=== PATIENT | female | born 1975 | race Caucasian/White ===

== ENCOUNTER → 2018-01-06 14:43 | Outpatient (CLI) | payer MEDICAID, SELFPAY ==
[2018-01-06 14:51] LABS: Mucous, Urine 0 SEEN /hpf (<or=2+); Red Blood Cells-Urine 0 SEEN /hpf (0-5); White Blood Cells 0 SEEN /hpf (0-5)
[2018-01-06 17:51] LABS: Color, Urine Yellow (Yellow); Glucose, Dipstick Normal (Normal); Ketone-Dipstick 5 mg/dl (Negative); Leukocyte Esterase-Dipstick Negative /ul (Negative); Nitrite-Dipstick Negative (Negative); Occult Blood-Urine 10 /ul (Negative); Protein-Dipstick 15 mg/dl (Negative); Urine Bilirubin Dipstick Negative (Negative); Urine Urobilinogen Normal (Normal)
[2018-01-06 17:52] LABS: Urine Clarity Cloudy (Clear)
[2018-01-06 18:11] LABS: Bacteria 1+ /hpf (None Seen); Calcium Oxalate Crystals Ur 2+ /hpf (<or=2+); Squamous Epithelial Cells - UA 5-10 SEEN /hpf (5-10)
[2018-01-06 18:49] LABS: Chlamydia Trachomatis by PCR Negative (Negative); Neisserai gonorrhoeae by PCR Negative (Negative); Probe Check PASS; Sample Adequacy Control PASS; Specimen Processing Control PASS
--- OUTSIDE RECORDS SUMMARY | 2018-03-03 14:12 | XMS RPT_ITS ---
:1975 Author Organization OHIP Care Team Providers Name Role Phone Joselin Treviño Attending Unavailable VAZQUEZ, REJI Yadira Attending Unavailable VAZQUEZ, REJI L Referring Unavailable ARMOGIDA, FLACO A Attending Unavailable VAZQUEZ, REJI L Attending Unavailable VAZQUEZ, REJI L Referring Unavailable CORNIELLO, CYNTHIA Yadira ([facility]) Attending Unavailable VAZQUEZ, REJI L Referring Unavailable ISABEL YOUNG Referring Unavailable ARMOGIDA, FLACO A Attending Unavailable VAZQUEZ, REJI L Referring Unavailable CORNIELLO, CYNTHIA L ([facility] CONTACT PERSON) Attending Unavailable CORNIELLO, CYNTHIA L (FIELD CONTACT PERSON) Referring Unavailable CORNIELLO, CYNTHIA L (FIELD CONTACT PERSON) Referring Unavailable VAZQUEZ, REJI L Attending Unavailable VAZQUEZ, REJI L Referring Unavailable DORIE ESPINOZA) Attending Unavailable VAZQUEZ, REJI L Referring Unavailable KASIA WALDEN ([facility]) Attending Unavailable VAZQUEZ, REJI L Attending Unavailable VAZQUEZ, REJI L Referring Unavailable PODLOGWILFRID RENDON (JULIOCESAR) Referring Unavailable ARMOGIDA, FLACO A Referring Unavailable ARMOGIDA, FLACO A Referring Unavailable ARMOGIDA, FLACO A Attending Unavailable ARMOGIDA, FLACO A Referring Unavailable VAZQUEZ, REJI L Referring Unavailable VAZQUEZ, REJI L Referring Unavailable NATHAN, WILFREDO Attending Unavailable WILFREDO EVANS Referring Unavailable ARMOGIDA, FLACO A Attending Unavailable VAZQUEZ, REJI L Referring Unavailable VAZQUEZ, REJI L Attending Unavailable VAZQUEZ, REJI L Referring Unavailable PROBLEMS PROBLEMS DATE TYPE CONDITION / CODE ATTENDING STATUS SOURCE 01/06/2018 Unknown Z11.3 - Encounter [place], Active [place] for screening for [facility] infections with a Hospital predominantly Repository sexual mode of transmission / Z11.3(ICD-10) 01/06/2018 Unknown N39.0 - Urinary [place], Active [place] tract infection, [facility] site not specified Hospital / N39.0(ICD-10) Repository 01/06/2018 Unknown Z34.81 - Encounter [place], Active [place] for supervision of [facility] other normal Hospital , first Repository trimester / Z34.81(ICD-10) 12/27/2017 Active Other abnormal NA Active [facility] glucose / [facility] [place] R73.09(ICD-10) Repository 12/27/2017 Active Other obesity / NA Active [facility] E66.8(ICD-10) [facility] [place] Repository 12/27/2017 Active Vitamin D NA Active [facility] deficiency, [facility] [place] unspecified / Repository E55.9(ICD-10) 11/21/2017 Active Generalized NA Active [facility] abdominal pain / [facility] [place] R10.84(ICD-10) Repository 11/08/2017 Active Mild persistent NA Active [facility] asthma with (acute) [facility] [place] exacerbation / Repository J45.31(ICD-10) 10/18/2017 Active Generalized anxiety NA Active [facility] disorder / [facility] [place] F41.1(ICD-10) Repository 10/18/2017 Active Other fatigue / NA Active [facility] R53.83(ICD-10) [facility] [place] Repository 10/18/2017 Active Nausea / NA Active [facility] R11.0(ICD-10) [facility] [place] Repository 10/18/2017 Active Paresthesia of skin NA Active [facility] / R20.2(ICD-10) [facility] [place] Repository 09/22/2017 Active Secondary NA Active [facility] amenorrhea / [facility] [place] N91.1(ICD-10) Repository 07/05/2017 Active Frequency of NA Active [facility] micturition / [facility] [place] R35.0(ICD-10) Repository 05/01/2014 Active Iron deficiency / NA Active [facility] E61.1(ICD-10) [facility] [place] Repository 02/08/2014 Active Nontoxic NA Active [facility] multinodular goiter [facility] [place] / E04.2(ICD-10) Repository 07/05/2017 Active Dizziness and NA Active [facility] giddiness / [facility] [place] R42(ICD-10) Repository 05/31/2017 Active Cough / R05(ICD-10) NA Active [facility] Repository 03/08/2017 Active Unknown / ARMOGIDA, Active [facility] UNK(Unknown) FLACO A [facility] [place] Repository PROCEDURES PROCEDURES No Procedure Records FoundRESULTS RESULTS PROGRESS Observed: 01/24/2018 Status: COMPLETED Source: [place] 1:14 PM [facility] REPOSITORY HNO ID: [id number] Author: Reji Vazquez Service: (none) Author Type: Physician Type: Progress Notes Filed: 01/24/2018 1:22 PM Note Text: CC: Mony Zhang is a 42 year old female who presents to the office for 3 months follow up HPI: Overall doing well Irritability, anxiety and depression, she is on increased dose of Effexor per TELEVISION JOURNALIST due to increased emotional changes with recent change of now being 12 weeks . Her and her boyfriend are very much looking forward to this baby being born/due in August Sinus pressure and congestion x 2-3 weeks, no fevers or chills. Taking tylenol without improvement, + sick contacts with dtr ill with Croup PAST MEDICAL HISTORY Diagnosis Date - Allergic rhinitis, cause unspecified - Anemia - Depression - Extrinsic asthma, unspecified - Fibromyalgia - Gestational diabetes 2016 - Hypoglycemia - IBS (irritable bowel syndrome) - Migraine headache Dr. Varghese Neurologist - Multiple thyroid nodules Dr. Evans Junior Account Manager - Obstructive sleep apnea on CPAP, Dr. Núñez - [facility] - PAST MEDICAL HISTORY OF Tarsal tunnel - Psoriatic arthritis (HCC) PAST SURGICAL HISTORY Procedure Laterality Date - COLONOSCOP W/ OR W/O [facility] Colonoscopy - COLONOSCOP W/ OR W/O [facility] 03/15/13 Colonoscopy [facility] Dr. Borden - EGD W/O OR W/BRUSH/WASH EGD - PAST SURGICAL HISTORY OF 2004 sinus surgery - REMOVAL GALLBLADDER 2007 Cholecystectomy Current Outpatient Prescriptions: albuterol (PROVENTIL) 2.5 mg /3 mL (0.083 %) nebulizer solution One ampule nebulized every 4 hours as needed for cough, wheezing, chest tightness or shortness of breath. albuterol HFA (VENTOLIN HFA) 90 mcg/actuation inhaler Inhale 2 Puffs as instructed every 4 hours as needed (May also use 15 minutes pre-exercise). ammonium lactate (LAC-HYDRIN) 12 % cream Apply 1 application to affected area as needed (for bumps on the arms). budesonide (RHINOCORT AQUA) 32 mcg/actuation nasal spray Use 2 Sprays in each nostril once daily. budesonide-formoterol (SYMBICORT) 80-4.5 mcg/actuation inhaler Inhale 2 Puffs as instructed twice daily. Use with spacer. Rinse mouth out after use. calcium carbonate (CALTRATE) 600 mg (1,500 mg) tab TAKE ONE TABLET TWICE DAILY Cetirizine (ZYRTEC) 10 mg cap Take 1 capsule by mouth once daily as needed. cetirizine-pseudoephedrine (ZYRTEC-D) 5-120 mg per tablet Take 1 tablet by mouth twice daily as needed. Cholecalciferol, Vitamin D3, (VITAMIN D) 1,000 unit cap Take 1 capsule by mouth once daily. Clobetasol Propionate (TEMOVATE) 0.05 % external solution Apply 1 application to affected area once daily as needed (for scaling on the scalp). fluticasone (FLONASE) 50 mcg/actuation nasal spray Use 2 Sprays in each nostril once daily. Rinse mouth after use. ketoconazole (NIZORAL) 2 % shampoo Wash scalp daily as needed. Leave on 5-10 minutes before rinsing off lansoprazole (PREVACID) 30 mg capsule TAKE 1 CAPSULE BY MOUTH ONCE DAILY. lansoprazole (PREVACID) 30 mg capsule Take 1 capsule by mouth once daily. meclizine (ANTIVERT) 25 mg tab Take 1 tablet by mouth twice daily. metFORMIN ER (GLUCOPHAGE XR) 500 mg 24 hr tablet Take 1 tablet by mouth once daily. Nebulizer Accessories kit Please dispense nebulizer accessories kit (tubing, mouthpiece, mask etc.) Dx. Mild persistent asthma with acute exacerbation J45.31 prochlorperazine (COMPAZINE) 10 mg tablet Take 1 tablet at the onset of headache and 30 mins after to a maximum of 3 tablets/day Sulfacetamide Sodium 10 % sham Apply 1 application to affected area once daily. SUMAtriptan (IMITREX) 50 mg tablet Take 1 tablet by mouth as needed for Migraine Headache (see administration instructions). at onset of headache. May repeat after 2 hours. venlafaxine ER (EFFEXOR XR) 37.5 mg 24 hr capsule Take 1 capsule by mouth once daily. azithromycin (ZITHROMAX Z-QIAN) 250 mg tablet Take 2 tablets day one, then, 1 tablet daily until gone. No current facility-administered medications for this visit. ALLERGIES Allergen Reactions - Environmental Aller* Dogs, cats, and dust mites. Social History Marital status: Single Spouse name: Years of education: Number of children: Social History Main Topics Smoking status: Never Smoker Smokeless tobacco: Never Used Alcohol use: Yes Comment: occasionally Drug use: No ROS: See HPI. PE: BP 120/60 Pulse 80 Temp (Src) 98.7 (Right Tympanic) Resp 20 Wt 233 lb (105.7kg) LMP 10/08/2017 Gen: AANDOX3, NAD, non-toxic appearing HEENT: PERRLA, EOMs intact b/l, nares with congestion and anterior drainage, pharynx without erythema, exudate, lesions, + yellow post nasal drainage. Uvula midline. EAC and TM normal b/l Neck: No LAD, no thyromegaly, no meningismus. CV: RRR, no murmur Lungs: CTA b/l, no wheezing Skin: No rashes, lesions, or wounds on exposed skin. No edema, normal pulses ASSESSMENT/PLAN: 1. Current moderate episode of major depressive disorder without prior episode (HCC) - ICD9: 296.22, ICD10: F32.1 (primary diagnosis) - continue same medication, recently adjusted per TELEVISION JOURNALIST, no mood concerns 2. 12 weeks gestation of - ICD9: V22.2, ICD10: Z3A.12 - f/u with OBGYN Dr. Ashly Padilla 3. Anxiety disorder, unspecified type - ICD9: 300.00, ICD10: F41.9 - see above Reji Vazquez DO Return if no improvement. Follow up with Reji Vazquez DO. Discussed risks, benefits, alternatives, and potential side effects of medications. Patient/Guardian expressed understanding and agreed with the plan. See patient instructions. Reji Vazquez DO [address] [place] [address] CNOV Observed: 01/24/2018 Status: COMPLETED Source: [place] 12:40 PM [facility] Office Visit (FAMPWS) MONY ZHANG ([id number]) 1975 F Date Time Provider Department 01/24/18 12:40 PM REJI VAZQUEZ During your visit today, we recorded the following information about you: Temperature Pulse Respiration Blood pressure 98.7 degrees 80/minute 20/minute 120/60 Weight 105.7 kg Reji Vazquez DO 01/24/2018 1:22 PM Signed CC: Mony Zhang is a 42 year old female who presents to the office for 3 months follow up HPI: Overall doing well Irritability, anxiety and depression, she is on increased dose of Effexor per TELEVISION JOURNALIST due to increased emotional changes with recent change of now being 12 weeks . Her and her boyfriend are very much looking forward to this baby being born/due in August Sinus pressure and congestion x 2-3 weeks, no fevers or chills. Taking tylenol without improvement, + sick contacts with dtr ill with Croup PAST MEDICAL HISTORY Diagnosis Date - Allergic rhinitis, cause unspecified - Anemia - Depression - Extrinsic asthma, unspecified - Fibromyalgia - Gestational diabetes 2015 - Hypoglycemia - IBS (irritable bowel syndrome) - Migraine headache Dr. Varghese Neurologist - Multiple thyroid nodules Dr. Evans Junior Account Manager - Obstructive sleep apnea on CPAP, Dr. Núñez - [facility] - PAST MEDICAL HISTORY OF Tarsal tunnel - Psoriatic arthritis (HCC) PAST SURGICAL HISTORY Procedure Laterality Date - COLONOSCOP W/ OR W/O [facility] Colonoscopy - COLONOSCOP W/ OR W/O [facility] 03/15/13 Colonoscopy [facility] Dr. Borden - EGD W/O OR W/BRUSH/WASH EGD - PAST SURGICAL HISTORY OF 2004 sinus surgery - REMOVAL GALLBLADDER 2007 Cholecystectomy Current Outpatient Prescriptions: albuterol (PROVENTIL) 2.5 mg /3 mL (0.083 %) nebulizer solution One ampule nebulized every 4 hours as needed for cough, wheezing, chest tightness or shortness of breath. albuterol HFA (VENTOLIN HFA) 90 mcg/actuation inhaler Inhale 2 Puffs as instructed every 4 hours as needed (May also use 15 minutes pre-exercise). ammonium lactate (LAC-HYDRIN) 12 % cream Apply 1 application to affected area as needed (for bumps on the arms). budesonide (RHINOCORT AQUA) 32 mcg/actuation nasal spray Use 2 Sprays in each nostril once daily. budesonide-formoterol (SYMBICORT) 80-4.5 mcg/actuation inhaler Inhale 2 Puffs as instructed twice daily. Use with spacer. Rinse mouth out after use. calcium carbonate (CALTRATE) 600 mg (1,500 mg) tab TAKE ONE TABLET TWICE DAILY Cetirizine (ZYRTEC) 10 mg cap Take 1 capsule by mouth once daily as needed. cetirizine-pseudoephedrine (ZYRTEC-D) 5-120 mg per tablet Take 1 tablet by mouth twice daily as needed. Cholecalciferol, Vitamin D3, (VITAMIN D) 1,000 unit cap Take 1 capsule by mouth once daily. Clobetasol Propionate (TEMOVATE) 0.05 % external solution Apply 1 application to affected area once daily as needed (for scaling on the scalp). fluticasone (FLONASE) 50 mcg/actuation nasal spray Use 2 Sprays in each nostril once daily. Rinse mouth after use. ketoconazole (NIZORAL) 2 % shampoo Wash scalp daily as needed. Leave on 5-10 minutes before rinsing off lansoprazole (PREVACID) 30 mg capsule TAKE 1 CAPSULE BY MOUTH ONCE DAILY. lansoprazole (PREVACID) 30 mg capsule Take 1 capsule by mouth once daily. meclizine (ANTIVERT) 25 mg tab Take 1 tablet by mouth twice daily. metFORMIN ER (GLUCOPHAGE XR) 500 mg 24 hr tablet Take 1 tablet by mouth once daily. Nebulizer Accessories kit Please dispense nebulizer accessories kit (tubing, mouthpiece, mask etc.) Dx. Mild persistent asthma with acute exacerbation J45.31 prochlorperazine (COMPAZINE) 10 mg tablet Take 1 tablet at the onset of headache and 30 mins after to a maximum of 3 tablets/day Sulfacetamide Sodium 10 % sham Apply 1 application to affected area once daily. SUMAtriptan (IMITREX) 50 mg tablet Take 1 tablet by mouth as needed for Migraine Headache (see administration instructions). at onset of headache. May repeat after 2 hours. venlafaxine ER (EFFEXOR XR) 37.5 mg 24 hr capsule Take 1 capsule by mouth once daily. azithromycin (ZITHROMAX Z-QIAN) 250 mg tablet Take 2 tablets day one, then, 1 tablet daily until gone. No current facility-administered medications for this visit. ALLERGIES Allergen Reactions - Environmental Aller* Dogs, cats, and dust mites. Social History Marital status: Single Spouse name: Years of education: Number of children: Social History Main Topics Smoking status: Never Smoker Smokeless tobacco: Never Used Alcohol use: Yes Comment: occasionally Drug use: No ROS: See HPI. PE: BP 120/60 Pulse 80 Temp (Src) 98.7 (Right Tympanic) Resp 20 Wt 233 lb (105.7kg) LMP 10/08/2017 Gen: AANDOX3, NAD, non-toxic appearing HEENT: PERRLA, EOMs intact b/l, nares with congestion and anterior drainage, pharynx without erythema, exudate, lesions, + yellow post nasal drainage. Uvula midline. EAC and TM normal b/l Neck: No LAD, no thyromegaly, no meningismus. CV: RRR, no murmur Lungs: CTA b/l, no wheezing Skin: No rashes, lesions, or wounds on exposed skin. No edema, normal pulses ASSESSMENT/PLAN: 1. Current moderate episode of major depressive disorder without prior episode (HCC) - ICD9: 296.22, ICD10: F32.1 (primary diagnosis) - continue same medication, recently adjusted per TELEVISION JOURNALIST, no mood concerns 2. 12 weeks gestation of - ICD9: V22.2, ICD10: Z3A.12 - f/u with OBGYN Dr. Ashly Padilla 3. Anxiety disorder, unspecified type - ICD9: 300.00, ICD10: F41.9 - see above Reji Vazquez DO Return if no improvement. Follow up with Reji Vazquez DO. Discussed risks, benefits, alternatives, and potential side effects of medications. Patient/Guardian expressed understanding and agreed with the plan. See patient instructions. Reji Vazquez DO [address] [place] [address] Referring Provider: REJI VAZQUEZ [[id number]] Allergies As of Date: 01/24/2018 Noted Allergy Reaction Environmental allergies [Other] 10/13/2006 Comments: Dogs, cats, and dust mites. Date Reviewed: 01/24/2018 Reviewed by: Ariana Nassar LPN - Fully Assessed Reason for Visit: Follow Up [171] Cmt: 3 months Primary Visit Diagnosis:Current moderate episode of major depressive disorder without prior episode (HCC) [F32.1] Other Visit Diagnoses:12 weeks gestation of [Z3A.12] Anxiety disorder, unspecified type [F41.9] Order(s):azithromycin (ZITHROMAX Z-QIAN) 250 mg tabletTake 2 tablets day one, then, 1 tablet daily until gone.Disp: 1 PackageRfl: 0 Prescriptions as of 01/24/2018 Sig: ALBUTEROL SULFATE 2.5 MG/3 ML* One ampule nebulized every 4 * ALBUTEROL SULFATE HFA 90 MCG/* Inhale 2 Puffs as instructed * AMMONIUM LACTATE 12 % TOPICAL* Apply 1 application to affect* BUDESONIDE 32 MCG/ACTUATION N* Use 2 Sprays in each nostril * BUDESONIDE-FORMOTEROL HFA 80 * Inhale 2 Puffs as instructed * CALCIUM CARBONATE 600 MG CALC* TAKE ONE TABLET TWICE DAILY CETIRIZINE 10 MG CAPSULE Take 1 capsule by mouth once * CETIRIZINE 5 MG-PSEUDOEPHEDRI* Take 1 tablet by mouth twice * CHOLECALCIFEROL (VITAMIN D3) * Take 1 capsule by mouth once * CLOBETASOL 0.05 % SCALP SOLUT* Apply 1 application to affect* FLUTICASONE 50 MCG/ACTUATION * Use 2 Sprays in each nostril * KETOCONAZOLE 2 % SHAMPOO Wash scalp daily as needed. L* LANSOPRAZOLE 30 MG CAPSULE,DE* TAKE 1 CAPSULE BY MOUTH ONCE * LANSOPRAZOLE 30 MG CAPSULE,DE* Take 1 capsule by mouth once * MECLIZINE 25 MG TABLET Take 1 tablet by mouth twice * METFORMIN ER 500 MG TABLET,EX* Take 1 tablet by mouth once d* NEBULIZER ACCESSORIES KIT Please dispense nebulizer acc* PROCHLORPERAZINE MALEATE 10 M* Take 1 tablet at the onset of* SULFACETAMIDE SODIUM 10 % SHA* Apply 1 application to affect* SUMATRIPTAN 50 MG TABLET Take 1 tablet by mouth as nee* VENLAFAXINE ER 37.5 MG CAPSUL* Take 1 capsule by mouth once * AZITHROMYCIN 250 MG TABLET Take 2 tablets day one, then,* Problem List As Of Date 01/24/2018 Noted Resolved Allergic rhinitis [J30.9] Extrinsic asthma [J45.909] Fibromyalgia [M79.7] INVALID FOR* Psoriasis arthropathica (HCC) [L40.50] INVALID FOR*09/25/2015 RLS (restless legs syndrome) [G25.81] INVALID FOR* MK AHI 12.7 46R [G47.33] INVALID FOR* More... Multiple thyroid nodules [E04.2] INVALID FOR* Chronic pain [G89.29] INVALID FOR* Multiple falls [R29.6] INVALID FOR* Iron deficiency [E61.1] INVALID FOR* Other pain disorders related to psychological f*INVALID FOR* Depression [F32.9] INVALID FOR* [F41.0] INVALID FOR* Anxiety disorder [F41.9] INVALID FOR* Lumbago [M54.5] INVALID FOR* Pain in joint, pelvic region and thigh [M25.559]INVALID FOR* Pain in limb [M79.609] INVALID FOR* [Z34.90] INVALID FOR*04/12/2016 Psoriatic arthritis (HCC) [L40.50] INVALID FOR* Sciatica, right side [M54.31] INVALID FOR* Moderate single current episode of major depres*INVALID FOR* Allergic rhinitis due to animal hair and dander*INVALID FOR* Allergic rhinitis due to dust mite [J30.89] INVALID FOR* Prescriptions ordered this encounter Disp Refills Start End AZITHROMYCIN 250 MG TABLET 1 Pa* 0 01/24/2018 01/29/2018 Sig: Take 2 tablets day one, then, 1 tablet daily until gone. Encounter Status:Closed by REJI VAZQUEZ DO on 01/24/18 PROGRESS Observed: 01/10/2018 Status: COMPLETED Source: [place] 5:26 PM [facility] HNO ID: [id number] Author: Flaco Jacob Service: (none) Author Type: Physician Type: Progress Notes Filed: 01/13/2018 8:47 PM Note Text: This is a 42 year-old white female with a history of allergic rhinitis (cats, dogs, and dust mites), mild persistent asthma, and GERD who presents for a follow-up visit. Her last visit was November 08, 2017. Currently 9 weeks . She complains of increased nasal congestion. Rhinocort AQ was prescribed but requires preapproval through her insurance. She notes increased shortness of breath with activity. She had similar symptoms during her last . Denies wheezing, chest tightness and shortness of breath. Denies nocturnal awakenings due to respiratory symptoms. Infrequent albuterol use. Denies treatment with additional courses of corticosteroids since her last visit. Denies emergency room visits or hospitalizations since her last visit. She continues Prevacid 30 mg daily with good control of her GERD symptoms. Established with GI. Dust mite precautions are instituted in the home. There are 2 cats and one dog in the home. The dog is restricted from the bedroom. Daughter, Linda, is 2 yr old. Son, Edie, graduate of [employer]. Daughter Karthik currently lives in a detention. (She had a follow-up appointment with sleep medicine on 04/15/15.. Recommended that she continue to sleep on her side during . Will try to resume CPAP .) (S/p balloon procedure to open her sinuses by [facility] in 2012. No subsequent sinus infections. She previously received immunotherapy for several years through [facility].) REVIEW OF SYSTEMS:Negative for night sweats and unintentional weight loss. Negative for skin rash and skin lesions Review of systems otherwise negative. PAST MEDICAL HISTORY: Asthma, allergic rhinitis, GERD, migraine headaches, anemia, depression, carpal tunnel syndrome. ACTIVE PROBLEM LIST Allergic Rhinitis Extrinsic Asthma Fibromyalgia Rls (Restless Legs Syndrome) MK AHI 12.7 46R Multiple Thyroid Nodules Chronic Pain Multiple Falls Iron Deficiency Other Pain Disorders Related to Psychological Factors Depression Anxiety Disorder Lumbago Pain in Joint, Pelvic Region and Thigh Pain in Limb Psoriatic Arthritis (Hcc) Sciatica, Right Side Moderate Single Current Episode of Major Depressive Disorder (Hcc) Allergic Rhinitis Due to Animal Hair and Dander Allergic Rhinitis Due to Dust Mite PHYSICAL EXAM: General appearance: Alert, pleasant female in no acute distress. HEENT: NC/AT. Right TM erythematous. Left TM clear. . Conjunctivae clear each eye. Mild edema of the nasal mucosa with scant yellow secretions visible bilaterally. Oropharyngeal exam within normal limits. . No exudate. Neck: Supple. No lymphadenopathy. Lungs: Clear to auscultation bilaterally. No wheezes, rales, or rhonchi. CV: Regular rate and rhythm. No murmurs, gallops, or rubs. Abdomen: Soft, nontender/nondistended, no masses or hepatosplenomegaly. Extremities: No clubbing, cyanosis, or edema. Skin: No lesions. Spirometry on November 08, 2017: FVC is mildly impaired. Otherwise normal. Spirometry on October 23, 2015: 33% improvement in FEF 25-75% postbronchodilator. Otherwise normal. [place] on 03/26/2014: FVC is mildly impaired. Otherwise normal. Exhaled nitric oxide on November 08, 2017: 19 PPB Exhaled nitric oxide on October 23, 2015: 22 PPB (intermediate) Dulce Maria on 03/26/2014: 13 ppb (low/normal) ASSESSMENT AND PLAN: It is my impression that Mony has allergic rhinitis (cats, dogs, and dust mites) and mild persistent asthma, well-controlled. Currently . Will try to preauthorize Rhinocort AQ 2 sprays each nostril once daily with her insurance. If this is denied, will recommend that she resume use of fluticasone nasal spray. Continue Symbicort 80?4.5 2 puffs twice daily on a regular basis. Use with spacer and rinse mouth out after use. Continue Zyrtec 10 mg once daily as needed. Continue albuterol hfa inhaler (Proventil, Ventolin, Proair) with spacer 2 puffs or albuterol one ampule (2.5 mg) every four hours as needed for cough, wheezing, chest tightness or shortness of breath. May also use 2 puffs 15-20 minutes pre-exercise. Pneumovax and annual influenza vaccine were administered on November 08, 2017 Potential side effects of medications and use of these medications during were discussed with patient. Follow-up in 3 months and as needed. Flaco Jacob MD CNOV Observed: 01/10/2018 Status: COMPLETED Source: [place] 1:[address] [facility] [place] REPOSITORY Office Visit (ALLMED) MONY ZHANG ([id number]) 1975 F Date Time Provider Department 01/10/18 1:30 PM FLACO JACOB During your visit today, we recorded the following information about you: Pulse Blood pressure Weight 94/minute 113/68 106.6 kg Sandy Sims RN 01/10/2018 1:35 PM Signed Patient here for med check with new . Complaining of constant sinus pressure. Flaco Jacob MD 01/10/2018 1:59 PM Signed My nurses will try to get rhinocort aq preapproved for you- use 2 sprays to each nostril once daily. If this is not approved, continue fluticasone nasal spray Flaco Jacob MD 01/13/2018 8:47 PM Signed This is a 42 year-old white female with a history of allergic rhinitis (cats, dogs, and dust mites), mild persistent asthma, and GERD who presents for a follow-up visit. Her last visit was November 08, 2017. Currently 9 weeks . She complains of increased nasal congestion. Rhinocort AQ was prescribed but requires preapproval through her insurance. She notes increased shortness of breath with activity. She had similar symptoms during her last . Denies wheezing, chest tightness and shortness of breath. Denies nocturnal awakenings due to respiratory symptoms. Infrequent albuterol use. Denies treatment with additional courses of corticosteroids since her last visit. Denies emergency room visits or hospitalizations since her last visit. She continues Prevacid 30 mg daily with good control of her GERD symptoms. Established with GI. Dust mite precautions are instituted in the home. There are 2 cats and one dog in the home. The dog is restricted from the bedroom. Daughter, Lidna, is 2 yr old. Son, Edie, graduate of [employer]. Daughter Karthik currently lives in a detention. (She had a follow-up appointment with sleep medicine on 04/15/15.. Recommended that she continue to sleep on her side during . Will try to resume CPAP .) (S/p balloon procedure to open her sinuses by [facility] in 2012. No subsequent sinus infections. She previously received immunotherapy for several years through [facility].) REVIEW OF SYSTEMS:Negative for night sweats and unintentional weight loss. Negative for skin rash and skin lesions Review of systems otherwise negative. PAST MEDICAL HISTORY: Asthma, allergic rhinitis, GERD, migraine headaches, anemia, depression, carpal tunnel syndrome. ACTIVE PROBLEM LIST Allergic Rhinitis Extrinsic Asthma Fibromyalgia Rls (Restless Legs Syndrome) MK AHI 12.7 46R Multiple Thyroid Nodules Chronic Pain Multiple Falls Iron Deficiency Other Pain Disorders Related to Psychological Factors Depression Anxiety Disorder Lumbago Pain in Joint, Pelvic Region and Thigh Pain in Limb Psoriatic Arthritis (Hcc) Sciatica, Right Side Moderate Single Current Episode of Major Depressive Disorder (Hcc) Allergic Rhinitis Due to Animal Hair and Dander Allergic Rhinitis Due to Dust Mite PHYSICAL EXAM: General appearance: Alert, pleasant female in no acute distress. HEENT: NC/AT. Right TM erythematous. Left TM clear. . Conjunctivae clear each eye. Mild edema of the nasal mucosa with scant yellow secretions visible bilaterally. Oropharyngeal exam within normal limits. . No exudate. Neck: Supple. No lymphadenopathy. Lungs: Clear to auscultation bilaterally. No wheezes, rales, or rhonchi. CV: Regular rate and rhythm. No murmurs, gallops, or rubs. Abdomen: Soft, nontender/nondistended, no masses or hepatosplenomegaly. Extremities: No clubbing, cyanosis, or edema. Skin: No lesions. Spirometry on November 08, 2017: FVC is mildly impaired. Otherwise normal. Spirometry on October 23, 2015: 33% improvement in FEF 25-75% postbronchodilator. Otherwise normal. Mino on 03/26/2014: FVC is mildly impaired. Otherwise normal. Exhaled nitric oxide on November 08, 2017: 19 PPB Exhaled nitric oxide on October 23, 2015: 22 PPB (intermediate) Dulce Maria on 03/26/2014: 13 ppb (low/normal) ASSESSMENT AND PLAN: It is my impression that Mony has allergic rhinitis (cats, dogs, and dust mites) and mild persistent asthma, well-controlled. Currently . Will try to preauthorize Rhinocort AQ 2 sprays each nostril once daily with her insurance. If this is denied, will recommend that she resume use of fluticasone nasal spray. Continue Symbicort 80?4.5 2 puffs twice daily on a regular basis. Use with spacer and rinse mouth out after use. Continue Zyrtec 10 mg once daily as needed. Continue albuterol hfa inhaler (Proventil, Ventolin, Proair) with spacer 2 puffs or albuterol one ampule (2.5 mg) every four hours as needed for cough, wheezing, chest tightness or shortness of breath. May also use 2 puffs 15-20 minutes pre-exercise. Pneumovax and annual influenza vaccine were administered on November 08, 2017 Potential side effects of medications and use of these medications during were discussed with patient. Follow-up in 3 months and as needed. Flaco Jacob MD Referring Provider: REJI VAZQUEZ [[id number]] Allergies As of Date: 01/10/2018 Noted Allergy Reaction Environmental allergies [Other] 10/13/2006 Comments: Dogs, cats, and dust mites. Date Reviewed: 01/10/2018 Reviewed by: Flaco Jacob - Fully Assessed Reason for Visit: Establish Care [42] Cmt: med check with Primary Visit Diagnosis:Mild persistent asthma without complication [J45.30] Other Visit Diagnoses:Allergic rhinitis due to animal hair and dander [J30.81] Allergic rhinitis due to dust mite [J30.89] Prescriptions as of 01/10/2018 Sig: BUDESONIDE 32 MCG/ACTUATION N* Use 2 Sprays in each nostril * CETIRIZINE 10 MG CAPSULE Take 10 mg by mouth once mia* BUDESONIDE-FORMOTEROL HFA 80 * Inhale 2 Puffs as instructed * SULFACETAMIDE SODIUM 10 % SHA* Apply 1 application to affect* KETOCONAZOLE 2 % SHAMPOO Wash scalp daily as needed. L* CLOBETASOL 0.05 % SCALP SOLUT* Apply 1 application to affect* AMMONIUM LACTATE 12 % TOPICAL* Apply 1 application to affect* LANSOPRAZOLE 30 MG CAPSULE,DE* TAKE 1 CAPSULE BY MOUTH ONCE * MECLIZINE 25 MG TABLET Take 1 tablet by mouth twice * NEBULIZER ACCESSORIES KIT Please dispense nebulizer acc* ALBUTEROL SULFATE HFA 90 MCG/* Inhale 2 Puffs as instructed * PROCHLORPERAZINE MALEATE 10 M* Take 1 tablet at the onset of* FLUTICASONE 50 MCG/ACTUATION * Use 2 Sprays in each nostril * ALBUTEROL SULFATE 2.5 MG/3 ML* One ampule nebulized every 4 * CHOLECALCIFEROL (VITAMIN D3) * Take 1 capsule by mouth once * CALCIUM CARBONATE 600 MG CALC* TAKE ONE TABLET TWICE DAILY SUMATRIPTAN 50 MG TABLET Take 1 tablet by mouth as nee* VENLAFAXINE ER 37.5 MG CAPSUL* Take 1 capsule by mouth once * CETIRIZINE 5 MG-PSEUDOEPHEDRI* Take 1 tablet by mouth twice * METFORMIN ER 500 MG TABLET,EX* Take 1 tablet by mouth once d* LANSOPRAZOLE 30 MG CAPSULE,DE* Take 1 capsule by mouth once * Problem List As Of Date 01/10/2018 Noted Resolved Allergic rhinitis [J30.9] Extrinsic asthma [J45.909] Fibromyalgia [M79.7] INVALID FOR* Psoriasis arthropathica (HCC) [L40.50] INVALID FOR*09/25/2015 RLS (restless legs syndrome) [G25.81] INVALID FOR* MK AHI 12.7 46R [G47.33] INVALID FOR* More... Multiple thyroid nodules [E04.2] INVALID FOR* Chronic pain [G89.29] INVALID FOR* Multiple falls [R29.6] INVALID FOR* Iron deficiency [E61.1] INVALID FOR* Other pain disorders related to psychological f*INVALID FOR* Depression [F32.9] INVALID FOR* [F41.0] INVALID FOR* Anxiety disorder [F41.9] INVALID FOR* Lumbago [M54.5] INVALID FOR* Pain in joint, pelvic region and thigh [M25.559]INVALID FOR* Pain in limb [M79.609] INVALID FOR* [Z34.90] INVALID FOR*04/12/2016 Psoriatic arthritis (HCC) [L40.50] INVALID FOR* Sciatica, right side [M54.31] INVALID FOR* Moderate single current episode of major depres*INVALID FOR* Allergic rhinitis due to animal hair and dander*INVALID FOR* Allergic rhinitis due to dust mite [J30.89] INVALID FOR* Other instructions from your clinician: My nurses will try to get rhinocort aq preapproved for you- use 2 sprays to each nostril once daily. If this is not approved, continue fluticasone nasal spray Visit Notes: >> Sandy Medina Jan 10, 2018 1:33 PM Status: Signed Patient here for med check with new . Complaining of constant sinus pressure. Medications Discontinued During This Encounter loratadine (CLARITIN) 10 mg tablet 30 t* 11 11/09/2017 01/10/2018 Sig: TAKE 1 TABLET BY MOUTH ONCE DAILY NEEDED (FOR ITCHING, SNEEZING OR RUNNY NOSE). Disc: Cost of medication ALLERGY RELIEF-D, CETIRIZINE, 5-120 * 48 t* 0 08/31/2017 01/10/2018 Route: ORAL Sig: TAKE 1 TABLET BY MOUTH TWICE DAILY NEEDED. Disc: Reason for discontinue is not on file. Disposition: Return in about 3 months (around 04/10/2018). Follow-up and Disposition History Recorded Questionnaire: ASTHMA CONTROL TEST Last 4 weeks, your asthma limited your activity at work or home: -> 2 MOST OF THE TIME Past 4 weeks, how often have you had shortness of breath? -> 1 MORE THAN ONCE A DAY Past 4 weeks: Asthma symptoms woke you at night or earlier than usual? -> 5 NOT AT ALL Past 4 weeks: How often did you use rescue inhaler or nebulizer med? -> 5 NOT AT ALL Rate your Asthma Control during the past 4 weeks: -> 4 WELL CONTROLLED ACT TOTAL SCORE: -> 17 Encounter Status:Closed by FLACO JACOB MD on 01/13/18 URINALYSIS, COMPLETE Collected: 01/06/2018 Status: F Source: [place] 1:30 PM [facility] REPOSITORY Order Comment: How was Urine Obtained? CLEAN CATCH TYPE CODE TESTS RESULT OUT OF RANGE REFERENCE UNITS LAB L400.3000 Yellow COLOR Normal Yellow LAB L400.3050 Clear Normal CLARITY Cloudy LAB L400.3200 Normal mg/dl Normal GLUCOSE, UR Normal LAB L400.3300 Negative mg/dL Normal BILIRUBIN URINE Negative LAB L400.3400 Negative mg/dl High 5 KETONE UR LAB L400.3465 1.002-1.030 Normal SP.GR. DIPSTX 1.030 LAB L400.3550 5.0 - 8.0 pH UR Normal 5.0 LAB L400.3600 Negative mg/dl High PROT 15 DIPSTX LAB L400.3700 Normal mg/dl Normal UROBILI Normal LAB L400.3750 Negative Normal NITRITE UR Negative LAB L400.3780 Negative /ul High 10 OCCULT BLOOD-UR LAB L400.3800 Negative /ul LEUK Normal ESTERASE Negative LAB L400.4050 0-5 /hpf WBC 0 Normal SEEN LAB L400.4100 0-5 /hpf 0 Normal RBC-UA SEEN LAB L400.4150 5-10 /hpf SQUAM Normal EPI 5-10 SEEN LAB L400.4300 None Seen /hpf 1+ Normal BACTERIA LAB L400.4350 <or=2+ /hpf 0 Normal MUCUS, URINE SEEN LAB L400.4700 <or=2+ /hpf CA OX 2+ Normal CRYSTAL Performed By: #### L400.0001 #### [facility] [address] [place], [address] CT/NG WCH BY PCR Collected: 01/06/2018 Status: F Source: [place] 1:30 PM [facility] REPOSITORY TYPE CODE TESTS RESULT OUT OF RANGE REFERENCE UNITS LAB L8200.2100 Negative Normal Chlam Negative Trac PCR LAB L8200.2200 Negative Normal NG by Negative PCR Performed By: #### L8200.2000 #### [facility] [address] [place], [address] Observed: 01/06/2018 Status: F Source: [place] CULTURE, URINE 1:30 PM [facility] REPOSITORY Urine Culture ORGANISM 1: Mixed Gram Positive Organisms Dazey Count 1000-10,000 MIX CULTURE Mixed contaminants. Submit a new specimen if indicated. Performed By: #### M100.0650 #### [facility] [address] [place], [place], [address] CBC Collected: 12/27/2017 Status: F Source: [place] 2:[address] [facility] REPOSITORY TYPE CODE TESTS RESULT OUT OF REFERENCE UNITS RANGE LAB WBC 3.70-11.00 k/uL WBC High 12.85 LAB RBC 3.90-5.20 m/uL RBC 4.45 LAB HGB 11.5-15.5 g/dL Hemoglobin 12.9 LAB HCT 36.0-46.0 % Hematocrit 38.4 LAB MCV 80.0-100.0 fL MCV 86.3 LAB MCH 26.0-34.0 pG MCH 29.0 LAB MCHC 30.5-36.0 g/dL MCHC 33.6 LAB RDWCV 11.5-15.0 % RDW-CV 13.4 LAB PLTCT 150-400 k/uL Platelet Count 310 LAB MPV 9.0-12.7 fL MPV 11.0 Performed By: #### CBC #### [facility] [address] [facility] [phone] #### TSH, FT4, HBA1C #### [facility] [address] [place], [place] [address] TSH Collected: 12/27/2017 Status: F Source: [place] 2:24 PM [facility] REPOSITORY TYPE CODE TESTS RESULT OUT OF RANGE REFERENCE UNITS LAB TSH 0.400-5.500 uU/mL TSH 0.718 Result Comment: If the patient is , TSH reference range varies by gestational period: First Trimester 0.100-2.500 uU/mL Second Trimester 0.200-3.000 uU/mL Third Trimester 0.300-3.000 uU/mL References: 1. Emerson L, Shelton M, Jeff EK, et al. Management of Thyroid Dysfunction during and : An Endocrine Society Clinical Practice Guideline. J Clin Endocrinol Metab, 2012:97:2570-9707. 2. Kenny SANON. Overview of thyroid disease in . UpToDate. 2016. Accessed on July 25, 2015. Performed By: #### CBC #### [facility] [address] [place] [address] #### TSH, FT4, HBA1C #### [facility] [address] [place], [place] [address] FREE T4 Collected: 12/27/2017 Status: F Source: [place] 2:24 PM [facility] REPOSITORY TYPE CODE TESTS RESULT OUT OF RANGE REFERENCE UNITS LAB FT4 0.9-1.7 ng/dL Free T4 1.0 Performed By: #### CBC #### [facility] [address] [place] [phone] #### TSH, FT4, HBA1C #### [facility] [address] [place] [address] HEMOGLOBIN A1C Collected: 12/27/2017 Status: F Source: [place] 2:24 PM [facility] REPOSITORY TYPE CODE TESTS RESULT OUT OF REFERENCE UNITS RANGE LAB HGBA1C 4.3-5.6 % Hemoglobin A1c 5.4 Result Comment: [place] [employer] guidelines indicate that patients with HgbA1c in the range 5.7-6.4% are at increased risk for development of diabetes, and intervention by lifestyle modification may be beneficial. HgbA1c greater or equal to 6.5% is considered diagnostic of diabetes. LAB HBA0 mg/dL Est. Average Glucose 108 Result Comment: eAG: (Estimated average glucose) is a calculated value from HgbA1c and is sales representative advertising of the average blood glucose level in the last 2-3 month period. Performed By: #### CBC #### [facility] [address] [place] [phone] #### TSH, FT4, HBA1C #### [place] [id number] [place] [address] PROGRESS Observed: 12/27/2017 Status: COMPLETED Source: [place] 1:45 PM [facility] REPOSITORY HNO ID: [id number] Author: Wilfredo Evans Service: (none) Author Type: Physician Type: Progress Notes Filed: 12/27/2017 3:31 PM Note Text: Last Visit: December 20, 2016 Reason for Follow up: thyroid Nodules/mass HISTORY OF PRESENT ILLNESS; Ms. Zhang is a 42 year old woman came for follow up visit regarding Goiter and Nodules/mass . She was initially diagnosed with a thyroid disorder at age 28yrs ago. She is followed by US thyroid every year. Last US thyroid was last year. At age 36 she had one cysts grown in size so she underwent US guided FNA which was benign as per pt. She wants to establish a new care with us. She was suspected to have hypothyroid in the past but follow up with lab showed normal TFTs and never needed any meds. In 2012 se was diagnosed to have chronic fatigue syndrome and psoriatic arthritis and always on pain. December 22, 2015: now she has 5 months old child, last time when we had seen her she was in her first trimester, had h/o gestation DM was controlled with glyburide, now borderline DM-2, left ankle sprain, tired due to lack of sleep, taking Vit D, calcium and iron. December 20, 2016: was taking Effexor and was not working, so recently chenged to Wellbutrin and felling lot better, not on any meds for blood sugar, dong well, doing exercise 30 mins per day 5 days per week, not following specific diet but watching her portion size. Still taking Vits, still breat feeding. Also taking extra iron to help with restless leg syndrome. December 27, 2017: just found out that she is probably about 7 weeks, feeling nausea and fatigue, could be from , had lot of stomach cramps, and diarrhea so she stopped taking metformin in Oct 2017. Severity, modifying factors, context and associated signs and symptoms are as follows: December 27, 2017 ? Thyroid pain: no ? Mass effect: better still occasional local discomfort and sometimes chock on nothing ? Energy: low ? Sleep: restless now using C-PAP ? Temperature Intolerance: still mild heat ? TELEVISION JOURNALIST: now 7 weeks ? GI: lately more diarrhea, but as she is she feels more towards constipation. ? Weight: stable since ? Eyes: normal ? Memory: good ? Diaphoresis: none ? Skin: still some dry, but no more rash and itching ? Neuro: better than before no more migraine headaches, but occasional dizziness and numbness or tingling of hands, ? History of thyroid disorder: yes, paternal grand mother - goiter, but no cancer PAST MEDICAL HISTORY Diagnosis Date - Allergic rhinitis, cause unspecified - Anemia - Depression - Extrinsic asthma, unspecified - Fibromyalgia - Gestational diabetes 2016 - Hypoglycemia - IBS (irritable bowel syndrome) - Migraine headache Dr. Varghese Neurologist - Multiple thyroid nodules Dr. Evans Junior Account Manager - Obstructive sleep apnea on CPAP, Dr. Núñez - [facility] - PAST MEDICAL HISTORY OF Tarsal tunnel - Psoriatic arthritis (HCC) PAST SURGICAL HISTORY Procedure Laterality Date - COLONOSCOP W/ OR W/O BRS SPEC Colonoscopy - COLONOSCOP W/ OR W/O BRSH SPEC 03/15/13 Colonoscopy [facility] Dr. Borden - EGD W/O OR W/BRUSH/WASH EGD - PAST SURGICAL HISTORY OF 2004 sinus surgery - REMOVAL GALLBLADDER 2008 Cholecystectomy FAMILY HISTORY Problem Relation Age of Onset - Cancer Maternal Grandfather melanoma - Heart Maternal Grandfather - Cancer Maternal Grandmother PANCREAS/BCC or SCC - Cancer Paternal Grandfather melanoma Family and social history reviewed and updated in the system. SOCIAL HISTORY Social History Substance Use Topics - Smoking status: Never Smoker - Smokeless tobacco: Never Used - Alcohol use Yes Comment: occasionally Current Outpatient Prescriptions: loratadine (CLARITIN) 10 mg tablet TAKE 1 TABLET BY MOUTH ONCE DAILY NEEDED (FOR ITCHING, SNEEZING OR RUNNY NOSE). Disp: 30 tablet Rfl: 11 Cetirizine (ZYRTEC) 10 mg cap Take 10 mg by mouth once daily. Disp: Rfl: budesonide-formoterol (SYMBICORT) 80-4.5 mcg/actuation inhaler Inhale 2 Puffs as instructed twice daily. Use with spacer. Rinse mouth out after use. Disp: 1 Inhaler Rfl: 11 venlafaxine ER (EFFEXOR XR) 37.5 mg 24 hr capsule Take 1 capsule by mouth once daily. Disp: 30 capsule Rfl: 5 Sulfacetamide Sodium 10 % sham Apply 1 application to affected area once daily. Disp: 237 mL Rfl: 5 ketoconazole (NIZORAL) 2 % shampoo Wash scalp daily as needed. Leave on 5-10 minutes before rinsing off Disp: 120 mL Rfl: 5 ALLERGY RELIEF-D, CETIRIZINE, 5-120 mg per tablet TAKE 1 TABLET BY MOUTH TWICE DAILY NEEDED. Disp: 48 tablet Rfl: 0 Clobetasol Propionate (TEMOVATE) 0.05 % external solution Apply 1 application to affected area once daily as needed (for scaling on the scalp). Disp: 60 mL Rfl: 6 ammonium lactate (LAC-HYDRIN) 12 % cream Apply 1 application to affected area as needed (for bumps on the arms). Disp: 385 g Rfl: 5 lansoprazole (PREVACID) 30 mg capsule Take 1 capsule by mouth once daily. Disp: 30 capsule Rfl: 4 Nebulizer Accessories kit Please dispense nebulizer accessories kit (tubing, mouthpiece, mask etc.) Dx. Mild persistent asthma with acute exacerbation J45.31 Disp: 1 Kit Rfl: 2 albuterol HFA (VENTOLIN HFA) 90 mcg/actuation inhaler Inhale 2 Puffs as instructed every 4 hours as needed (May also use 15 minutes pre-exercise). Disp: 1 Inhaler Rfl: 1 prochlorperazine (COMPAZINE) 10 mg tablet Take 1 tablet at the onset of headache and 30 mins after to a maximum of 3 tablets/day Disp: 30 tablet Rfl: 4 fluticasone (FLONASE) 50 mcg/actuation nasal spray Use 2 Sprays in each nostril once daily. Rinse mouth after use. Disp: 1 Bottle Rfl: 11 albuterol (PROVENTIL) 2.5 mg /3 mL (0.083 %) nebulizer solution One ampule nebulized every 4 hours as needed for cough, wheezing, chest tightness or shortness of breath. Disp: 75 Vial Rfl: 3 Cholecalciferol, Vitamin D3, (VITAMIN D) 1,000 unit cap Take 1 capsule by mouth once daily. Disp: Rfl: 0 calcium carbonate (CALTRATE) 600 mg (1,500 mg) tab TAKE ONE TABLET TWICE DAILY Disp: 60 tablet Rfl: 5 SUMAtriptan (IMITREX) 50 mg tablet Take 1 tablet by mouth as needed for Migraine Headache (see administration instructions). at onset of headache. May repeat after 2 hours. Disp: 9 tablet Rfl: 2 cetirizine-pseudoephedrine (ZYRTEC-D) 5-120 mg per tablet Take 1 tablet by mouth twice daily as needed. Disp: 60 tablet Rfl: 9 metFORMIN ER (GLUCOPHAGE XR) 500 mg 24 hr tablet Take 1 tablet by mouth once daily. Disp: 90 tablet Rfl: 1 lansoprazole (PREVACID) 30 mg capsule TAKE 1 CAPSULE BY MOUTH ONCE DAILY. Disp: 30 capsule Rfl: 4 meclizine (ANTIVERT) 25 mg tab Take 1 tablet by mouth twice daily. Disp: 28 tablet Rfl: 0 No current facility-administered medications for this visit. ALLERGIES ALLERGIES Allergen Reactions - Environmental Aller* Dogs, cats, and dust mites. REVIEW OF SYSTEMS: December 27, 2017 SYSTEMIC: low energy, stable weight, mild heat intolerance EYES: normal NECK: still some discomfort RESPIRATORY: normal CARDIOVASCULAR: normal GASTRO-INTESTINAL: occasional nausea NEUROLOGICAL: less dizziness and numbness b/l hand and feet MUSCULOSKELETAL: still Joint pain both shoulder(s), elbow(s), wrist(s), hip(s), knee(s) and ankle(s) and Back pain -lower SKIN: some dryness but no rash, or itching PSYCHIATRIC: much better with effexor didn't respond well on wellbutrin LIBIDO: not asked SEXUAL-REPRODUCTIVE: not asked All other systems: non-contributory PHYSICAL EXAM: BP 142/80 (BP Site: Left Arm, BP Position: Sitting, BP Cuff Size: Regular Adult) Pulse 94 Ht 170.5 cm (5' 7.13) Wt 105.1 kg (231 lb 12.8 oz) LMP 10/08/2017 (Exact Date) SpO2 98% BMI 36.17 kg/m2 December 27, 2017 General: alert, in no acute distress, well-hydrated, well nourished., obese Eyes: OLIMPIA, extra occular movements normal Oropharynx: Lips, mucosa, and tongue normal, teeth and gums normal, oropharynx normal Thyroid: granular Thyroid size: RIGHT SIDE ENLARGEMENT Heart: RRR without murmur, gallop, or rubs. No ectopy Lungs: Lungs clear to auscultation. No wheezing, rhonchi, rales Abdomen: soft, non-tender, positive bowel sounds Extremities: normal exam of the extremities, no edema present, no deformities Neuro: Awake, alert and oriented x 3, No involuntary motions. and Reflexes symmetrical Skin: color, texture, turgor normal, no rashes or lesions DATA: Component Latest Ref Rng AND Units 10/18/2017 Hemoglobin A1C 4.3 - 5.6 % 5.4 Estimated Average Glucose mg/dL 108 TSH 0.400 - 5.500 uU/mL 1.040 Component Latest Ref Rng AND Units 03/05/2016 04/06/2016 04/23/2016 07/09/2016 10/28/2016 WBC 3.70 - 11.00 k/uL 7.21 RBC 3.90 - 5.20 m/uL 4.52 Hemoglobin 11.5 - 15.5 g/dL 12.7 Hematocrit 36.0 - 46.0 % 39.0 MCV 80.0 - 100.0 fL 86.3 MCH 26.0 - 34.0 pG 28.1 MCHC 30.5 - 36.0 g/dL 32.6 RDW-CV 11.5 - 15.0 % 13.1 Platelet Count 150 - 400 k/uL 292 MPV 9.0 - 12.7 fL 11.0 Neut% % 37.3 Abs Neut (ANC) 1.45 - 7.50 k/uL 2.69 Lymph% % 49.9 Abs Lymph 1.00 - 4.00 k/uL 3.60 Wise% % 7.1 Abs Wise 0.00 - 0.86 k/uL 0.51 Eosin% % 5.3 Abs Eosin 0.00 - 0.45 k/uL 0.38 Baso% % 0.4 Abs Baso 0.00 - 0.10 k/uL 0.03 Diff Type Auto Diff Protein, Total 6.3 - 8.0 g/dL 7.0 7.7 7.9 Albumin 3.9 - 4.9 g/dL 4.0 4.2 4.3 Calcium 8.5 - 10.2 mg/dL 8.3 (L) 9.5 Bilirubin, Total 0.2 - 1.3 mg/dL 0.2 0.2 0.2 Alkaline Phosphatase 32 - 117 U/L 92 113 102 AST 13 - 35 U/L 26 21 23 Glucose 74 - 99 mg/dL 72 (L) 76 BUN 7 - 21 mg/dL 9 9 Creatinine 0.58 - 0.96 mg/dL 0.71 0.70 Sodium 136 - 144 mmol/L 145 (H) 141 Potassium 3.7 - 5.1 mmol/L 3.9 4.0 Chloride 97 - 105 mmol/L 106 (H) 101 CO2 22 - 30 mmol/L 26 25 Anion Gap 9 - 18 mmol/L 13 15 ALT 7 - 38 U/L 110 (H) 48 (H) 25 eGFR >60 eGFR-All Other Races . >60 >60 eGFR- >60 Bilirubin, Conjug <0.2 mg/dL <0.2 Hemoglobin A1C 4.3 - 5.6 % 5.7 (H) Estimated Average Glucose mg/dL 117 , Urine neg - pos neg Quality Check yes/no Yes WSR 0 - 20 mm/hr 12 CRP <0.9 mg/dL 0.4 Component Latest Ref Rng 08/18/2015 WBC 3.70 - 11.00 k/uL 10.86 RBC 3.90 - 5.20 m/uL 4.59 Hemoglobin 11.5 - 15.5 g/dL 12.3 Hematocrit 36.0 - 46.0 % 39.3 MCV 80.0 - 100.0 fL 85.6 MCH 26.0 - 34.0 pG 26.8 MCHC 30.5 - 36.0 g/dL 31.3 RDW-CV 11.5 - 15.0 % 14.1 Platelet Count 150 - 400 k/uL 356 MPV 9.0 - 12.7 fL 11.1 Hemoglobin A1C 4.3 - 5.6 % 5.2 Estimated Average Glucose 103 RADIOLOGY: US Thyroid was done, 12/21/2016 ?3:29 PM - Interface, Results In Impression IMPRESSION: Enlarged heterogeneous thyroid gland with multiple subcentimeter nodules is suggestive of multinodular goiter. ?The etiology of each individual nodule is nonspecific. Wire Fence Erector: BILLY ? Transcribe Date/Time: Dec 21 2016 11:42A Dictated by : LASHAE MCCALL MD ASSESSMENT: Ms. Zhang is a 42 year old woman came for follow up visit regarding thyroid Nodules/mass and few other medical concerns as below. RECOMMENDATIONS: (E04.2) Multiple thyroid nodules (primary encounter diagnosis) Comment: pathophysiology AND treatment options discussed. Clinically and by exam stable. Obtain US thyroid to establish sonograhic stability. Obtain thyroid labs to exclude thyroid dysfunction. Plan: TSH BLD, T4 FREE/FREE THYROX, CBC, US THYROID/PARATHYROID (R73.09) Impaired glucose metabolism Comment: pathophysiology AND treatment options discussed. Was on metformin in the past, that time her hemoglobin A1c came down from 5.7- 5.4. Since then she stopped taking metformin. However, now she is following diet and doing exercise. We'll recheck her hemoglobin A1c. Plan: HGB A1C, CBC (E61.1) Iron deficiency Comment: check level AND Rx as needed. Plan: CBC (E66.8) Constitutional obesity Comment: pathophysiology AND treatment options discussed. Diet, exercise and food supplement discussed. Plan: CBC (E55.9) Vitamin D deficiency Comment: on vit D. clinically stable on current Rx. continue current Rx. Plan: LAUREEN Evans MD December 27, 2017 CNOV Observed: 12/27/2017 Status: COMPLETED Source: [place] 1:25 PM [facility] REPOSITORY Office Visit (ENDMED) MONY ZHANG ([id number]) 1975 F Date Time Provider Department 12/27/17 1:25 PM WILFREDO EVANS During your visit today, we recorded the following information about you: Pulse Blood pressure Weight Height 94/minute 142/80 105.1 kg 1.705 m Wilfredo Evans MD 12/27/2017 3:31 PM Signed Last Visit: December 20, 2016 Reason for Follow up: thyroid Nodules/mass HISTORY OF PRESENT ILLNESS; Ms. Zhang is a 42 year old woman came for follow up visit regarding Goiter and Nodules/mass . She was initially diagnosed with a thyroid disorder at age 28yrs ago. She is followed by US thyroid every year. Last US thyroid was last year. At age 36 she had one cysts grown in size so she underwent US guided FNA which was benign as per pt. She wants to establish a new care with us. She was suspected to have hypothyroid in the past but follow up with lab showed normal TFTs and never needed any meds. In 2012 se was diagnosed to have chronic fatigue syndrome and psoriatic arthritis and always on pain. December 22, 2015: now she has 5 months old child, last time when we had seen her she was in her first trimester, had h/o gestation DM was controlled with glyburide, now borderline DM-2, left ankle sprain, tired due to lack of sleep, taking Vit D, calcium and iron. December 20, 2016: was taking Effexor and was not working, so recently chenged to Wellbutrin and felling lot better, not on any meds for blood sugar, dong well, doing exercise 30 mins per day 5 days per week, not following specific diet but watching her portion size. Still taking Vits, still breat feeding. Also taking extra iron to help with restless leg syndrome. December 27, 2017: just found out that she is probably about 7 weeks, feeling nausea and fatigue, could be from , had lot of stomach cramps, and diarrhea so she stopped taking metformin in Oct 2017. Severity, modifying factors, context and associated signs and symptoms are as follows: December 27, 2017 ? Thyroid pain: no ? Mass effect: better still occasional local discomfort and sometimes chock on nothing ? Energy: low ? Sleep: restless now using C-PAP ? Temperature Intolerance: still mild heat ? TELEVISION JOURNALIST: now 7 weeks ? GI: lately more diarrhea, but as she is she feels more towards constipation. ? Weight: stable since ? Eyes: normal ? Memory: good ? Diaphoresis: none ? Skin: still some dry, but no more rash and itching ? Neuro: better than before no more migraine headaches, but occasional dizziness and numbness or tingling of hands, ? History of thyroid disorder: yes, paternal grand mother - goiter, but no cancer PAST MEDICAL HISTORY Diagnosis Date - Allergic rhinitis, cause unspecified - Anemia - Depression - Extrinsic asthma, unspecified - Fibromyalgia - Gestational diabetes 2016 - Hypoglycemia - IBS (irritable bowel syndrome) - Migraine headache Dr. Varghese Neurologist - Multiple thyroid nodules Dr. Evans Junior Account Manager - Obstructive sleep apnea on CPAP, Dr. Núñez - [facility] - PAST MEDICAL HISTORY OF Tarsal tunnel - Psoriatic arthritis (HCC) PAST SURGICAL HISTORY Procedure Laterality Date - COLONOSCOP W/ OR W/O [facility] SPEC Colonoscopy - COLONOSCOP W/ OR W/O [facility] SPEC 03/15/13 Colonoscopy [facility] Dr. Borden - EGD W/O OR W/BRUSH/WASH EGD - PAST SURGICAL HISTORY OF 2004 sinus surgery - REMOVAL GALLBLADDER 2007 Cholecystectomy FAMILY HISTORY Problem Relation Age of Onset - Cancer Maternal Grandfather melanoma - Heart Maternal Grandfather - Cancer Maternal Grandmother PANCREAS/BCC or SCC - Cancer Paternal Grandfather melanoma Family and social history reviewed and updated in the system. SOCIAL HISTORY Social History Substance Use Topics - Smoking status: Never Smoker - Smokeless tobacco: Never Used - Alcohol use Yes Comment: occasionally Current Outpatient Prescriptions: loratadine (CLARITIN) 10 mg tablet TAKE 1 TABLET BY MOUTH ONCE DAILY NEEDED (FOR ITCHING, SNEEZING OR RUNNY NOSE). Disp: 30 tablet Rfl: 11 Cetirizine (ZYRTEC) 10 mg cap Take 10 mg by mouth once daily. Disp: Rfl: budesonide-formoterol (SYMBICORT) 80-4.5 mcg/actuation inhaler Inhale 2 Puffs as instructed twice daily. Use with spacer. Rinse mouth out after use. Disp: 1 Inhaler Rfl: 11 venlafaxine ER (EFFEXOR XR) 37.5 mg 24 hr capsule Take 1 capsule by mouth once daily. Disp: 30 capsule Rfl: 5 Sulfacetamide Sodium 10 % sham Apply 1 application to affected area once daily. Disp: 237 mL Rfl: 5 ketoconazole (NIZORAL) 2 % shampoo Wash scalp daily as needed. Leave on 5-10 minutes before rinsing off Disp: 120 mL Rfl: 5 ALLERGY RELIEF-D, CETIRIZINE, 5-120 mg per tablet TAKE 1 TABLET BY MOUTH TWICE DAILY NEEDED. Disp: 48 tablet Rfl: 0 Clobetasol Propionate (TEMOVATE) 0.05 % external solution Apply 1 application to affected area once daily as needed (for scaling on the scalp). Disp: 60 mL Rfl: 6 ammonium lactate (LAC-HYDRIN) 12 % cream Apply 1 application to affected area as needed (for bumps on the arms). Disp: 385 g Rfl: 5 lansoprazole (PREVACID) 30 mg capsule Take 1 capsule by mouth once daily. Disp: 30 capsule Rfl: 4 Nebulizer Accessories kit Please dispense nebulizer accessories kit (tubing, mouthpiece, mask etc.) Dx. Mild persistent asthma with acute exacerbation J45.31 Disp: 1 Kit Rfl: 2 albuterol HFA (VENTOLIN HFA) 90 mcg/actuation inhaler Inhale 2 Puffs as instructed every 4 hours as needed (May also use 15 minutes pre-exercise). Disp: 1 Inhaler Rfl: 1 prochlorperazine (COMPAZINE) 10 mg tablet Take 1 tablet at the onset of headache and 30 mins after to a maximum of 3 tablets/day Disp: 30 tablet Rfl: 4 fluticasone (FLONASE) 50 mcg/actuation nasal spray Use 2 Sprays in each nostril once daily. Rinse mouth after use. Disp: 1 Bottle Rfl: 11 albuterol (PROVENTIL) 2.5 mg /3 mL (0.083 %) nebulizer solution One ampule nebulized every 4 hours as needed for cough, wheezing, chest tightness or shortness of breath. Disp: 75 Vial Rfl: 3 Cholecalciferol, Vitamin D3, (VITAMIN D) 1,000 unit cap Take 1 capsule by mouth once daily. Disp: Rfl: 0 calcium carbonate (CALTRATE) 600 mg (1,500 mg) tab TAKE ONE TABLET TWICE DAILY Disp: 60 tablet Rfl: 5 SUMAtriptan (IMITREX) 50 mg tablet Take 1 tablet by mouth as needed for Migraine Headache (see administration instructions). at onset of headache. May repeat after 2 hours. Disp: 9 tablet Rfl: 2 cetirizine-pseudoephedrine (ZYRTEC-D) 5-120 mg per tablet Take 1 tablet by mouth twice daily as needed. Disp: 60 tablet Rfl: 9 metFORMIN ER (GLUCOPHAGE XR) 500 mg 24 hr tablet Take 1 tablet by mouth once daily. Disp: 90 tablet Rfl: 1 lansoprazole (PREVACID) 30 mg capsule TAKE 1 CAPSULE BY MOUTH ONCE DAILY. Disp: 30 capsule Rfl: 4 meclizine (ANTIVERT) 25 mg tab Take 1 tablet by mouth twice daily. Disp: 28 tablet Rfl: 0 No current facility-administered medications for this visit. ALLERGIES ALLERGIES Allergen Reactions - Environmental Aller* Dogs, cats, and dust mites. REVIEW OF SYSTEMS: December 27, 2017 SYSTEMIC: low energy, stable weight, mild heat intolerance EYES: normal NECK: still some discomfort RESPIRATORY: normal CARDIOVASCULAR: normal GASTRO-INTESTINAL: occasional nausea NEUROLOGICAL: less dizziness and numbness b/l hand and feet MUSCULOSKELETAL: still Joint pain both shoulder(s), elbow(s), wrist(s), hip(s), knee(s) and ankle(s) and Back pain -lower SKIN: some dryness but no rash, or itching PSYCHIATRIC: much better with effexor didn't respond well on wellbutrin LIBIDO: not asked SEXUAL-REPRODUCTIVE: not asked All other systems: non-contributory PHYSICAL EXAM: BP 142/80 (BP Site: Left Arm, BP Position: Sitting, BP Cuff Size: Regular Adult) Pulse 94 Ht 170.5 cm (5' 7.13) Wt 105.1 kg (231 lb 12.8 oz) LMP 10/08/2017 (Exact Date) SpO2 98% BMI 36.17 kg/m2 December 27, 2017 General: alert, in no acute distress, well-hydrated, well nourished., obese Eyes: OLIMPIA, extra occular movements normal Oropharynx: Lips, mucosa, and tongue normal, teeth and gums normal, oropharynx normal Thyroid: granular Thyroid size: RIGHT SIDE ENLARGEMENT Heart: RRR without murmur, gallop, or rubs. No ectopy Lungs: Lungs clear to auscultation. No wheezing, rhonchi, rales Abdomen: soft, non-tender, positive bowel sounds Extremities: normal exam of the extremities, no edema present, no deformities Neuro: Awake, alert and oriented x 3, No involuntary motions. and Reflexes symmetrical Skin: color, texture, turgor normal, no rashes or lesions DATA: Component Latest Ref Rng AND Units 10/18/2017 Hemoglobin A1C 4.3 - 5.6 % 5.4 Estimated Average Glucose mg/dL 108 TSH 0.400 - 5.500 uU/mL 1.040 Component Latest Ref Rng AND Units 03/05/2016 04/06/2016 04/23/2016 07/09/2016 10/28/2016 WBC 3.70 - 11.00 k/uL 7.21 RBC 3.90 - 5.20 m/uL 4.52 Hemoglobin 11.5 - 15.5 g/dL 12.7 Hematocrit 36.0 - 46.0 % 39.0 MCV 80.0 - 100.0 fL 86.3 MCH 26.0 - 34.0 pG 28.1 MCHC 30.5 - 36.0 g/dL 32.6 RDW-CV 11.5 - 15.0 % 13.1 Platelet Count 150 - 400 k/uL 292 MPV 9.0 - 12.7 fL 11.0 Neut% % 37.3 Abs Neut (ANC) 1.45 - 7.50 k/uL 2.69 Lymph% % 49.9 Abs Lymph 1.00 - 4.00 k/uL 3.60 Wise% % 7.1 Abs Wise 0.00 - 0.86 k/uL 0.51 Eosin% % 5.3 Abs Eosin 0.00 - 0.45 k/uL 0.38 Baso% % 0.4 Abs Baso 0.00 - 0.10 k/uL 0.03 Diff Type Auto Diff Protein, Total 6.3 - 8.0 g/dL 7.0 7.7 7.9 Albumin 3.9 - 4.9 g/dL 4.0 4.2 4.3 Calcium 8.5 - 10.2 mg/dL 8.3 (L) 9.5 Bilirubin, Total 0.2 - 1.3 mg/dL 0.2 0.2 0.2 Alkaline Phosphatase 32 - 117 U/L 92 113 102 AST 13 - 35 U/L 26 21 23 Glucose 74 - 99 mg/dL 72 (L) 76 BUN 7 - 21 mg/dL 9 9 Creatinine 0.58 - 0.96 mg/dL 0.71 0.70 Sodium 136 - 144 mmol/L 145 (H) 141 Potassium 3.7 - 5.1 mmol/L 3.9 4.0 Chloride 97 - 105 mmol/L 106 (H) 101 CO2 22 - 30 mmol/L 26 25 Anion Gap 9 - 18 mmol/L 13 15 ALT 7 - 38 U/L 110 (H) 48 (H) 25 eGFR >60 eGFR-All Other Races . >60 >60 eGFR- >60 Bilirubin, Conjug <0.2 mg/dL <0.2 Hemoglobin A1C 4.3 - 5.6 % 5.7 (H) Estimated Average Glucose mg/dL 117 , Urine neg - pos neg Quality Check yes/no Yes WSR 0 - 20 mm/hr 12 CRP <0.9 mg/dL 0.4 Component Latest Ref Rng 08/18/2015 WBC 3.70 - 11.00 k/uL 10.86 RBC 3.90 - 5.20 m/uL 4.59 Hemoglobin 11.5 - 15.5 g/dL 12.3 Hematocrit 36.0 - 46.0 % 39.3 MCV 80.0 - 100.0 fL 85.6 MCH 26.0 - 34.0 pG 26.8 MCHC 30.5 - 36.0 g/dL 31.3 RDW-CV 11.5 - 15.0 % 14.1 Platelet Count 150 - 400 k/uL 356 MPV 9.0 - 12.7 fL 11.1 Hemoglobin A1C 4.3 - 5.6 % 5.2 Estimated Average Glucose 103 RADIOLOGY: US Thyroid was done, 12/21/2016 ?3:29 PM - Interface, Results In Impression IMPRESSION: Enlarged heterogeneous thyroid gland with multiple subcentimeter nodules is suggestive of multinodular goiter. ?The etiology of each individual nodule is nonspecific. Wire Fence Erector: BILLY ? Transcribe Date/Time: Dec 21 2016 11:42A Dictated by : LASHAE MCCALL MD ASSESSMENT: Ms. Zhang is a 42 year old woman came for follow up visit regarding thyroid Nodules/mass and few other medical concerns as below. RECOMMENDATIONS: (E04.2) Multiple thyroid nodules (primary encounter diagnosis) Comment: pathophysiology AND treatment options discussed. Clinically and by exam stable. Obtain US thyroid to establish sonograhic stability. Obtain thyroid labs to exclude thyroid dysfunction. Plan: TSH BLD, T4 FREE/FREE THYROX, CBC, US THYROID/PARATHYROID (R73.09) Impaired glucose metabolism Comment: pathophysiology AND treatment options discussed. Was on metformin in the past, that time her hemoglobin A1c came down from 5.7- 5.4. Since then she stopped taking metformin. However, now she is following diet and doing exercise. We'll recheck her hemoglobin A1c. Plan: HGB A1C, CBC (E61.1) Iron deficiency Comment: check level AND Rx as needed. Plan: CBC (E66.8) Constitutional obesity Comment: pathophysiology AND treatment options discussed. Diet, exercise and food supplement discussed. Plan: CBC (E55.9) Vitamin D deficiency Comment: on vit D. clinically stable on current Rx. continue current Rx. Plan: CBC Wilfredo Evans MD December 27, 2017 Referring Provider: SELF [[id number]] Allergies As of Date: 12/27/2017 Noted Allergy Reaction Environmental allergies [Other] 10/13/2006 Comments: Dogs, cats, and dust mites. Date Reviewed: 12/27/2017 Reviewed by: Andrews Montez Ma - Fully Assessed Reason for Visit: Thyroid Problem [110] Primary Visit Diagnosis:Multiple thyroid nodules [E04.2] Other Visit Diagnoses:Impaired glucose metabolism [R73.09] Iron deficiency [E61.1] Constitutional obesity [E66.8] Vitamin D deficiency [E55.9] Order(s):HGB A1C [WKYTL8T] Order #: [id number] FUTURE TSH BLD [SQTSH] Order #: [id number] FUTURE T4 FREE/FREE THYROX [SQFT4] Order #: [id number] FUTURE CBC [SQCBC] Order #: [id number] FUTURE US THYROID/PARATHYROID [7233740] Order #: [id number] FUTURE Prescriptions as of 12/27/2017 Sig: LORATADINE 10 MG TABLET TAKE 1 TABLET BY MOUTH ONCE D* CETIRIZINE 10 MG CAPSULE Take 10 mg by mouth once mia* BUDESONIDE-FORMOTEROL HFA 80 * Inhale 2 Puffs as instructed * VENLAFAXINE ER 37.5 MG CAPSUL* Take 1 capsule by mouth once * SULFACETAMIDE SODIUM 10 % SHA* Apply 1 application to affect* KETOCONAZOLE 2 % SHAMPOO Wash scalp daily as needed. L* ALLERGY RELIEF-D (CETIRIZINE)* TAKE 1 TABLET BY MOUTH TWICE * CLOBETASOL 0.05 % SCALP SOLUT* Apply 1 application to affect* AMMONIUM LACTATE 12 % TOPICAL* Apply 1 application to affect* LANSOPRAZOLE 30 MG CAPSULE,DE* Take 1 capsule by mouth once * NEBULIZER ACCESSORIES KIT Please dispense nebulizer acc* ALBUTEROL SULFATE HFA 90 MCG/* Inhale 2 Puffs as instructed * PROCHLORPERAZINE MALEATE 10 M* Take 1 tablet at the onset of* FLUTICASONE 50 MCG/ACTUATION * Use 2 Sprays in each nostril * ALBUTEROL SULFATE 2.5 MG/3 ML* One ampule nebulized every 4 * CHOLECALCIFEROL (VITAMIN D3) * Take 1 capsule by mouth once * CALCIUM CARBONATE 600 MG CALC* TAKE ONE TABLET TWICE DAILY SUMATRIPTAN 50 MG TABLET Take 1 tablet by mouth as nee* CETIRIZINE 5 MG-PSEUDOEPHEDRI* Take 1 tablet by mouth twice * METFORMIN ER 500 MG TABLET,EX* Take 1 tablet by mouth once d* LANSOPRAZOLE 30 MG CAPSULE,DE* TAKE 1 CAPSULE BY MOUTH ONCE * MECLIZINE 25 MG TABLET Take 1 tablet by mouth twice * Problem List As Of Date 12/27/2017 Noted Resolved Allergic rhinitis [J30.9] Extrinsic asthma [J45.909] Fibromyalgia [M79.7] INVALID FOR* Psoriasis arthropathica (HCC) [L40.50] INVALID FOR*09/25/2015 RLS (restless legs syndrome) [G25.81] INVALID FOR* MK AHI 12.7 46R [G47.33] INVALID FOR* More... Multiple thyroid nodules [E04.2] INVALID FOR* Chronic pain [G89.29] INVALID FOR* Multiple falls [R29.6] INVALID FOR* Iron deficiency [E61.1] INVALID FOR* Other pain disorders related to psychological f*INVALID FOR* Depression [F32.9] INVALID FOR* [F41.0] INVALID FOR* Anxiety disorder [F41.9] INVALID FOR* Lumbago [M54.5] INVALID FOR* Pain in joint, pelvic region and thigh [M25.559]INVALID FOR* Pain in limb [M79.609] INVALID FOR* [Z34.90] INVALID FOR*04/12/2016 Psoriatic arthritis (HCC) [L40.50] INVALID FOR* Sciatica, right side [M54.31] INVALID FOR* Moderate single current episode of major depres*INVALID FOR* Allergic rhinitis due to animal hair and dander*INVALID FOR* Allergic rhinitis due to dust mite [J30.89] INVALID FOR* Disposition: Return in about 6 months (around 06/26/2018). Follow-up and Disposition History Recorded Encounter Status:Closed by WILFREDO EVANS MD on 12/27/17 CNCO Observed: 12/15/2017 Status: COMPLETED Source: [place] 12:00 AM [facility] REPOS[facility] Letter Text [facility] [place] 12/15/2017 Dear Ms. Zhang, Due to a change in Kasia Walden CNP's schedule, your appointment on 01/06/2018 at 9:40am has been cancelled. We apologize for any inconvenience this may cause; please feel free to contact the office through [employer] or by phone at [phone] to reschedule this appointment. Sincerely, Your Care Team PROGRESS Observed: 11/21/2017 Status: COMPLETED Source: [place] 2:40 PM [facility] REPOS[facility] HNO ID: [id number] Author: Joie Ngo Service: (none) Author Type: (none) Type: Progress Notes Filed: 11/21/2017 2:40 PM Note Text: Radiology Service Progress Note PATIENT NAME: Mony Zhang DATE OF SERVICE: November 21, 2017 TIME: 2:40 PM PATIENT IDENTITY VERIFICATION COMPLETED USING TWO (2) METHODS: Patient confirmed name verbally and Date of . PATIENT GENDER DATA: Female. status: : No status: NO. PATIENT RELEVANT IMPLANT DATA REVIEWED: Not Applicable RADIOLOGY DEPARTMENT: CT; Exam(s) Completed: Abdomen PERIPHERAL IV DATA: Not applicable SIGNED BY: Joie Ngo November 21, 2017 2:[address] ABDOMEN WO IVCON Observed: 11/21/2017 Status: F Source: [place] 2:38 PM [facility] REPOS[facility] * * *Final Report* * * DATE OF EXAM: Nov 21 2017 2:38PM [facility] 0534 - CT ABDOMEN WO IVCON / PROCEDURE REASON: multiple diagnoses * * * * Physician Interpretation * * * * EXAMINATION: CT ABDOMEN WITHOUT IV CONTRAST CLINICAL HISTORY: Generalized abdominal pain TECHNIQUE: Non-IV contrast imaging of the abdomen was performed using standard technique, scanning from just above the dome of the diaphragm to the iliac crest. Unenhanced imaging is limited for the evaluation of some intra-abdominal pathology. MQ: [id number] Contrast: IV: None Oral: 50 ml of 50ML Omnipaque [address] Radiation dose: Integrated Dose-length product (DLP) for this visit = 526 mGy*cm. CT Dose Reduction Employed: Automated exposure control(AEC) and iterative recon COMPARISON: None. RESULT: Liver: No intrahepatic lesion. Normal morphology. Biliary: No biliary dilatation. Spleen: No splenomegaly. Pancreas: Pancreas is normal in size and appearance without ductal dilatation or inflammatory change. Adrenals: No mass. Kidneys: There is a 2 mm nonobstructive lower pole calculi on the right. No other renal stones. No focal mass. GI Tract: Stomach is not distended. Small bowel loops visualized are normal. The visualized colon shows no wall thickening or stranding. The appendix is normal. Lymph Nodes: No lymphadenopathy. Mesentery/peritoneum: No ascites. Retroperitoneum: No mass. Vasculature: The aorta is normal. Bones/Soft Tissues: No acute abnormality. Lower thorax: No active disease IMPRESSION: 2 mm nonobstructive right lower pole calculi No acute findings. Wire Fence Erector: PSCDayna Transcribe Date/Time: Nov 23 2017 8:49A Dictated by : MARTHA COHEN MD This examination was interpreted and the report reviewed and electronically signed by: MARTHA COHEN MD on Nov 23 2017 8:52AM EST [id number] PROGRESS Observed: 11/08/2017 Status: COMPLETED Source: [place] 4:[address] [facility] REPOSITORY HNO ID: [id number] Author: Flaco Jacob Service: (none) Author Type: Physician Type: Progress Notes Filed: 11/09/2017 6:17 PM Note Text: This is a 42 year-old white female with a history of allergic rhinitis (cats, dogs, and dust mites), mild persistent asthma, and GERD who presents for a follow-up visit. Her last visit was June 21, 2017. At that time. Prednisone taper and 20 day course of cefdinir were prescribed. She complains of a 2 month history of sinus pressure over the forehead and cheekbones bilaterally. Complains of dry nasal passages. Denies rhinorrhea, nasal congestion and postnasal drip. Denies fevers. These symptoms started after she had to change from Zyrtec-D to Zyrtec for insurance reasons. Her asthma symptoms have been well-controlled since her last visit. She denies cough, wheezing, chest tightness and shortness of breath. Denies nocturnal awakenings due to respiratory symptoms. Infrequent albuterol use. Denies treatment with additional courses of corticosteroids since her last visit. Denies emergency room visits or hospitalizations since her last visit. She continues Prevacid 30 mg daily with good control of her GERD symptoms. Dust mite precautions are instituted in the home. There are 2 cats and one dog in the home. The dog is restricted from the bedroom. Daughter, Linda, is 2 yr old. Son, Edie, graduate of [employer]. Daughter Karthik currently lives in a detention. (She had a follow-up appointment with sleep medicine on 04/15/15.. Recommended that she continue to sleep on her side during . Will try to resume CPAP .) (S/p balloon procedure to open her sinuses by [facility] in 2012. No subsequent sinus infections. She previously received immunotherapy for several years through [facility].) REVIEW OF SYSTEMS:Negative for night sweats and unintentional weight loss. Negative for skin rash and skin lesions Review of systems otherwise negative. PAST MEDICAL HISTORY: Asthma, allergic rhinitis, GERD, migraine headaches, anemia, depression, carpal tunnel syndrome. ACTIVE PROBLEM LIST Allergic Rhinitis Extrinsic Asthma Fibromyalgia Rls (Restless Legs Syndrome) MK AHI 12.7 46R Multiple Thyroid Nodules Chronic Pain Multiple Falls Iron Deficiency Other Pain Disorders Related to Psychological Factors Depression Anxiety Disorder Lumbago Pain in Joint, Pelvic Region and Thigh Pain in Limb Psoriatic Arthritis (Hcc) Sciatica, Right Side Moderate Single Current Episode of Major Depressive Disorder (Hcc) Allergic Rhinitis Due to Animal Hair and Dander Allergic Rhinitis Due to Dust Mite PHYSICAL EXAM: General appearance: Alert, pleasant female in no acute distress. HEENT: NC/AT. Right TM erythematous. Left TM clear. . Conjunctivae clear each eye. Mild edema of the nasal mucosa b/l with small amount of yellow crusting visible in the left nare. Oropharyngeal exam within normal limits. . No exudate. Neck: Supple. No lymphadenopathy. Lungs: Clear to auscultation bilaterally. No wheezes, rales, or rhonchi. CV: Regular rate and rhythm. No murmurs, gallops, or rubs. Abdomen: Soft, nontender/nondistended, no masses or hepatosplenomegaly. Extremities: No clubbing, cyanosis, or edema. Skin: No lesions. Spirometry and November 08, 2017: FVC is mildly impaired. Otherwise normal. Spirometry on October 23, 2015: 33% improvement in FEF 25-75% postbronchodilator. Otherwise normal. Mino on 03/26/2014: FVC is mildly impaired. Otherwise normal. Exhaled nitric oxide on November 08, 2017: 19 PPB Exhaled nitric oxide on October 23, 2015: 22 PPB (intermediate) Dulce Maria on 03/26/2014: 13 ppb (low/normal) ASSESSMENT AND PLAN: It is my impression that Mony has allergic rhinitis (cats, dogs, and dust mites) and mild persistent asthma, well-controlled. Will stepdown therapy by changing from Symbicort 160?4.5 to Symbicort 80?4.5. Instructed to use 2 puffs twice daily on a regular basis. Use with spacer and rinse mouth out after use. Recommend that she use saline nasal spray as needed. Recommend that she take [id number] pseudoephedrine as needed. Continue fluticasone nasal spray 1-2 sprays each nostril once daily. Continue Zyrtec 10 mg daily. Continue albuterol hfa inhaler (Proventil, Ventolin, Proair) with spacer 2 puffs or albuterol one ampule (2.5 mg) every four hours as needed for cough, wheezing, chest tightness or shortness of breath. May also use 2 puffs 15-20 minutes pre-exercise. Pneumovax and annual influenza vaccine were administered at today's visit. Potential side effects of medications were discussed with patient. Follow-up in 3 months and as needed. Depending on clinical course, CT sinus may be warranted. Flaco Jacob MD PROGRESS Observed: 11/08/2017 Status: COMPLETED Source: [place] 11:[address] [facility] REPOSIT[facility] HNO ID: [id number] Author: Sandy Sims RN Service: (none) Author Type: (none) Type: Progress Notes Filed: 11/09/2017 6:17 PM Note Text: CDC GUIDELINES FOR ADMINISTRATION OF PNEUMONIA VACCINE 1) EVERYONE OVER AGE 65 GETS ONE DOSE-NO BOOSTER NEEDED. 2)PEOPLE AGE 2-64 WHO HAVE A DISEASE/CONDITION THAT LOWERS THE BODY'S RESISTANCE TO INFECTION. 3) PEOPLE AGE 2-64 WHO ARE TAKING A DRUG OR TREATMENT THAT LOWERS THE BODY'S RESISTANCE TO INFECTION. 4) ADULTS 19-64 WHO ARE A SMOKER OR HAVE ASTHMA. [facility] TORRES GUIDELINES PERSONS AGE 65 AND OLDER ARE TO RECEIVE A PNEUMOVAX AND ANYONE 18 YEARS AND OLDER WITH DIABETES ARE TO RECEIVE ONE DOSE. CNOV Observed: 11/08/2017 Status: COMPLETED Source: [place] 11:00 AM [facility] REPOSITORY Office Visit (ALLMED) MONY ZHANG ([id number]) [address] [facility] Date Time Provider Department 11/08/17 11:00 AM FLACO JACOB During your visit today, we recorded the following information about you: Pulse Blood pressure Weight 80/minute 102/67 104.3 kg Sandy Sims RN 11/08/2017 11:06 AM Signed Patient here for asthma follow up. Reports asthma well controlled. Complaining sinus pressure, dryness of nose and sore throat. Has been suffering for past 2 months. Medications aren't helping. Sandy Sims RN 11/09/2017 6:17 PM Signed CDC GUIDELINES FOR ADMINISTRATION OF PNEUMONIA VACCINE 1) EVERYONE OVER AGE 65 GETS ONE DOSE-NO BOOSTER NEEDED. 2)PEOPLE AGE 2-64 WHO HAVE A DISEASE/CONDITION THAT LOWERS THE BODY'S RESISTANCE TO INFECTION. 3) PEOPLE AGE 2-64 WHO ARE TAKING A DRUG OR TREATMENT THAT LOWERS THE BODY'S RESISTANCE TO INFECTION. 4) ADULTS 19-64 WHO ARE A SMOKER OR HAVE ASTHMA. [facility] TORRES GUIDELINES PERSONS AGE 65 AND OLDER ARE TO RECEIVE A PNEUMOVAX AND ANYONE 18 YEARS AND OLDER WITH DIABETES ARE TO RECEIVE ONE DOSE. Flaco Jacob MD 11/09/2017 6:17 PM Signed This is a 42 year-old white female with a history of allergic rhinitis (cats, dogs, and dust mites), mild persistent asthma, and GERD who presents for a follow-up visit. Her last visit was June 21, 2017. At that time. Prednisone taper and 20 day course of cefdinir were prescribed. She complains of a 2 month history of sinus pressure over the forehead and cheekbones bilaterally. Complains of dry nasal passages. Denies rhinorrhea, nasal congestion and postnasal drip. Denies fevers. These symptoms started after she had to change from Zyrtec-D to Zyrtec for insurance reasons. Her asthma symptoms have been well-controlled since her last visit. She denies cough, wheezing, chest tightness and shortness of breath. Denies nocturnal awakenings due to respiratory symptoms. Infrequent albuterol use. Denies treatment with additional courses of corticosteroids since her last visit. Denies emergency room visits or hospitalizations since her last visit. She continues Prevacid 30 mg daily with good control of her GERD symptoms. Dust mite precautions are instituted in the home. There are 2 cats and one dog in the home. The dog is restricted from the bedroom. Daughter, Linda, is 2 yr old. Son, Edie, graduate of [employer]. Daughter Karthik currently lives in a detention. (She had a follow-up appointment with sleep medicine on 04/15/15.. Recommended that she continue to sleep on her side during . Will try to resume CPAP .) (S/p balloon procedure to open her sinuses by [facility] in 2012. No subsequent sinus infections. She previously received immunotherapy for several years through [facility].) REVIEW OF SYSTEMS:Negative for night sweats and unintentional weight loss. Negative for skin rash and skin lesions Review of systems otherwise negative. PAST MEDICAL HISTORY: Asthma, allergic rhinitis, GERD, migraine headaches, anemia, depression, carpal tunnel syndrome. ACTIVE PROBLEM LIST Allergic Rhinitis Extrinsic Asthma Fibromyalgia Rls (Restless Legs Syndrome) MK AHI 12.7 46R Multiple Thyroid Nodules Chronic Pain Multiple Falls Iron Deficiency Other Pain Disorders Related to Psychological Factors Depression Anxiety Disorder Lumbago Pain in Joint, Pelvic Region and Thigh Pain in Limb Psoriatic Arthritis (Hcc) Sciatica, Right Side Moderate Single Current Episode of Major Depressive Disorder (Hcc) Allergic Rhinitis Due to Animal Hair and Dander Allergic Rhinitis Due to Dust Mite PHYSICAL EXAM: General appearance: Alert, pleasant female in no acute distress. HEENT: NC/AT. Right TM erythematous. Left TM clear. . Conjunctivae clear each eye. Mild edema of the nasal mucosa b/l with small amount of yellow crusting visible in the left nare. Oropharyngeal exam within normal limits. . No exudate. Neck: Supple. No lymphadenopathy. Lungs: Clear to auscultation bilaterally. No wheezes, rales, or rhonchi. CV: Regular rate and rhythm. No murmurs, gallops, or rubs. Abdomen: Soft, nontender/nondistended, no masses or hepatosplenomegaly. Extremities: No clubbing, cyanosis, or edema. Skin: No lesions. Spirometry and November 08, 2017: FVC is mildly impaired. Otherwise normal. Spirometry on October 23, 2015: 33% improvement in FEF 25-75% postbronchodilator. Otherwise normal. Mino on 03/26/2014: FVC is mildly impaired. Otherwise normal. Exhaled nitric oxide on November 08, 2017: 19 PPB Exhaled nitric oxide on October 23, 2015: 22 PPB (intermediate) Dulce Maria on 03/26/2014: 13 ppb (low/normal) ASSESSMENT AND PLAN: It is my impression that Mony has allergic rhinitis (cats, dogs, and dust mites) and mild persistent asthma, well-controlled. Will stepdown therapy by changing from Symbicort 160?4.5 to Symbicort 80?4.5. Instructed to use 2 puffs twice daily on a regular basis. Use with spacer and rinse mouth out after use. Recommend that she use saline nasal spray as needed. Recommend that she take [id number]-[id number] pseudoephedrine as needed. Continue fluticasone nasal spray 1-2 sprays each nostril once daily. Continue Zyrtec 10 mg daily. Continue albuterol hfa inhaler (Proventil, Ventolin, Proair) with spacer 2 puffs or albuterol one ampule (2.5 mg) every four hours as needed for cough, wheezing, chest tightness or shortness of breath. May also use 2 puffs 15-20 minutes pre-exercise. Pneumovax and annual influenza vaccine were administered at today's visit. Potential side effects of medications were discussed with patient. Follow-up in 3 months and as needed. Depending on clinical course, CT sinus may be warranted. Flaoc Jacob MD Referring Provider: FLACO JACOB [[id number]] Allergies As of Date: 11/08/2017 Noted Allergy Reaction Environmental allergies [Other] 10/13/2006 Comments: Dogs, cats, and dust mites. Date Reviewed: 11/08/2017 Reviewed by: Flaco Jacob - Fully Assessed Reason for Visit: Establish Care [42] Cmt: asthma follow up Primary Visit Diagnosis:Mild persistent asthma without complication [J45.30] Other Visit Diagnoses:Need for vaccination [Z23] Allergic rhinitis due to animal hair and dander [J30.81] Allergic rhinitis due to dust mite [J30.89] Order(s):budesonide-formoterol (SYMBICORT) 80-4.5 mcg/actuation inhalerInhale 2 Puffs as instructed twice daily. Use with spacer. Rinse mouth out after use.Disp: 1 InhalerRfl: 11 ADMIN OF INFLUENZA VACCINE [[id number]] Order #: [id number]: 1 INFLUENZA VACCINE QUADRIVALENT AGE 3 YRS PLUS + IM [[id number]] Order #: [id number] PNEUMOCOCCAL IMMUNIZATION PPSV 23 [[id number]] Order #: [id number] Prescriptions as of 11/08/2017 Sig: CETIRIZINE 10 MG CAPSULE Take 10 mg by mouth once mia* VENLAFAXINE ER 37.5 MG CAPSUL* Take 1 capsule by mouth once * SULFACETAMIDE SODIUM 10 % SHA* Apply 1 application to affect* KETOCONAZOLE 2 % SHAMPOO Wash scalp daily as needed. L* ALLERGY RELIEF-D (CETIRIZINE)* TAKE 1 TABLET BY MOUTH TWICE * CLOBETASOL 0.05 % SCALP SOLUT* Apply 1 application to affect* AMMONIUM LACTATE 12 % TOPICAL* Apply 1 application to affect* LANSOPRAZOLE 30 MG CAPSULE,DE* TAKE 1 CAPSULE BY MOUTH ONCE * MECLIZINE 25 MG TABLET Take 1 tablet by mouth twice * NEBULIZER ACCESSORIES KIT Please dispense nebulizer acc* ALBUTEROL SULFATE HFA 90 MCG/* Inhale 2 Puffs as instructed * PROCHLORPERAZINE MALEATE 10 M* Take 1 tablet at the onset of* FLUTICASONE 50 MCG/ACTUATION * Use 2 Sprays in each nostril * ALBUTEROL SULFATE 2.5 MG/3 ML* One ampule nebulized every 4 * CHOLECALCIFEROL (VITAMIN D3) * Take 1 capsule by mouth once * CALCIUM CARBONATE 600 MG CALC* TAKE ONE TABLET TWICE DAILY SUMATRIPTAN 50 MG TABLET Take 1 tablet by mouth as nee* BUDESONIDE-FORMOTEROL HFA 80 * Inhale 2 Puffs as instructed * CETIRIZINE 5 MG-PSEUDOEPHEDRI* Take 1 tablet by mouth twice * METFORMIN ER 500 MG TABLET,EX* Take 1 tablet by mouth once d* LANSOPRAZOLE 30 MG CAPSULE,DE* Take 1 capsule by mouth once * Problem List As Of Date 11/08/2017 Noted Resolved Allergic rhinitis [J30.9] Extrinsic asthma [J45.909] Fibromyalgia [M79.7] INVALID FOR* Psoriasis arthropathica (HCC) [L40.50] INVALID FOR*09/25/2015 RLS (restless legs syndrome) [G25.81] INVALID FOR* MK AHI 12.7 46R [G47.33] INVALID FOR* More... Multiple thyroid nodules [E04.2] INVALID FOR* Chronic pain [G89.29] INVALID FOR* Multiple falls [R29.6] INVALID FOR* Iron deficiency [E61.1] INVALID FOR* Other pain disorders related to psychological f*INVALID FOR* Depression [F32.9] INVALID FOR* [F41.0] INVALID FOR* Anxiety disorder [F41.9] INVALID FOR* Lumbago [M54.5] INVALID FOR* Pain in joint, pelvic region and thigh [M25.559]INVALID FOR* Pain in limb [M79.609] INVALID FOR* [Z34.90] INVALID FOR*04/12/2016 Psoriatic arthritis (HCC) [L40.50] INVALID FOR* Sciatica, right side [M54.31] INVALID FOR* Moderate single current episode of major depres*INVALID FOR* Allergic rhinitis due to animal hair and dander*INVALID FOR* Allergic rhinitis due to dust mite [J30.89] INVALID FOR* Visit Notes: >> Sandy Sims RN gloria Nov 08, 2017 11:03 AM Status: Signed Patient here for asthma follow up. Reports asthma well controlled. Complaining sinus pressure, dryness of nose and sore throat. Has been suffering for past 2 months. Medications aren't helping. Prescriptions ordered this encounter Disp Refills Start End BUDESONIDE-FORMOTEROL HFA 80 MCG-4.5* 1 In* 11 11/08/2017 Class: Med Update Route: INHALATION Sig: Inhale 2 Puffs as instructed twice daily. Use with spacer. Rinse mouth out after use. Medications Discontinued During This Encounter budesonide-formoterol (SYMBICORT) 16* 1 In* 11 06/21/2017 11/08/2017 Route: INHALATION Sig: Inhale 2 Puffs as instructed twice daily. Use with spacer. Rinse mouth out after use. Disc: Reason for discontinue is not on file. Disposition: Return in about 3 months (around 02/08/2018). Follow-up and Disposition History Recorded Questionnaire: ASTHMA CONTROL TEST Last 4 weeks, your asthma limited your activity at work or home: -> 5 NONE OF THE TIME Past 4 weeks, how often have you had shortness of breath? -> 5 NOT AT ALL Past 4 weeks: Asthma symptoms woke you at night or earlier than usual? -> 5 NOT AT ALL Past 4 weeks: How often did you use rescue inhaler or nebulizer med? -> 5 NOT AT ALL Rate your Asthma Control during the past 4 weeks: -> 5 COMPLETELY CONTROLLED ACT TOTAL SCORE: -> 25 Encounter Status:Closed by FLACO JACOB MD on 11/09/17 CBC Collected: 10/18/2017 Status: F Source: [place] 11:[address] [facility] REPOSITORY TYPE CODE TESTS RESULT OUT OF REFERENCE UNITS RANGE LAB WBC 3.70-11.00 k/uL WBC 9.76 LAB RBC 3.90-5.20 m/uL RBC 5.11 LAB HGB 11.5-15.5 g/dL Hemoglobin 14.4 LAB HCT 36.0-46.0 % Hematocrit 44.2 LAB MCV 80.0-100.0 fL MCV 86.5 LAB MCH 26.0-34.0 pG MCH 28.2 LAB MCHC 30.5-36.0 g/dL MCHC 32.6 LAB RDWCV 11.5-15.0 % RDW-CV 13.0 LAB PLTCT 150-400 k/uL Platelet Count 340 LAB MPV 9.0-12.7 fL MPV 10.9 LAB ABSNUC <0.01 k/uL Absolute nRBC <0.01 Performed By: #### CBC, HBA1C, CMP, LIPA, TSH, B12, EBVEA, EBVNA, HPYLRI, CMVMAB #### [place] [id number] [place] [address] #### VITB6 #### [address] [address] [phone] HEMOGLOBIN A1C Collected: 10/18/2017 Status: F Source: [place] 11:30 AM [facility] REPOSITORY TYPE CODE TESTS RESULT OUT OF REFERENCE UNITS RANGE LAB HGBA1C 4.3-5.6 % Hemoglobin A1c 5.4 LAB HBA0 mg/dL Est. Average Glucose 108 Result Comment: eAG: (Estimated average glucose) is a calculated value from HgbA1c and is sales representative advertising of the average blood glucose level in the last 2-3 month period. Performed By: #### CBC, HBA1C, CMP, LIPA, TSH, B12, EBVEA, EBVNA, HPYLRI, CMVMAB #### [place] [address] #### VITB6 #### [address] [address] [phone] COMP METABOLIC PANEL Collected: 10/18/2017 Status: F Source: [place] 11:30 AM [facility] REPOSITORY TYPE CODE TESTS RESULT OUT OF REFERENCE UNITS RANGE LAB TP 6.3-8.0 g/dL Protein, Total 7.6 LAB ALB 3.9-4.9 g/dL Albumin 4.3 LAB CA 8.5-10.2 mg/dL Calcium, Total 9.3 LAB TBIL 0.2-1.3 mg/dL Bilirubin, Total 0.3 LAB ALKP 32-117 U/L Alkaline Phosphatase 73 LAB AST 13-35 U/L AST 19 LAB GLU 74-99 mg/dL Glucose 90 Result Comment: The [place] Diabetes Association (ADA) provides guidance for cutoff values for fasting glucose and random glucose. The ADA defines fasting as no caloric intake for at least 8 hours. Fas ting plasma glucose results between 100 to 125 mg/dL indicate increased risk for diabetes (prediabetes). Fasting plasma glucose results greater than or equal to 126 mg/dL meet the criteria for diagnosis of diabetes. In the absence of unequivocal hyperglycemia, results should be confirmed by repeat testing. In a patient with classic symptoms of hyperglycemia or hyperglycemic crisis, random plasma glucose results greater than or equal to 200 mg/dL meet the criteria for diagnosis of diabetes. Reference: Standards of Medical Care in Diabetes 2016, [place] Diabetes Association. Diabetes Care. 2016.39(Suppl 1). LAB BUN 7-21 mg/dL BUN 9 LAB CRET 0.58-0.96 mg/dL Creatinine 0.69 LAB NA 136-144 mmol/L Sodium 138 LAB K 3.7-5.1 mmol/L Potassium 4.3 LAB CL 97-105 mmol/L Chloride 102 LAB CO2 22-30 mmol/L CO2 24 LAB AGAP 9-18 mmol/L Anion Gap 12 LAB ALT 7-38 U/L ALT 23 LAB GFRAA eGFR- Amer. >60 LAB GFRNAA . eGFR-All Other Races >60 Result Comment: eGFR (Estimated GFR) Units of measure: mL/min/1.73 meters squared eGFR is derived from the reexpressed MDRD Study equation using the following parameters: serum creatinine, age, gender and race. The creatinine assay has been calibrated to be traceable to IDMS. An eGFR <60 mL/min/1.73m2 for >3 months is consistent with chronic kidney disease. Refer to KDOQI guidelines for clinical interpretation. In patients with unstable renal function, e.g. those with acute kidney injury, the eGFR may not accurately reflect actual GFR. Performed By: #### CBC, HBA1C, CMP, LIPA, TSH, B12, EBVEA, EBVNA, HPYLRI, CMVMAB #### [facility] [address] [place], [place] [address] #### VITB6 #### [facility] [address] [place] [address] [phone] LIPASE Collected: 10/18/2017 Status: F Source: [place] 11:30 AM [facility] REPOSITORY TYPE CODE TESTS RESULT OUT OF REFERENCE UNITS RANGE LAB LIPA 16-61 U/L Lipase 23 Performed By: #### CBC, HBA1C, CMP, LIPA, TSH, B12, EBVEA, EBVNA, HPYLRI, CMVMAB #### [facility] [address] [place] [address] #### VITB6 #### [facility] [address] [place] [address] [phone] TSH Collected: 10/18/2017 Status: F Source: [place] 11:30 AM [facility] REPOSITORY TYPE CODE TESTS RESULT OUT OF RANGE REFERENCE UNITS LAB TSH 0.400-5.500 uU/mL TSH 1.040 Result Comment: If the patient is , TSH reference range varies by gestational period: First Trimester 0.100-2.500 uU/mL Second Trimester 0.200-3.000 uU/mL Third Trimester 0.300-3.000 uU/mL References: 1. Emerson L, Shelton M, Jeff MENEZES, et al. Management of Thyroid Dysfunction during and : An Endocrine Society Clinical Practice Guideline. J Clin Endocrinol Metab, 2012:97:2024-6827. 2. Kenny DS. Overview of thyroid disease in . UpToDate. 2016. Accessed on July 25, 2015. Performed By: #### CBC, HBA1C, CMP, LIPA, TSH, B12, EBVEA, EBVNA, HPYLRI, CMVMAB #### [facility] [address] [place] [phone] #### VITB6 #### [facility] [address] [place] [address] [phone] VITAMIN B12 Collected: 10/18/2017 Status: F Source: [place] 11:30 AM [facility] REPOSITORY TYPE CODE TESTS RESULT OUT OF REFERENCE UNITS RANGE LAB B12 232-1245 pg/mL Vitamin B12 441 Performed By: #### CBC, HBA1C, CMP, LIPA, TSH, B12, EBVEA, EBVNA, HPYLRI, CMVMAB #### [facility] [place] [address] #### VITB6 #### [facility] [address] [place] [address] [phone] EBV EA ANTIBODY Collected: 10/18/2017 Status: F Source: [place] 11:30 AM [facility] REPOSITORY TYPE CODE TESTS RESULT OUT OF REFERENCE UNITS RANGE LAB EBVEAQ Negative EBV Negative EA Ab, Qual Result Comment: EBV EA-D IgG antibodies are not detectable. If the result is negative and exposure to Sara-Hatch virus is suspected, a second sample should be collected and tested no less than one to two weeks later. LAB EBVEAX AI EBV EA Antibody 0.6 Result Comment: AI VALUES ARE INTERPRETED FOLLOWS: NEGATIVE SPECIMENS <=0.8 EQUIVOCAL SPECIMENS 0.9 TO 1.0 POSITIVE SPECIMENS >=1.1 Antibody index(AI) values reflect qualitative changes in antibody concentration that cannot be associated with clinical condition or disease state. Performed By: #### CBC, HBA1C, CMP, LIPA, TSH, B12, EBVEA, EBVNA, HPYLRI, CMVMAB #### [facility] [place] [address] #### VITB6 #### [address] [address] [phone] EBV NA ANTIBODY Collected: 10/18/2017 Status: F Source: [place] 11:30 [facility] REPOSITORY TYPE CODE TESTS RESULT OUT OF RANGE REFERENCE UNITS LAB EBVNAQ Negative Abnormal Alert EBV Positive NA Ab, Qual Result Comment: Specimen is positive for EBV NA-1 IgG antibody. A positive test result presumes a current or past infection with EBV. Other EBV serology assays such as the EBV VCA IgM should be performed to confirm serologic status, active acute, past or indeterminate infection for EBV-associated infectious mononucleosis. LAB EBVNAX AI EBV NA Antibody >8.0 Result Comment: AI VALUES ARE INTERPRETED FOLLOWS: NEGATIVE SPECIMENS <=0.8 EQUIVOCAL SPECIMENS 0.9 TO 1.0 POSITIVE SPECIMENS >=1.1 Antibody index(AI) values reflect qualitative changes in antibody concentration that cannot be associated with clinical condition or disease state. Performed By: #### CBC, HBA1C, CMP, LIPA, TSH, B12, EBVEA, EBVNA, HPYLRI, CMVMAB #### [facility] [employer] [place] [id number] #### VITB6 #### [facility] [address] [place] [address] [phone] HELICO PYLORI AB Collected: 10/18/2017 Status: F Source: [place] 11:30 AM [facility] REPOSITORY TYPE CODE TESTS RESULT OUT OF REFERENCE UNITS RANGE LAB HPYLRL Negative H. pylori Negative IgG, Qual Result Comment: H. pylori IgG antibodies were not detected in the sample. Negative results by this test do not preclude recent primary infection. LAB HPYLR U/mL H pylori Ab, IgG 0.5 Result Comment: U/mL are interpreted as follows: Negative specimens <0.9 Indeterminate specimens >=0.9 to <1.1 Positive specimens >=1.1 Results were obtained with the IMMULITE 2000 H.pylori IgG EIA. Results obtained from other manufacturers' assay methods may not be used interchangeably. Performed By: #### CBC, HBA1C, CMP, LIPA, TSH, B12, EBVEA, EBVNA, HPYLRI, CMVMAB #### [place] [address] [place] [phone] #### VITB6 #### [address] [address] [phone] CMV IGM ANTIBODY Collected: 10/18/2017 Status: F Source: [place] 11:30 AM [facility] REPOSITORY TYPE CODE TESTS RESULT OUT OF REFERENCE UNITS RANGE LAB CMVMR Negative CMV Negative IgM, Qual Result Comment: Absence of detectable CMV IgM antibodies. If clinical exposure to hCMV is suspected despite a negative finding, a second sample should be collected and tested no less than one or two weeks later. LAB CMVM AU/mL CMV IgM Antibody 20.5 Result Comment: AU/mL values are interpreted as follows: Negative: <30.0 Equivocal: >=30.0 to <35.0 Positive: >=35.0 The magnitude of the measured result is not indicative of the amount of antibody present. Performed By: #### CBC, HBA1C, CMP, LIPA, TSH, B12, EBVEA, EBVNA, HPYLRI, CMVMAB #### [place] [address] [place] [phone] #### VITB6 #### [facility] [address] [place] [address] [phone] VITAMIN B6 PLASMA Collected: 10/18/2017 Status: F Source: [place] 11:30 AM [facility] REPOSITORY TYPE CODE TESTS RESULT OUT OF REFERENCE UNITS RANGE LAB VITB6 20.0-125.0 nmol/L Vitamin B6 97.0 Plasma Result Comment: (NOTE) INTERPRETIVE INFORMATION: Vitamin B6 (Pyridoxal 5-Phosphate) Pyridoxal 5'-phosphate measured in a specimen collected following an 8-hour or overnight fast accurately indicates vitamin B6 nutritional status. Non-fasting specimen concentration reflects recent vitamin intake. Test developed and characteristics determined by [facility]. See Compliance Statement B: [employer] Performed by [facility], [address] [place] [address] [email or web address], Rohith Rhoades MD, Lab. Director Performed By: #### CBC, HBA1C, CMP, LIPA, TSH, B12, EBVEA, EBVNA, HPYLRI, CMVMAB #### [facility] [address] [place], [place] [address] #### VITB6 #### [facility] [address] [place] [address] [phone] PROGRESS Observed: 10/18/2017 Status: COMPLETED Source: [place] 11:17 AM [facility] REPOSITORY HNO ID: [id number] Author: Reji Vazquez Service: (none) Author Type: Physician Type: Progress Notes Filed: 10/18/2017 12:35 PM Note Text: CC:Mony Zhang is a 42 year old female who presents to the office for 3 months follow up HPI: Previously Cold symptoms for the last 3-4 days, congestion, PND, scratchy throat, otherwise asymptomatic, + sick contacts with 17 month old dtr. ?? Still is 17 month old. ?? Struggling with anxiety and depression, has been noticing increased weight gain SE with dose change of Effexor, wanting alternative. Was on prozac prior which she developed tolerance to then was non effective. ?Denies SI or HI. Has many stressors with having a teenage daughter that is unstable and is living back in her home. ?She is interested in trying to have another child as well. ?? Right side sciatica, started 2-3 days ago after playing game on hands/knees on the floor with her daughter over the weekend. ?[place] pull in low back with radiation of sharp / shooting burning pain to anterior / lateral thigh and lower leg into foot. ?Unable to take muscle relaxants and neurontin for symptoms in past due to drowsiness. ?Took Advil with mild relief. ?Worse symptoms in AM and with prolonged standing/sitting, no weakness or falls or bowel/bladder changes. ? At follow up 2 months later ? She has noticed that trying to taper off the Effexor and only be on Wellbutrin has caused her to feel more anxious, recently restarted the low dose of Effexor 37.5 mg, does feel better with this medication. Still taking Wellbutrin daily as well. ?No SI or HI. Does have support from boyfriend Stewart. ?Still is her 19 month old dtr Linda. ? ? Cough, present for 1-2 days, no fevers or chills, intermittent wheezing improved with inhaler use. ? ?She was then changed from the effexor to Wellbutrin. Has been having some side effects with headaches and fatigue and weight gain since being on the Wellbutrin. ??She is breast feeding her 21 month old Linda still as well. ??She is trying to wean her from nursing. ??She is interested in retrying Prozac since tolerated this well in the past. ?? ? Urinary urgency and frequency. ?No hematuria or flank pains, some dysuria ? No monthly menses. ??Needs to check to see if . ? At last OFFICE VISIT 3 months ago ? She was unable to tolerate the Wellbutrin, she was then recently restarted on Effexor, tolerating overall well, does think it contributes to increased appetite and weight gain. Has had SE on Prozac, Zoloft, Lexapro, Wellbutrin medications. Is still currently daily her 2 year old daughter, she is in the process of trying to wean her off the . No SI or HI. Does have good support from her boyfriend as well. ? Urinary urgency and burning, diagnosed with enterococcus, treated with levaquin, still with symptoms, last antibiotic was yesterday. Currently Mood, overall is stable She is struggling with extreme fatigue symptoms, she is also having daily nausea, symptoms started about 1 month ago. She is also having upper abdominal discomfort and intermittent belching and bloating. Tingling in her left top of her foot now for the last 1 week. No other symptoms such as fevers or chills. Thought she could be so serum hcg levels ordered and were negative/normal. PAST MEDICAL HISTORY Diagnosis Date - Allergic rhinitis, cause unspecified - Anemia - Depression - Extrinsic asthma, unspecified - Fibromyalgia - Gestational diabetes 2015 - Hypoglycemia - IBS (irritable bowel syndrome) - Migraine headache Dr. Varghese Neurologist - Multiple thyroid nodules Dr. Evans Junior Account Manager - Obstructive sleep apnea on CPAP, Dr. Núñez - [facility] - PAST MEDICAL HISTORY OF Tarsal tunnel - Psoriatic arthritis (HCC) PAST SURGICAL HISTORY Procedure Laterality Date - COLONOSCOP W/ OR W/O [facility] SPE[facility] Colonoscopy - COLONOSCOP W/ OR W/O [facility] SPE[facility] 03/15/13 Colonoscopy [facility] Dr. Borden - EGD W/O OR W/BRUSH/WASH EGD - PAST SURGICAL HISTORY OF 2004 sinus surgery - REMOVAL GALLBLADDER 2007 Cholecystectomy Current Outpatient Prescriptions: venlafaxine ER (EFFEXOR XR) 37.5 mg 24 hr capsule Take 1 capsule by mouth once daily. Sulfacetamide Sodium 10 % sham Apply 1 application to affected area once daily. ketoconazole (NIZORAL) 2 % shampoo Wash scalp daily as needed. Leave on 5-10 minutes before rinsing off ALLERGY RELIEF-D, CETIRIZINE, 5-120 mg per tablet TAKE 1 TABLET BY MOUTH TWICE DAILY NEEDED. cetirizine-pseudoephedrine (ZYRTEC-D) 5-120 mg per tablet Take 1 tablet by mouth twice daily as needed. Clobetasol Propionate (TEMOVATE) 0.05 % external solution Apply 1 application to affected area once daily as needed (for scaling on the scalp). ammonium lactate (LAC-HYDRIN) 12 % cream Apply 1 application to affected area as needed (for bumps on the arms). metFORMIN ER (GLUCOPHAGE XR) 500 mg 24 hr tablet Take 1 tablet by mouth once daily. lansoprazole (PREVACID) 30 mg capsule TAKE 1 CAPSULE BY MOUTH ONCE DAILY. lansoprazole (PREVACID) 30 mg capsule Take 1 capsule by mouth once daily. meclizine (ANTIVERT) 25 mg tab Take 1 tablet by mouth twice daily. Nebulizer Accessories kit Please dispense nebulizer accessories kit (tubing, mouthpiece, mask etc.) Dx. Mild persistent asthma with acute exacerbation J45.31 budesonide-formoterol (SYMBICORT) 160-4.5 mcg/actuation inhaler Inhale 2 Puffs as instructed twice daily. Use with spacer. Rinse mouth out after use. albuterol HFA (VENTOLIN HFA) 90 mcg/actuation inhaler Inhale 2 Puffs as instructed every 4 hours as needed (May also use 15 minutes pre-exercise). prochlorperazine (COMPAZINE) 10 mg tablet Take 1 tablet at the onset of headache and 30 mins after to a maximum of 3 tablets/day fluticasone (FLONASE) 50 mcg/actuation nasal spray Use 2 Sprays in each nostril once daily. Rinse mouth after use. albuterol (PROVENTIL) 2.5 mg /3 mL (0.083 %) nebulizer solution One ampule nebulized every 4 hours as needed for cough, wheezing, chest tightness or shortness of breath. calcium carbonate (CALTRATE) 600 mg (1,500 mg) tab TAKE ONE TABLET TWICE DAILY SUMAtriptan (IMITREX) 50 mg tablet Take 1 tablet by mouth as needed for Migraine Headache (see administration instructions). at onset of headache. May repeat after 2 hours. Cholecalciferol, Vitamin D3, (VITAMIN D) 1,000 unit cap Take 1 capsule by mouth once daily. No current facility-administered medications for this visit. ALLERGIES Allergen Reactions - Environmental Aller* Dogs, cats, and dust mites. Social History Marital status: Single Spouse name: Years of education: Number of children: Social History Main Topics Smoking status: Never Smoker Smokeless tobacco: Never Used Alcohol use: Yes Comment: occasionally Drug use: No ROS: See HPI PE: BP 116/74 Pulse 80 Temp (Src) 98.5 (Left Tympanic) Resp 16 Wt 229 lb (103.9kg) LMP 10/08/2017 Gen: AANDOX3, NAD, non-toxic appearing HEENT: PERRLA, EOMs intact b/l, nares without drainage, pharynx without erythema, exudate, lesions, or drainage. Uvula midline. Neck: No LAD, no thyromegaly, no meningismus. CV: RRR, no murmur Lungs: CTA b/l, no wheezing Skin: No rashes, lesions, or wounds on exposed skin. Decreased pinpoint sensation left dorsal medial foot and great toe Strength LE normal Mild epigastric TTP without masses or r/r/g, normal BS ASSESSMENT/PLAN: 1. Fatigue, unspecified type - ICD9: 780.79, ICD10: R53.83 (primary diagnosis) - unsure of causes, labs as below, ? SE of Effexor if labs are normal - VITAMIN B12 BLOOD - HGB A1C - H PYLORI IGG AB - VITAMIN B6/PYRIDOXIN - LIPASE BLD - COMP METABOLIC PANEL - CBC - TSH BLD - CMV IGM AB - SARA-HATCH EA - SARA-HATCH NUC AG 2. Nausea - ICD9: 787.02, ICD10: R11.0 - unsure of cause, labs as below, ? SE of Effexor if labs are normal - VITAMIN B12 BLOOD - HGB A1C - H PYLORI IGG AB - VITAMIN B6/PYRIDOXIN - LIPASE BLD - COMP METABOLIC PANEL - CBC - TSH BLD - CMV IGM AB - SARA-HATCH EA - SRAA-HATCH NUC AG 3. Paresthesia of left foot - ICD9: 782.0, ICD10: R20.2 - unsure of cause, labs as below, ? SE of Effexor if labs are normal - VITAMIN B12 BLOOD - HGB A1C - VITAMIN B6/PYRIDOXIN - COMP METABOLIC PANEL - CBC - TSH BLD - CMV IGM AB - SARA-HATCH EA - SARA-HATCH NUC AG Reji Vazquez DO Return if no improvement. Follow up with Reji Vazquez DO. . Discussed risks, benefits, alternatives, and potential side effects of medications. Patient/Guardian expressed understanding and agreed with the plan. See patient instructions. Reji Vazquez DO [address] [place] [address] CNOV Observed: 10/18/2017 Status: COMPLETED Source: [place] 10:40 AM [facility] REPOSITORY [facility] MONY ZHANG ([id number]) 1975 F [place] Date Time Provider Department 10/18/17 10:40 AM REJI VAZQUEZ During your visit today, we recorded the following information about you: Temperature Pulse Respiration Blood pressure 98.5 degrees 80/minute 16/minute 116/74 Weight Last Period 103.9 kg 10/08/17 Reji Vazquez DO 10/18/2017 12:35 PM Signed CC:Mony Zhang is a 42 year old female who presents to the office for 3 months follow up HPI: Previously Cold symptoms for the last 3-4 days, congestion, PND, scratchy throat, otherwise asymptomatic, + sick contacts with 17 month old dtr. ?? Still is 17 month old. ?? Struggling with anxiety and depression, has been noticing increased weight gain SE with dose change of Effexor, wanting alternative. Was on prozac prior which she developed tolerance to then was non effective. ?Denies SI or HI. Has many stressors with having a teenage daughter that is unstable and is living back in her home. ?She is interested in trying to have another child as well. ?? Right side sciatica, started 2-3 days ago after playing game on hands/knees on the floor with her daughter over the weekend. ?[place] pull in low back with radiation of sharp / shooting burning pain to anterior / lateral thigh and lower leg into foot. ?Unable to take muscle relaxants and neurontin for symptoms in past due to drowsiness. ?Took Advil with mild relief. ?Worse symptoms in AM and with prolonged standing/sitting, no weakness or falls or bowel/bladder changes. ? At follow up 2 months later ? She has noticed that trying to taper off the Effexor and only be on Wellbutrin has caused her to feel more anxious, recently restarted the low dose of Effexor 37.5 mg, does feel better with this medication. Still taking Wellbutrin daily as well. ?No SI or HI. Does have support from boyfriend Stewart. ?Still is her 19 month old dtr Linda. ? ? Cough, present for 1-2 days, no fevers or chills, intermittent wheezing improved with inhaler use. ? ?She was then changed from the effexor to Wellbutrin. Has been having some side effects with headaches and fatigue and weight gain since being on the Wellbutrin. ??She is breast feeding her 21 month old Linda still as well. ??She is trying to wean her from nursing. ??She is interested in retrying Prozac since tolerated this well in the past. ?? ? Urinary urgency and frequency. ?No hematuria or flank pains, some dysuria ? No monthly menses. ??Needs to check to see if . ? At last OFFICE VISIT 3 months ago ? She was unable to tolerate the Wellbutrin, she was then recently restarted on Effexor, tolerating overall well, does think it contributes to increased appetite and weight gain. Has had SE on Prozac, Zoloft, Lexapro, Wellbutrin medications. Is still currently daily her 2 year old daughter, she is in the process of trying to wean her off the . No SI or HI. Does have good support from her boyfriend as well. ? Urinary urgency and burning, diagnosed with enterococcus, treated with levaquin, still with symptoms, last antibiotic was yesterday. Currently Mood, overall is stable She is struggling with extreme fatigue symptoms, she is also having daily nausea, symptoms started about 1 month ago. She is also having upper abdominal discomfort and intermittent belching and bloating. Tingling in her left top of her foot now for the last 1 week. No other symptoms such as fevers or chills. Thought she could be so serum hcg levels ordered and were negative/normal. PAST MEDICAL HISTORY Diagnosis Date - Allergic rhinitis, cause unspecified - Anemia - Depression - Extrinsic asthma, unspecified - Fibromyalgia - Gestational diabetes 2016 - Hypoglycemia - IBS (irritable bowel syndrome) - Migraine headache Dr. Varghese Neurologist - Multiple thyroid nodules Dr. Evans Junior Account Manager - Obstructive sleep apnea on CPAP, Dr. Núñez - [facility] - PAST MEDICAL HISTORY OF Tarsal tunnel - Psoriatic arthritis (HCC) PAST SURGICAL HISTORY Procedure Laterality Date - COLONOSCOP W/ OR W/O [facility] SPE[facility] Colonoscopy - COLONOSCOP W/ OR W/O [facility] SPEC 03/15/13 Colonoscopy [facility] Dr. Borden - EGD W/O OR W/BRUSH/WASH EGD - PAST SURGICAL HISTORY OF 2004 sinus surgery - REMOVAL GALLBLADDER 2008 Cholecystectomy Current Outpatient Prescriptions: venlafaxine ER (EFFEXOR XR) 37.5 mg 24 hr capsule Take 1 capsule by mouth once daily. Sulfacetamide Sodium 10 % sham Apply 1 application to affected area once daily. ketoconazole (NIZORAL) 2 % shampoo Wash scalp daily as needed. Leave on 5-10 minutes before rinsing off ALLERGY RELIEF-D, CETIRIZINE, 5-120 mg per tablet TAKE 1 TABLET BY MOUTH TWICE DAILY NEEDED. cetirizine-pseudoephedrine (ZYRTEC-D) 5-120 mg per tablet Take 1 tablet by mouth twice daily as needed. Clobetasol Propionate (TEMOVATE) 0.05 % external solution Apply 1 application to affected area once daily as needed (for scaling on the scalp). ammonium lactate (LAC-HYDRIN) 12 % cream Apply 1 application to affected area as needed (for bumps on the arms). metFORMIN ER (GLUCOPHAGE XR) 500 mg 24 hr tablet Take 1 tablet by mouth once daily. lansoprazole (PREVACID) 30 mg capsule TAKE 1 CAPSULE BY MOUTH ONCE DAILY. lansoprazole (PREVACID) 30 mg capsule Take 1 capsule by mouth once daily. meclizine (ANTIVERT) 25 mg tab Take 1 tablet by mouth twice daily. Nebulizer Accessories kit Please dispense nebulizer accessories kit (tubing, mouthpiece, mask etc.) Dx. Mild persistent asthma with acute exacerbation J45.31 budesonide-formoterol (SYMBICORT) 160-4.5 mcg/actuation inhaler Inhale 2 Puffs as instructed twice daily. Use with spacer. Rinse mouth out after use. albuterol HFA (VENTOLIN HFA) 90 mcg/actuation inhaler Inhale 2 Puffs as instructed every 4 hours as needed (May also use 15 minutes pre-exercise). prochlorperazine (COMPAZINE) 10 mg tablet Take 1 tablet at the onset of headache and 30 mins after to a maximum of 3 tablets/day fluticasone (FLONASE) 50 mcg/actuation nasal spray Use 2 Sprays in each nostril once daily. Rinse mouth after use. albuterol (PROVENTIL) 2.5 mg /3 mL (0.083 %) nebulizer solution One ampule nebulized every 4 hours as needed for cough, wheezing, chest tightness or shortness of breath. calcium carbonate (CALTRATE) 600 mg (1,500 mg) tab TAKE ONE TABLET TWICE DAILY SUMAtriptan (IMITREX) 50 mg tablet Take 1 tablet by mouth as needed for Migraine Headache (see administration instructions). at onset of headache. May repeat after 2 hours. Cholecalciferol, Vitamin D3, (VITAMIN D) 1,000 unit cap Take 1 capsule by mouth once daily. No current facility-administered medications for this visit. ALLERGIES Allergen Reactions - Environmental Aller* Dogs, cats, and dust mites. Social History Marital status: Single Spouse name: Years of education: Number of children: Social History Main Topics Smoking status: Never Smoker Smokeless tobacco: Never Used Alcohol use: Yes Comment: occasionally Drug use: No ROS: See HPI PE: BP 116/74 Pulse 80 Temp (Src) 98.5 (Left Tympanic) Resp 16 Wt 229 lb (103.9kg) LMP 10/08/2017 Gen: AANDOX3, NAD, non-toxic appearing HEENT: PERRLA, EOMs intact b/l, nares without drainage, pharynx without erythema, exudate, lesions, or drainage. Uvula midline. Neck: No LAD, no thyromegaly, no meningismus. CV: RRR, no murmur Lungs: CTA b/l, no wheezing Skin: No rashes, lesions, or wounds on exposed skin. Decreased pinpoint sensation left dorsal medial foot and great toe Strength LE normal Mild epigastric TTP without masses or r/r/g, normal BS ASSESSMENT/PLAN: 1. Fatigue, unspecified type - ICD9: 780.79, ICD10: R53.83 (primary diagnosis) - unsure of causes, labs as below, ? SE of Effexor if labs are normal - VITAMIN B12 BLOOD - HGB A1C - H PYLORI IGG AB - VITAMIN B6/PYRIDOXIN - LIPASE BLD - COMP METABOLIC PANEL - CBC - TSH BLD - CMV IGM AB - SARA-HATCH EA - SARA-HATCH NUC AG 2. Nausea - ICD9: 787.02, ICD10: R11.0 - unsure of cause, labs as below, ? SE of Effexor if labs are normal - VITAMIN B12 BLOOD - HGB A1C - H PYLORI IGG AB - VITAMIN B6/PYRIDOXIN - LIPASE BLD - COMP METABOLIC PANEL - CBC - TSH BLD - CMV IGM AB - SARA-HATCH EA - SARA-HATCH NUC AG 3. Paresthesia of left foot - ICD9: 782.0, ICD10: R20.2 - unsure of cause, labs as below, ? SE of Effexor if labs are normal - VITAMIN B12 BLOOD - HGB A1C - VITAMIN B6/PYRIDOXIN - COMP METABOLIC PANEL - CBC - TSH BLD - CMV IGM AB - SARA-HATCH EA - SARA-HATCH NUC AG Reji Vazquez DO Return if no improvement. Follow up with Reji Vazquez DO. . Discussed risks, benefits, alternatives, and potential side effects of medications. Patient/Guardian expressed understanding and agreed with the plan. See patient instructions. Reji Vazquez DO [address] [place] [address] Referring Provider: REJI VAZQUEZ [[id number]] Allergies As of Date: 10/18/2017 Noted Allergy Reaction Environmental allergies [Other] 10/13/2006 Comments: Dogs, cats, and dust mites. Date Reviewed: 10/18/2017 Reviewed by: Ariana Nassar LPN - Fully Assessed Reason for Visit: Follow Up [171] Cmt: 3 months Primary Visit Diagnosis:Fatigue, unspecified type [R53.83] Other Visit Diagnoses:Nausea [R11.0] Paresthesia of left foot [R20.2] Order(s):venlafaxine ER (EFFEXOR XR) 37.5 mg 24 hr capsuleTake 1 capsule by mouth once daily.Disp: 30 capsuleRfl: 5 VITAMIN B12 BLOOD [SQB12] Order #: [id number] FUTURE HGB A1C [JGFTZ7B] Order #: [id number] FUTURE H PYLORI IGG AB [SQHPYLRI] Order #: [id number] FUTURE VITAMIN B6/PYRIDOXIN [SQVITB6] Order #: [id number] FUTURE LIPASE BLD [SQLIPA] Order #: [id number] FUTURE COMP METABOLIC PANEL [SQCMP] Order #: [id number] FUTURE CBC [SQCBC] Order #: [id number] FUTURE TSH BLD [SQTSH] Order #: [id number] FUTURE CMV IGM AB [SQCMVMAB] Order #: [id number] FUTURE SARA-HATCH EA [SQEBVEA] Order #: [id number] FUTURE SARA-HATCH NUC AG [SQEBVNA] Order #: [id number] FUTURE Prescriptions as of 10/18/2017 Sig: VENLAFAXINE ER 37.5 MG CAPSUL* Take 1 capsule by mouth once * SULFACETAMIDE SODIUM 10 % SHA* Apply 1 application to affect* KETOCONAZOLE 2 % SHAMPOO Wash scalp daily as needed. L* ALLERGY RELIEF-D (CETIRIZINE)* TAKE 1 TABLET BY MOUTH TWICE * CETIRIZINE 5 MG-PSEUDOEPHEDRI* Take 1 tablet by mouth twice * CLOBETASOL 0.05 % SCALP SOLUT* Apply 1 application to affect* AMMONIUM LACTATE 12 % TOPICAL* Apply 1 application to affect* METFORMIN ER 500 MG TABLET,EX* Take 1 tablet by mouth once d* LANSOPRAZOLE 30 MG CAPSULE,DE* TAKE 1 CAPSULE BY MOUTH ONCE * LANSOPRAZOLE 30 MG CAPSULE,DE* Take 1 capsule by mouth once * MECLIZINE 25 MG TABLET Take 1 tablet by mouth twice * NEBULIZER ACCESSORIES KIT Please dispense nebulizer acc* BUDESONIDE-FORMOTEROL HFA 160* Inhale 2 Puffs as instructed * ALBUTEROL SULFATE HFA 90 MCG/* Inhale 2 Puffs as instructed * PROCHLORPERAZINE MALEATE 10 M* Take 1 tablet at the onset of* FLUTICASONE 50 MCG/ACTUATION * Use 2 Sprays in each nostril * ALBUTEROL SULFATE 2.5 MG/3 ML* One ampule nebulized every 4 * CALCIUM CARBONATE 600 MG CALC* TAKE ONE TABLET TWICE DAILY SUMATRIPTAN 50 MG TABLET Take 1 tablet by mouth as nee* CHOLECALCIFEROL (VITAMIN D3) * Take 1 capsule by mouth once * Problem List As Of Date 10/18/2017 Noted Resolved Allergic rhinitis [J30.9] Extrinsic asthma [J45.909] Fibromyalgia [M79.7] INVALID FOR* Psoriasis arthropathica (HCC) [L40.50] INVALID FOR*09/25/2015 RLS (restless legs syndrome) [G25.81] INVALID FOR* MK AHI 12.7 46R [G47.33] INVALID FOR* More... Multiple thyroid nodules [E04.2] INVALID FOR* Chronic pain [G89.29] INVALID FOR* Multiple falls [R29.6] INVALID FOR* Iron deficiency [E61.1] INVALID FOR* Other pain disorders related to psychological f*INVALID FOR* Depression [F32.9] INVALID FOR* [F41.0] INVALID FOR* Anxiety disorder [F41.9] INVALID FOR* Lumbago [M54.5] INVALID FOR* Pain in joint, pelvic region and thigh [M25.559]INVALID FOR* Pain in limb [M79.609] INVALID FOR* [Z34.90] INVALID FOR*04/12/2016 Psoriatic arthritis (HCC) [L40.50] INVALID FOR* Sciatica, right side [M54.31] INVALID FOR* Moderate single current episode of major depres*INVALID FOR* Allergic rhinitis due to animal hair and dander*INVALID FOR* Allergic rhinitis due to dust mite [J30.89] INVALID FOR* Prescriptions ordered this encounter Disp Refills Start End VENLAFAXINE ER 37.5 MG CAPSULE,EXTEN* 30 c* 5 10/18/2017 11/17/2017 Route: ORAL Sig: Take 1 capsule by mouth once daily. Medications Discontinued During This Encounter venlafaxine ER (EFFEXOR XR) 37.5 mg * 30 c* 5 07/15/2017 10/18/2017 Route: ORAL Sig: Take 1 capsule by mouth once daily. Disc: Reason for discontinue is not on file. Encounter Status:Closed by REJI VAZQUEZ DO on 10/18/17 PROGRESS Observed: 10/06/2017 Status: COMPLETED Source: [place] 1:[address] [facility] REPOSITORY [facility] ID: [id number] Author: Kasia (Karen Walden Service: (none) Author Type: Nurse Practitioner Type: Progress Notes Filed: 10/06/2017 3:11 PM Note Text: Department of Dermatology Kasia Walden APRN.CNP 10/06/2017 Last visit in Dermatology: 08/26/2017 Assessment/Plan (D22.70, D22.5, D22.60) Multiple benign nevi of upper and lower extremities, and trunk (primary encounter diagnosis) Comment: benign-appearing Plan: benign and observe (L40.0) Psoriasis vulgaris, (L21.9) Seborrheic dermatitis Comment: scalp Plan: discussed treatment options, recommend sulfacetamide sodium shampoo daily as needed for irritation and scaling. Also, d/t poor insurance coverage for prescription coverage in the past- given samples of coal tar shampoo if Rx shampoo is not covered. R/b/o for the medication including possible side effects discussed and reviewed with patient. Per discussion with Dr. Espinoza, if scalp irritation is not improved, may consider scalp biopsy at next follow up visit. (L81.4) Solar lentigo Comment: benign-appearing Plan: benign and observe The nature of sun-induced photo-aging and skin cancers is discussed. Sun avoidance, protective clothing, and the use of 30-SPF sunscreens is advised. Patient is instructed to perform regular self exams. Observe for changing, symptomatic, or new skin lesions and seek care with the patient's primary care provider or with dermatology if any lesions of concern are noted. Follow-up 3 months and as needed. Kasia Walden, RACK LOADER.FIELD CONTACT PERSON Chief Complaint: Patient presents with: Full Body Skin Check Subjective and Objective HPI: Mony Zhang is a 42 year old female who presents for: Skin check. Desires: Total body skin check History of skin cancer?: No Lesions of particular concern?: Lesion(s): Itching and scaling in scaling Location(s): scalp Duration: years Symptoms: itching, irritation redness Severity: moderate Inciting factors: worsens in the winter time Associated symptoms/previous treatments: ketoconazole shampoo PAST MEDICAL HISTORY Diagnosis Date - Allergic rhinitis, cause unspecified - Anemia - Depression - Extrinsic asthma, unspecified - Fibromyalgia - Gestational diabetes 2016 - Hypoglycemia - IBS (irritable bowel syndrome) - Migraine headache Dr. Varghese Neurologist - Multiple thyroid nodules Dr. Evans Junior Account Manager - Obstructive sleep apnea on CPAP, Dr. Núñez - [facility] - PAST MEDICAL HISTORY OF Tarsal tunnel - Psoriatic arthritis (HCC) Current Outpatient Prescriptions on File Prior to Visit: ketoconazole (NIZORAL) 2 % shampoo Wash scalp daily as needed. Leave on 5-10 minutes before rinsing off ALLERGY RELIEF-D, CETIRIZINE, 5-120 mg per tablet TAKE 1 TABLET BY MOUTH TWICE DAILY NEEDED. cetirizine-pseudoephedrine (ZYRTEC-D) 5-120 mg per tablet Take 1 tablet by mouth twice daily as needed. Clobetasol Propionate (TEMOVATE) 0.05 % external solution Apply 1 application to affected area once daily as needed (for scaling on the scalp). ammonium lactate (LAC-HYDRIN) 12 % cream Apply 1 application to affected area as needed (for bumps on the arms). metFORMIN ER (GLUCOPHAGE XR) 500 mg 24 hr tablet Take 1 tablet by mouth once daily. lansoprazole (PREVACID) 30 mg capsule TAKE 1 CAPSULE BY MOUTH ONCE DAILY. lansoprazole (PREVACID) 30 mg capsule Take 1 capsule by mouth once daily. venlafaxine ER (EFFEXOR XR) 37.5 mg 24 hr capsule Take 1 capsule by mouth once daily. meclizine (ANTIVERT) 25 mg tab Take 1 tablet by mouth twice daily. Nebulizer Accessories kit Please dispense nebulizer accessories kit (tubing, mouthpiece, mask etc.) Dx. Mild persistent asthma with acute exacerbation J45.31 budesonide-formoterol (SYMBICORT) 160-4.5 mcg/actuation inhaler Inhale 2 Puffs as instructed twice daily. Use with spacer. Rinse mouth out after use. albuterol HFA (VENTOLIN HFA) 90 mcg/actuation inhaler Inhale 2 Puffs as instructed every 4 hours as needed (May also use 15 minutes pre-exercise). prochlorperazine (COMPAZINE) 10 mg tablet Take 1 tablet at the onset of headache and 30 mins after to a maximum of 3 tablets/day fluticasone (FLONASE) 50 mcg/actuation nasal spray Use 2 Sprays in each nostril once daily. Rinse mouth after use. albuterol (PROVENTIL) 2.5 mg /3 mL (0.083 %) nebulizer solution One ampule nebulized every 4 hours as needed for cough, wheezing, chest tightness or shortness of breath. Cholecalciferol, Vitamin D3, (VITAMIN D) 1,000 unit cap Take 1 capsule by mouth once daily. calcium carbonate (CALTRATE) 600 mg (1,500 mg) tab TAKE ONE TABLET TWICE DAILY SUMAtriptan (IMITREX) 50 mg tablet Take 1 tablet by mouth as needed for Migraine Headache (see administration instructions). at onset of headache. May repeat after 2 hours. No current facility-administered medications on file prior to visit. ROS: General: Does the patient feel generally well? Yes Skin: Any other skin lesions of concern? No Any other ongoing rashes or itching? No Physical Exam: General: The patient appears generally well, non-toxic, and in no distress. Skin: The following areas were inspected and/or palpated and were unremarkable except as noted below: Scalp and hair; head (including the face and ears); neck;, chest (including breasts and axillae); abdomen; genitalia, groin, and buttocks; back; right upper extremity; left upper extremity; right lower extremity; left lower extremity; as well as the apocrine and eccrine glands which were inspected. Eyes: Inspection of conjunctivae and lids revealed no tumors or injection. Ears, Nose, Mouth and Throat: Inspection of the lips was unremarkable. Cardiovascular: Examination of peripheral vascular system by observation and palpation demonstrated no edema, infarcts or tenderness and was otherwise unremarkable. Extremities: Inspection and palpation of digits and nails demonstrated no infarcts, clubbing or other lesions. Neurological/Psychiatric: The patient's mood and affect are unremarkable, and appears oriented to person, place and knows date of . Positive findings: Moderate erythema and scaling throughout the scalp- most notably in the occipital/posterior scalp Densely scattered light hendricks macules noted on all sun exposed areas Regular and symmetric hyperpigmented macules throughout The documentation for this note was completed by Ale Alcala LPN acting as scribe for Kasia Walden APRN.CNP. October 06, 2017 1:31 PM Kasia Walden APRN.CNP CNOV Observed: 10/06/2017 Status: COMPLETED Source: [place] 1:20 PM [facility] REPOSITORY Office Visit (DERMST) MONY ZHANG ([id number]) 1975 [facility] Date Time Provider Department 10/06/17 1:20 PM KASIA WALDEN (JULIOCESAR) DERMST During your visit today, we recorded the following information about you: Kasia Walden APRN.CNP 10/06/2017 3:11 PM Signed Department of Dermatology Kasia Walden APRN.CNP 10/06/2017 Last visit in Dermatology: 08/26/2017 Assessment/Plan (D22.70, D22.5, D22.60) Multiple benign nevi of upper and lower extremities, and trunk (primary encounter diagnosis) Comment: benign-appearing Plan: benign and observe (L40.0) Psoriasis vulgaris, (L21.9) Seborrheic dermatitis Comment: scalp Plan: discussed treatment options, recommend sulfacetamide sodium shampoo daily as needed for irritation and scaling. Also, d/t poor insurance coverage for prescription coverage in the past- given samples of coal tar shampoo if Rx shampoo is not covered. R/b/o for the medication including possible side effects discussed and reviewed with patient. Per discussion with Dr. Espinoza, if scalp irritation is not improved, may consider scalp biopsy at next follow up visit. (L81.4) Solar lentigo Comment: benign-appearing Plan: benign and observe The nature of sun-induced photo-aging and skin cancers is discussed. Sun avoidance, protective clothing, and the use of 30-SPF sunscreens is advised. Patient is instructed to perform regular self exams. Observe for changing, symptomatic, or new skin lesions and seek care with the patient's primary care provider or with dermatology if any lesions of concern are noted. Follow-up 3 months and as needed. Kasia Walden APRN.CNP Chief Complaint: Patient presents with: Full Body Skin Check Subjective and Objective HPI: Mony Zhang is a 42 year old female who presents for: Skin check. Desires: Total body skin check History of skin cancer?: No Lesions of particular concern?: Lesion(s): Itching and scaling in scaling Location(s): scalp Duration: years Symptoms: itching, irritation redness Severity: moderate Inciting factors: worsens in the winter time Associated symptoms/previous treatments: ketoconazole shampoo PAST MEDICAL HISTORY Diagnosis Date - Allergic rhinitis, cause unspecified - Anemia - Depression - Extrinsic asthma, unspecified - Fibromyalgia - Gestational diabetes 2016 - Hypoglycemia - IBS (irritable bowel syndrome) - Migraine headache Dr. Varghese Neurologist - Multiple thyroid nodules Dr. Evans Junior Account Manager - Obstructive sleep apnea on CPAP, Dr. Núñez - PMH - PAST MEDICAL HISTORY OF Tarsal tunnel - Psoriatic arthritis (HCC) Current Outpatient Prescriptions on File Prior to Visit: ketoconazole (NIZORAL) 2 % shampoo Wash scalp daily as needed. Leave on 5-10 minutes before rinsing off ALLERGY RELIEF-D, CETIRIZINE, 5-120 mg per tablet TAKE 1 TABLET BY MOUTH TWICE DAILY NEEDED. cetirizine-pseudoephedrine (ZYRTEC-D) 5-120 mg per tablet Take 1 tablet by mouth twice daily as needed. Clobetasol Propionate (TEMOVATE) 0.05 % external solution Apply 1 application to affected area once daily as needed (for scaling on the scalp). ammonium lactate (LAC-HYDRIN) 12 % cream Apply 1 application to affected area as needed (for bumps on the arms). metFORMIN ER (GLUCOPHAGE XR) 500 mg 24 hr tablet Take 1 tablet by mouth once daily. lansoprazole (PREVACID) 30 mg capsule TAKE 1 CAPSULE BY MOUTH ONCE DAILY. lansoprazole (PREVACID) 30 mg capsule Take 1 capsule by mouth once daily. venlafaxine ER (EFFEXOR XR) 37.5 mg 24 hr capsule Take 1 capsule by mouth once daily. meclizine (ANTIVERT) 25 mg tab Take 1 tablet by mouth twice daily. Nebulizer Accessories kit Please dispense nebulizer accessories kit (tubing, mouthpiece, mask etc.) Dx. Mild persistent asthma with acute exacerbation J45.31 budesonide-formoterol (SYMBICORT) 160-4.5 mcg/actuation inhaler Inhale 2 Puffs as instructed twice daily. Use with spacer. Rinse mouth out after use. albuterol HFA (VENTOLIN HFA) 90 mcg/actuation inhaler Inhale 2 Puffs as instructed every 4 hours as needed (May also use 15 minutes pre-exercise). prochlorperazine (COMPAZINE) 10 mg tablet Take 1 tablet at the onset of headache and 30 mins after to a maximum of 3 tablets/day fluticasone (FLONASE) 50 mcg/actuation nasal spray Use 2 Sprays in each nostril once daily. Rinse mouth after use. albuterol (PROVENTIL) 2.5 mg /3 mL (0.083 %) nebulizer solution One ampule nebulized every 4 hours as needed for cough, wheezing, chest tightness or shortness of breath. Cholecalciferol, Vitamin D3, (VITAMIN D) 1,000 unit cap Take 1 capsule by mouth once daily. calcium carbonate (CALTRATE) 600 mg (1,500 mg) tab TAKE ONE TABLET TWICE DAILY SUMAtriptan (IMITREX) 50 mg tablet Take 1 tablet by mouth as needed for Migraine Headache (see administration instructions). at onset of headache. May repeat after 2 hours. No current facility-administered medications on file prior to visit. ROS: General: Does the patient feel generally well? Yes Skin: Any other skin lesions of concern? No Any other ongoing rashes or itching? No Physical Exam: General: The patient appears generally well, non-toxic, and in no distress. Skin: The following areas were inspected and/or palpated and were unremarkable except as noted below: Scalp and hair; head (including the face and ears); neck;, chest (including breasts and axillae); abdomen; genitalia, groin, and buttocks; back; right upper extremity; left upper extremity; right lower extremity; left lower extremity; as well as the apocrine and eccrine glands which were inspected. Eyes: Inspection of conjunctivae and lids revealed no tumors or injection. Ears, Nose, Mouth and Throat: Inspection of the lips was unremarkable. Cardiovascular: Examination of peripheral vascular system by observation and palpation demonstrated no edema, infarcts or tenderness and was otherwise unremarkable. Extremities: Inspection and palpation of digits and nails demonstrated no infarcts, clubbing or other lesions. Neurological/Psychiatric: The patient's mood and affect are unremarkable, and appears oriented to person, place and knows date of . Positive findings: Moderate erythema and scaling throughout the scalp- most notably in the occipital/posterior scalp Densely scattered light hendricks macules noted on all sun exposed areas Regular and symmetric hyperpigmented macules throughout The documentation for this note was completed by Ale Alcala LPN acting as scribe for Kasia Walden APRN.FIELD CONTACT PERSON. October 06, 2017 1:31 PM PAM Castrejon APRN.CNP 10/06/2017 1:55 PM Addendum Q: How do I obtain a follow-up appointment in 6 months with the dermatology team at the [facility]? A: About 3 months prior to your desired appointment time, please contact our appointment center to request an appointment with the [facility]. You can either: ? Call the central appointment number, ? Request an appointment online at: [email or web address] ? Use your [employer] appointment request function All of the clinical staff at [facility] work together as a closely-knit team to provide our patients the very best dermatologic care. Referring Provider: SELF [[id number]] Allergies As of Date: 10/06/2017 Noted Allergy Reaction Environmental allergies [Other] 10/13/2006 Comments: Dogs, cats, and dust mites. Date Reviewed: 10/06/2017 Reviewed by: Ale Alcala LPN - Fully Assessed Reason for Visit: Full Body Skin Check [1445] Cmt: patient reports to have no specific areas of concen today. Primary Visit Diagnosis:Multiple benign nevi of upper and lower extremities, and trunk [D22.70, D22.5, D22.60] Other Visit Diagnoses:Seborrheic dermatitis [L21.9] Psoriasis vulgaris [L40.0] Solar lentigo [L81.4] Order(s):Sulfacetamide Sodium 10 % shamApply 1 application to affected area once daily.Disp: 237 mLRfl: 5 Prescriptions as of 10/06/2017 Sig: KETOCONAZOLE 2 % SHAMPOO Wash scalp daily as needed. L* ALLERGY RELIEF-D (CETIRIZINE)* TAKE 1 TABLET BY MOUTH TWICE * CETIRIZINE 5 MG-PSEUDOEPHEDRI* Take 1 tablet by mouth twice * CLOBETASOL 0.05 % SCALP SOLUT* Apply 1 application to affect* AMMONIUM LACTATE 12 % TOPICAL* Apply 1 application to affect* METFORMIN ER 500 MG TABLET,EX* Take 1 tablet by mouth once d* LANSOPRAZOLE 30 MG CAPSULE,DE* TAKE 1 CAPSULE BY MOUTH ONCE * LANSOPRAZOLE 30 MG CAPSULE,DE* Take 1 capsule by mouth once * X VENLAFAXINE ER 37.5 MG CAPSUL* Take 1 capsule by mouth once * MECLIZINE 25 MG TABLET Take 1 tablet by mouth twice * NEBULIZER ACCESSORIES KIT Please dispense nebulizer acc* BUDESONIDE-FORMOTEROL HFA 160* Inhale 2 Puffs as instructed * ALBUTEROL SULFATE HFA 90 MCG/* Inhale 2 Puffs as instructed * PROCHLORPERAZINE MALEATE 10 M* Take 1 tablet at the onset of* FLUTICASONE 50 MCG/ACTUATION * Use 2 Sprays in each nostril * ALBUTEROL SULFATE 2.5 MG/3 ML* One ampule nebulized every 4 * CHOLECALCIFEROL (VITAMIN D3) * Take 1 capsule by mouth once * CALCIUM CARBONATE 600 MG CALC* TAKE ONE TABLET TWICE DAILY SUMATRIPTAN 50 MG TABLET Take 1 tablet by mouth as nee* SULFACETAMIDE SODIUM 10 % SHA* Apply 1 application to affect* Problem List As Of Date 10/06/2017 Noted Resolved Allergic rhinitis [J30.9] Extrinsic asthma [J45.909] Fibromyalgia [M79.7] INVALID FOR* Psoriasis arthropathica (HCC) [L40.50] INVALID FOR*09/25/2015 RLS (restless legs syndrome) [G25.81] INVALID FOR* MK AHI 12.7 46R [G47.33] INVALID FOR* More... Multiple thyroid nodules [E04.2] INVALID FOR* Chronic pain [G89.29] INVALID FOR* Multiple falls [R29.6] INVALID FOR* Iron deficiency [E61.1] INVALID FOR* Other pain disorders related to psychological f*INVALID FOR* Depression [F32.9] INVALID FOR* [F41.0] INVALID FOR* Anxiety disorder [F41.9] INVALID FOR* Lumbago [M54.5] INVALID FOR* Pain in joint, pelvic region and thigh [M25.559]INVALID FOR* Pain in limb [M79.609] INVALID FOR* [Z34.90] INVALID FOR*04/12/2016 Psoriatic arthritis (HCC) [L40.50] INVALID FOR* Sciatica, right side [M54.31] INVALID FOR* Moderate single current episode of major depres*INVALID FOR* Allergic rhinitis due to animal hair and dander*INVALID FOR* Allergic rhinitis due to dust mite [J30.89] INVALID FOR* Other instructions from your clinician: Q: How do I obtain a follow-up appointment in 6 months with the dermatology team at the [facility]? A: About 3 months prior to your desired appointment time, please contact our appointment center to request an appointment with the [facility]. You can either: ? Call the central appointment number, ? Request an appointment online at: [email or web address] ? Use your Minbox appointment request function All of the clinical staff at [facility] work together as a closely-knit team to provide our patients the very best dermatologic care. Prescriptions ordered this encounter Disp Refills Start End SULFACETAMIDE SODIUM 10 % SHAMPOO 237 * 5 10/06/2017 Route: TOPICAL Sig: Apply 1 application to affected area once daily. Disposition: Return in about 3 months (around 01/06/2018) for recheck scalp. Follow-up and Disposition History Recorded Encounter Status:Closed by KASIA WALDEN CNP on 10/06/17 HCG, QUANTITATIVE BL Collected: 09/22/2017 Status: F Source: [place] 8:45 AM [facility] REPOS[facility] TYPE CODE TESTS RESULT OUT OF REFERENCE UNITS RANGE LAB HCGQT <5.0 mU/mL HCG, Quantitative Bl <0.1 Result Comment: NEGATIVE Performed By: #### HCGQT #### [facility] [address], [place] [address] PROGRESS Observed: 08/26/2017 Status: COMPLETED Source: [place] 10:08 AM [facility] HNO ID: [id number] Author: Dorie Colon) Alexis Service: (none) Author Type: Physician Type: Progress Notes Filed: 08/26/2017 10:37 AM Note Text: Department of Dermatology Dorie Espinoza MD 08/26/2017 Last visit in Dermatology: 08/26/2016 Assessment/Plan Problem List Items Addressed This Visit None Visit Diagnoses Psoriasis vulgaris - Primary Relevant Medications Clobetasol Propionate (TEMOVATE) 0.05 % external solution Ciclopirox 1 % sham Keratosis pilaris Relevant Medications ammonium lactate (LAC-HYDRIN) 12 % cream Melanocytic nevi of scalp and neck Pruritus hasn't stopped, despite improvement in the scaling. No hair loss, no other areas of similar involvement. Discussed treatment options. Change to ciclopirox for now. Hold ketoconazole. Continue Temovate as before. If not improving after a few months, schedule scalp bx. KP on the arms. Discussed treatment options. Medication use discussed. Follow-up as noted below or as needed. Dorie Espinoza MD This note is completed at 10:34 AM on 08/26/2017 and reflects the services provided at the time of the appointment. I agree with the Chief Complaint, ROS, and Past Histories independently gathered by the clinical child support specialist and the remaining scribed note accurately describes my personal service to the patient. E-visit Recommended Follow Up: Follow up eVisit not offered. Patient not appropriate for eVisit based on diagnosis. I have seen and examined Ms. Zhang. I have discussed the case and the management of this patient's care with the Resident. I also have reviewed and agree with the assessment and plan as stated above and agree with all of its relevant components. There were no procedures performed during this patient's visit. Dorie Espinoza MD Chief Complaint: Patient presents with: Psoriasis: Scalp pretty well controlled with topicals , needs refills - has some itchy red bumps on upper extremities Subjective and Objective HPI: Mony Zhang is a 42 year old female who presents for: Psoriasis (scalp) - uses Nizoral shampoo every other day and Temovate every other day on the scalp. No change in itching/discomfort of the scalp since last visit. Lesions of particular concern?: New lesions on forearms Lesion(s): Itchy, red bumps that look like pimples Location(s): Bilateral forearms Duration: present for over 1 year Symptoms: itching comes and goes but lesions remain present Severity: mild- will move around- not constantly the same lesions Inciting factors: n/a Associated symptoms/previous treatments: lotion on them daily with little relief PAST MEDICAL HISTORY Diagnosis Date - Allergic rhinitis, cause unspecified - Anemia - Depression - Extrinsic asthma, unspecified - Fibromyalgia - Gestational diabetes 2016 - Hypoglycemia - IBS (irritable bowel syndrome) - Migraine headache Dr. Varghese Neurologist - Multiple thyroid nodules Dr. Evans Junior Account Manager - Obstructive sleep apnea on CPAP, Dr. Núñez - [facility] - PAST MEDICAL HISTORY OF Tarsal tunnel - Psoriatic arthritis (HCC) Current Outpatient Prescriptions on File Prior to Visit: metFORMIN ER (GLUCOPHAGE XR) 500 mg 24 hr tablet Take 1 tablet by mouth once daily. lansoprazole (PREVACID) 30 mg capsule TAKE 1 CAPSULE BY MOUTH ONCE DAILY. lansoprazole (PREVACID) 30 mg capsule Take 1 capsule by mouth once daily. venlafaxine ER (EFFEXOR XR) 37.5 mg 24 hr capsule Take 1 capsule by mouth once daily. meclizine (ANTIVERT) 25 mg tab Take 1 tablet by mouth twice daily. Nebulizer Accessories kit Please dispense nebulizer accessories kit (tubing, mouthpiece, mask etc.) Dx. Mild persistent asthma with acute exacerbation J45.31 budesonide-formoterol (SYMBICORT) 160-4.5 mcg/actuation inhaler Inhale 2 Puffs as instructed twice daily. Use with spacer. Rinse mouth out after use. cetirizine-pseudoephedrine (ZYRTEC-D) 5-120 mg per tablet Take 1 tablet by mouth twice daily as needed. albuterol HFA (VENTOLIN HFA) 90 mcg/actuation inhaler Inhale 2 Puffs as instructed every 4 hours as needed (May also use 15 minutes pre-exercise). prochlorperazine (COMPAZINE) 10 mg tablet Take 1 tablet at the onset of headache and 30 mins after to a maximum of 3 tablets/day fluticasone (FLONASE) 50 mcg/actuation nasal spray Use 2 Sprays in each nostril once daily. Rinse mouth after use. Clobetasol Propionate (TEMOVATE) 0.05 % external solution Apply 1 application to affected area once daily as needed (for scaling on the scalp). ketoconazole (NIZORAL) 2 % shampoo Apply 1 application to affected area once daily as needed (for scaling on scalp). albuterol (PROVENTIL) 2.5 mg /3 mL (0.083 %) nebulizer solution One ampule nebulized every 4 hours as needed for cough, wheezing, chest tightness or shortness of breath. Cholecalciferol, Vitamin D3, (VITAMIN D) 1,000 unit cap Take 1 capsule by mouth once daily. calcium carbonate (CALTRATE) 600 mg (1,500 mg) tab TAKE ONE TABLET TWICE DAILY SUMAtriptan (IMITREX) 50 mg tablet Take 1 tablet by mouth as needed for Migraine Headache (see administration instructions). at onset of headache. May repeat after 2 hours. No current facility-administered medications on file prior to visit. ROS: General: Does the patient feel generally well? Yes Skin: Any other skin lesions of concern? No Any other ongoing rashes or itching? No Physical Exam: The patient appeared generally well. No acute distress and non-toxic. Alert and oriented. Positive findings: Scattered follicular hyperkeratotic papules on the bilateral upper extremities, mild erythema, few excoriations. Scalp, mild sicca scaling. No alopecia, no scarring or other inflammation. Left subocciput: Fleshy papule. About 1 cm in greatest dimension. The remainder of the exam was otherwise unremarkable and included: scalp, face, eyes and eyelids, lips, neck and bilatera upper exremities. Procedure/Biopsy today: No. Intake information obtained by Shira Kang LPN Attending signature: Dorie Espinoza MD CNOV Observed: 08/26/2017 Status: COMPLETED Source: [place] 10:05 AM [facility] Office Visit (DERMST) MONY ZHANG ([id number]) 1975 F [facility] Date Time Provider Department 08/26/17 10:05 AM DORIE ESPINOZA) DERMST During your visit today, we recorded the following information about you: Dorie Espinoza MD 08/26/2017 10:37 AM Signed Department of Dermatology Dorie Espinoza MD 08/26/2017 Last visit in Dermatology: 08/26/2016 Assessment/Plan Problem List Items Addressed This Visit None Visit Diagnoses Psoriasis vulgaris - Primary Relevant Medications Clobetasol Propionate (TEMOVATE) 0.05 % external solution Ciclopirox 1 % sham Keratosis pilaris Relevant Medications ammonium lactate (LAC-HYDRIN) 12 % cream Melanocytic nevi of scalp and neck Pruritus hasn't stopped, despite improvement in the scaling. No hair loss, no other areas of similar involvement. Discussed treatment options. Change to ciclopirox for now. Hold ketoconazole. Continue Temovate as before. If not improving after a few months, schedule scalp bx. KP on the arms. Discussed treatment options. Medication use discussed. Follow-up as noted below or as needed. Dorie Espinoza MD This note is completed at 10:34 AM on 08/26/2017 and reflects the services provided at the time of the appointment. I agree with the Chief Complaint, ROS, and Past Histories independently gathered by the clinical child support specialist and the remaining scribed note accurately describes my personal service to the patient. E-visit Recommended Follow Up: Follow up eVisit not offered. Patient not appropriate for eVisit based on diagnosis. I have seen and examined Ms. Zhang. I have discussed the case and the management of this patient's care with the Resident. I also have reviewed and agree with the assessment and plan as stated above and agree with all of its relevant components. There were no procedures performed during this patient's visit. Dorie Espinoza MD Chief Complaint: Patient presents with: Psoriasis: Scalp pretty well controlled with topicals , needs refills - has some itchy red bumps on upper extremities Subjective and Objective HPI: Mony Zhang is a 42 year old female who presents for: Psoriasis (scalp) - uses Nizoral shampoo every other day and Temovate every other day on the scalp. No change in itching/discomfort of the scalp since last visit. Lesions of particular concern?: New lesions on forearms Lesion(s): Itchy, red bumps that look like pimples Location(s): Bilateral forearms Duration: present for over 1 year Symptoms: itching comes and goes but lesions remain present Severity: mild- will move around- not constantly the same lesions Inciting factors: n/a Associated symptoms/previous treatments: lotion on them daily with little relief PAST MEDICAL HISTORY Diagnosis Date - Allergic rhinitis, cause unspecified - Anemia - Depression - Extrinsic asthma, unspecified - Fibromyalgia - Gestational diabetes 2016 - Hypoglycemia - IBS (irritable bowel syndrome) - Migraine headache Dr. Varghese Neurologist - Multiple thyroid nodules Dr. Evans Junior Account Manager - Obstructive sleep apnea on CPAP, Dr. Núñez - [facility] - PAST MEDICAL HISTORY OF Tarsal tunnel - Psoriatic arthritis (HCC) Current Outpatient Prescriptions on File Prior to Visit: metFORMIN ER (GLUCOPHAGE XR) 500 mg 24 hr tablet Take 1 tablet by mouth once daily. lansoprazole (PREVACID) 30 mg capsule TAKE 1 CAPSULE BY MOUTH ONCE DAILY. lansoprazole (PREVACID) 30 mg capsule Take 1 capsule by mouth once daily. venlafaxine ER (EFFEXOR XR) 37.5 mg 24 hr capsule Take 1 capsule by mouth once daily. meclizine (ANTIVERT) 25 mg tab Take 1 tablet by mouth twice daily. Nebulizer Accessories kit Please dispense nebulizer accessories kit (tubing, mouthpiece, mask etc.) Dx. Mild persistent asthma with acute exacerbation J45.31 budesonide-formoterol (SYMBICORT) 160-4.5 mcg/actuation inhaler Inhale 2 Puffs as instructed twice daily. Use with spacer. Rinse mouth out after use. cetirizine-pseudoephedrine (ZYRTEC-D) 5-120 mg per tablet Take 1 tablet by mouth twice daily as needed. albuterol HFA (VENTOLIN HFA) 90 mcg/actuation inhaler Inhale 2 Puffs as instructed every 4 hours as needed (May also use 15 minutes pre-exercise). prochlorperazine (COMPAZINE) 10 mg tablet Take 1 tablet at the onset of headache and 30 mins after to a maximum of 3 tablets/day fluticasone (FLONASE) 50 mcg/actuation nasal spray Use 2 Sprays in each nostril once daily. Rinse mouth after use. Clobetasol Propionate (TEMOVATE) 0.05 % external solution Apply 1 application to affected area once daily as needed (for scaling on the scalp). ketoconazole (NIZORAL) 2 % shampoo Apply 1 application to affected area once daily as needed (for scaling on scalp). albuterol (PROVENTIL) 2.5 mg /3 mL (0.083 %) nebulizer solution One ampule nebulized every 4 hours as needed for cough, wheezing, chest tightness or shortness of breath. Cholecalciferol, Vitamin D3, (VITAMIN D) 1,000 unit cap Take 1 capsule by mouth once daily. calcium carbonate (CALTRATE) 600 mg (1,500 mg) tab TAKE ONE TABLET TWICE DAILY SUMAtriptan (IMITREX) 50 mg tablet Take 1 tablet by mouth as needed for Migraine Headache (see administration instructions). at onset of headache. May repeat after 2 hours. No current facility-administered medications on file prior to visit. ROS: General: Does the patient feel generally well? Yes Skin: Any other skin lesions of concern? No Any other ongoing rashes or itching? No Physical Exam: The patient appeared generally well. No acute distress and non-toxic. Alert and oriented. Positive findings: Scattered follicular hyperkeratotic papules on the bilateral upper extremities, mild erythema, few excoriations. Scalp, mild sicca scaling. No alopecia, no scarring or other inflammation. Left subocciput: Fleshy papule. About 1 cm in greatest dimension. The remainder of the exam was otherwise unremarkable and included: scalp, face, eyes and eyelids, lips, neck and bilatera upper exremities. Procedure/Biopsy today: No. Intake information obtained by Shira Kang LPN Attending signature: Dorie Espinoza MD Referring Provider: SELF [[id number]] Allergies As of Date: 08/26/2017 Noted Allergy Reaction Environmental allergies [Other] 10/13/2006 Comments: Dogs, cats, and dust mites. Date Reviewed: 08/26/2017 Reviewed by: Shira Kang LPN - Fully Assessed Reason for Visit: Psoriasis [591] Cmt: Scalp pretty well controlled with topicals , needs refills - has some itchy red bumps on upper extremities Reason For Visit History Recorded Primary Visit Diagnosis:Psoriasis vulgaris [L40.0] Other Visit Diagnoses:Keratosis pilaris [L85.8] Melanocytic nevi of scalp and neck [D22.4] Order(s):Clobetasol Propionate (TEMOVATE) 0.05 % external solutionApply 1 application to affected area once daily as needed (for scaling on the scalp).Disp: 60 mLRfl: 6 Ciclopirox 1 % shamApply 1 application to affected area every other day.Disp: 120 mLRfl: 11 ammonium lactate (LAC-HYDRIN) 12 % creamApply 1 application to affected area as needed (for bumps on the arms).Disp: 385 gRfl: 5 Prescriptions as of 08/26/2017 Sig: CLOBETASOL 0.05 % SCALP SOLUT* Apply 1 application to affect* METFORMIN ER 500 MG TABLET,EX* Take 1 tablet by mouth once d* LANSOPRAZOLE 30 MG CAPSULE,DE* TAKE 1 CAPSULE BY MOUTH ONCE * LANSOPRAZOLE 30 MG CAPSULE,DE* Take 1 capsule by mouth once * VENLAFAXINE ER 37.5 MG CAPSUL* Take 1 capsule by mouth once * MECLIZINE 25 MG TABLET Take 1 tablet by mouth twice * NEBULIZER ACCESSORIES KIT Please dispense nebulizer acc* BUDESONIDE-FORMOTEROL HFA 160* Inhale 2 Puffs as instructed * CETIRIZINE 5 MG-PSEUDOEPHEDRI* Take 1 tablet by mouth twice * ALBUTEROL SULFATE HFA 90 MCG/* Inhale 2 Puffs as instructed * PROCHLORPERAZINE MALEATE 10 M* Take 1 tablet at the onset of* FLUTICASONE 50 MCG/ACTUATION * Use 2 Sprays in each nostril * ALBUTEROL SULFATE 2.5 MG/3 ML* One ampule nebulized every 4 * CHOLECALCIFEROL (VITAMIN D3) * Take 1 capsule by mouth once * CALCIUM CARBONATE 600 MG CALC* TAKE ONE TABLET TWICE DAILY SUMATRIPTAN 50 MG TABLET Take 1 tablet by mouth as nee* CICLOPIROX 1 % SHAMPOO Apply 1 application to affect* AMMONIUM LACTATE 12 % TOPICAL* Apply 1 application to affect* Problem List As Of Date 08/26/2017 Noted Resolved Allergic rhinitis [J30.9] Extrinsic asthma [J45.909] Fibromyalgia [M79.7] INVALID FOR* Psoriasis arthropathica (HCC) [L40.50] INVALID FOR*09/25/2015 RLS (restless legs syndrome) [G25.81] INVALID FOR* MK AHI 12.7 46R [G47.33] INVALID FOR* More... Multiple thyroid nodules [E04.2] INVALID FOR* Chronic pain [G89.29] INVALID FOR* Multiple falls [R29.6] INVALID FOR* Iron deficiency [E61.1] INVALID FOR* Other pain disorders related to psychological f*INVALID FOR* Depression [F32.9] INVALID FOR* [F41.0] INVALID FOR* Anxiety disorder [F41.9] INVALID FOR* Lumbago [M54.5] INVALID FOR* Pain in joint, pelvic region and thigh [M25.559]INVALID FOR* Pain in limb [M79.609] INVALID FOR* [Z34.90] INVALID FOR*04/12/2016 Psoriatic arthritis (HCC) [L40.50] INVALID FOR* Sciatica, right side [M54.31] INVALID FOR* Moderate single current episode of major depres*INVALID FOR* Allergic rhinitis due to animal hair and dander*INVALID FOR* Allergic rhinitis due to dust mite [J30.89] INVALID FOR* Prescriptions ordered this encounter Disp Refills Start End CLOBETASOL 0.05 % SCALP SOLUTION 60 mL 6 08/26/2017 Route: TOPICAL Sig: Apply 1 application to affected area once daily as needed (for scaling on the scalp). CICLOPIROX 1 % SHAMPOO 120 * 11 08/26/2017 Route: TOPICAL Sig: Apply 1 application to affected area every other day. AMMONIUM LACTATE 12 % TOPICAL CREAM 385 g 5 08/26/2017 Route: TOPICAL Sig: Apply 1 application to affected area as needed (for bumps on the arms). Medications Discontinued During This Encounter ketoconazole (NIZORAL) 2 % shampoo 120 * 6 08/26/2016 08/26/2017 Route: TOPICAL Sig: Apply 1 application to affected area once daily as needed (for scaling on scalp). Disc: Course of therapy completed Clobetasol Propionate (TEMOVATE) 0.0* 60 mL 6 12/31/2016 08/26/2017 Route: TOPICAL Sig: Apply 1 application to affected area once daily as needed (for scaling on the scalp). Disc: Reason for discontinue is not on file. Disposition: Return for skin check - schedule with Kasia. Follow-up and Disposition History Recorded Encounter Status:Closed by DORIE ESPINOZA MD on 08/26/17 URINALYSIS WITH Collected: 07/25/2017 Status: F Source: [facility] 9:29 AM [facility] REPOSITORY TYPE CODE TESTS RESULT OUT OF RANGE REFERENCE UNITS LAB UCOL Yellow Color Yellow LAB [facility] Clear Clarity Abnormal Cloudy Alert LAB UGLUC Negative mg/dL Glucose, Urine Negative LAB UBIL Negative Bilirubin, Urine Negative LAB UKET Negative Ketones, Urine Negative LAB [facility] 1.005-1.030 Specific [place], Ur 1.023 LAB UHGB Negative Hemoglobin/Blood, Negative Ur LAB UPH 4.5-8.0 pH 6.0 LAB UPROT Negative mg/dL Protein, Urine Negative LAB UUROB Normal Urobilinogen Normal LAB UNITR Negative Nitrites Negative LAB ULKEST Negative Leukest Negative LAB UCOM Comments SEE COMMENT Result Comment: N/A LAB UMCOM Urine SEE Jillian Comment COMMENT Result Comment: N/A LAB UWBC 0-5 /HPF WBC 0-5 LAB URBC 0-3 /HPF RBC 0-3 LAB UEPI /HPF Epithelial SEE Cells COMMENT Result Comment: Few Squamous Epithelial Cells Performed By: #### UAWMIC #### [place] [id number] [place] [id number] Observed: 07/25/2017 Status: F Source: [place] URINE CULTURE 9:29 AM [facility] REPOSITORY Sp. Request/Comment: - Specimen received in preservative Culture Result - 10,000 - <50,000 CFU/ml Normal urogenital radha Performed By: #### URCUL #### [place] [address] Observed: 07/15/2017 Status: F Source: [place] [facility] 12:25 PM [facility] REPOS[facility] Sp. Request/Comment: - Specimen received in preservative Culture Result - 10,000 - <50,000 CFU/ml Normal urogenital radha Performed By: #### URCUL #### [place] [address] PROGRESS Observed: 07/15/2017 Status: COMPLETED Source: [place] 12:18 PM [facility] REPOS[facility] HNO ID: [id number] Author: Reji Vazquez Service: (none) Author Type: Physician Type: Progress Notes Filed: 07/16/2017 8:52 AM Note Text: CC: Mony Zhang is a 42 year old female who presents to the office for 3 months follow up HPI: Previously Cold symptoms for the last 3-4 days, congestion, PND, scratchy throat, otherwise asymptomatic, + sick contacts with 17 month old dtr. ?? Still is 17 month old. ?? Struggling with anxiety and depression, has been noticing increased weight gain SE with dose change of Effexor, wanting alternative. Was on prozac prior which she developed tolerance to then was non effective. ?Denies SI or HI. Has many stressors with having a teenage daughter that is unstable and is living back in her home. ?She is interested in trying to have another child as well. ?? Right side sciatica, started 2-3 days ago after playing game on hands/knees on the floor with her daughter over the weekend. ?[place] pull in low back with radiation of sharp / shooting burning pain to anterior / lateral thigh and lower leg into foot. ?Unable to take muscle relaxants and neurontin for symptoms in past due to drowsiness. ?Took Advil with mild relief. ?Worse symptoms in AM and with prolonged standing/sitting, no weakness or falls or bowel/bladder changes. ? At follow up 2 months later ? She has noticed that trying to taper off the Effexor and only be on Wellbutrin has caused her to feel more anxious, recently restarted the low dose of Effexor 37.5 mg, does feel better with this medication. Still taking Wellbutrin daily as well. ?No SI or HI. Does have support from boyfriend Stewart. ?Still is her 19 month old dtr Linda. ? ? Cough, present for 1-2 days, no fevers or chills, intermittent wheezing improved with inhaler use. ? ? At last OFFICE VISIT 3 months ago Was changed from the effexor to Wellbutrin. Has been having some side effects with headaches and fatigue and weight gain since being on the Wellbutrin. She is breast feeding her 21 month old Linda still as well. She is trying to wean her from nursing. She is interested in retrying Prozac since tolerated this well in the past. ? Urinary urgency and frequency. No hematuria or flank pains, some dysuria ? No monthly menses. Needs to check to see if . Currently She was unable to tolerate the Wellbutrin, she was then recently restarted on Effexor, tolerating overall well, does think it contributes to increased appetite and weight gain. Has had SE on Prozac, Zoloft, Lexapro, Wellbutrin medications. Is still currently daily her 2 year old daughter, she is in the process of trying to wean her off the . No SI or HI. Does have good support from her boyfriend as well. Urinary urgency and burning, diagnosed with enterococcus, treated with levaquin, still with symptoms, last antibiotic was yesterday. PAST MEDICAL HISTORY Diagnosis Date - Allergic rhinitis, cause unspecified - Anemia - Depression - Extrinsic asthma, unspecified - Fibromyalgia - Gestational diabetes 2015 - Hypoglycemia - IBS (irritable bowel syndrome) - Migraine headache Dr. Varghese Neurologist - Multiple thyroid nodules Dr. Evans Junior Account Manager - Obstructive sleep apnea on CPAP, Dr. Núñez - [facility] - PAST MEDICAL HISTORY OF Tarsal tunnel - Psoriatic arthritis (HCC) PAST SURGICAL HISTORY Procedure Laterality Date - COLONOSCOP W/ OR W/O [facility] Colonoscopy - COLONOSCOP W/ OR W/O [facility] 03/15/13 Colonoscopy [facility] Dr. Borden - EGD W/O OR W/BRUSH/WASH EGD - PAST SURGICAL HISTORY OF 2004 sinus surgery - REMOVAL GALLBLADDER 2007 Cholecystectomy Current Outpatient Prescriptions: levoFLOXacin (LEVAQUIN) 750 mg tablet Take 1 tablet by mouth once daily for 7 days. meclizine (ANTIVERT) 25 mg tab Take 1 tablet by mouth twice daily. venlafaxine ER (EFFEXOR XR) 37.5 mg 24 hr capsule Take 1 capsule by mouth once daily. Nebulizer Accessories kit Please dispense nebulizer accessories kit (tubing, mouthpiece, mask etc.) Dx. Mild persistent asthma with acute exacerbation J45.31 budesonide-formoterol (SYMBICORT) 160-4.5 mcg/actuation inhaler Inhale 2 Puffs as instructed twice daily. Use with spacer. Rinse mouth out after use. cetirizine-pseudoephedrine (ZYRTEC-D) 5-120 mg per tablet Take 1 tablet by mouth twice daily as needed. albuterol HFA (VENTOLIN HFA) 90 mcg/actuation inhaler Inhale 2 Puffs as instructed every 4 hours as needed (May also use 15 minutes pre-exercise). prochlorperazine (COMPAZINE) 10 mg tablet Take 1 tablet at the onset of headache and 30 mins after to a maximum of 3 tablets/day fluticasone (FLONASE) 50 mcg/actuation nasal spray Use 2 Sprays in each nostril once daily. Rinse mouth after use. lansoprazole (PREVACID) 30 mg capsule Take 1 capsule by mouth once daily. Clobetasol Propionate (TEMOVATE) 0.05 % external solution Apply 1 application to affected area once daily as needed (for scaling on the scalp). ketoconazole (NIZORAL) 2 % shampoo Apply 1 application to affected area once daily as needed (for scaling on scalp). albuterol (PROVENTIL) 2.5 mg /3 mL (0.083 %) nebulizer solution One ampule nebulized every 4 hours as needed for cough, wheezing, chest tightness or shortness of breath. Cholecalciferol, Vitamin D3, (VITAMIN D) 1,000 unit cap Take 1 capsule by mouth once daily. calcium carbonate (CALTRATE) 600 mg (1,500 mg) tab TAKE ONE TABLET TWICE DAILY SUMAtriptan (IMITREX) 50 mg tablet Take 1 tablet by mouth as needed for Migraine Headache (see administration instructions). at onset of headache. May repeat after 2 hours. No current facility-administered medications for this visit. ALLERGIES Allergen Reactions - Environmental Aller* Dogs, cats, and dust mites. Social History Marital status: Single Spouse name: Years of education: Number of children: Social History Main Topics Smoking status: Never Smoker Smokeless tobacco: Never Used Alcohol use: Yes Comment: occasionally Drug use: No ROS: See HPI PE: BP 110/70 Pulse 88 Temp (Src) 98.5 (Left Tympanic) Resp 16 Wt 235 lb (106.6kg) LMP 06/21/2017 Gen: AANDOX3, NAD, non-toxic appearing HEENT: PERRLA, EOMs intact b/l, nares without drainage, pharynx without erythema, exudate, lesions, or drainage. Uvula midline. Neck: No LAD, no thyromegaly, no meningismus. CV: RRR, no murmur Lungs: CTA b/l, no wheezing Skin: No rashes, lesions, or wounds on exposed skin. Urine dip shows: Glucose, Urine (mg/dL) Date Value 07/15/2017 Negative Bilirubin, Urine (no units) Date Value 07/15/2017 Negative Bilirubin, Urine (no units) Date Value 07/15/2017 Negative Ketones, Urine (no units) Date Value 07/15/2017 Negative Specific [place], Ur (no units) Date Value 07/15/2017 1.015 Hemoglobin/Blood,Ur (no units) Date Value 07/15/2017 Small No results found for: PH Protein, Urine (mg/dL) Date Value 07/15/2017 Negative Urobilinogen, Urine (EU) Date Value 07/15/2017 normal No components found for: NITR Leukocytes (no units) Date Value 07/15/2017 Negative Color/Appearance (comment:) Date Value 07/15/2017 yellow ASSESSMENT/PLAN: 1. Anxiety disorder, unspecified type - ICD9: 300.00, ICD10: F41.9 (primary diagnosis) - Effexor as prescribed, consider celexa or Paxil in the future, no SI or HI 2. Dysuria - ICD9: 788.1, ICD10: R30.0 acute - Patient education for prevention given - UA DIP B/O - URINE CULTURE 3. Recurrent UTI (urinary tract infection) - ICD9: 599.0, ICD10: N39.0 acute - Patient education for prevention given - URINE CULTURE - LEVOFLOXACIN 750 MG TABLET Reji Vazquez DO Return if no improvement. Follow up with Reji Vazquez DO. Discussed risks, benefits, alternatives, and potential side effects of medications. Patient/Guardian expressed understanding and agreed with the plan. See patient instructions. Reji Vazquez DO [address] [place] [address] CNOV Observed: 07/15/2017 Status: COMPLETED Source: [place] 12:00 PM [facility] REPOS[facility] Office Visit (FAMPWS) MONY ZHANG ([id number]) 1975 F [place] Date Time Provider Department 07/15/17 12:00 PM REJI VAZQUEZ During your visit today, we recorded the following information about you: Temperature Pulse Respiration Blood pressure 98.5 degrees 88/minute 16/minute 110/70 Weight 106.6 kg Reji Vazquez DO 07/16/2017 8:52 AM Signed CC: Mony Zhang is a 42 year old female who presents to the office for 3 months follow up HPI: Previously Cold symptoms for the last 3-4 days, congestion, PND, scratchy throat, otherwise asymptomatic, + sick contacts with 17 month old dtr. ?? Still is 17 month old. ?? Struggling with anxiety and depression, has been noticing increased weight gain SE with dose change of Effexor, wanting alternative. Was on prozac prior which she developed tolerance to then was non effective. ?Denies SI or HI. Has many stressors with having a teenage daughter that is unstable and is living back in her home. ?She is interested in trying to have another child as well. ?? Right side sciatica, started 2-3 days ago after playing game on hands/knees on the floor with her daughter over the weekend. ?[place] pull in low back with radiation of sharp / shooting burning pain to anterior / lateral thigh and lower leg into foot. ?Unable to take muscle relaxants and neurontin for symptoms in past due to drowsiness. ?Took Advil with mild relief. ?Worse symptoms in AM and with prolonged standing/sitting, no weakness or falls or bowel/bladder changes. ? At follow up 2 months later ? She has noticed that trying to taper off the Effexor and only be on Wellbutrin has caused her to feel more anxious, recently restarted the low dose of Effexor 37.5 mg, does feel better with this medication. Still taking Wellbutrin daily as well. ?No SI or HI. Does have support from boyfriend Stewart. ?Still is her 19 month old dtr Linda. ? ? Cough, present for 1-2 days, no fevers or chills, intermittent wheezing improved with inhaler use. ? ? At last OFFICE VISIT 3 months ago Was changed from the effexor to Wellbutrin. Has been having some side effects with headaches and fatigue and weight gain since being on the Wellbutrin. She is breast feeding her 21 month old Linda still as well. She is trying to wean her from nursing. She is interested in retrying Prozac since tolerated this well in the past. ? Urinary urgency and frequency. No hematuria or flank pains, some dysuria ? No monthly menses. Needs to check to see if . Currently She was unable to tolerate the Wellbutrin, she was then recently restarted on Effexor, tolerating overall well, does think it contributes to increased appetite and weight gain. Has had SE on Prozac, Zoloft, Lexapro, Wellbutrin medications. Is still currently daily her 2 year old daughter, she is in the process of trying to wean her off the . No SI or HI. Does have good support from her boyfriend as well. Urinary urgency and burning, diagnosed with enterococcus, treated with levaquin, still with symptoms, last antibiotic was yesterday. PAST MEDICAL HISTORY Diagnosis Date - Allergic rhinitis, cause unspecified - Anemia - Depression - Extrinsic asthma, unspecified - Fibromyalgia - Gestational diabetes 2015 - Hypoglycemia - IBS (irritable bowel syndrome) - Migraine headache Dr. Varghese Neurologist - Multiple thyroid nodules Dr. Evans Junior Account Manager - Obstructive sleep apnea on CPAP, Dr. Núñez - [facility] - PAST MEDICAL HISTORY OF Tarsal tunnel - Psoriatic arthritis (HCC) PAST SURGICAL HISTORY Procedure Laterality Date - COLONOSCOP W/ OR W/O [facility] Colonoscopy - COLONOSCOP W/ OR W/O [facility] 03/15/13 Colonoscopy [facility] Dr. Borden - EGD W/O OR W/BRUSH/WASH EGD - PAST SURGICAL HISTORY OF 2004 sinus surgery - REMOVAL GALLBLADDER 2007 Cholecystectomy Current Outpatient Prescriptions: levoFLOXacin (LEVAQUIN) 750 mg tablet Take 1 tablet by mouth once daily for 7 days. meclizine (ANTIVERT) 25 mg tab Take 1 tablet by mouth twice daily. venlafaxine ER (EFFEXOR XR) 37.5 mg 24 hr capsule Take 1 capsule by mouth once daily. Nebulizer Accessories kit Please dispense nebulizer accessories kit (tubing, mouthpiece, mask etc.) Dx. Mild persistent asthma with acute exacerbation J45.31 budesonide-formoterol (SYMBICORT) 160-4.5 mcg/actuation inhaler Inhale 2 Puffs as instructed twice daily. Use with spacer. Rinse mouth out after use. cetirizine-pseudoephedrine (ZYRTEC-D) 5-120 mg per tablet Take 1 tablet by mouth twice daily as needed. albuterol HFA (VENTOLIN HFA) 90 mcg/actuation inhaler Inhale 2 Puffs as instructed every 4 hours as needed (May also use 15 minutes pre-exercise). prochlorperazine (COMPAZINE) 10 mg tablet Take 1 tablet at the onset of headache and 30 mins after to a maximum of 3 tablets/day fluticasone (FLONASE) 50 mcg/actuation nasal spray Use 2 Sprays in each nostril once daily. Rinse mouth after use. lansoprazole (PREVACID) 30 mg capsule Take 1 capsule by mouth once daily. Clobetasol Propionate (TEMOVATE) 0.05 % external solution Apply 1 application to affected area once daily as needed (for scaling on the scalp). ketoconazole (NIZORAL) 2 % shampoo Apply 1 application to affected area once daily as needed (for scaling on scalp). albuterol (PROVENTIL) 2.5 mg /3 mL (0.083 %) nebulizer solution One ampule nebulized every 4 hours as needed for cough, wheezing, chest tightness or shortness of breath. Cholecalciferol, Vitamin D3, (VITAMIN D) 1,000 unit cap Take 1 capsule by mouth once daily. calcium carbonate (CALTRATE) 600 mg (1,500 mg) tab TAKE ONE TABLET TWICE DAILY SUMAtriptan (IMITREX) 50 mg tablet Take 1 tablet by mouth as needed for Migraine Headache (see administration instructions). at onset of headache. May repeat after 2 hours. No current facility-administered medications for this visit. ALLERGIES Allergen Reactions - Environmental Aller* Dogs, cats, and dust mites. Social History Marital status: Single Spouse name: Years of education: Number of children: Social History Main Topics Smoking status: Never Smoker Smokeless tobacco: Never Used Alcohol use: Yes Comment: occasionally Drug use: No ROS: See HPI PE: BP 110/70 Pulse 88 Temp (Src) 98.5 (Left Tympanic) Resp 16 Wt 235 lb (106.6kg) LMP 06/21/2017 Gen: AANDOX3, NAD, non-toxic appearing HEENT: PERRLA, EOMs intact b/l, nares without drainage, pharynx without erythema, exudate, lesions, or drainage. Uvula midline. Neck: No LAD, no thyromegaly, no meningismus. CV: RRR, no murmur Lungs: CTA b/l, no wheezing Skin: No rashes, lesions, or wounds on exposed skin. Urine dip shows: Glucose, Urine (mg/dL) Date Value 07/15/2017 Negative Bilirubin, Urine (no units) Date Value 07/15/2017 Negative Bilirubin, Urine (no units) Date Value 07/15/2017 Negative Ketones, Urine (no units) Date Value 07/15/2017 Negative Specific [place], Ur (no units) Date Value 07/15/2017 1.015 Hemoglobin/Blood,Ur (no units) Date Value 07/15/2017 Small No results found for: PH Protein, Urine (mg/dL) Date Value 07/15/2017 Negative Urobilinogen, Urine (EU) Date Value 07/15/2017 normal No components found for: NITR Leukocytes (no units) Date Value 07/15/2017 Negative Color/Appearance (comment:) Date Value 07/15/2017 yellow ASSESSMENT/PLAN: 1. Anxiety disorder, unspecified type - ICD9: 300.00, ICD10: F41.9 (primary diagnosis) - Effexor as prescribed, consider celexa or Paxil in the future, no SI or HI 2. Dysuria - ICD9: 788.1, ICD10: R30.0 acute - Patient education for prevention given - UA DIP B/O - URINE CULTURE 3. Recurrent UTI (urinary tract infection) - ICD9: 599.0, ICD10: N39.0 acute - Patient education for prevention given - URINE CULTURE - LEVOFLOXACIN 750 MG TABLET Reji Vazquez DO Return if no improvement. Follow up with Reji Vazquez DO. Discussed risks, benefits, alternatives, and potential side effects of medications. Patient/Guardian expressed understanding and agreed with the plan. See patient instructions. Reji Vazquez DO [address] [place] [address] Referring Provider: REJI VAZQUEZ [[id number]] Allergies As of Date: 07/15/2017 Noted Allergy Reaction Environmental allergies [Other] 10/13/2006 Comments: Dogs, cats, and dust mites. Date Reviewed: 07/15/2017 Reviewed by: Ariana Nassar LPN - Fully Assessed Reason for Visit: Follow Up [171] Cmt: 3 months Primary Visit Diagnosis:Anxiety disorder, unspecified type [F41.9] Other Visit Diagnoses:Dysuria [R30.0] Recurrent UTI (urinary tract infection) [N39.0] Order(s):UA DIP B/O [[id number]] Order #: [id number] URINE CULTURE [SQURCUL] Order #: [id number]. #:[id number] levoFLOXacin (LEVAQUIN) 750 mg tabletTake 1 tablet by mouth once daily for 7 days.Disp: 7 tabletRfl: 0 venlafaxine ER (EFFEXOR XR) 37.5 mg 24 hr capsuleTake 1 capsule by mouth once daily.Disp: 30 capsuleRfl: 5 Prescriptions as of 07/15/2017 Sig: LEVOFLOXACIN 750 MG TABLET Take 1 tablet by mouth once d* MECLIZINE 25 MG TABLET Take 1 tablet by mouth twice * NEBULIZER ACCESSORIES KIT Please dispense nebulizer acc* BUDESONIDE-FORMOTEROL HFA 160* Inhale 2 Puffs as instructed * CETIRIZINE 5 MG-PSEUDOEPHEDRI* Take 1 tablet by mouth twice * ALBUTEROL SULFATE HFA 90 MCG/* Inhale 2 Puffs as instructed * PROCHLORPERAZINE MALEATE 10 M* Take 1 tablet at the onset of* FLUTICASONE 50 MCG/ACTUATION * Use 2 Sprays in each nostril * LANSOPRAZOLE 30 MG CAPSULE,DE* Take 1 capsule by mouth once * CLOBETASOL 0.05 % SCALP SOLUT* Apply 1 application to affect* KETOCONAZOLE 2 % SHAMPOO Apply 1 application to affect* ALBUTEROL SULFATE 2.5 MG/3 ML* One ampule nebulized every 4 * CHOLECALCIFEROL (VITAMIN D3) * Take 1 capsule by mouth once * CALCIUM CARBONATE 600 MG CALC* TAKE ONE TABLET TWICE DAILY SUMATRIPTAN 50 MG TABLET Take 1 tablet by mouth as nee* VENLAFAXINE ER 37.5 MG CAPSUL* Take 1 capsule by mouth once * Problem List As Of Date 07/15/2017 Noted Resolved Allergic rhinitis [J30.9] Extrinsic asthma [J45.909] Fibromyalgia [M79.7] INVALID FOR* Psoriasis arthropathica (HCC) [L40.50] INVALID FOR*09/25/2015 RLS (restless legs syndrome) [G25.81] INVALID FOR* MK AHI 12.7 46R [G47.33] INVALID FOR* More... Multiple thyroid nodules [E04.2] INVALID FOR* Chronic pain [G89.29] INVALID FOR* Multiple falls [R29.6] INVALID FOR* Iron deficiency [E61.1] INVALID FOR* Other pain disorders related to psychological f*INVALID FOR* Depression [F32.9] INVALID FOR* [F41.0] INVALID FOR* Anxiety disorder [F41.9] INVALID FOR* Lumbago [M54.5] INVALID FOR* Pain in joint, pelvic region and thigh [M25.559]INVALID FOR* Pain in limb [M79.609] INVALID FOR* [Z34.90] INVALID FOR*04/12/2016 Psoriatic arthritis (HCC) [L40.50] INVALID FOR* Sciatica, right side [M54.31] INVALID FOR* Moderate single current episode of major depres*INVALID FOR* Allergic rhinitis due to animal hair and dander*INVALID FOR* Allergic rhinitis due to dust mite [J30.89] INVALID FOR* Prescriptions ordered this encounter Disp Refills Start End VENLAFAXINE ER 37.5 MG CAPSULE,EXTEN* 7 ca* 0 07/15/2017 07/15/2017 Route: ORAL Sig: Take 1 capsule by mouth once daily for 7 days. LEVOFLOXACIN 750 MG TABLET 7 ta* 0 07/15/2017 07/22/2017 Route: ORAL Sig: Take 1 tablet by mouth once daily for 7 days. VENLAFAXINE ER 37.5 MG CAPSULE,EXTEN* 30 c* 5 07/15/2017 08/14/2017 Route: ORAL Sig: Take 1 capsule by mouth once daily. Medications Discontinued During This Encounter venlafaxine ER (EFFEXOR XR) 37.5 mg * 06/21/2017 07/15/2017 Class: Med Update Route: ORAL Sig: Take 1 capsule by mouth once daily. Disc: Reason for discontinue is not on file. levoFLOXacin (LEVAQUIN) 750 mg tablet 7 ta* 0 2017 07/15/2017 Route: ORAL Sig: Take 1 tablet by mouth once daily for 7 days. Disc: Reason for discontinue is not on file. venlafaxine ER (EFFEXOR XR) 37.5 mg * 7 ca* 0 07/15/2017 07/15/2017 Route: ORAL Sig: Take 1 capsule by mouth once daily for 7 days. Disc: Reason for discontinue is not on file. Encounter Status:Closed by REJI VAZQUEZ DO on 07/16/17 URINALYSIS WITH Collected: 07/05/2017 Status: F Source: [facility] 12:55 PM [facility] REPOSITORY TYPE CODE TESTS RESULT OUT OF RANGE REFERENCE UNITS LAB UCOL Yellow Color Yellow LAB [facility] Clear Clarity Abnormal Cloudy Alert LAB UGLUC Negative mg/dL Glucose, Urine Negative LAB UBIL Negative Bilirubin, Urine Negative LAB UKET Negative Ketones, Urine Negative LAB USPG 1.005-1.030 Specific [place], Ur 1.012 LAB UHGB Negative Hemoglobin/Blood, Negative Ur LAB UPH 4.5-8.0 pH 6.0 LAB UPROT Negative mg/dL Protein, Urine Negative LAB UUROB Normal Urobilinogen Normal LAB UNITR Negative Nitrites Negative LAB ULKEST Negative Leukest Negative LAB UCOM Comments SEE COMMENT Result Comment: N/A LAB UMCOM Urine SEE Jillian Comment COMMENT Result Comment: N/A LAB UWBC 0-5 /HPF WBC 0-5 LAB URBC 0-3 /HPF RBC 0-3 LAB UEPI /HPF Epithelial SEE Cells COMMENT Result Comment: Few Squamous Epithelial Cells Performed By: #### UAWMIC #### [facility] [address], [place] [address] Observed: 07/05/2017 Status: F Source: [place] URINE CULTURE 12:54 PM [facility] REPOSITORY Sp. Request/Comment: - Specimen received in preservative Culture Result - 10,000 - <50,000 CFU/ml Enterococcus faecium --> ABNORMAL ALERT Cephalosporins, clindamycin, and TMP-SMX are not effective for the treatment of enterococcal infections. --> ABNORMAL ALERT ORGANISM: Enterococcus faecium METHOD: Minimum inhibitory concentration (VIZION) Antibiotic Interp JILLIAN Status Ampicillin RESISTANT >8 F Nitrofurantoin INTERMEDIATE 64 F Vancomycin SUSCEPTIBLE 1 F Levofloxacin SUSCEPTIBLE 2 F Performed By: #### URCUL #### [facility] [address] [place], [place] [id number] CBC AND DIFFERENTIAL Collected: 07/05/2017 Status: F Source: [place] 11:59 AM [facility] REPOSITORY TYPE CODE TESTS RESULT OUT OF REFERENCE UNITS RANGE LAB WBC 3.70-11.00 k/uL WBC High 12.58 LAB RBC 3.90-5.20 m/uL RBC 4.75 LAB HGB 11.5-15.5 g/dL Hemoglobin 13.7 LAB HCT 36.0-46.0 % Hematocrit 43.2 LAB MCV 80.0-100.0 fL MCV 90.9 LAB MCH 26.0-34.0 pG MCH 28.8 LAB MCHC 30.5-36.0 g/dL MCHC 31.7 LAB RDWCV 11.5-15.0 % RDW-CV 14.2 LAB PLTCT 150-400 k/uL Platelet Count 343 LAB MPV 9.0-12.7 fL MPV 10.4 LAB ANEUT % Neut% 58.4 LAB AANEUT 1.45-7.50 k/uL Abs Neut 7.34 LAB ALYMP % Lymph% 34.0 LAB AALYMP 1.00-4.00 k/uL Abs High Lymph 4.28 LAB AMONO % Wise% 4.9 LAB AAMONO <0.87 k/uL Abs Wise 0.62 LAB AEOS % Eosin% 1.9 LAB AAEOS <0.46 k/uL Abs Eosin 0.24 LAB ABASO % Baso% 0.8 LAB AABASO <0.11 k/uL Abs Baso 0.10 LAB AUNRBC 0 /100 WBC NRBCs 0.0 LAB ABNRBC <0.01 k/uL Absolute nRBC <0.01 LAB DTYP DTYPE Auto Diff Performed By: #### CBCDIF, CMP, FT4, T3, TSH, VITD #### [facility] [address] [place], [place] [address] COMP METABOLIC PANEL Collected: 07/05/2017 Status: F Source: [place] 11:[address] [facility] REPOSITORY TYPE CODE TESTS RESULT OUT OF REFERENCE UNITS RANGE LAB TP 6.3-8.0 g/dL Protein, Total 7.7 LAB ALB 3.9-4.9 g/dL Albumin 4.3 LAB CA 8.5-10.2 mg/dL Calcium, Total 8.9 LAB TBIL 0.2-1.3 mg/dL Bilirubin, Total 0.3 LAB ALKP 32-117 U/L Alkaline Phosphatase 70 LAB AST 13-35 U/L AST 14 LAB GLU 74-99 mg/dL Glucose 81 Result Comment: The [place] Diabetes Association (ADA) provides guidance for cutoff values for fasting glucose and random glucose. The ADA defines fasting as no caloric intake for at least 8 hours. Fas ting plasma glucose results between 100 to 125 mg/dL indicate increased risk for diabetes (prediabetes). Fasting plasma glucose results greater than or equal to 126 mg/dL meet the criteria for diagnosis of diabetes. In the absence of unequivocal hyperglycemia, results should be confirmed by repeat testing. In a patient with classic symptoms of hyperglycemia or hyperglycemic crisis, random plasma glucose results greater than or equal to 200 mg/dL meet the criteria for diagnosis of diabetes. Reference: Standards of Medical Care in Diabetes 2016, [place] Diabetes Association. Diabetes Care. 2016.39(Suppl 1). LAB BUN 7-21 mg/dL BUN 9 LAB CRET 0.58-0.96 mg/dL Creatinine 0.64 LAB NA 136-144 mmol/L Sodium 139 LAB K 3.7-5.1 mmol/L Potassium 4.2 LAB CL 97-105 mmol/L Chloride 100 LAB CO2 22-30 mmol/L CO2 24 LAB AGAP 9-18 mmol/L Anion Gap 15 LAB ALT 7-38 U/L ALT 15 LAB GFRAA eGFR- Amer. >60 LAB GFRNAA . eGFR-All Other Races >60 Result Comment: eGFR (Estimated GFR) Units of measure: mL/min/1.73 meters squared eGFR is derived from the reexpressed MDRD Study equation using the following parameters: serum creatinine, age, gender and race. The creatinine assay has been calibrated to be traceable to IDMS. An eGFR <60 mL/min/1.73m2 for >3 months is consistent with chronic kidney disease. Refer to KDOQI guidelines for clinical interpretation. In patients with unstable renal function, e.g. those with acute kidney injury, the eGFR may not accurately reflect actual GFR. Performed By: #### CBCDIF, CMP, FT4, T3, TSH, VITD #### [facility] [address] [address] FREE T4 Collected: 07/05/2017 Status: F Source: [place] 11:59 AM [facility] REPOSITORY TYPE CODE TESTS RESULT OUT OF RANGE REFERENCE UNITS LAB FT4 0.9-1.7 ng/dL Free T4 1.1 Performed By: #### CBCDIF, CMP, FT4, T3, TSH, VITD #### [facility] [address] [address] T3 Collected: 07/05/2017 Status: F Source: [facility] 11:59 AM [facility] REPOSITORY TYPE CODE TESTS RESULT OUT OF RANGE REFERENCE UNITS LAB T3 79-165 ng/dL T3 119 Performed By: #### CBCDIF, CMP, FT4, T3, TSH, VITD #### [facility] [address] [place] [address] TSH Collected: 07/05/2017 Status: F Source: [place] 11:59 AM [facility] REPOSITORY TYPE CODE TESTS RESULT OUT OF RANGE REFERENCE UNITS LAB TSH 0.400-5.500 uU/mL TSH 1.300 Result Comment: If the patient is , TSH reference range varies by gestational period: First Trimester 0.100-2.500 uU/mL Second Trimester 0.200-3.000 uU/mL Third Trimester 0.300-3.000 uU/mL References: 1. Whitney, Shelton Figueroa, Jeff MENEZES, et al. Management of Thyroid Dysfunction during and : An Endocrine Society Clinical Practice Guideline. J Clin Endocrinol Metab, 2012:97:8866-0557. 2. Kenny SANON. Overview of thyroid disease in . UpToDate. 2016. Accessed on July 25, 2015. Performed By: #### CBCDIF, CMP, FT4, T3, TSH, VITD #### [facility] [address] [place], [place] [address] VITAMIN D 25 HYDROXY Collected: 07/05/2017 Status: F Source: [place] 11:59 AM [facility] REPOSITORY TYPE CODE TESTS RESULT OUT OF REFERENCE UNITS RANGE LAB VITD 31.0-80.0 ng/mL Vitamin D 25 41.6 Hydroxy Result Comment: Classification of 25 [place] Vitamin D status: Insufficiency/Moderate Deficiency: < or = 30 ng/mL Sufficiency/Optimal Levels: 31 to 80 ng/mL Toxicity: > 100 ng/mL Test performed by chemiluminescent immunoassay. Performed By: #### CBCDIF, CMP, FT4, T3, TSH, VITD #### [facility] [address] [place], [place] [address] PROGRESS Observed: 07/05/2017 Status: COMPLETED Source: [place] 11:41 AM [facility] REPOSITORY HNO ID: [id number] Author: Cynthia May (Oracle Database Administrator) [facility] Service: (none) Author Type: Nurse Practitioner Type: Progress Notes Filed: 07/05/2017 11:52 AM Note Text: HPI/CC: Mony Zhang is a 41 year old female who presents for R ear pain (currently on atb.), complaints of extreme dizziness (room spinning) , nausea, polyuria, sweating, increased headaches leading to migraines. Denies fever, chills, vomiting, syncope, CP, SOB, palpitations, change in stools, actively TTC. PHYSICAL EXAMINATION: BP 116/88 Pulse 88 Resp 16 Wt 105.7 kg (233 lb) LMP 06/21/2017 (Exact Date) ? Yes BMI 36.49 kg/m? Orthostatic Vitals Date and Time Orthostatic BP Orthostatic Pulse BP Position BP Site BP Cuff Size 07/05/17 1134 128/84 92 Standing -- -- 07/05/17 1133 128/78 84 Sitting -- -- 07/05/17 1132 120/76 88 Supine -- -- General appearance: Well appearing, alert, in no acute distress, well-hydrated, well nourished., Obese Head: Normocephalic, no masses, lesions, tenderness or abnormalities Eyes: Anicteric sclera. Pupils are equally round and reactive to light. Extraocular movements are intact. Ears: External ears normal, canals clear, TM's normal Nose/Sinuses: Nares normal, septum midline, mucosa normal, no drainage or sinus tenderness Oropharynx: Lips, mucosa, and tongue normal, teeth and gums normal, oropharynx normal Neck: Supple, no adenopathy; thyroid enlarged but symmetric, normal size, no bruits Lungs: Lungs clear to auscultation. No wheezing, rhonchi, rales Heart:: S1 and S2 normal, RRR without murmur, gallop, or rubs. No ectopy. ECG NSR Extremities: No deformities, edema, skin discoloration, clubbing or cyanosis. Neuro: Awake, alert and oriented x 3, Cranial nerves II-XII grossly intact, Normal gait and No involuntary motions. Danny HallPike Maneuver Results: negative ASSESSMENT/PLAN: 1. Dizziness - ICD9: 780.4, ICD10: R42 (primary diagnosis) - ECG COMPLETE W INTERPRETATION - UA DIP B/O - TSH BLD - T3 BLD - T4 FREE/FREE THYROX - HCG QUAL UR B/O - CBC + DIFF - COMP METABOLIC PANEL - VITAMIN D 25 HYDROXY - Meclizine as prescribed 2. Iron deficiency - ICD9: 280.9, ICD10: E61.1 - CBC + DIFF 3. Multiple thyroid nodules - ICD9: 241.1, ICD10: E04.2 - TSH BLD - T3 BLD - T4 FREE/FREE THYROX - f/u PRN Cynthia Braun APRN.FIELD CONTACT PERSON CNOV Observed: 07/05/2017 Status: COMPLETED Source: [place] 11:00 AM [facility] REPOSITORY [facility] MONY ZHANG ([id number]) 1975 F [place] Date Time Provider Department 07/05/17 11:00 AM CYNTHIA BRAUN ([facility]) SADIA During your visit today, we recorded the following information about you: Pulse Respiration Blood pressure Weight 88/minute 16/minute 116/88 105.7 kg Last Period 06/21/17 Cynthia Braun APRN.CNP 07/05/2017 11:52 AM Signed HPI/CC: Mony Zhang is a 41 year old female who presents for R ear pain (currently on atb.), complaints of extreme dizziness (room spinning) , nausea, polyuria, sweating, increased headaches leading to migraines. Denies fever, chills, vomiting, syncope, CP, SOB, palpitations, change in stools, actively TTC. PHYSICAL EXAMINATION: BP 116/88 Pulse 88 Resp 16 Wt 105.7 kg (233 lb) LMP 06/21/2017 (Exact Date) ? Yes BMI 36.49 kg/m? Orthostatic Vitals Date and Time Orthostatic BP Orthostatic Pulse BP Position BP Site BP Cuff Size 07/05/17 1134 128/84 92 Standing -- -- 07/05/17 1133 128/78 84 Sitting -- -- 07/05/17 1132 120/76 88 Supine -- -- General appearance: Well appearing, alert, in no acute distress, well-hydrated, well nourished., Obese Head: Normocephalic, no masses, lesions, tenderness or abnormalities Eyes: Anicteric sclera. Pupils are equally round and reactive to light. Extraocular movements are intact. Ears: External ears normal, canals clear, TM's normal Nose/Sinuses: Nares normal, septum midline, mucosa normal, no drainage or sinus tenderness Oropharynx: Lips, mucosa, and tongue normal, teeth and gums normal, oropharynx normal Neck: Supple, no adenopathy; thyroid enlarged but symmetric, normal size, no bruits Lungs: Lungs clear to auscultation. No wheezing, rhonchi, rales Heart:: S1 and S2 normal, RRR without murmur, gallop, or rubs. No ectopy. ECG NSR Extremities: No deformities, edema, skin discoloration, clubbing or cyanosis. Neuro: Awake, alert and oriented x 3, Cranial nerves II-XII grossly intact, Normal gait and No involuntary motions. Danny HallPike Maneuver Results: negative ASSESSMENT/PLAN: 1. Dizziness - ICD9: 780.4, ICD10: R42 (primary diagnosis) - ECG COMPLETE W INTERPRETATION - UA DIP B/O - TSH BLD - T3 BLD - T4 FREE/FREE THYROX - HCG QUAL UR B/O - CBC + DIFF - COMP METABOLIC PANEL - VITAMIN D 25 HYDROXY - Meclizine as prescribed 2. Iron deficiency - ICD9: 280.9, ICD10: E61.1 - CBC + DIFF 3. Multiple thyroid nodules - ICD9: 241.1, ICD10: E04.2 - TSH BLD - T3 BLD - T4 FREE/FREE THYROX - f/u PRN PAM Sosa LPN 07/05/2017 12:07 PM Signed Addended by: EDMAR JACOBSON LPN on: 07/05/2017 12:07 PM Modules accepted: Orders Cynthia Braun APRN.CNP 07/05/2017 12:08 PM Signed Addended by: CYNTHIA BRAUN CNP on: 07/05/2017 12:08 PM Modules accepted: Orders Referring Provider: SELF [200] Allergies As of Date: 07/05/2017 Noted Allergy Reaction Environmental allergies [Other] 10/13/2006 Comments: Dogs, cats, and dust mites. Date Reviewed: 07/05/2017 Reviewed by: Edmar Jacobson LPN - Fully Assessed Reason for Visit: Ear Pain [817] Cmt: R ear pain, currently on atb; complaints of fatigue and extreme dizziness Primary Visit Diagnosis:Dizziness [R42] Other Visit Diagnoses:Iron deficiency [E61.1] Multiple thyroid nodules [E04.2] Urine frequency [R35.0] Order(s):ECG COMPLETE W INTERPRETATION [ECG01] Order #: [id number] FUTURE UA DIP B/O [9294951] Order #: [id number] TSH BLD [SQTSH] Order #: [id number] FUTURE T3 BLD [SQT3] Order #: [id number] FUTURE T4 FREE/FREE THYROX [SQFT4] Order #: [id number] FUTURE HCG QUAL UR B/O [0149729] Order #: [id number] CBC + DIFF [SQCBCDIF] Order #: [id number] FUTURE COMP METABOLIC PANEL [SQCMP] Order #: [id number] FUTURE VITAMIN D 25 HYDROXY [SQVITD] Order #: [id number] FUTURE meclizine (ANTIVERT) 25 mg tabTake 1 tablet by mouth twice daily.Disp: 28 tabletRfl: 0 URINALYSIS WITH MICROSCOPIC [SQUAWMIC] Order #: [id number] URINE CULTURE [SQURCUL] Order #: [id number] FUTURE Prescriptions as of 07/05/2017 Sig: VENLAFAXINE ER 37.5 MG CAPSUL* Take 1 capsule by mouth once * NEBULIZER ACCESSORIES KIT Please dispense nebulizer acc* BUDESONIDE-FORMOTEROL HFA 160* Inhale 2 Puffs as instructed * CETIRIZINE 5 MG-PSEUDOEPHEDRI* Take 1 tablet by mouth twice * ALBUTEROL SULFATE HFA 90 MCG/* Inhale 2 Puffs as instructed * PROCHLORPERAZINE MALEATE 10 M* Take 1 tablet at the onset of* FLUTICASONE 50 MCG/ACTUATION * Use 2 Sprays in each nostril * LANSOPRAZOLE 30 MG CAPSULE,DE* Take 1 capsule by mouth once * CLOBETASOL 0.05 % SCALP SOLUT* Apply 1 application to affect* KETOCONAZOLE 2 % SHAMPOO Apply 1 application to affect* ALBUTEROL SULFATE 2.5 MG/3 ML* One ampule nebulized every 4 * CHOLECALCIFEROL (VITAMIN D3) * Take 1 capsule by mouth once * CALCIUM CARBONATE 600 MG CALC* TAKE ONE TABLET TWICE DAILY SUMATRIPTAN 50 MG TABLET Take 1 tablet by mouth as nee* MECLIZINE 25 MG TABLET Take 1 tablet by mouth twice * Problem List As Of Date 07/05/2017 Noted Resolved Allergic rhinitis [J30.9] Extrinsic asthma [J45.909] Fibromyalgia [M79.7] INVALID FOR* Psoriasis arthropathica (HCC) [L40.50] INVALID FOR*09/25/2015 RLS (restless legs syndrome) [G25.81] INVALID FOR* MK AHI 12.7 46R [G47.33] INVALID FOR* More... Multiple thyroid nodules [E04.2] INVALID FOR* Chronic pain [G89.29] INVALID FOR* Multiple falls [R29.6] INVALID FOR* Iron deficiency [E61.1] INVALID FOR* Other pain disorders related to psychological f*INVALID FOR* Depression [F32.9] INVALID FOR* [F41.0] INVALID FOR* Anxiety disorder [F41.9] INVALID FOR* Lumbago [M54.5] INVALID FOR* Pain in joint, pelvic region and thigh [M25.559]INVALID FOR* Pain in limb [M79.609] INVALID FOR* [Z34.90] INVALID FOR*04/12/2016 Psoriatic arthritis (HCC) [L40.50] INVALID FOR* Sciatica, right side [M54.31] INVALID FOR* Moderate single current episode of major depres*INVALID FOR* Allergic rhinitis due to animal hair and dander*INVALID FOR* Allergic rhinitis due to dust mite [J30.89] INVALID FOR* Prescriptions ordered this encounter Disp Refills Start End ONDANSETRON 4 MG DISINTEGRATING TABL* 14 t* 0 07/05/2017 07/05/2017 Route: ORAL Sig: Take 1 tablet by mouth every 6 hours as needed for Nausea/Vomiting. MECLIZINE 25 MG TABLET 28 t* 0 07/05/2017 Route: ORAL Sig: Take 1 tablet by mouth twice daily. Medications Discontinued During This Encounter predniSONE (DELTASONE) 10 mg tablet 30 t* 0 06/21/2017 07/05/2017 Sig: Take by mouth 4 tablets daily for 3 days, then 3 tablets daily for 3 days, 2 tablets daily for 3 days and 1 tablet daily for 3 days. Disc: Course of therapy completed benzonatate (TESSALON PERLES) 100 mg* 40 c* 0 05/31/2017 07/05/2017 Route: ORAL Sig: Take 1 capsule by mouth three times daily as needed. Disc: Course of therapy completed ondansetron orally disintegrating (Z* 14 t* 0 07/05/2017 07/05/2017 Route: ORAL Sig: Take 1 tablet by mouth every 6 hours as needed for Nausea/Vomiting. Disc: Reason for discontinue is not on file. Encounter Status:Closed by CYNTHIA BRAUN CNP on 07/05/17 CNCO Observed: 07/05/2017 Status: COMPLETED Source: [place] 12:[address] [facility] [place] REPOSITORY Letter Text Wilfredo Evans MD Department of Endocrinology [facility] [address] [place], [place] [address] Mony Zhang July 05, 2017 Mony Zhang [address] [place] [address] Dear Junpercy, Due to a change in your provider's schedule, it has become necessary to cancel the following appointment: Wilfredo Evans MD Date: 12/20/17 We apologize for any inconvenience to you however your provider would still like to see you. Please call us at [phone] to reschedule your appointment. Thank you. Sincerely, Appointment Staff PROGRESS Observed: 06/21/2017 Status: COMPLETED Source: [place] 9:41 AM [facility] REPOSITORY HNO ID: [id number] Author: Flaco Jacob Service: (none) Author Type: Physician Type: Progress Notes Filed: 06/22/2017 12:38 PM Note Text: CHIEF COMPLAINT: cough, ZHONG, R otalgia [place]: This is a 41 year-old white female with a history of allergic rhinitis (cats, dogs, and dust mites), mild persistent asthma, and GERD who presents for an acute visit. Her last visit was 03/08/17. She presents with a 2 week history of cough, wheezing, chest tightness, dyspnea, frontal ZHONG, nasal congestion, rhinorrhea and R sided otalgia. Denies fevers. Start cefdinir on 06/15 for AOM with mild improvement in symptoms. Took a 5 day course of prednisone 40 mg daily with minimal relief. Using albuterol several times per day for acute symptoms. Awakening frequently due to cough and ear pain. Other family member have been ill during this time. In May, she was treated w/Augmentin for sinusitis and then with prednisone for cough. Flovent and zyrtecD 12 hr were prescribed by at that time. She has not been using Flovent. Taking Zyrtec D once daily in the morning. She has not received a Pneumovax previously. She has a history of mild obstructive sleep apnea but has not resumed use of CPAP as she is still nursing Linda, 23 months old. Plans to wean at 2 years old and then may resume CPAP at that time. In the meantime, she tries to sleep on her side at she was told that the sleep apnea occurs only when she sleeps on her back but not when on her side. She continues Prevacid 30 mg daily with good control of her GERD symptoms. Dust mite precautions are instituted in the home. There are 3 cats and one dog in the home. The dog is restricted from the bedroom. Daughter, Linda, is 23 months old. Son, Edie, graduate of [employer]. Daughter Karthik currently lives in a detention. (She had a follow-up appointment with sleep medicine on 04/15/15.. Recommended that she continue to sleep on her side during . Will try to resume CPAP .) (S/p balloon procedure to open her sinuses by [facility] in 2012. No subsequent sinus infections. She previously received immunotherapy for several years through [facility].) REVIEW OF SYSTEMS:Negative for night sweats and unintentional weight loss. Negative for skin rash and skin lesions Review of systems otherwise negative. PAST MEDICAL HISTORY: Asthma, allergic rhinitis, GERD, migraine headaches, anemia, depression, carpal tunnel syndrome. ACTIVE PROBLEM LIST Allergic Rhinitis Extrinsic Asthma Fibromyalgia Rls (Restless Legs Syndrome) MK AHI 12.7 46R Multiple Thyroid Nodules Chronic Pain Multiple Falls Iron Deficiency Other Pain Disorders Related to Psychological Factors Depression Anxiety Disorder Lumbago Pain in Joint, Pelvic Region and Thigh Pain in Limb Psoriatic Arthritis (Hcc) Sciatica, Right Side Moderate Single Current Episode of Major Depressive Disorder (Hcc) Allergic Rhinitis Due to Animal Hair and Dander Allergic Rhinitis Due to Dust Mite PHYSICAL EXAM: General appearance: Alert, pleasant female in no acute distress. HEENT: NC/AT. Right TM erythematous. Left TM clear. . Conjunctivae clear each eye. Moderate edema of the nasal mucosa with scant clear secretions bilaterally. Oropharyngeal exam within normal limits. . No exudate. Neck: Supple. No lymphadenopathy. Lungs: Clear to auscultation bilaterally. No wheezes, rales, or rhonchi. CV: Regular rate and rhythm. No murmurs, gallops, or rubs. Abdomen: Soft, nontender/nondistended, no masses or hepatosplenomegaly. Extremities: No clubbing, cyanosis, or edema. Skin: No lesions. Spirometry on October 23, 2015: 33% improvement in FEF 25-75% postbronchodilator. Otherwise normal. [place] on 03/26/2014: FVC is mildly impaired. Otherwise normal. Exhaled nitric oxide on October 23, 2015: 22 PPB (intermediate) Dulce Maria on 03/26/2014: 13 ppb (low/normal) ASSESSMENT AND PLAN: It is my impression that Mony has allergic rhinitis (cats, dogs, and dust mites), right otitis media, sinusitis and mild persistent asthma with acute exacerbation Extend course of cefdinir to 300 mg twice daily for 20 days. Recommend that she follow-up with primary care if she continues to have ear pain. If ear infection persists, she then should follow up with otolaryngology. (Previously evaluated by ENT and apparently tympanostomy tubes were considered at that time.) Take prednisone 40 mg daily for 3 days, 30 mg daily for 3 days, 20 mg daily for 3 days then 10 mg daily for 3 days. Start Symbicort 160?4.5 2 puffs twice daily. Use with spacer and rinse mouth out after use. AeroChamber spacer was provided at today's visit and proper use was reviewed with the patient. Continue fluticasone nasal spray 1-2 sprays each nostril once daily, and Zyrtec-D 12 hour twice daily as needed. Continue albuterol hfa inhaler (Proventil, Ventolin, Proair) with spacer 2 puffs or albuterol one ampule (2.5 mg) every four hours as needed for cough, wheezing, chest tightness or shortness of breath. May also use 2 puffs 15-20 minutes pre-exercise. Instructed to seek emergent medical care if she develops signs or symptoms of respiratory distress. Recommend that she receive a 23 valent Pneumovax when feeling better. Potential side effects of medications including Antibiotics and systemic corticosteroids were discussed with patient. Follow-up in 2 months with [place] and Dulce Maria and as needed. Depending on clinical course, CT sinus may be warranted. Flaco Jacob MD CNOV Observed: 06/21/2017 Status: COMPLETED Source: [place] 9:00 AM [facility] [facility]OSP[facility] REPOSITORY Office Visit (ALLMED) JUNMONY Sarah ([id number]) 1975 F [place] Date Time Provider Department 06/21/17 9:00 AM FLACO JACOB During your visit today, we recorded the following information about you: Temperature Pulse Blood pressure Weight 97.1 degrees 77/minute 99/61 106.6 kg Sandy Levi LUTHER 06/21/2017 9:00 AM Signed Patient here for asthma follow up. Reports illness past 2 weeks. Currently on antibiotics. Is not using Flovent daily due to misunderstanding of inhalers. afebrile. Flaco Jacob MD 06/21/2017 9:37 AM Signed Use symbicort 2 puffs twice a day every day on a regular basis. Use with spacer and rinse mouth out after use. Take cefdinir twice a day for a total of 20 days Take prednisone taper as prescribed. Use albuterol hfa inhaler (Proventil, Ventolin, Proair) with spacer 2 puffs or albuterol one ampule (2.5 mg) every four hours as needed for cough, wheezing, chest tightness or shortness of breath. May also use 2 puffs 15-20 minutes pre-exercise. Flaco Jacob MD 06/22/2017 12:38 PM Signed CHIEF COMPLAINT: cough, ZHONG, R otalgia [place]: This is a 41 year-old white female with a history of allergic rhinitis (cats, dogs, and dust mites), mild persistent asthma, and GERD who presents for an acute visit. Her last visit was 03/08/17. She presents with a 2 week history of cough, wheezing, chest tightness, dyspnea, frontal ZHONG, nasal congestion, rhinorrhea and R sided otalgia. Denies fevers. Start cefdinir on 06/15 for AOM with mild improvement in symptoms. Took a 5 day course of prednisone 40 mg daily with minimal relief. Using albuterol several times per day for acute symptoms. Awakening frequently due to cough and ear pain. Other family member have been ill during this time. In May, she was treated w/Augmentin for sinusitis and then with prednisone for cough. Flovent and zyrtecD 12 hr were prescribed by at that time. She has not been using Flovent. Taking Zyrtec D once daily in the morning. She has not received a Pneumovax previously. She has a history of mild obstructive sleep apnea but has not resumed use of CPAP as she is still nursing Linda, 23 months old. Plans to wean at 2 years old and then may resume CPAP at that time. In the meantime, she tries to sleep on her side at she was told that the sleep apnea occurs only when she sleeps on her back but not when on her side. She continues Prevacid 30 mg daily with good control of her GERD symptoms. Dust mite precautions are instituted in the home. There are 3 cats and one dog in the home. The dog is restricted from the bedroom. Daughter, Linda, is 23 months old. Son, Edie, graduate of [employer]. Daughter Karthik currently lives in a detention. (She had a follow-up appointment with sleep medicine on 04/15/15.. Recommended that she continue to sleep on her side during . Will try to resume CPAP .) (S/p balloon procedure to open her sinuses by [facility] in 2012. No subsequent sinus infections. She previously received immunotherapy for several years through [facility].) REVIEW OF SYSTEMS:Negative for night sweats and unintentional weight loss. Negative for skin rash and skin lesions Review of systems otherwise negative. PAST MEDICAL HISTORY: Asthma, allergic rhinitis, GERD, migraine headaches, anemia, depression, carpal tunnel syndrome. ACTIVE PROBLEM LIST Allergic Rhinitis Extrinsic Asthma Fibromyalgia Rls (Restless Legs Syndrome) MK AHI 12.7 46R Multiple Thyroid Nodules Chronic Pain Multiple Falls Iron Deficiency Other Pain Disorders Related to Psychological Factors Depression Anxiety Disorder Lumbago Pain in Joint, Pelvic Region and Thigh Pain in Limb Psoriatic Arthritis (Hcc) Sciatica, Right Side Moderate Single Current Episode of Major Depressive Disorder (Hcc) Allergic Rhinitis Due to Animal Hair and Dander Allergic Rhinitis Due to Dust Mite PHYSICAL EXAM: General appearance: Alert, pleasant female in no acute distress. HEENT: NC/AT. Right TM erythematous. Left TM clear. . Conjunctivae clear each eye. Moderate edema of the nasal mucosa with scant clear secretions bilaterally. Oropharyngeal exam within normal limits. . No exudate. Neck: Supple. No lymphadenopathy. Lungs: Clear to auscultation bilaterally. No wheezes, rales, or rhonchi. CV: Regular rate and rhythm. No murmurs, gallops, or rubs. Abdomen: Soft, nontender/nondistended, no masses or hepatosplenomegaly. Extremities: No clubbing, cyanosis, or edema. Skin: No lesions. Spirometry on October 23, 2015: 33% improvement in FEF 25-75% postbronchodilator. Otherwise normal. [place] on 03/26/2014: FVC is mildly impaired. Otherwise normal. Exhaled nitric oxide on October 23, 2015: 22 PPB (intermediate) Dulce Maria on 03/26/2014: 13 ppb (low/normal) ASSESSMENT AND PLAN: It is my impression that Mony has allergic rhinitis (cats, dogs, and dust mites), right otitis media, sinusitis and mild persistent asthma with acute exacerbation Extend course of cefdinir to 300 mg twice daily for 20 days. Recommend that she follow-up with primary care if she continues to have ear pain. If ear infection persists, she then should follow up with otolaryngology. (Previously evaluated by ENT and apparently tympanostomy tubes were considered at that time.) Take prednisone 40 mg daily for 3 days, 30 mg daily for 3 days, 20 mg daily for 3 days then 10 mg daily for 3 days. Start Symbicort 160?4.5 2 puffs twice daily. Use with spacer and rinse mouth out after use. AeroChamber spacer was provided at today's visit and proper use was reviewed with the patient. Continue fluticasone nasal spray 1-2 sprays each nostril once daily, and Zyrtec-D 12 hour twice daily as needed. Continue albuterol hfa inhaler (Proventil, Ventolin, Proair) with spacer 2 puffs or albuterol one ampule (2.5 mg) every four hours as needed for cough, wheezing, chest tightness or shortness of breath. May also use 2 puffs 15-20 minutes pre-exercise. Instructed to seek emergent medical care if she develops signs or symptoms of respiratory distress. Recommend that she receive a 23 valent Pneumovax when feeling better. Potential side effects of medications including Antibiotics and systemic corticosteroids were discussed with patient. Follow-up in 2 months with Mino and Dulce Maria and as needed. Depending on clinical course, CT sinus may be warranted. Flaco Armogida, MD Referring Provider: REJI VAZQUEZ [[id number]] Allergies As of Date: 06/21/2017 Noted Allergy Reaction Environmental allergies [Other] 10/13/2006 Comments: Dogs, cats, and dust mites. Date Reviewed: 06/21/2017 Reviewed by: Sandy Sims RN - Fully Assessed Reason for Visit: Establish Care [42] Cmt: sick visit Primary Visit Diagnosis:Mild persistent asthma with acute exacerbation [J45.31] Other Visit Diagnoses:Acute otitis media, right [H66.91] Allergic rhinitis, unspecified seasonality, unspecified trigger [J30.9] Acute sinusitis, recurrence not specified, unspecified location [J01.90] Order(s):venlafaxine ER (EFFEXOR XR) 37.5 mg 24 hr capsuleTake 1 capsule by mouth once daily.Disp: Rfl: Nebulizer Accessories kitPlease dispense nebulizer accessories kit (tubing, mouthpiece, mask etc.) Dx. Mild persistent asthma with acute exacerbation J45.31Disp: 1 KitRfl: 2 cefdinir (OMNICEF) 300 mg capsuleTake 1 capsule by mouth twice daily for 10 days.Disp: 20 capsuleRfl: 0 predniSONE (DELTASONE) 10 mg tabletTake by mouth 4 tablets daily for 3 days, then 3 tablets daily for 3 days, 2 tablets daily for 3 days and 1 tablet daily for 3 days.Disp: 30 tabletRfl: 0 budesonide-formoterol (SYMBICORT) 160-4.5 mcg/actuation inhalerInhale 2 Puffs as instructed twice daily. Use with spacer. Rinse mouth out after use.Disp: 1 InhalerRfl: 11 SPIROMETRY - BASELINE AND POST DILATOR [[id number]] Order #: [id number] FUTURE NITRIC OXIDE, EXHALED [[id number]] Order #: [id number] FUTURE cetirizine-pseudoephedrine (ZYRTEC-D) 5-120 mg per tabletTake 1 tablet by mouth twice daily as needed.Disp: 60 tabletRfl: 2 Prescriptions as of 06/21/2017 Sig: CEFDINIR 300 MG CAPSULE Take 1 capsule by mouth twice* CETIRIZINE 5 MG-PSEUDOEPHEDRI* Take 1 tablet by mouth twice * BENZONATATE 100 MG CAPSULE Take 1 capsule by mouth three* ALBUTEROL SULFATE HFA 90 MCG/* Inhale 2 Puffs as instructed * PROCHLORPERAZINE MALEATE 10 M* Take 1 tablet at the onset of* FLUTICASONE 50 MCG/ACTUATION * Use 2 Sprays in each nostril * LANSOPRAZOLE 30 MG CAPSULE,DE* Take 1 capsule by mouth once * CLOBETASOL 0.05 % SCALP SOLUT* Apply 1 application to affect* KETOCONAZOLE 2 % SHAMPOO Apply 1 application to affect* ALBUTEROL SULFATE 2.5 MG/3 ML* One ampule nebulized every 4 * CHOLECALCIFEROL (VITAMIN D3) * Take 1 capsule by mouth once * CALCIUM CARBONATE 600 MG CALC* TAKE ONE TABLET TWICE DAILY SUMATRIPTAN 50 MG TABLET Take 1 tablet by mouth as nee* VENLAFAXINE ER 37.5 MG CAPSUL* Take 1 capsule by mouth once * NEBULIZER ACCESSORIES KIT Please dispense nebulizer acc* PREDNISONE 10 MG TABLET Take by mouth 4 tablets daily* BUDESONIDE-FORMOTEROL HFA 160* Inhale 2 Puffs as instructed * Problem List As Of Date 06/21/2017 Noted Resolved Allergic rhinitis [J30.9] Extrinsic asthma [J45.909] Fibromyalgia [M79.7] INVALID FOR* Psoriasis arthropathica (HCC) [L40.50] INVALID FOR*09/25/2015 RLS (restless legs syndrome) [G25.81] INVALID FOR* MK AHI 12.7 46R [G47.33] INVALID FOR* More... Multiple thyroid nodules [E04.2] INVALID FOR* Chronic pain [G89.29] INVALID FOR* Multiple falls [R29.6] INVALID FOR* Iron deficiency [E61.1] INVALID FOR* Other pain disorders related to psychological f*INVALID FOR* Depression [F32.9] INVALID FOR* [F41.0] INVALID FOR* Anxiety disorder [F41.9] INVALID FOR* Lumbago [M54.5] INVALID FOR* Pain in joint, pelvic region and thigh [M25.559]INVALID FOR* Pain in limb [M79.609] INVALID FOR* [Z34.90] INVALID FOR*04/12/2016 Psoriatic arthritis (HCC) [L40.50] INVALID FOR* Sciatica, right side [M54.31] INVALID FOR* Moderate single current episode of major depres*INVALID FOR* Allergic rhinitis due to animal hair and dander*INVALID FOR* Allergic rhinitis due to dust mite [J30.89] INVALID FOR* Other instructions from your clinician: Use symbicort 2 puffs twice a day every day on a regular basis. Use with spacer and rinse mouth out after use. Take cefdinir twice a day for a total of 20 days Take prednisone taper as prescribed. Use albuterol hfa inhaler (Proventil, Ventolin, Proair) with spacer 2 puffs or albuterol one ampule (2.5 mg) every four hours as needed for cough, wheezing, chest tightness or shortness of breath. May also use 2 puffs 15-20 minutes pre-exercise. Visit Notes: >> Sandy Sims RN gloria June 21, 2017 8:57 AM Status: Signed Patient here for asthma follow up. Reports illness past 2 weeks. Currently on antibiotics. Is not using Flovent daily due to misunderstanding of inhalers. afebrile. Prescriptions ordered this encounter Disp Refills Start End VENLAFAXINE ER 37.5 MG CAPSULE,EXTEN* 06/21/2017 Class: Med Update Route: ORAL Sig: Take 1 capsule by mouth once daily. NEBULIZER ACCESSORIES KIT 1 Kit 2 06/21/2017 Class: Print RX Sig: Please dispense nebulizer accessories kit (tubing, mouthpiece, mask etc.) Dx. Mild persistent asthma with acute exacerbation J45.31 CEFDINIR 300 MG CAPSULE 20 c* 0 06/21/2017 07/01/2017 Route: ORAL Sig: Take 1 capsule by mouth twice daily for 10 days. PREDNISONE 10 MG TABLET 30 t* 0 06/21/2017 Sig: Take by mouth 4 tablets daily for 3 days, then 3 tablets daily for 3 days, 2 tablets daily for 3 days and 1 tablet daily for 3 days. BUDESONIDE-FORMOTEROL HFA 160 MCG-4.* 1 In* 11 06/21/2017 Route: INHALATION Sig: Inhale 2 Puffs as instructed twice daily. Use with spacer. Rinse mouth out after use. CETIRIZINE 5 MG-PSEUDOEPHEDRINE ER 1* 60 t* 2 06/21/2017 Route: ORAL Sig: Take 1 tablet by mouth twice daily as needed. Medications Discontinued During This Encounter albuterol (PROVENTIL) 2.5 mg /3 mL (* 100 * 1 05/31/2017 06/21/2017 Route: NEBULIZATION -UNSPEC Sig: Use 3 mL via nebulizer every 6 hours as needed for Wheezing/Shortness of Breath. 1 vial contains 3 ml. Disc: Duplicate Entry albuterol HFA (PROVENTIL HFA, VENTOL* 1 In* 0 05/31/2017 06/21/2017 Route: INHALATION Sig: Inhale 2 Puffs as instructed every 6 hours as needed for Wheezing/Shortness of Breath. Disc: Duplicate Entry docusate sodium (COLACE) 100 mg caps* 30 c* 5 04/12/2016 06/21/2017 Route: ORAL Sig: Take 1 capsule by mouth once daily as needed. Disc: Course of therapy completed FLUoxetine (PROZAC) 20 mg capsule 30 c* 5 04/13/2017 06/21/2017 Route: ORAL Sig: Take 1 capsule by mouth once daily. Disc: Discontinued by Patient loratadine (CLARITIN) 10 mg tablet 30 t* 11 03/08/2017 06/21/2017 Sig: TAKE 1 TABLET BY MOUTH ONCE DAILY NEEDED (FOR ITCHING, SNEEZING OR RUNNY NOSE). Disc: Course of therapy completed cefdinir (OMNICEF) 300 mg capsule 20 c* 0 06/15/2017 06/21/2017 Route: ORAL Sig: Take 1 capsule by mouth twice daily for 10 days. Disc: Reason for discontinue is not on file. cetirizine-pseudoephedrine (ZYRTEC-D* 60 t* 0 05/31/2017 06/21/2017 Route: ORAL Sig: Take 1 tablet by mouth twice daily as needed. Disc: Reason for discontinue is not on file. fluticasone (FLOVENT HFA) 110 mcg/ac* 1 In* 5 05/31/2017 06/21/2017 Route: INHALATION Sig: Inhale 2 Puffs as instructed twice daily. Disc: Reason for discontinue is not on file. Disposition: Return in about 2 months (around 08/21/2017). Follow-up and Disposition History Recorded Encounter Status:Closed by FLACO JACOB MD on 06/22/17 PROGRESS Observed: 06/15/2017 Status: COMPLETED Source: [place] 5:[address] [facility] REPOSITORY HNO ID: [id number] Author: Amanda Wilson (Oracle Database Administrator) Service: (none) Author Type: Nurse Practitioner Type: Progress Notes Filed: 06/15/2017 5:48 PM Note Text: Subjective HPI HPI Mony Zhang is a 41 year old female who presents today for CC of cough, ear pain. This started 5 days ago. Has tried otc medication. Symptoms are worsened by nothing. Risk factors multiple sick exposures at home. .Patient presents with: Cough Chest Congestion Ear Pain: right PAST MEDICAL HISTORY Diagnosis Date - Allergic rhinitis, cause unspecified - Anemia - Depression - Extrinsic asthma, unspecified - Fibromyalgia - Gestational diabetes 2015 - Hypoglycemia - IBS (irritable bowel syndrome) - Migraine headache Dr. Varghese Neurologist - Multiple thyroid nodules Dr. Evans Junior Account Manager - Obstructive sleep apnea on CPAP, Dr. Núñez - [facility] - PAST MEDICAL HISTORY OF Tarsal tunnel - Psoriatic arthritis (HCC) PAST SURGICAL HISTORY Procedure Laterality Date - COLONOSCOP W/ OR W/O BRS SPEC Colonoscopy - COLONOSCOP W/ OR W/O BRSH SPEC 03/15/13 Colonoscopy [facility] Dr. Borden - EGD W/O OR W/BRUSH/WASH EGD - PAST SURGICAL HISTORY OF 2004 sinus surgery - REMOVAL GALLBLADDER 2007 Cholecystectomy ALLERGIES Environmental Allergies [Other] MEDICATIONS cetirizine-pseudoephedrine (ZYRTEC-D) 5-120 mg per tablet Take 1 tablet by mouth twice daily as needed. fluticasone (FLOVENT HFA) 110 mcg/actuation inhaler Inhale 2 Puffs as instructed twice daily. benzonatate (TESSALON PERLES) 100 mg capsule Take 1 capsule by mouth three times daily as needed. albuterol HFA (PROVENTIL HFA, VENTOLIN HFA) 90 mcg/actuation inhaler Inhale 2 Puffs as instructed every 6 hours as needed for Wheezing/Shortness of Breath. albuterol (PROVENTIL) 2.5 mg /3 mL (0.083 %) nebulizer solution Use 3 mL via nebulizer every 6 hours as needed for Wheezing/Shortness of Breath. 1 vial contains 3 ml. albuterol HFA (VENTOLIN HFA) 90 mcg/actuation inhaler Inhale 2 Puffs as instructed every 4 hours as needed (May also use 15 minutes pre-exercise). prochlorperazine (COMPAZINE) 10 mg tablet Take 1 tablet at the onset of headache and 30 mins after to a maximum of 3 tablets/day FLUoxetine (PROZAC) 20 mg capsule Take 1 capsule by mouth once daily. fluticasone (FLONASE) 50 mcg/actuation nasal spray Use 2 Sprays in each nostril once daily. Rinse mouth after use. loratadine (CLARITIN) 10 mg tablet TAKE 1 TABLET BY MOUTH ONCE DAILY NEEDED (FOR ITCHING, SNEEZING OR RUNNY NOSE). lansoprazole (PREVACID) 30 mg capsule Take 1 capsule by mouth once daily. Clobetasol Propionate (TEMOVATE) 0.05 % external solution Apply 1 application to affected area once daily as needed (for scaling on the scalp). ketoconazole (NIZORAL) 2 % shampoo Apply 1 application to affected area once daily as needed (for scaling on scalp). docusate sodium (COLACE) 100 mg capsule Take 1 capsule by mouth once daily as needed. albuterol (PROVENTIL) 2.5 mg /3 mL (0.083 %) nebulizer solution One ampule nebulized every 4 hours as needed for cough, wheezing, chest tightness or shortness of breath. Cholecalciferol, Vitamin D3, (VITAMIN D) 1,000 unit cap Take 1 capsule by mouth once daily. calcium carbonate (CALTRATE) 600 mg (1,500 mg) tab TAKE ONE TABLET TWICE DAILY SUMAtriptan (IMITREX) 50 mg tablet Take 1 tablet by mouth as needed for Migraine Headache (see administration instructions). at onset of headache. May repeat after 2 hours. FAMILY HISTORY Problem Relation Age of Onset - Cancer Maternal Grandfather melanoma - Heart Maternal Grandfather - Cancer Maternal Grandmother PANCREAS/BCC or SCC - Cancer Paternal Grandfather melanoma Social History Substance Use Topics - Smoking status: Never Smoker - Smokeless tobacco: Never Used - Alcohol use Yes Comment: occasionally Review of Systems Constitutional: Negative for chills, fever and weight loss. HENT: Positive for congestion and ear pain. Negative for ear discharge, nosebleeds and sore throat. Respiratory: Positive for cough. Negative for shortness of breath and wheezing. Cardiovascular: Positive for chest pain (with cough). Musculoskeletal: Negative for neck pain. Objective Blood pressure 110/80, pulse 87, temperature 37.1 ?C (98.7 ?F), temperature source Left Tympanic, resp. rate 20, weight 104.3 kg (230 lb), SpO2 97 %, currently . Physical Exam Constitutional: She is oriented to person, place, and time and well-developed, well-nourished, and in no distress. Non-toxic appearance. She does not have a sickly appearance. No distress. HENT: Head: Normocephalic and atraumatic. Right Ear: Hearing, external ear and ear canal normal. Tympanic membrane is erythematous and bulging. Tympanic membrane is not perforated. Left Ear: Hearing, tympanic membrane, external ear and ear canal normal. Nose: Nose normal. Mouth/Throat: Uvula is midline, oropharynx is clear and moist and mucous membranes are normal. Eyes: Conjunctivae and lids are normal. Pupils are equal, round, and reactive to light. Right eye exhibits no discharge. Left eye exhibits no discharge. No scleral icterus. Neck: Trachea normal and normal range of motion. Neck supple. Cardiovascular: Normal rate, regular rhythm and normal heart sounds. Pulmonary/Chest: Effort normal and breath sounds normal. Persistent cough during exam Lymphadenopathy: She has no cervical adenopathy. Neurological: She is alert and oriented to person, place, and time. Skin: No rash noted. She is not diaphoretic. ASSESSMENT/PLAN: 1. URI with cough and congestion - ICD9: 465.9, ICD10: J06.9 (primary diagnosis) - Discussed viral etiology and rationale for treatment. - Symptomatic treatment with prn analgesia - Supportive care with fluids and rest - Follow up in 3-5 days if symptoms persist or sooner if worsening of symptoms - PREDNISONE 20 MG TABLET 2. Acute otitis media, right - ICD9: 382.9, ICD10: H66.91 - Will begin treatment with as per antibiotic as written, see orders - Supportive care with plenty of fluids, rest, and analgesia prn. - Follow up in 3-5 days if symptoms persist or worsen. - CEFDINIR 300 MG CAPSULE 3. Asthma with acute exacerbation, unspecified asthma severity, unspecified whether persistent - ICD9: 493.92, ICD10: J45.901 -retreat with prednisone -continue using inhalers -follow up with pulmonology, call for appointment tomorrow d/t recurrent exacerbations -If you experience chest pain/shortness of breath go to ER - PREDNISONE 20 MG TABLET Prescription instructions reviewed with patient as applicable. Patient advised if symptoms do not improve or if symptoms worsen sooner, to contact the office for further evaluation by their primary care physician. Potential red flag symptoms discussed with the patient. Reviewed appropriate action plan to take if red flag symptoms occur. Patient agreeable to treatment plan. Amanda Wilson APRN.JULIOCESAR CNOV Observed: 06/15/2017 Status: COMPLETED Source: [place] 5:15 PM [facility] REPOSITORY Office Visit (WSTR) MONY ZHANG ([id number]) 1975 F [facility] Date Time Provider Department 06/15/17 5:15 PM AMANDA WILSON (JULIOCESAR) WSTR During your visit today, we recorded the following information about you: Temperature Pulse Respiration Blood pressure 98.7 degrees 87/minute 20/minute 110/80 Weight 104.3 kg Amanda Wilson (Juliocesar) 06/15/2017 5:48 PM Signed Subjective HPI HPI Mony Zhang is a 41 year old female who presents today for CC of cough, ear pain. This started 5 days ago. Has tried otc medication. Symptoms are worsened by nothing. Risk factors multiple sick exposures at home. .Patient presents with: Cough Chest Congestion Ear Pain: right PAST MEDICAL HISTORY Diagnosis Date - Allergic rhinitis, cause unspecified - Anemia - Depression - Extrinsic asthma, unspecified - Fibromyalgia - Gestational diabetes 2016 - Hypoglycemia - IBS (irritable bowel syndrome) - Migraine headache Dr. Varghese Neurologist - Multiple thyroid nodules Dr. Evans Junior Account Manager - Obstructive sleep apnea on CPAP, Dr. Núñez - [facility] - PAST MEDICAL HISTORY OF Tarsal tunnel - Psoriatic arthritis (HCC) PAST SURGICAL HISTORY Procedure Laterality Date - COLONOSCOP W/ OR W/O BRS SPEC Colonoscopy - COLONOSCOP W/ OR W/O BRSH SPEC 03/15/13 Colonoscopy [facility] Dr. Borden - EGD W/O OR W/BRUSH/WASH EGD - PAST SURGICAL HISTORY OF 2004 sinus surgery - REMOVAL GALLBLADDER 2007 Cholecystectomy ALLERGIES Environmental Allergies [Other] MEDICATIONS cetirizine-pseudoephedrine (ZYRTEC-D) 5-120 mg per tablet Take 1 tablet by mouth twice daily as needed. fluticasone (FLOVENT HFA) 110 mcg/actuation inhaler Inhale 2 Puffs as instructed twice daily. benzonatate (TESSALON PERLES) 100 mg capsule Take 1 capsule by mouth three times daily as needed. albuterol HFA (PROVENTIL HFA, VENTOLIN HFA) 90 mcg/actuation inhaler Inhale 2 Puffs as instructed every 6 hours as needed for Wheezing/Shortness of Breath. albuterol (PROVENTIL) 2.5 mg /3 mL (0.083 %) nebulizer solution Use 3 mL via nebulizer every 6 hours as needed for Wheezing/Shortness of Breath. 1 vial contains 3 ml. albuterol HFA (VENTOLIN HFA) 90 mcg/actuation inhaler Inhale 2 Puffs as instructed every 4 hours as needed (May also use 15 minutes pre-exercise). prochlorperazine (COMPAZINE) 10 mg tablet Take 1 tablet at the onset of headache and 30 mins after to a maximum of 3 tablets/day FLUoxetine (PROZAC) 20 mg capsule Take 1 capsule by mouth once daily. fluticasone (FLONASE) 50 mcg/actuation nasal spray Use 2 Sprays in each nostril once daily. Rinse mouth after use. loratadine (CLARITIN) 10 mg tablet TAKE 1 TABLET BY MOUTH ONCE DAILY NEEDED (FOR ITCHING, SNEEZING OR RUNNY NOSE). lansoprazole (PREVACID) 30 mg capsule Take 1 capsule by mouth once daily. Clobetasol Propionate (TEMOVATE) 0.05 % external solution Apply 1 application to affected area once daily as needed (for scaling on the scalp). ketoconazole (NIZORAL) 2 % shampoo Apply 1 application to affected area once daily as needed (for scaling on scalp). docusate sodium (COLACE) 100 mg capsule Take 1 capsule by mouth once daily as needed. albuterol (PROVENTIL) 2.5 mg /3 mL (0.083 %) nebulizer solution One ampule nebulized every 4 hours as needed for cough, wheezing, chest tightness or shortness of breath. Cholecalciferol, Vitamin D3, (VITAMIN D) 1,000 unit cap Take 1 capsule by mouth once daily. calcium carbonate (CALTRATE) 600 mg (1,500 mg) tab TAKE ONE TABLET TWICE DAILY SUMAtriptan (IMITREX) 50 mg tablet Take 1 tablet by mouth as needed for Migraine Headache (see administration instructions). at onset of headache. May repeat after 2 hours. FAMILY HISTORY Problem Relation Age of Onset - Cancer Maternal Grandfather melanoma - Heart Maternal Grandfather - Cancer Maternal Grandmother PANCREAS/BCC or SCC - Cancer Paternal Grandfather melanoma Social History Substance Use Topics - Smoking status: Never Smoker - Smokeless tobacco: Never Used - Alcohol use Yes Comment: occasionally Review of Systems Constitutional: Negative for chills, fever and weight loss. HENT: Positive for congestion and ear pain. Negative for ear discharge, nosebleeds and sore throat. Respiratory: Positive for cough. Negative for shortness of breath and wheezing. Cardiovascular: Positive for chest pain (with cough). Musculoskeletal: Negative for neck pain. Objective Blood pressure 110/80, pulse 87, temperature 37.1 ?C (98.7 ?F), temperature source Left Tympanic, resp. rate 20, weight 104.3 kg (230 lb), SpO2 97 %, currently . Physical Exam Constitutional: She is oriented to person, place, and time and well-developed, well-nourished, and in no distress. Non-toxic appearance. She does not have a sickly appearance. No distress. HENT: Head: Normocephalic and atraumatic. Right Ear: Hearing, external ear and ear canal normal. Tympanic membrane is erythematous and bulging. Tympanic membrane is not perforated. Left Ear: Hearing, tympanic membrane, external ear and ear canal normal. Nose: Nose normal. Mouth/Throat: Uvula is midline, oropharynx is clear and moist and mucous membranes are normal. Eyes: Conjunctivae and lids are normal. Pupils are equal, round, and reactive to light. Right eye exhibits no discharge. Left eye exhibits no discharge. No scleral icterus. Neck: Trachea normal and normal range of motion. Neck supple. Cardiovascular: Normal rate, regular rhythm and normal heart sounds. Pulmonary/Chest: Effort normal and breath sounds normal. Persistent cough during exam Lymphadenopathy: She has no cervical adenopathy. Neurological: She is alert and oriented to person, place, and time. Skin: No rash noted. She is not diaphoretic. ASSESSMENT/PLAN: 1. URI with cough and congestion - ICD9: 465.9, ICD10: J06.9 (primary diagnosis) - Discussed viral etiology and rationale for treatment. - Symptomatic treatment with prn analgesia - Supportive care with fluids and rest - Follow up in 3-5 days if symptoms persist or sooner if worsening of symptoms - PREDNISONE 20 MG TABLET 2. Acute otitis media, right - ICD9: 382.9, ICD10: H66.91 - Will begin treatment with as per antibiotic as written, see orders - Supportive care with plenty of fluids, rest, and analgesia prn. - Follow up in 3-5 days if symptoms persist or worsen. - CEFDINIR 300 MG CAPSULE 3. Asthma with acute exacerbation, unspecified asthma severity, unspecified whether persistent - ICD9: 493.92, ICD10: J45.901 -retreat with prednisone -continue using inhalers -follow up with pulmonology, call for appointment tomorrow d/t recurrent exacerbations -If you experience chest pain/shortness of breath go to ER - PREDNISONE 20 MG TABLET Prescription instructions reviewed with patient as applicable. Patient advised if symptoms do not improve or if symptoms worsen sooner, to contact the office for further evaluation by their primary care physician. Potential red flag symptoms discussed with the patient. Reviewed appropriate action plan to take if red flag symptoms occur. Patient agreeable to treatment plan. Amanda Wilson APRN.Amanda Sneed ([facility]) 06/15/2017 5:44 PM Signed OTITIS MEDIA GENERAL INFORMATION: Otitis media is an infection of the middle ear. The middle ear sits behind the eardrum. This infection may be caused by a virus or bacteria and often follows a cold. Children often have repeat ear infections. Otitis media is not contagious. INSTRUCTIONS: 1. An antibiotic has been prescribed. It should be taken exactly as prescribed. Do not stop the medicine even if the symptoms go away. 2. Smft-[id number] pain medication may be taken or other pain medication as prescribed by the doctor. 3. Nothing should be placed in the ear unless instructed by your doctor. 4. The patient may return to school/daycare or work when the temperature is normal (98.6 F or 37 C). 5. The patient should not swim while the ear is infected. CONTACT YOUR DOCTOR IF YOU OR YOUR CHILD: 1. Does not feel better within 36 hours. 2. Develops a temperature over 102E F (39E C). 3. Starts vomiting or has diarrhea. 4. Develops drainage from the affected ear. 5. Has any new problem that may be related to the medicine prescribed. RETURN TO THE ED IF: 1. You or your child has a severe headache or pain around the ear. 2. You or your child notice swelling around the ear. 3. You or your child has a seizure (convulsion), twitching of the facial muscles, or passes out. 4. You or your child is dizzy, has a stiff neck, or cannot walk or talk normally. 5. Your child becomes more irritable or listless (not interested in his or her surroundings, does not get soothed by you holding him or her). RESPIRATORY INFECTION GENERAL INFORMATION: An upper respiratory tract infection, or cold, is a viral infection of the airway passages. It can be caused by any one of almost 200 different viruses. Common symptoms include a runny or stuffy nose, sneezing, watery eyes, sore throat, cough, and slight fever. Colds are contagious, especially during the first 3 or 4 days and cannot be cured by antibiotics. They are spread by coughs, sneezes, and direct contact, especially fnje-wv-lewr. A respiratory tract infection usually clears up in a few days, but some people may be sick for a week or two. INSTRUCTIONS: 1. Be careful not to blow your nose too hard because this may cause a nosebleed. 2. Use a cool-mist humidifier (vaporizer) to increase air moisture. This will make it easier for you to breathe. Do not use hot steam. 3. Rest as much as possible and get plenty of sleep. 4. Wash your hands often, especially after you blow your nose. Cover your mouth and nose with a tissue when you sneeze or cough. 5. Drink plenty of clear fluids (8 glasses a day) such as water, fruit juice, tea, clear soups, and carbonated beverages. CONTACT YOUR DOCTOR IF : 1. Your fever lasts more than 3 days. 2. You have a sore throat that gets worse or you see white or yellow spots in your throat. 3. Your cough gets worse or lasts more than 10 days. 4. You develop a rash anywhere on your skin. 5. You have an earache or a headache. 6. You have thick greenish or yellowish discharge from your nose. RETURN IMMEDIATELY IF: 1. You cough up thick yellow, green, rice, or bloody sputum. 2. You have difficulty breathing, pain in your chest, or your skin or nails look rice or blue. 3. You have shaking chills or a temperature over 102 F (39 C). Referring Provider: SELF [200] Allergies As of Date: 06/15/2017 Noted Allergy Reaction Environmental allergies [Other] 10/13/2006 Comments: Dogs, cats, and dust mites. Date Reviewed: 06/15/2017 Reviewed by: Amanda Wilson (Juliocesar) - Fully Assessed Reason for Visit: Cough [28] Chest Congestion [236] Ear Pain [817] Cmt: right Primary Visit Diagnosis:URI with cough and congestion [J06.9] Other Visit Diagnoses:Acute otitis media, right [H66.91] Asthma with acute exacerbation, unspecified asthma severity, unspecified whether persistent [J45.901] Order(s):predniSONE (DELTASONE) 20 mg tabletTake 2 tablets by mouth once daily for 5 days.Disp: 10 tabletRfl: 0 cefdinir (OMNICEF) 300 mg capsuleTake 1 capsule by mouth twice daily for 10 days.Disp: 20 capsuleRfl: 0 Prescriptions as of 06/15/2017 Sig: PREDNISONE 20 MG TABLET Take 2 tablets by mouth once * CEFDINIR 300 MG CAPSULE Take 1 capsule by mouth twice* CETIRIZINE 5 MG-PSEUDOEPHEDRI* Take 1 tablet by mouth twice * FLUTICASONE 110 MCG/ACTUATION* Inhale 2 Puffs as instructed * BENZONATATE 100 MG CAPSULE Take 1 capsule by mouth three* ALBUTEROL SULFATE HFA 90 MCG/* Inhale 2 Puffs as instructed * ALBUTEROL SULFATE 2.5 MG/3 ML* Use 3 mL via nebulizer every * ALBUTEROL SULFATE HFA 90 MCG/* Inhale 2 Puffs as instructed * PROCHLORPERAZINE MALEATE 10 M* Take 1 tablet at the onset of* FLUOXETINE 20 MG CAPSULE Take 1 capsule by mouth once * FLUTICASONE 50 MCG/ACTUATION * Use 2 Sprays in each nostril * LORATADINE 10 MG TABLET TAKE 1 TABLET BY MOUTH ONCE D* LANSOPRAZOLE 30 MG CAPSULE,DE* Take 1 capsule by mouth once * CLOBETASOL 0.05 % SCALP SOLUT* Apply 1 application to affect* KETOCONAZOLE 2 % SHAMPOO Apply 1 application to affect* DOCUSATE SODIUM 100 MG CAPSULE Take 1 capsule by mouth once * ALBUTEROL SULFATE 2.5 MG/3 ML* One ampule nebulized every 4 * CHOLECALCIFEROL (VITAMIN D3) * Take 1 capsule by mouth once * CALCIUM CARBONATE 600 MG CALC* TAKE ONE TABLET TWICE DAILY SUMATRIPTAN 50 MG TABLET Take 1 tablet by mouth as nee* Problem List As Of Date 06/15/2017 Noted Resolved Allergic rhinitis [J30.9] Extrinsic asthma [J45.909] Fibromyalgia [M79.7] INVALID FOR* Psoriasis arthropathica (HCC) [L40.50] INVALID FOR*09/25/2015 RLS (restless legs syndrome) [G25.81] INVALID FOR* MK AHI 12.7 46R [G47.33] INVALID FOR* More... Multiple thyroid nodules [E04.2] INVALID FOR* Chronic pain [G89.29] INVALID FOR* Multiple falls [R29.6] INVALID FOR* Iron deficiency [E61.1] INVALID FOR* Other pain disorders related to psychological f*INVALID FOR* Depression [F32.9] INVALID FOR* [F41.0] INVALID FOR* Anxiety disorder [F41.9] INVALID FOR* Lumbago [M54.5] INVALID FOR* Pain in joint, pelvic region and thigh [M25.559]INVALID FOR* Pain in limb [M79.609] INVALID FOR* [Z34.90] INVALID FOR*04/12/2016 Psoriatic arthritis (HCC) [L40.50] INVALID FOR* Sciatica, right side [M54.31] INVALID FOR* Moderate single current episode of major depres*INVALID FOR* Allergic rhinitis due to animal hair and dander*INVALID FOR* Allergic rhinitis due to dust mite [J30.89] INVALID FOR* Other instructions from your clinician: OTITIS MEDIA GENERAL INFORMATION: Otitis media is an infection of the middle ear. The middle ear sits behind the eardrum. This infection may be caused by a virus or bacteria and often follows a cold. Children often have repeat ear infections. Otitis media is not contagious. INSTRUCTIONS: 1. An antibiotic has been prescribed. It should be taken exactly as prescribed. Do not stop the medicine even if the symptoms go away. 2. Jasz-xuf-pnmthcd pain medication may be taken or other pain medication as prescribed by the doctor. 3. Nothing should be placed in the ear unless instructed by your doctor. 4. The patient may return to school/daycare or work when the temperature is normal (98.6 F or 37 C). 5. The patient should not swim while the ear is infected. CONTACT YOUR DOCTOR IF YOU OR YOUR CHILD: 1. Does not feel better within 36 hours. 2. Develops a temperature over 102E F (39E C). 3. Starts vomiting or has diarrhea. 4. Develops drainage from the affected ear. 5. Has any new problem that may be related to the medicine prescribed. RETURN TO THE ED IF: 1. You or your child has a severe headache or pain around the ear. 2. You or your child notice swelling around the ear. 3. You or your child has a seizure (convulsion), twitching of the facial muscles, or passes out. 4. You or your child is dizzy, has a stiff neck, or cannot walk or talk normally. 5. Your child becomes more irritable or listless (not interested in his or her surroundings, does not get soothed by you holding him or her). RESPIRATORY INFECTION GENERAL INFORMATION: An upper respiratory tract infection, or cold, is a viral infection of the airway passages. It can be caused by any one of almost 200 different viruses. Common symptoms include a runny or stuffy nose, sneezing, watery eyes, sore throat, cough, and slight fever. Colds are contagious, especially during the first 3 or 4 days and cannot be cured by antibiotics. They are spread by coughs, sneezes, and direct contact, especially [id number]. A respiratory tract infection usually clears up in a few days, but some people may be sick for a week or two. INSTRUCTIONS: 1. Be careful not to blow your nose too hard because this may cause a nosebleed. 2. Use a cool-mist humidifier (vaporizer) to increase air moisture. This will make it easier for you to breathe. Do not use hot steam. 3. Rest as much as possible and get plenty of sleep. 4. Wash your hands often, especially after you blow your nose. Cover your mouth and nose with a tissue when you sneeze or cough. 5. Drink plenty of clear fluids (8 glasses a day) such as water, fruit juice, tea, clear soups, and carbonated beverages. CONTACT YOUR DOCTOR IF : 1. Your fever lasts more than 3 days. 2. You have a sore throat that gets worse or you see white or yellow spots in your throat. 3. Your cough gets worse or lasts more than 10 days. 4. You develop a rash anywhere on your skin. 5. You have an earache or a headache. 6. You have thick greenish or yellowish discharge from your nose. RETURN IMMEDIATELY IF: 1. You cough up thick yellow, green, rice, or bloody sputum. 2. You have difficulty breathing, pain in your chest, or your skin or nails look rice or blue. 3. You have shaking chills or a temperature over 102 F (39 C). Prescriptions ordered this encounter Disp Refills Start End PREDNISONE 20 MG TABLET 10 t* 0 06/15/2017 06/20/2017 Route: ORAL Sig: Take 2 tablets by mouth once daily for 5 days. CEFDINIR 300 MG CAPSULE 20 c* 0 06/15/2017 06/25/2017 Route: ORAL Sig: Take 1 capsule by mouth twice daily for 10 days. Encounter Status:Closed by AMANDA WILSON CNP on 06/15/17 PROGRESS Observed: 05/31/2017 Status: COMPLETED Source: [place] 11:02 AM [facility] REPOSITORY [facility] ID: [id number] Author: Isabel Young Service: (none) Author Type: Nurse Practitioner Type: Progress Notes Filed: 05/31/2017 11:08 AM Note Text: Subjective HPI Pt presents with c/o persistent nasal congestion and cough x 3-4 months. Was evaluated and tx with zpak on 02/28 followed by Augmentin on 03/06 and Augmentin again on 05/19. States cough is frequent, moist, occasionally produces clear mucous. +wheezing. +cough worse at HS. Denies fever, chills, dyspnea. Hx asthma and seasonal allergies. Has been taking claritin most days. Has been using albuterol MDI. Ran out of albuterol MDI and aerosols, and inhaled steroid. Has not taken any OTC medications. Review of Systems Constitutional: Negative for chills and fever. HENT: Positive for congestion. Negative for ear pain and sore throat. Respiratory: Positive for cough, sputum production and wheezing. Negative for hemoptysis and shortness of breath. Cardiovascular: Negative for chest pain. Objective Physical Exam Constitutional: She is oriented to person, place, and time and well-developed, well-nourished, and in no distress. No distress. HENT: Head: Normocephalic. Right Ear: Hearing, tympanic membrane, external ear and ear canal normal. Left Ear: Hearing, tympanic membrane, external ear and ear canal normal. Nose: Nose normal. Right sinus exhibits no maxillary sinus tenderness and no frontal sinus tenderness. Left sinus exhibits no maxillary sinus tenderness and no frontal sinus tenderness. Mouth/Throat: Uvula is midline, oropharynx is clear and moist and mucous membranes are normal. No oropharyngeal exudate. Eyes: Conjunctivae are normal. Pupils are equal, round, and reactive to light. Right eye exhibits no discharge. Left eye exhibits no discharge. Neck: Neck supple. Cardiovascular: Normal rate, regular rhythm and normal heart sounds. Exam reveals no gallop and no friction rub. No murmur heard. Pulmonary/Chest: Effort normal. No accessory muscle usage. No respiratory distress. She has decreased breath sounds (Good air movement throughout. Pulse ox 96% ). She has no wheezes. She has no rhonchi. She has no rales. Lymphadenopathy: She has no cervical adenopathy. Neurological: She is alert and oriented to person, place, and time. Skin: Skin is warm and dry. She is not diaphoretic. BP 116/68 Pulse 87 Temp 37.3 ?C (99.2 ?F) (Tympanic) Resp 18 Wt 104.3 kg (230 lb) ? Yes BMI 36.02 kg/m2 .Patient presents with: Cough: sinus pressure AND pain X 1 month PAST MEDICAL HISTORY Diagnosis Date - Allergic rhinitis, cause unspecified - Anemia - Depression - Extrinsic asthma, unspecified - Fibromyalgia - Gestational diabetes 2016 - Hypoglycemia - IBS (irritable bowel syndrome) - Migraine headache Dr. Varghese Neurologist - Multiple thyroid nodules Dr. Evans Junior Account Manager - Obstructive sleep apnea on CPAP, Dr. Núñez - [facility] - PAST MEDICAL HISTORY OF Tarsal tunnel - Psoriatic arthritis (HCC) PAST SURGICAL HISTORY Procedure Laterality Date - COLONOSCOP W/ OR W/O [facility] SPE[facility] Colonoscopy - COLONOSCOP W/ OR W/O [facility] SPE[facility] 03/15/13 Colonoscopy [facility] Dr. Borden - EGD W/O OR W/BRUSH/WASH EGD - PAST SURGICAL HISTORY OF 2004 sinus surgery - REMOVAL GALLBLADDER 2007 Cholecystectomy ALLERGIES Environmental Allergies [Other] MEDICATIONS albuterol HFA (VENTOLIN HFA) 90 mcg/actuation inhaler Inhale 2 Puffs as instructed every 4 hours as needed (May also use 15 minutes pre-exercise). prochlorperazine (COMPAZINE) 10 mg tablet Take 1 tablet at the onset of headache and 30 mins after to a maximum of 3 tablets/day fluticasone (FLONASE) 50 mcg/actuation nasal spray Use 2 Sprays in each nostril once daily. Rinse mouth after use. loratadine (CLARITIN) 10 mg tablet TAKE 1 TABLET BY MOUTH ONCE DAILY NEEDED (FOR ITCHING, SNEEZING OR RUNNY NOSE). lansoprazole (PREVACID) 30 mg capsule Take 1 capsule by mouth once daily. Clobetasol Propionate (TEMOVATE) 0.05 % external solution Apply 1 application to affected area once daily as needed (for scaling on the scalp). ketoconazole (NIZORAL) 2 % shampoo Apply 1 application to affected area once daily as needed (for scaling on scalp). albuterol (PROVENTIL) 2.5 mg /3 mL (0.083 %) nebulizer solution One ampule nebulized every 4 hours as needed for cough, wheezing, chest tightness or shortness of breath. Cholecalciferol, Vitamin D3, (VITAMIN D) 1,000 unit cap Take 1 capsule by mouth once daily. calcium carbonate (CALTRATE) 600 mg (1,500 mg) tab TAKE ONE TABLET TWICE DAILY SUMAtriptan (IMITREX) 50 mg tablet Take 1 tablet by mouth as needed for Migraine Headache (see administration instructions). at onset of headache. May repeat after 2 hours. cetirizine-pseudoephedrine (ZYRTEC-D) 5-120 mg per tablet Take 1 tablet by mouth twice daily as needed. predniSONE (DELTASONE) 20 mg tablet Take 2 tablets by mouth once daily for 5 days. Take daily with food. fluticasone (FLOVENT HFA) 110 mcg/actuation inhaler Inhale 2 Puffs as instructed twice daily. benzonatate (TESSALON PERLES) 100 mg capsule Take 1 capsule by mouth three times daily as needed. albuterol HFA (PROVENTIL HFA, VENTOLIN HFA) 90 mcg/actuation inhaler Inhale 2 Puffs as instructed every 6 hours as needed for Wheezing/Shortness of Breath. albuterol (PROVENTIL) 2.5 mg /3 mL (0.083 %) nebulizer solution Use 3 mL via nebulizer every 6 hours as needed for Wheezing/Shortness of Breath. 1 vial contains 3 ml. FLUoxetine (PROZAC) 20 mg capsule Take 1 capsule by mouth once daily. docusate sodium (COLACE) 100 mg capsule Take 1 capsule by mouth once daily as needed. FAMILY HISTORY Problem Relation Age of Onset - Cancer Maternal Grandfather melanoma - Heart Maternal Grandfather - Cancer Maternal Grandmother PANCREAS/BCC or SCC - Cancer Paternal Grandfather melanoma Social History Substance Use Topics - Smoking status: Never Smoker - Smokeless tobacco: Never Used - Alcohol use Yes Comment: occasionally ASSESSMENT/PLAN: 1. Cough - ICD9: 786.2, ICD10: R05 (primary diagnosis) - XR CHEST 2V FRONTAL/LAT No acute process. - BENZONATATE 100 MG CAPSULE 2. Extrinsic asthma without complication, unspecified asthma severity, unspecified whether persistent - ICD9: 493.00, ICD10: J45.909 - Albuterol MDI 2 puffs with spacer beginning with URI's TID x 5 days then prn, Instructed if using >2 times per week when well to set up appointment for further evaluation - Avoidance of triggers recommended - PREDNISONE 20 MG TABLET - FLUTICASONE 110 MCG/ACTUATION HFA AEROSOL INHALER 3. Allergic rhinitis, unspecified seasonality, unspecified trigger - ICD9: 477.9, ICD10: J30.9 - CETIRIZINE 5 MG-PSEUDOEPHEDRINE ER 120 MG TABLET,EXTENDED RELEASE,12HR Instructed to f/u with Senior Director Of Strategy if sx persist. Pt verbalizes understanding. The patient is instructed to return or seek emergency treatment if symptoms become worse or with any acute change in condition. The patient verbalizes understanding and is in agreement with plan of care. Isabel Young CNP PROGRESS Observed: 05/31/2017 Status: COMPLETED Source: [place] 10:06 AM [facility] REPOSIT[facility] ID: [id number] Author: Pau Love (Rt) Marty Virk Service: (none) Author Type: Sterile Processing Tech Type: Progress Notes Filed: 05/31/2017 10:07 AM Note Text: Radiology Service Progress Note PATIENT NAME: Mony Zhang DATE OF SERVICE: May 31, 2017 TIME: 10:05 AM PATIENT IDENTITY VERIFICATION COMPLETED USING TWO (2) METHODS: Patient confirmed name verbally and Date of . PATIENT GENDER DATA: Female. status: : No status: YES ye. pt shielded due to trying to get PATIENT RELEVANT IMPLANT DATA REVIEWED: Not Applicable RADIOLOGY DEPARTMENT: General X-ray: Exam(s) Completed: Chest X-Ray PERIPHERAL IV DATA: Not applicable SIGNED BY: RT Rosales May 31, 2017 10:05 AM XR CHEST 2V FRONTAL/LAT Observed: 05/31/2017 Status: F Source: [place] 10:00 AM [facility] REPOSITORY * * *Final Report* * * DATE OF EXAM: May 31 2017 10:00AM WOX [id number] - XR CHEST 2V FRONTAL/LAT / PROCEDURE REASON: Cough * * * * Physician Interpretation * * * * EXAMINATION: CHEST RADIOGRAPH (2 VIEW FRONTAL and LATERAL) Clinical History: Cough MQ: [id number]_5 Comparison: Two view chest x-ray: 04-28-16 RESULTS: Lines, tubes, and devices: None. Lung parenchyma and pleura: Lungs clear. No pleural fluid or pneumothorax. Thoracic inlet, heart, and mediastinum: Heart, mediastinum and pulmonary vessels unremarkable. Other: Upper abdomen unremarkable. No free air beneath diaphragm. No fracture. No significant change. IMPRESSION: No acute abnormality. Wire Fence Erector: PSCB Transcribe Date/Time: May 31 2017 10:11A Dictated by : JAIME STACY MD This examination was interpreted and the report reviewed and electronically signed by: JAIME STACY MD on May 31 2017 10:11AM EST [id number] PROGRESS Observed: 05/31/2017 Status: COMPLETED Source: [place] 9:54 AM [facility] RE[facility] ID: [id number] Author: Pau Callahan) Marty Virk Service: (none) Author Type: Sterile Processing Tech Type: Progress Notes Filed: 05/31/2017 10:01 AM Note Text: Radiology Service Progress Note PATIENT NAME: Mony Zhang DATE OF SERVICE: May 31, 2017 TIME: 9:54 AM PATIENT IDENTITY VERIFICATION COMPLETED USING TWO (2) METHODS: Patient confirmed name verbally and Date of . PATIENT GENDER DATA: Female. status: : No status: NO. pt actively trying to get no periods due to breast feeding so patient was shielded. PATIENT RELEVANT IMPLANT DATA REVIEWED: Not Applicable RADIOLOGY DEPARTMENT: General X-ray: Exam(s) Completed: Chest X-Ray PERIPHERAL IV DATA: Not applicable SIGNED BY: RT Rosales May 31, 2017 9:54 AM CNOV Observed: 05/31/2017 Status: COMPLETED Source: [place] 9:15 AM [facility] REPOSITORY Office Visit (WSTR) MONY ZHANG ([id number]) 1975 [facility] Date Time Provider Department 05/31/17 9:15 AM ISABEL YOUNG [facility] During your visit today, we recorded the following information about you: Temperature Pulse Respiration Blood pressure 99.2 degrees 87/minute 18/minute 116/68 Weight 104.3 kg Isabel Young APRN.FIELD CONTACT PERSON 05/31/2017 11:08 AM Signed Subjective HPI Pt presents with c/o persistent nasal congestion and cough x 3-4 months. Was evaluated and tx with zpak on 02/28 followed by Augmentin on 03/06 and Augmentin again on 05/19. States cough is frequent, moist, occasionally produces clear mucous. +wheezing. +cough worse at HS. Denies fever, chills, dyspnea. Hx asthma and seasonal allergies. Has been taking claritin most days. Has been using albuterol MDI. Ran out of albuterol MDI and aerosols, and inhaled steroid. Has not taken any OTC medications. Review of Systems Constitutional: Negative for chills and fever. HENT: Positive for congestion. Negative for ear pain and sore throat. Respiratory: Positive for cough, sputum production and wheezing. Negative for hemoptysis and shortness of breath. Cardiovascular: Negative for chest pain. Objective Physical Exam Constitutional: She is oriented to person, place, and time and well-developed, well-nourished, and in no distress. No distress. HENT: Head: Normocephalic. Right Ear: Hearing, tympanic membrane, external ear and ear canal normal. Left Ear: Hearing, tympanic membrane, external ear and ear canal normal. Nose: Nose normal. Right sinus exhibits no maxillary sinus tenderness and no frontal sinus tenderness. Left sinus exhibits no maxillary sinus tenderness and no frontal sinus tenderness. Mouth/Throat: Uvula is midline, oropharynx is clear and moist and mucous membranes are normal. No oropharyngeal exudate. Eyes: Conjunctivae are normal. Pupils are equal, round, and reactive to light. Right eye exhibits no discharge. Left eye exhibits no discharge. Neck: Neck supple. Cardiovascular: Normal rate, regular rhythm and normal heart sounds. Exam reveals no gallop and no friction rub. No murmur heard. Pulmonary/Chest: Effort normal. No accessory muscle usage. No respiratory distress. She has decreased breath sounds (Good air movement throughout. Pulse ox 96% ). She has no wheezes. She has no rhonchi. She has no rales. Lymphadenopathy: She has no cervical adenopathy. Neurological: She is alert and oriented to person, place, and time. Skin: Skin is warm and dry. She is not diaphoretic. BP 116/68 Pulse 87 Temp 37.3 ?C (99.2 ?F) (Tympanic) Resp 18 Wt 104.3 kg (230 lb) ? Yes BMI 36.02 kg/m2 .Patient presents with: Cough: sinus pressure ANDamp; pain X 1 month PAST MEDICAL HISTORY Diagnosis Date - Allergic rhinitis, cause unspecified - Anemia - Depression - Extrinsic asthma, unspecified - Fibromyalgia - Gestational diabetes 2016 - Hypoglycemia - IBS (irritable bowel syndrome) - Migraine headache Dr. Varghese Neurologist - Multiple thyroid nodules Dr. Evans Junior Account Manager - Obstructive sleep apnea on CPAP, Dr. Núñez - [facility] - PAST MEDICAL HISTORY OF Tarsal tunnel - Psoriatic arthritis (HCC) PAST SURGICAL HISTORY Procedure Laterality Date - COLONOSCOP W/ OR W/O [facility] Colonoscopy - COLONOSCOP W/ OR W/O [facility] SPE[facility] 03/15/13 Colonoscopy [facility] Dr. Borden - EGD W/O OR W/BRUSH/WASH EGD - PAST SURGICAL HISTORY OF 2004 sinus surgery - REMOVAL GALLBLADDER 2007 Cholecystectomy ALLERGIES Environmental Allergies [Other] MEDICATIONS albuterol HFA (VENTOLIN HFA) 90 mcg/actuation inhaler Inhale 2 Puffs as instructed every 4 hours as needed (May also use 15 minutes pre-exercise). prochlorperazine (COMPAZINE) 10 mg tablet Take 1 tablet at the onset of headache and 30 mins after to a maximum of 3 tablets/day fluticasone (FLONASE) 50 mcg/actuation nasal spray Use 2 Sprays in each nostril once daily. Rinse mouth after use. loratadine (CLARITIN) 10 mg tablet TAKE 1 TABLET BY MOUTH ONCE DAILY NEEDED (FOR ITCHING, SNEEZING OR RUNNY NOSE). lansoprazole (PREVACID) 30 mg capsule Take 1 capsule by mouth once daily. Clobetasol Propionate (TEMOVATE) 0.05 % external solution Apply 1 application to affected area once daily as needed (for scaling on the scalp). ketoconazole (NIZORAL) 2 % shampoo Apply 1 application to affected area once daily as needed (for scaling on scalp). albuterol (PROVENTIL) 2.5 mg /3 mL (0.083 %) nebulizer solution One ampule nebulized every 4 hours as needed for cough, wheezing, chest tightness or shortness of breath. Cholecalciferol, Vitamin D3, (VITAMIN D) 1,000 unit cap Take 1 capsule by mouth once daily. calcium carbonate (CALTRATE) 600 mg (1,500 mg) tab TAKE ONE TABLET TWICE DAILY SUMAtriptan (IMITREX) 50 mg tablet Take 1 tablet by mouth as needed for Migraine Headache (see administration instructions). at onset of headache. May repeat after 2 hours. cetirizine-pseudoephedrine (ZYRTEC-D) 5-120 mg per tablet Take 1 tablet by mouth twice daily as needed. predniSONE (DELTASONE) 20 mg tablet Take 2 tablets by mouth once daily for 5 days. Take daily with food. fluticasone (FLOVENT HFA) 110 mcg/actuation inhaler Inhale 2 Puffs as instructed twice daily. benzonatate (TESSALON PERLES) 100 mg capsule Take 1 capsule by mouth three times daily as needed. albuterol HFA (PROVENTIL HFA, VENTOLIN HFA) 90 mcg/actuation inhaler Inhale 2 Puffs as instructed every 6 hours as needed for Wheezing/Shortness of Breath. albuterol (PROVENTIL) 2.5 mg /3 mL (0.083 %) nebulizer solution Use 3 mL via nebulizer every 6 hours as needed for Wheezing/Shortness of Breath. 1 vial contains 3 ml. FLUoxetine (PROZAC) 20 mg capsule Take 1 capsule by mouth once daily. docusate sodium (COLACE) 100 mg capsule Take 1 capsule by mouth once daily as needed. FAMILY HISTORY Problem Relation Age of Onset - Cancer Maternal Grandfather melanoma - Heart Maternal Grandfather - Cancer Maternal Grandmother PANCREAS/BCC or SCC - Cancer Paternal Grandfather melanoma Social History Substance Use Topics - Smoking status: Never Smoker - Smokeless tobacco: Never Used - Alcohol use Yes Comment: occasionally ASSESSMENT/PLAN: 1. Cough - ICD9: 786.2, ICD10: R05 (primary diagnosis) - XR CHEST 2V FRONTAL/LAT No acute process. - BENZONATATE 100 MG CAPSULE 2. Extrinsic asthma without complication, unspecified asthma severity, unspecified whether persistent - ICD9: 493.00, ICD10: J45.909 - Albuterol MDI 2 puffs with spacer beginning with URI's TID x 5 days then prn, Instructed if using ANDgt;2 times per week when well to set up appointment for further evaluation - Avoidance of triggers recommended - PREDNISONE 20 MG TABLET - FLUTICASONE 110 MCG/ACTUATION HFA AEROSOL INHALER 3. Allergic rhinitis, unspecified seasonality, unspecified trigger - ICD9: 477.9, ICD10: J30.9 - CETIRIZINE 5 MG-PSEUDOEPHEDRINE ER 120 MG TABLET,EXTENDED RELEASE,12HR Instructed to f/u with Senior Director Of Strategy if sx persist. Pt verbalizes understanding. The patient is instructed to return or seek emergency treatment if symptoms become worse or with any acute change in condition. The patient verbalizes understanding and is in agreement with plan of care. Isabel Errington, FIELD CONTACT PERSON Referring Provider: SELF [[id number]] Allergies As of Date: 05/31/2017 Noted Allergy Reaction Environmental allergies [Other] 10/13/2006 Comments: Dogs, cats, and dust mites. Date Reviewed: 05/31/2017 Reviewed by: Colleen Abebe LPN - Fully Assessed Reason for Visit: Cough [28] Cmt: sinus pressure AND pain X 1 month Primary Visit Diagnosis:Cough [R05] Other Visit Diagnoses:Extrinsic asthma without complication, unspecified asthma severity, unspecified whether persistent [J45.909] Allergic rhinitis, unspecified seasonality, unspecified trigger [J30.9] Order(s):XR CHEST 2V FRONTAL/LAT [[id number]] Order #: [id number] FUTURE cetirizine-pseudoephedrine (ZYRTEC-D) 5-120 mg per tabletTake 1 tablet by mouth twice daily as needed.Disp: 60 tabletRfl: 0 predniSONE (DELTASONE) 20 mg tabletTake 2 tablets by mouth once daily for 5 days. Take daily with food.Disp: 10 tabletRfl: 0 fluticasone (FLOVENT HFA) 110 mcg/actuation inhalerInhale 2 Puffs as instructed twice daily.Disp: 1 InhalerRfl: 5 benzonatate (TESSALON PERLES) 100 mg capsuleTake 1 capsule by mouth three times daily as needed.Disp: 40 capsuleRfl: 0 albuterol HFA (PROVENTIL HFA, VENTOLIN HFA) 90 mcg/actuation inhalerInhale 2 Puffs as instructed every 6 hours as needed for Wheezing/Shortness of Breath.Disp: 1 InhalerRfl: 0 albuterol (PROVENTIL) 2.5 mg /3 mL (0.083 %) nebulizer solutionUse 3 mL via nebulizer every 6 hours as needed for Wheezing/Shortness of Breath. 1 vial contains 3 ml.Disp: 100 VialRfl: 1 Prescriptions as of 05/31/2017 Sig: ALBUTEROL SULFATE HFA 90 MCG/* Inhale 2 Puffs as instructed * PROCHLORPERAZINE MALEATE 10 M* Take 1 tablet at the onset of* FLUTICASONE 50 MCG/ACTUATION * Use 2 Sprays in each nostril * LORATADINE 10 MG TABLET TAKE 1 TABLET BY MOUTH ONCE D* LANSOPRAZOLE 30 MG CAPSULE,DE* Take 1 capsule by mouth once * CLOBETASOL 0.05 % SCALP SOLUT* Apply 1 application to affect* KETOCONAZOLE 2 % SHAMPOO Apply 1 application to affect* ALBUTEROL SULFATE 2.5 MG/3 ML* One ampule nebulized every 4 * CHOLECALCIFEROL (VITAMIN D3) * Take 1 capsule by mouth once * CALCIUM CARBONATE 600 MG CALC* TAKE ONE TABLET TWICE DAILY SUMATRIPTAN 50 MG TABLET Take 1 tablet by mouth as nee* CETIRIZINE 5 MG-PSEUDOEPHEDRI* Take 1 tablet by mouth twice * PREDNISONE 20 MG TABLET Take 2 tablets by mouth once * FLUTICASONE 110 MCG/ACTUATION* Inhale 2 Puffs as instructed * BENZONATATE 100 MG CAPSULE Take 1 capsule by mouth three* ALBUTEROL SULFATE HFA 90 MCG/* Inhale 2 Puffs as instructed * ALBUTEROL SULFATE 2.5 MG/3 ML* Use 3 mL via nebulizer every * FLUOXETINE 20 MG CAPSULE Take 1 capsule by mouth once * DOCUSATE SODIUM 100 MG CAPSULE Take 1 capsule by mouth once * Medication notes this encounter FLUOXETINE 20 MG CAPSULE >> Colleen Abebe LPN 05/31/2017 9:30 AM >> COLLEEN ABEBE LPN TueMay 31, 2017 9:30 AM Not taking DOCUSATE SODIUM 100 MG CAPSULE >> Colleen Abebe LPN 05/31/2017 9:30 AM >> COLLEEN ABEBE LPN TueMay 31, 2017 9:30 AM No longer taking Problem List As Of Date 05/31/2017 Noted Resolved Allergic rhinitis [J30.9] Extrinsic asthma [J45.909] Fibromyalgia [M79.7] INVALID FOR* Psoriasis arthropathica (HCC) [L40.50] INVALID FOR*09/25/2015 RLS (restless legs syndrome) [G25.81] INVALID FOR* MK AHI 12.7 46R [G47.33] INVALID FOR* More... Multiple thyroid nodules [E04.2] INVALID FOR* Chronic pain [G89.29] INVALID FOR* Multiple falls [R29.6] INVALID FOR* Iron deficiency [E61.1] INVALID FOR* Other pain disorders related to psychological f*INVALID FOR* Depression [F32.9] INVALID FOR* [F41.0] INVALID FOR* Anxiety disorder [F41.9] INVALID FOR* Lumbago [M54.5] INVALID FOR* Pain in joint, pelvic region and thigh [M25.559]INVALID FOR* Pain in limb [M79.609] INVALID FOR* [Z34.90] INVALID FOR*04/12/2016 Psoriatic arthritis (HCC) [L40.50] INVALID FOR* Sciatica, right side [M54.31] INVALID FOR* Moderate single current episode of major depres*INVALID FOR* Allergic rhinitis due to animal hair and dander*INVALID FOR* Allergic rhinitis due to dust mite [J30.89] INVALID FOR* Prescriptions ordered this encounter Disp Refills Start End CETIRIZINE 5 MG-PSEUDOEPHEDRINE ER 1* 60 t* 0 05/31/2017 Route: ORAL Sig: Take 1 tablet by mouth twice daily as needed. PREDNISONE 20 MG TABLET 10 t* 0 05/31/2017 06/05/2017 Route: ORAL Sig: Take 2 tablets by mouth once daily for 5 days. Take daily with food. FLUTICASONE 110 MCG/ACTUATION HFA AE* 1 In* 5 05/31/2017 Route: INHALATION Sig: Inhale 2 Puffs as instructed twice daily. BENZONATATE 100 MG CAPSULE 40 c* 0 05/31/2017 Route: ORAL Sig: Take 1 capsule by mouth three times daily as needed. ALBUTEROL SULFATE HFA 90 MCG/ACTUATI* 1 In* 0 05/31/2017 Route: INHALATION Sig: Inhale 2 Puffs as instructed every 6 hours as needed for Wheezing/Shortness of Breath. ALBUTEROL SULFATE 2.5 MG/3 ML (0.083* 100 * 1 05/31/2017 Route: NEBULIZATION Sig: Use 3 mL via nebulizer every 6 hours as needed for Wheezing/Shortness of Breath. 1 vial contains 3 ml. Encounter Status:Closed by ISABEL YOUNG CNP on 05/31/17 PROGRESS Observed: 05/19/2017 Status: COMPLETED Source: [place] 11:[address] [facility] [place] REPOSITORY HNO ID: [id number] Author: Cynthia May (Juliocesar) Lissette Service: (none) Author Type: Nurse Practitioner Type: Progress Notes Filed: 05/19/2017 11:17 AM Note Text: This note was created using NoteWriter. Subjective Patient is a 41 year old female presenting with cough. The history is provided by the patient. No english language learner teacher was used. Cough This is a new problem. The problem occurs constantly. The problem has been gradually worsening. The cough is non-productive. There has been no fever. Associated symptoms include sore throat, myalgias, shortness of breath and wheezing. Pertinent negatives include no chills, no ear congestion, no ear pain, no headaches and no eye redness. Treatments tried: OLGA LIDIA, delsym. Risk factors: + ill contacts. She is not a smoker. Review of Systems Constitutional: Negative for chills. HENT: Positive for sore throat. Negative for ear pain. Eyes: Negative for redness. Respiratory: Positive for cough, shortness of breath and wheezing. Musculoskeletal: Positive for myalgias. Neurological: Negative for headaches. Objective BP 116/82 Pulse 88 Temp 37.2 ?C (99 ?F) Resp 16 Wt 106.1 kg (234 lb) SpO2 96% BMI 36.65 kg/m2 Physical Exam Constitutional: She appears well-developed and well-nourished. HENT: Head: Normocephalic and atraumatic. Right Ear: External ear normal. Left Ear: External ear normal. Nose: Right sinus exhibits maxillary sinus tenderness. Right sinus exhibits no frontal sinus tenderness. Left sinus exhibits maxillary sinus tenderness. Left sinus exhibits no frontal sinus tenderness. Mouth/Throat: Uvula is midline and mucous membranes are normal. Posterior oropharyngeal erythema present. No oropharyngeal exudate, posterior oropharyngeal edema or tonsillar abscesses. Tonsils are 2+ on the right. Tonsils are 2+ on the left. No tonsillar exudate. Cardiovascular: Normal rate, regular rhythm, S1 normal, S2 normal and normal heart sounds. No murmur heard. Pulmonary/Chest: Effort normal. She has decreased breath sounds. She has rhonchi. Lymphadenopathy: Head (right side): No submental, no submandibular, no tonsillar, no preauricular and no posterior auricular adenopathy present. Head (left side): No submental, no submandibular, no tonsillar, no preauricular and no posterior auricular adenopathy present. She has no cervical adenopathy. ASSESSMENT/PLAN: 1. URI, acute - ICD9: 465.9, ICD10: J06.9 - Symptomatic treatment with prn analgesia - Supportive care with fluids and rest - Follow up in one week if symptoms persist or sooner if worsening of symptoms - ALBUTEROL SULFATE HFA 90 MCG/ACTUATION AEROSOL INHALER - AMOXICILLIN 875 MG-POTASSIUM CLAVULANATE 125 MG TABLET- nursing mom Cynthia Braun APRN.CNP CNOV Observed: 05/19/2017 Status: COMPLETED Source: [place] 11:00 AM [facility] REPOSITORY Office Visit (FAMPWS) MONY ZHANG ([id number]) 1975 F [place] Date Time Provider Department 05/19/17 11:00 AM CYNTHIA BRAUN (JULIOCESAR) [facility] During your visit today, we recorded the following information about you: Temperature Pulse Respiration Blood pressure 99 degrees 88/minute 16/minute 116/82 Weight 106.1 kg Cynthia Braun APRN.CNP 05/19/2017 11:17 AM Signed This note was created using [employer]. Subjective Patient is a 41 year old female presenting with cough. The history is provided by the patient. No english language learner teacher was used. Cough This is a new problem. The problem occurs constantly. The problem has been gradually worsening. The cough is non-productive. There has been no fever. Associated symptoms include sore throat, myalgias, shortness of breath and wheezing. Pertinent negatives include no chills, no ear congestion, no ear pain, no headaches and no eye redness. Treatments tried: OLGA LIDIA, delsym. Risk factors: + ill contacts. She is not a smoker. Review of Systems Constitutional: Negative for chills. HENT: Positive for sore throat. Negative for ear pain. Eyes: Negative for redness. Respiratory: Positive for cough, shortness of breath and wheezing. Musculoskeletal: Positive for myalgias. Neurological: Negative for headaches. Objective BP 116/82 Pulse 88 Temp 37.2 ?C (99 ?F) Resp 16 Wt 106.1 kg (234 lb) SpO2 96% BMI 36.65 kg/m2 Physical Exam Constitutional: She appears well-developed and well-nourished. HENT: Head: Normocephalic and atraumatic. Right Ear: External ear normal. Left Ear: External ear normal. Nose: Right sinus exhibits maxillary sinus tenderness. Right sinus exhibits no frontal sinus tenderness. Left sinus exhibits maxillary sinus tenderness. Left sinus exhibits no frontal sinus tenderness. Mouth/Throat: Uvula is midline and mucous membranes are normal. Posterior oropharyngeal erythema present. No oropharyngeal exudate, posterior oropharyngeal edema or tonsillar abscesses. Tonsils are 2+ on the right. Tonsils are 2+ on the left. No tonsillar exudate. Cardiovascular: Normal rate, regular rhythm, S1 normal, S2 normal and normal heart sounds. No murmur heard. Pulmonary/Chest: Effort normal. She has decreased breath sounds. She has rhonchi. Lymphadenopathy: Head (right side): No submental, no submandibular, no tonsillar, no preauricular and no posterior auricular adenopathy present. Head (left side): No submental, no submandibular, no tonsillar, no preauricular and no posterior auricular adenopathy present. She has no cervical adenopathy. ASSESSMENT/PLAN: 1. URI, acute - ICD9: 465.9, ICD10: J06.9 - Symptomatic treatment with prn analgesia - Supportive care with fluids and rest - Follow up in one week if symptoms persist or sooner if worsening of symptoms - ALBUTEROL SULFATE HFA 90 MCG/ACTUATION AEROSOL INHALER - AMOXICILLIN 875 MG-POTASSIUM CLAVULANATE 125 MG TABLET- nursing [facility] [place] Cynthia Braun APRN.FIELD CONTACT PERSON Referring Provider: REJI VAZQUEZ [[id number]] Allergies As of Date: 05/19/2017 Noted Allergy Reaction Environmental allergies [Other] 10/13/2006 Comments: Dogs, cats, and dust mites. Date Reviewed: 05/19/2017 Reviewed by: Cynthia May (Juliocesar) Lissette - Fully Assessed Reason for Visit: Cough [28] Cmt: nonproductive, wheezing Sore Throat [200] body aches [Other] Shortness of Breath [227] Cmt: using prn inhaler routinely Reason For Visit History Recorded Primary Visit Diagnosis:URI, acute [J06.9] Order(s):albuterol HFA (VENTOLIN HFA) 90 mcg/actuation inhalerInhale 2 Puffs as instructed every 4 hours as needed (May also use 15 minutes pre-exercise).Disp: 1 InhalerRfl: 1 amoxicillin-clavulanic acid (AUGMENTIN) 875-125 mg per tabletTake 1 tablet by mouth twice daily for 10 days.Disp: 20 tabletRfl: 0 Prescriptions as of 05/19/2017 Sig: ALBUTEROL SULFATE HFA 90 MCG/* Inhale 2 Puffs as instructed * PROCHLORPERAZINE MALEATE 10 M* Take 1 tablet at the onset of* FLUOXETINE 20 MG CAPSULE Take 1 capsule by mouth once * FLUTICASONE 50 MCG/ACTUATION * Use 2 Sprays in each nostril * LORATADINE 10 MG TABLET TAKE 1 TABLET BY MOUTH ONCE D* LANSOPRAZOLE 30 MG CAPSULE,DE* Take 1 capsule by mouth once * CLOBETASOL 0.05 % SCALP SOLUT* Apply 1 application to affect* KETOCONAZOLE 2 % SHAMPOO Apply 1 application to affect* DOCUSATE SODIUM 100 MG CAPSULE Take 1 capsule by mouth once * ALBUTEROL SULFATE 2.5 MG/3 ML* One ampule nebulized every 4 * CHOLECALCIFEROL (VITAMIN D3) * Take 1 capsule by mouth once * CALCIUM CARBONATE 600 MG CALC* TAKE ONE TABLET TWICE DAILY SUMATRIPTAN 50 MG TABLET Take 1 tablet by mouth as nee* AMOXICILLIN 875 MG-POTASSIUM * Take 1 tablet by mouth twice * Problem List As Of Date 05/19/2017 Noted Resolved Allergic rhinitis [J30.9] Extrinsic asthma [J45.909] Fibromyalgia [M79.7] INVALID FOR* Psoriasis arthropathica (HCC) [L40.50] INVALID FOR*09/25/2015 RLS (restless legs syndrome) [G25.81] INVALID FOR* MK AHI 12.7 46R [G47.33] INVALID FOR* More... Multiple thyroid nodules [E04.2] INVALID FOR* Chronic pain [G89.29] INVALID FOR* Multiple falls [R29.6] INVALID FOR* Iron deficiency [E61.1] INVALID FOR* Other pain disorders related to psychological f*INVALID FOR* Depression [F32.9] INVALID FOR* [F41.0] INVALID FOR* Anxiety disorder [F41.9] INVALID FOR* Lumbago [M54.5] INVALID FOR* Pain in joint, pelvic region and thigh [M25.559]INVALID FOR* Pain in limb [M79.609] INVALID FOR* [Z34.90] INVALID FOR*04/12/2016 Psoriatic arthritis (HCC) [L40.50] INVALID FOR* Sciatica, right side [M54.31] INVALID FOR* Moderate single current episode of major depres*INVALID FOR* Allergic rhinitis due to animal hair and dander*INVALID FOR* Allergic rhinitis due to dust mite [J30.89] INVALID FOR* Prescriptions ordered this encounter Disp Refills Start End ALBUTEROL SULFATE HFA 90 MCG/ACTUATI* 1 In* 1 05/19/2017 Route: INHALATION Sig: Inhale 2 Puffs as instructed every 4 hours as needed (May also use 15 minutes pre-exercise). AMOXICILLIN 875 MG-POTASSIUM CLAVULA* 20 t* 0 05/19/2017 05/29/2017 Route: ORAL Sig: Take 1 tablet by mouth twice daily for 10 days. Medications Discontinued During This Encounter albuterol HFA (VENTOLIN HFA) 90 mcg/* 1 In* 1 03/08/2017 05/19/2017 Route: INHALATION Sig: Inhale 2 Puffs as instructed every 4 hours as needed (May also use 15 minutes pre-exercise). Disc: Reason for discontinue is not on file. Encounter Status:Closed by CYNTHIA BRAUN CNP on 05/19/17 Observed: 04/13/2017 Status: F Source: [place] URINE CULTURE 12:30 PM [facility] REPOS[facility] Sp. Request/Comment: - Specimen received in preservative Culture Result - <10,000 CFU/ml Streptococcus agalactiae (Group B streptococcus) --> ABNORMAL ALERT 10,000 - <50,000 CFU/ml Normal urogenital radha Performed By: #### URCUL #### [facility] [address] [place] [address] PROGRESS Observed: 04/13/2017 Status: COMPLETED Source: [place] 12:21 PM [facility] REPOS[facility] HNO ID: [id number] Author: Reji Vazquez Service: (none) Author Type: Physician Type: Progress Notes Filed: 04/13/2017 12:47 PM Note Text: CC: Mony Zhang is a 41 year old female who presents to the office for 2 months follow up HPI: Cold symptoms for the last 3-4 days, congestion, PND, scratchy throat, otherwise asymptomatic, + sick contacts with 17 month old dtr. ?? Still is 17 month old. ?? Struggling with anxiety and depression, has been noticing increased weight gain SE with dose change of Effexor, wanting alternative. Was on prozac prior which she developed tolerance to then was non effective. ?Denies SI or HI. Has many stressors with having a teenage daughter that is unstable and is living back in her home. ?She is interested in trying to have another child as well. ?? Right side sciatica, started 2-3 days ago after playing game on hands/knees on the floor with her daughter over the weekend. ?[place] pull in low back with radiation of sharp / shooting burning pain to anterior / lateral thigh and lower leg into foot. ?Unable to take muscle relaxants and neurontin for symptoms in past due to drowsiness. ?Took Advil with mild relief. ?Worse symptoms in AM and with prolonged standing/sitting, no weakness or falls or bowel/bladder changes. ? At last OFFICE VISIT 2 months ago ? She has noticed that trying to taper off the Effexor and only be on Wellbutrin has caused her to feel more anxious, recently restarted the low dose of Effexor 37.5 mg, does feel better with this medication. Still taking Wellbutrin daily as well. No SI or HI. Does have support from boyfriend Stewart. Still is her 19 month old dtr Linda. ? Cough, present for 1-2 days, no fevers or chills, intermittent wheezing improved with inhaler use. Currently Was changed from the effexor to Wellbutrin. Has been having some side effects with headaches and fatigue and weight gain since being on the Wellbutrin. She is breast feeding her 21 month old Linda still as well. She is trying to wean her from nursing. She is interested in retrying Prozac since tolerated this well in the past. Urinary urgency and frequency. No hematuria or flank pains, some dysuria No monthly menses. Needs to check to see if . PAST MEDICAL HISTORY Diagnosis Date - Allergic rhinitis, cause unspecified - Anemia - Depression - Extrinsic asthma, unspecified - Fibromyalgia - Gestational diabetes 2016 - Hypoglycemia - IBS (irritable bowel syndrome) - Migraine headache Dr. Varghese Neurologist - Multiple thyroid nodules Dr. Evans Junior Account Manager - Obstructive sleep apnea on CPAP, Dr. Núñez - [facility] - PAST MEDICAL HISTORY OF Tarsal tunnel - Psoriatic arthritis (HCC) PAST SURGICAL HISTORY Procedure Laterality Date - COLONOSCOP W/ OR W/O [facility] Colonoscopy - COLONOSCOP W/ OR W/O [facility] 03/15/13 Colonoscopy [facility] Dr. Borden - EGD W/O OR W/BRUSH/WASH EGD - PAST SURGICAL HISTORY OF 2004 sinus surgery - REMOVAL GALLBLADDER 2007 Cholecystectomy Current Outpatient Prescriptions: buPROPion XL (WELLBUTRIN XL) 150 mg 24 hr tablet TAKE 1 TABLET BY MOUTH ONCE DAILY. fluticasone (FLONASE) 50 mcg/actuation nasal spray Use 2 Sprays in each nostril once daily. Rinse mouth after use. loratadine (CLARITIN) 10 mg tablet TAKE 1 TABLET BY MOUTH ONCE DAILY NEEDED (FOR ITCHING, SNEEZING OR RUNNY NOSE). albuterol HFA (VENTOLIN HFA) 90 mcg/actuation inhaler Inhale 2 Puffs as instructed every 4 hours as needed (May also use 15 minutes pre-exercise). lansoprazole (PREVACID) 30 mg capsule Take 1 capsule by mouth once daily. venlafaxine ER (EFFEXOR XR) 37.5 mg 24 hr capsule Take 1 capsule by mouth once daily. Clobetasol Propionate (TEMOVATE) 0.05 % external solution Apply 1 application to affected area once daily as needed (for scaling on the scalp). ketoconazole (NIZORAL) 2 % shampoo Apply 1 application to affected area once daily as needed (for scaling on scalp). docusate sodium (COLACE) 100 mg capsule Take 1 capsule by mouth once daily as needed. albuterol (PROVENTIL) 2.5 mg /3 mL (0.083 %) nebulizer solution One ampule nebulized every 4 hours as needed for cough, wheezing, chest tightness or shortness of breath. Cholecalciferol, Vitamin D3, (VITAMIN D) 1,000 unit cap Take 1 capsule by mouth once daily. calcium carbonate (CALTRATE) 600 mg (1,500 mg) tab TAKE ONE TABLET TWICE DAILY SUMAtriptan (IMITREX) 50 mg tablet Take 1 tablet by mouth as needed for Migraine Headache (see administration instructions). at onset of headache. May repeat after 2 hours. No current facility-administered medications for this visit. ALLERGIES Allergen Reactions - Environmental Aller* Dogs, cats, and dust mites. Social History Marital status: Single Spouse name: Years of education: Number of children: Social History Main Topics Smoking status: Never Smoker Smokeless status: Never Used Alcohol use: Yes Comment: occasionally Drug use: No ROS: See HPI PE: BP 120/80 Pulse 80 Temp (Src) 99 (Right Tympanic) Resp 16 Wt 231 lb (104.8kg) Gen: AANDOX3, NAD, non-toxic appearing HEENT: PERRLA, EOMs intact b/l, nares without drainage, pharynx without erythema, exudate, lesions, or drainage. Uvula midline. Neck: No LAD, no thyromegaly, no meningismus. CV: RRR, no murmur Lungs: CTA b/l, no wheezing Skin: No rashes, lesions, or wounds on exposed skin. No CVA TTP ASSESSMENT/PLAN: 1. Current moderate episode of major depressive disorder without prior episode (HCC) - ICD9: 296.22, ICD10: F32.1 (primary diagnosis) - taper off Wellbutrin, start on Prozac medication- tolerated well in the past. No SI or HI. - PROCHLORPERAZINE MALEATE 10 MG TABLET - FLUOXETINE 20 MG CAPSULE 2. Urinary frequency - ICD9: 788.41, ICD10: R35.0 acute - negative UA and today in office - UA DIP B/O - URINE CULTURE 3. Secondary amenorrhea - ICD9: 626.0, ICD10: N91.1 - screening for today in office which was negative - HCG QUAL UR Reji Vazquez DO Urine dip shows: Glucose, Urine (mg/dL) Date Value 04/13/2017 Negative Bilirubin, Urine (no units) Date Value 04/13/2017 Negative Bilirubin, Urine (no units) Date Value 04/13/2017 Negative Ketones, Urine (no units) Date Value 04/13/2017 Negative Specific [place], Ur (no units) Date Value 04/13/2017 1.015 Hemoglobin/Blood,Ur (no units) Date Value 04/13/2017 Negative No results found for: PH Protein, Urine (mg/dL) Date Value 04/13/2017 Negative Urobilinogen, Urine (EU) Date Value 04/13/2017 Normal No components found for: NITR Leukocytes (no units) Date Value 04/13/2017 Negative Color/Appearance (comment:) Date Value 04/13/2017 yellow Return if no improvement. Follow up with Reji Vazquez DO. Discussed risks, benefits, alternatives, and potential side effects of medications. Patient/Guardian expressed understanding and agreed with the plan. See patient instructions. Reji Vazquez DO [address] [place] [address] CNOV Observed: 04/13/2017 Status: COMPLETED Source: [place] 12:00 PM [facility] REPOSITORY Office Visit (FAMPWS) MONY ZHANG ([id number]) 1975 [facility] Time Provider Department 04/13/17 12:00 PM [facility] During your visit today, we recorded the following information about you: Temperature Pulse Respiration Blood pressure 99 degrees 80/minute 16/minute 120/80 Weight 104.8 kg Reji Vazquez DO 04/13/2017 12:47 PM Signed CC: Mony Barahonapercy is a 41 year old female who presents to the office for 2 months follow up HPI: Cold symptoms for the last 3-4 days, congestion, PND, scratchy throat, otherwise asymptomatic, + sick contacts with 17 month old dtr. ?? Still is 17 month old. ?? Struggling with anxiety and depression, has been noticing increased weight gain SE with dose change of Effexor, wanting alternative. Was on prozac prior which she developed tolerance to then was non effective. ?Denies SI or HI. Has many stressors with having a teenage daughter that is unstable and is living back in her home. ?She is interested in trying to have another child as well. ?? Right side sciatica, started 2-3 days ago after playing game on hands/knees on the floor with her daughter over the weekend. ?[place] pull in low back with radiation of sharp / shooting burning pain to anterior / lateral thigh and lower leg into foot. ?Unable to take muscle relaxants and neurontin for symptoms in past due to drowsiness. ?Took Advil with mild relief. ?Worse symptoms in AM and with prolonged standing/sitting, no weakness or falls or bowel/bladder changes. ? At last OFFICE VISIT 2 months ago ? She has noticed that trying to taper off the Effexor and only be on Wellbutrin has caused her to feel more anxious, recently restarted the low dose of Effexor 37.5 mg, does feel better with this medication. Still taking Wellbutrin daily as well. No SI or HI. Does have support from boyfriend Stewart. Still is her 19 month old dtr Linda. ? Cough, present for 1-2 days, no fevers or chills, intermittent wheezing improved with inhaler use. Currently Was changed from the effexor to Wellbutrin. Has been having some side effects with headaches and fatigue and weight gain since being on the Wellbutrin. She is breast feeding her 21 month old Linda still as well. She is trying to wean her from nursing. She is interested in retrying Prozac since tolerated this well in the past. Urinary urgency and frequency. No hematuria or flank pains, some dysuria No monthly menses. Needs to check to see if . PAST MEDICAL HISTORY Diagnosis Date - Allergic rhinitis, cause unspecified - Anemia - Depression - Extrinsic asthma, unspecified - Fibromyalgia - Gestational diabetes 2016 - Hypoglycemia - IBS (irritable bowel syndrome) - Migraine headache Dr. Varghese Neurologist - Multiple thyroid nodules Dr. Evans Junior Account Manager - Obstructive sleep apnea on CPAP, Dr. Núñez - [facility] - PAST MEDICAL HISTORY OF Tarsal tunnel - Psoriatic arthritis (HCC) PAST SURGICAL HISTORY Procedure Laterality Date - COLONOSCOP W/ OR W/O [facility] Colonoscopy - COLONOSCOP W/ OR W/O [facility] 03/15/13 Colonoscopy [facility] Dr. Borden - EGD W/O OR W/BRUSH/WASH EGD - PAST SURGICAL HISTORY OF 2004 sinus surgery - REMOVAL GALLBLADDER 2007 Cholecystectomy Current Outpatient Prescriptions: buPROPion XL (WELLBUTRIN XL) 150 mg 24 hr tablet TAKE 1 TABLET BY MOUTH ONCE DAILY. fluticasone (FLONASE) 50 mcg/actuation nasal spray Use 2 Sprays in each nostril once daily. Rinse mouth after use. loratadine (CLARITIN) 10 mg tablet TAKE 1 TABLET BY MOUTH ONCE DAILY NEEDED (FOR ITCHING, SNEEZING OR RUNNY NOSE). albuterol HFA (VENTOLIN HFA) 90 mcg/actuation inhaler Inhale 2 Puffs as instructed every 4 hours as needed (May also use 15 minutes pre-exercise). lansoprazole (PREVACID) 30 mg capsule Take 1 capsule by mouth once daily. venlafaxine ER (EFFEXOR XR) 37.5 mg 24 hr capsule Take 1 capsule by mouth once daily. Clobetasol Propionate (TEMOVATE) 0.05 % external solution Apply 1 application to affected area once daily as needed (for scaling on the scalp). ketoconazole (NIZORAL) 2 % shampoo Apply 1 application to affected area once daily as needed (for scaling on scalp). docusate sodium (COLACE) 100 mg capsule Take 1 capsule by mouth once daily as needed. albuterol (PROVENTIL) 2.5 mg /3 mL (0.083 %) nebulizer solution One ampule nebulized every 4 hours as needed for cough, wheezing, chest tightness or shortness of breath. Cholecalciferol, Vitamin D3, (VITAMIN D) 1,000 unit cap Take 1 capsule by mouth once daily. calcium carbonate (CALTRATE) 600 mg (1,500 mg) tab TAKE ONE TABLET TWICE DAILY SUMAtriptan (IMITREX) 50 mg tablet Take 1 tablet by mouth as needed for Migraine Headache (see administration instructions). at onset of headache. May repeat after 2 hours. No current facility-administered medications for this visit. ALLERGIES Allergen Reactions - Environmental Aller* Dogs, cats, and dust mites. Social History Marital status: Single Spouse name: Years of education: Number of children: Social History Main Topics Smoking status: Never Smoker Smokeless status: Never Used Alcohol use: Yes Comment: occasionally Drug use: No ROS: See HPI PE: BP 120/80 Pulse 80 Temp (Src) 99 (Right Tympanic) Resp 16 Wt 231 lb (104.8kg) Gen: AANDamp;OX3, NAD, non-toxic appearing HEENT: PERRLA, EOMs intact b/l, nares without drainage, pharynx without erythema, exudate, lesions, or drainage. Uvula midline. Neck: No LAD, no thyromegaly, no meningismus. CV: RRR, no murmur Lungs: CTA b/l, no wheezing Skin: No rashes, lesions, or wounds on exposed skin. No CVA TTP ASSESSMENT/PLAN: 1. Current moderate episode of major depressive disorder without prior episode (HCC) - ICD9: 296.22, ICD10: F32.1 (primary diagnosis) - taper off Wellbutrin, start on Prozac medication- tolerated well in the past. No SI or HI. - PROCHLORPERAZINE MALEATE 10 MG TABLET - FLUOXETINE 20 MG CAPSULE 2. Urinary frequency - ICD9: 788.41, ICD10: R35.0 acute - negative UA and today in office - UA DIP B/O - URINE CULTURE 3. Secondary amenorrhea - ICD9: 626.0, ICD10: N91.1 - screening for today in office which was negative - HCG QUAL UR Reji Vazquez DO Urine dip shows: Glucose, Urine (mg/dL) Date Value 04/13/2017 Negative Bilirubin, Urine (no units) Date Value 04/13/2017 Negative Bilirubin, Urine (no units) Date Value 04/13/2017 Negative Ketones, Urine (no units) Date Value 04/13/2017 Negative Specific [place], Ur (no units) Date Value 04/13/2017 1.015 Hemoglobin/Blood,Ur (no units) Date Value 04/13/2017 Negative No results found for: PH Protein, Urine (mg/dL) Date Value 04/13/2017 Negative Urobilinogen, Urine (EU) Date Value 04/13/2017 Normal No components found for: NITR Leukocytes (no units) Date Value 04/13/2017 Negative Color/Appearance (comment:) Date Value 04/13/2017 yellow Return if no improvement. Follow up with Reji Vazquez DO. Discussed risks, benefits, alternatives, and potential side effects of medications. Patient/Guardian expressed understanding and agreed with the plan. See patient instructions. Reji Vazquez DO [address] [place] [address] Reji Vazquez DO 04/13/2017 12:30 PM Signed Take the Prozac 20 mg a day for 1 week then increase dose to 40 mg a day Referring Provider: REJI VAZQUEZ [[id number]] Allergies As of Date: 04/13/2017 Noted Allergy Reaction Environmental allergies [Other] 10/13/2006 Comments: Dogs, cats, and dust mites. Date Reviewed: 04/13/2017 Reviewed by: Ariana Nassar LPN - Fully Assessed Reason for Visit: Follow Up [171] Cmt: 3 months Primary Visit Diagnosis:Current moderate episode of major depressive disorder without prior episode (HCC) [F32.1] Other Visit Diagnoses:Urinary frequency [R35.0] Secondary amenorrhea [N91.1] Order(s):prochlorperazine (COMPAZINE) 10 mg tabletTake 1 tablet at the onset of headache and 30 mins after to a maximum of 3 tablets/dayDisp: 30 tabletRfl: 4 FLUoxetine (PROZAC) 20 mg capsuleTake 1 capsule by mouth once daily.Disp: 30 capsuleRfl: 5 UA DIP B/O [[id number]] Order #: [id number] URINE CULTURE [SQURCUL] Order #: [id number] HCG QUAL UR B/O [[id number]] Order #: [id number] Prescriptions as of 04/13/2017 Sig: FLUTICASONE 50 MCG/ACTUATION * Use 2 Sprays in each nostril * LORATADINE 10 MG TABLET TAKE 1 TABLET BY MOUTH ONCE D* ALBUTEROL SULFATE HFA 90 MCG/* Inhale 2 Puffs as instructed * LANSOPRAZOLE 30 MG CAPSULE,DE* Take 1 capsule by mouth once * CLOBETASOL 0.05 % SCALP SOLUT* Apply 1 application to affect* KETOCONAZOLE 2 % SHAMPOO Apply 1 application to affect* DOCUSATE SODIUM 100 MG CAPSULE Take 1 capsule by mouth once * ALBUTEROL SULFATE 2.5 MG/3 ML* One ampule nebulized every 4 * CHOLECALCIFEROL (VITAMIN D3) * Take 1 capsule by mouth once * CALCIUM CARBONATE 600 MG CALC* TAKE ONE TABLET TWICE DAILY SUMATRIPTAN 50 MG TABLET Take 1 tablet by mouth as nee* PROCHLORPERAZINE MALEATE 10 M* Take 1 tablet at the onset of* FLUOXETINE 20 MG CAPSULE Take 1 capsule by mouth once * Medication notes this encounter BUPROPION XL 150 MG TAB >> Reji Vazquez DO 04/13/2017 12:27 PM headaches, weight gain Problem List As Of Date 04/13/2017 Noted Resolved Allergic rhinitis [J30.9] Extrinsic asthma [J45.909] Fibromyalgia [M79.7] INVALID FOR* Psoriasis arthropathica (HCC) [L40.50] INVALID FOR*09/25/2015 RLS (restless legs syndrome) [G25.81] INVALID FOR* MK AHI 12.7 46R [G47.33] INVALID FOR* More... Multiple thyroid nodules [E04.2] INVALID FOR* Chronic pain [G89.29] INVALID FOR* Multiple falls [R29.6] INVALID FOR* Iron deficiency [E61.1] INVALID FOR* Other pain disorders related to psychological f*INVALID FOR* Depression [F32.9] INVALID FOR* [F41.0] INVALID FOR* Anxiety disorder [F41.9] INVALID FOR* Lumbago [M54.5] INVALID FOR* Pain in joint, pelvic region and thigh [M25.559]INVALID FOR* Pain in limb [M79.609] INVALID FOR* [Z34.90] INVALID FOR*04/12/2016 Psoriatic arthritis (HCC) [L40.50] INVALID FOR* Sciatica, right side [M54.31] INVALID FOR* Moderate single current episode of major depres*INVALID FOR* Allergic rhinitis due to animal hair and dander*INVALID FOR* Allergic rhinitis due to dust mite [J30.89] INVALID FOR* Other instructions from your clinician: Take the Prozac 20 mg a day for 1 week then increase dose to 40 mg a day Prescriptions ordered this encounter Disp Refills Start End PROCHLORPERAZINE MALEATE 10 MG TABLET 30 t* 4 04/13/2017 Sig: Take 1 tablet at the onset of headache and 30 mins after to a maximum of 3 tablets/day FLUOXETINE 20 MG CAPSULE 30 c* 5 04/13/2017 Route: ORAL Sig: Take 1 capsule by mouth once daily. Medications Discontinued During This Encounter buPROPion XL (WELLBUTRIN XL) 150 mg * 30 t* 3 03/28/2017 04/13/2017 Sig: TAKE 1 TABLET BY MOUTH ONCE DAILY. Disc: Reason for discontinue is not on file. venlafaxine ER (EFFEXOR XR) 37.5 mg * 90 c* 1 01/26/2017 04/13/2017 Route: ORAL Sig: Take 1 capsule by mouth once daily. Disc: Reason for discontinue is not on file. Encounter Status:Closed by REJI VAZQUEZ DO on 04/13/17 PROGRESS Observed: 03/08/2017 Status: COMPLETED Source: [place] 1:32 PM [facility] REPOSITORY [facility] ID: [id number] Author: Flaco Jacob Service: (none) Author Type: Physician Type: Progress Notes Filed: 03/08/2017 5:41 PM Note Text: CHIEF COMPLAINT: allergy and asthma follow-up [place]: This is a 41 year-old white female with a history of allergic rhinitis (cats, dogs, and dust mites), mild persistent asthma, and GERD who presents for a followup visit. Her last visit was October 23, 2015. Flovent 44 was prescribed at that time. She may have used Flovent temporarily in the fall and winter of but denies use in recent months. She presents with a 2 to three-week history of cough, nasal congestion and facial pressure. She complains of shortness of breath with exertion. She has been using albuterol for acute symptoms 2-3 times per day. She denies wheezing and chest tightness. She is on day 3 of 10 of Augmentin for right otitis media and sinusitis. Symptoms have improved somewhat since starting the Augmentin. She has not received a Pneumovax previously. She has a history of mild obstructive sleep apnea but has not resumed use of CPAP as she is still nursing Linda, 20 months old. Plans to wean at 2 years old and then may resume CPAP at that time. In the meantime, she tries to sleep on her side at she was told that the sleep apnea occurs only when she sleeps on her back but not when on her side. Outside of the past 2-3 weeks, her asthma symptoms have been well-controlled since her last visit. She continues Prevacid 30 mg daily with good control of her GERD symptoms. Dust mite precautions are instituted in the home. There are 3 cats and one dog in the home. The dog is restricted from the bedroom. Daughter, Linda, is 20 months old. Son, Edie, graduate of [employer]. Daughter Karthik currently lives in a detention. (She had a follow-up appointment with sleep medicine on 04/15/15.. Recommended that she continue to sleep on her side during . Will try to resume CPAP .) (S/p balloon procedure to open her sinuses by [facility] in 2012. No subsequent sinus infections. She previously received immunotherapy for several years through [facility].) REVIEW OF SYSTEMS:Negative for night sweats and unintentional weight loss. Negative for skin rash and skin lesions Review of systems otherwise negative. PAST MEDICAL HISTORY: Asthma, allergic rhinitis, GERD, migraine headaches, anemia, depression, carpal tunnel syndrome. ACTIVE PROBLEM LIST Allergic Rhinitis Extrinsic Asthma Fibromyalgia Rls (Restless Legs Syndrome) MK AHI 12.7 46R Multiple Thyroid Nodules Chronic Pain Multiple Falls Iron Deficiency Other Pain Disorders Related to Psychological Factors Depression Anxiety Disorder Lumbago Pain in Joint, Pelvic Region and Thigh Pain in Limb Psoriatic Arthritis (Hcc) Sciatica, Right Side Moderate Single Current Episode of Major Depressive Disorder (Hcc) Allergic Rhinitis Due to Animal Hair and Dander Allergic Rhinitis Due to Dust Mite PHYSICAL EXAM: General appearance: Alert, pleasant female in no acute distress. HEENT: NC/AT. Right TM dull without a light reflex. Left TM clear. . Conjunctivae clear each eye. Mild edema of the nasal mucosa with scant clear secretions bilaterally. Oropharyngeal exam within normal limits. . No exudate. Neck: Supple. No lymphadenopathy. Lungs: Clear to auscultation bilaterally. No wheezes, rales, or rhonchi. CV: Regular rate and rhythm. No murmurs, gallops, or rubs. Abdomen: Soft, nontender/nondistended, no masses or hepatosplenomegaly. Extremities: No clubbing, cyanosis, or edema. Skin: No lesions. Spirometry on October 23, 2015: 33% improvement in FEF 25-75% postbronchodilator. Otherwise normal. [place] on 03/26/2014: FVC is mildly impaired. Otherwise normal. Exhaled nitric oxide on October 23, 2015: 22 PPB (intermediate) Dulce Maria on 03/26/2014: 13 ppb (low/normal) ASSESSMENT AND PLAN: It is my impression that Mony has allergic rhinitis (cats, dogs, and dust mites) and mild persistent asthma Continue Augmentin as prescribed for sinusitis and otitis media. Continue fluticasone nasal spray 1-2 sprays each nostril once daily. Continue loratadine 10 mg once daily as needed. Continue albuterol inhaler with spacer 2 puffs or albuterol 2.5 mg nebulized every 4 hours as needed. Recommend that she receive a 23 valent Pneumovax when feeling better.. I will see her for followup in 1 yr and as needed MD SARI SantanaOV Observed: 03/08/2017 Status: COMPLETED Source: [place] 9:00 AM [facility] REPOS[facility] Office Visit (LING) MONY ZHANG ([id number]) 1975 F [place] Date Time Provider Department 03/08/17 9:00 AM FLACO JACOB During your visit today, we recorded the following information about you: Temperature Blood pressure Weight Height 97.1 degrees 122/74 104.3 kg 1.702 m Sandy Sims RN 03/08/2017 9:33 AM Signed Patient here for follow up regarding asthma. Currently has right ear infection and sinus infection. Currently has nasal congestion. Asthma flares causing increased wheezing. Does not have albuterol and has not been using Flovent. Currently on second course of antibiotics. Low grade fevers. received flu vaccine this year. Flaco Jacob MD 03/08/2017 5:41 PM Signed CHIEF COMPLAINT: allergy and asthma follow-up [place]: This is a 41 year-old white female with a history of allergic rhinitis (cats, dogs, and dust mites), mild persistent asthma, and GERD who presents for a followup visit. Her last visit was October 23, 2015. Flovent 44 was prescribed at that time. She may have used Flovent temporarily in the fall and winter of but denies use in recent months. She presents with a 2 to three-week history of cough, nasal congestion and facial pressure. She complains of shortness of breath with exertion. She has been using albuterol for acute symptoms 2-3 times per day. She denies wheezing and chest tightness. She is on day 3 of 10 of Augmentin for right otitis media and sinusitis. Symptoms have improved somewhat since starting the Augmentin. She has not received a Pneumovax previously. She has a history of mild obstructive sleep apnea but has not resumed use of CPAP as she is still nursing Linda, 20 months old. Plans to wean at 2 years old and then may resume CPAP at that time. In the meantime, she tries to sleep on her side at she was told that the sleep apnea occurs only when she sleeps on her back but not when on her side. Outside of the past 2-3 weeks, her asthma symptoms have been well-controlled since her last visit. She continues Prevacid 30 mg daily with good control of her GERD symptoms. Dust mite precautions are instituted in the home. There are 3 cats and one dog in the home. The dog is restricted from the bedroom. Daughter, Linda, is 20 months old. Son, Edie, graduate of [employer]. Daughter Karthik currently lives in a detention. (She had a follow-up appointment with sleep medicine on 04/15/15.. Recommended that she continue to sleep on her side during . Will try to resume CPAP .) (S/p balloon procedure to ANDquot;open her sinusesANDquot; by [facility] in 2012. No subsequent sinus infections. She previously received immunotherapy for several years through [facility].) REVIEW OF SYSTEMS:Negative for night sweats and unintentional weight loss. Negative for skin rash and skin lesions Review of systems otherwise negative. PAST MEDICAL HISTORY: Asthma, allergic rhinitis, GERD, migraine headaches, anemia, depression, carpal tunnel syndrome. ACTIVE PROBLEM LIST Allergic Rhinitis Extrinsic Asthma Fibromyalgia Rls (Restless Legs Syndrome) MK AHI 12.7 46R Multiple Thyroid Nodules Chronic Pain Multiple Falls Iron Deficiency Other Pain Disorders Related to Psychological Factors Depression Anxiety Disorder Lumbago Pain in Joint, Pelvic Region and Thigh Pain in Limb Psoriatic Arthritis (Hcc) Sciatica, Right Side Moderate Single Current Episode of Major Depressive Disorder (Hcc) Allergic Rhinitis Due to Animal Hair and Dander Allergic Rhinitis Due to Dust Mite PHYSICAL EXAM: General appearance: Alert, pleasant female in no acute distress. HEENT: NC/AT. Right TM dull without a light reflex. Left TM clear. . Conjunctivae clear each eye. Mild edema of the nasal mucosa with scant clear secretions bilaterally. Oropharyngeal exam within normal limits. . No exudate. Neck: Supple. No lymphadenopathy. Lungs: Clear to auscultation bilaterally. No wheezes, rales, or rhonchi. CV: Regular rate and rhythm. No murmurs, gallops, or rubs. Abdomen: Soft, nontender/nondistended, no masses or hepatosplenomegaly. Extremities: No clubbing, cyanosis, or edema. Skin: No lesions. Spirometry on October 23, 2015: 33% improvement in FEF 25-75% postbronchodilator. Otherwise normal. [place] on 03/26/2014: FVC is mildly impaired. Otherwise normal. Exhaled nitric oxide on October 23, 2015: 22 PPB (intermediate) Dulce Maria on 03/26/2014: 13 ppb (low/normal) ASSESSMENT AND PLAN: It is my impression that Mony has allergic rhinitis (cats, dogs, and dust mites) and mild persistent asthma Continue Augmentin as prescribed for sinusitis and otitis media. Continue fluticasone nasal spray 1-2 sprays each nostril once daily. Continue loratadine 10 mg once daily as needed. Continue albuterol inhaler with spacer 2 puffs or albuterol 2.5 mg nebulized every 4 hours as needed. Recommend that she receive a 23 valent Pneumovax when feeling better.. I will see her for followup in 1 yr and as needed Flaco Jacob MD Referring Provider: SELF [200] Allergies As of Date: 03/08/2017 Noted Allergy Reaction Environmental allergies [Other] 10/13/2006 Comments: Dogs, cats, and dust mites. Date Reviewed: 03/08/2017 Reviewed by: Sandy Sims RN - Fully Assessed Reason for Visit: Establish Care [42] Cmt: asthma Primary Visit Diagnosis:Mild persistent asthma without complication [J45.30] Other Visit Diagnoses:Allergic rhinitis due to animal hair and dander [J30.81] Allergic rhinitis due to dust mite [J30.89] Order(s):fluticasone (FLONASE) 50 mcg/actuation nasal sprayUse 2 Sprays in each nostril once daily. Rinse mouth after use.Disp: 1 BottleRfl: 11 loratadine (CLARITIN) 10 mg tabletTAKE 1 TABLET BY MOUTH ONCE DAILY NEEDED (FOR ITCHING, SNEEZING OR RUNNY NOSE).Disp: 30 tabletRfl: 11 albuterol HFA (VENTOLIN HFA) 90 mcg/actuation inhalerInhale 2 Puffs as instructed every 4 hours as needed (May also use 15 minutes pre-exercise).Disp: 1 InhalerRfl: 1 Prescriptions as of 03/08/2017 Sig: FLUTICASONE 50 MCG/ACTUATION * Use 2 Sprays in each nostril * LORATADINE 10 MG TABLET TAKE 1 TABLET BY MOUTH ONCE D* AMOXICILLIN 875 MG-POTASSIUM * Take 1 tablet by mouth twice * LANSOPRAZOLE 30 MG CAPSULE,DE* Take 1 capsule by mouth once * VENLAFAXINE ER 37.5 MG CAPSUL* Take 1 capsule by mouth once * CLOBETASOL 0.05 % SCALP SOLUT* Apply 1 application to affect* BUPROPION XL 150 MG TAB Take 1 tablet by mouth once d* KETOCONAZOLE 2 % SHAMPOO Apply 1 application to affect* DOCUSATE SODIUM 100 MG CAPSULE Take 1 capsule by mouth once * ALBUTEROL SULFATE 2.5 MG/3 ML* One ampule nebulized every 4 * CHOLECALCIFEROL (VITAMIN D3) * Take 1 capsule by mouth once * CALCIUM CARBONATE 600 MG CALC* TAKE ONE TABLET TWICE DAILY SUMATRIPTAN 50 MG TABLET Take 1 tablet by mouth as nee* ALBUTEROL SULFATE HFA 90 MCG/* Inhale 2 Puffs as instructed * Medication notes this encounter AZITHROMYCIN 250 MG TABLET >> Sandy Sims RN 03/08/2017 9:25 AM >> SANDY SIMS RN gloria Mar 08, 2017 9:25 AM Received from: External Pharmacy Received Sig: TAKE 2 TABLETS BY MOUTH TODAY, THEN TAKE 1 TABLET DAILY FOR 4 DAYS Problem List As Of Date 03/08/2017 Noted Resolved Allergic rhinitis [J30.9] Extrinsic asthma [J45.909] Fibromyalgia [M79.7] INVALID FOR* Psoriasis arthropathica (HCC) [L40.50] INVALID FOR*09/25/2015 RLS (restless legs syndrome) [G25.81] INVALID FOR* MK AHI 12.7 46R [G47.33] INVALID FOR* More... Multiple thyroid nodules [E04.2] INVALID FOR* Chronic pain [G89.29] INVALID FOR* Multiple falls [R29.6] INVALID FOR* Iron deficiency [E61.1] INVALID FOR* Other pain disorders related to psychological f*INVALID FOR* Depression [F32.9] INVALID FOR* [F41.0] INVALID FOR* Anxiety disorder [F41.9] INVALID FOR* Lumbago [M54.5] INVALID FOR* Pain in joint, pelvic region and thigh [M25.559]INVALID FOR* Pain in limb [M79.609] INVALID FOR* [Z34.90] INVALID FOR*04/12/2016 Psoriatic arthritis (HCC) [L40.50] INVALID FOR* Sciatica, right side [M54.31] INVALID FOR* Moderate single current episode of major depres*INVALID FOR* Allergic rhinitis due to animal hair and dander*INVALID FOR* Allergic rhinitis due to dust mite [J30.89] INVALID FOR* Visit Notes: >> Sandy Sims RN gloria Mar 08, 2017 9:27 AM Status: Signed Patient here for follow up regarding asthma. Currently has right ear infection and sinus infection. Currently has nasal congestion. Asthma flares causing increased wheezing. Does not have albuterol and has not been using Flovent. Currently on second course of antibiotics. Low grade fevers. received flu vaccine this year. Prescriptions ordered this encounter Disp Refills Start End FLUTICASONE 50 MCG/ACTUATION NASAL S* 1 Augustus* 11 03/08/2017 Route: EACH NOSTRIL Sig: Use 2 Sprays in each nostril once daily. Rinse mouth after use. LORATADINE 10 MG TABLET 30 t* 11 03/08/2017 Sig: TAKE 1 TABLET BY MOUTH ONCE DAILY NEEDED (FOR ITCHING, SNEEZING OR RUNNY NOSE). ALBUTEROL SULFATE HFA 90 MCG/ACTUATI* 1 In* 1 03/08/2017 Route: INHALATION Sig: Inhale 2 Puffs as instructed every 4 hours as needed (May also use 15 minutes pre-exercise). Medications Discontinued During This Encounter azithromycin (ZITHROMAX) 250 mg tabl* 0 02/28/2017 03/08/2017 Class: Historical Med Route: ORAL Sig: Take by mouth as directed. TAKE 2 TABLETS BY MOUTH TODAY, THEN TAKE 1 TABLET DAILY FOR 4 DAYS Disc: Erroneous entry fluticasone (FLOVENT HFA) 44 mcg/act* 1 In* 0 01/18/2017 03/08/2017 Route: INHALATION Sig: Inhale 2 Puffs as instructed twice daily. Use with spacer and rinse mouth out after use. Disc: Reason for discontinue is not on file. fluticasone (FLONASE) 50 mcg/actuati* 1 Augustus* 11 04/12/2016 03/08/2017 Route: EACH NOSTRIL Sig: Use 2 Sprays in each nostril once daily. Rinse mouth after use. Disc: Reason for discontinue is not on file. loratadine (CLARITIN) 10 mg tablet 30 t* 1 02/28/2017 03/08/2017 Sig: TAKE 1 TABLET BY MOUTH ONCE DAILY NEEDED (FOR ITCHING, SNEEZING OR RUNNY NOSE). Disc: Reason for discontinue is not on file. Encounter Status:Closed by FLACO JACOB MD on 03/08/17 PROGRESS Observed: 03/06/2017 Status: COMPLETED Source: [place] 9:[address] [facility] [place] REPOSITORY HNO ID: [id number] Author: Juan Delaney Service: (none) Author Type: Physician Production Administrator Type: Progress Notes Filed: 03/06/2017 10:07 AM Note Text: 03/06/2017 Patient presents with: Congested SUBJECTIVE: This is a 41 year old that is here today for Complaint(s) of congestion and sinus pressure. Now having worsening sinus pain. + SOB, intermittent. Has albuterol. Cough is overall improving. + right ear pain and diminished hearing. Denies vomiting, diarrhea. Completed zpak for cough last week. PAST MEDICAL HISTORY Diagnosis Date - Allergic rhinitis, cause unspecified - Anemia - Depression - Extrinsic asthma, unspecified - Fibromyalgia - Gestational diabetes 2016 - Hypoglycemia - IBS (irritable bowel syndrome) - Migraine headache Dr. Varghese Neurologist - Multiple thyroid nodules Dr. Evans Junior Account Manager - Obstructive sleep apnea on CPAP, Dr. Núñez - [facility] - PAST MEDICAL HISTORY OF Tarsal tunnel - Psoriatic arthritis (HCC) ALLERGIES Environmental Allergies [Other] MEDICATIONS Current Outpatient Prescriptions: lansoprazole (PREVACID) 30 mg capsule Take 1 capsule by mouth once daily. loratadine (CLARITIN) 10 mg tablet TAKE 1 TABLET BY MOUTH ONCE DAILY NEEDED (FOR ITCHING, SNEEZING OR RUNNY NOSE). venlafaxine ER (EFFEXOR XR) 37.5 mg 24 hr capsule Take 1 capsule by mouth once daily. fluticasone (FLOVENT HFA) 44 mcg/actuation inhaler Inhale 2 Puffs as instructed twice daily. Use with spacer and rinse mouth out after use. Clobetasol Propionate (TEMOVATE) 0.05 % external solution Apply 1 application to affected area once daily as needed (for scaling on the scalp). buPROPion XL (WELLBUTRIN XL) 150 mg 24 hr tablet Take 1 tablet by mouth once daily. ketoconazole (NIZORAL) 2 % shampoo Apply 1 application to affected area once daily as needed (for scaling on scalp). docusate sodium (COLACE) 100 mg capsule Take 1 capsule by mouth once daily as needed. fluticasone (FLONASE) 50 mcg/actuation nasal spray Use 2 Sprays in each nostril once daily. Rinse mouth after use. albuterol (PROVENTIL) 2.5 mg /3 mL (0.083 %) nebulizer solution One ampule nebulized every 4 hours as needed for cough, wheezing, chest tightness or shortness of breath. Cholecalciferol, Vitamin D3, (VITAMIN D) 1,000 unit cap Take 1 capsule by mouth once daily. calcium carbonate (CALTRATE) 600 mg (1,500 mg) tab TAKE ONE TABLET TWICE DAILY SUMAtriptan (IMITREX) 50 mg tablet Take 1 tablet by mouth as needed for Migraine Headache (see administration instructions). at onset of headache. May repeat after 2 hours. No current facility-administered medications for this visit. SOCIAL HISTORY Social History Marital status: Single Spouse name: Years of education: Number of children: Social History Main Topics Smoking status: Never Smoker Smokeless status: Never Used Alcohol use: Yes Comment: occasionally Drug use: No REVIEW OF SYSTEMS All other reviewed and negative other than HPI. OBJECTIVE: BP 120/82 Pulse 93 Temp 37.4 ?C (99.3 ?F) (Tympanic) Resp 24 Wt 103.9 kg (229 lb) SpO2 96% ? Yes BMI 35.87 kg/m2 APPEARANCE Well appearing, alert, in no acute distress, well-hydrated, well nourished. EYES PERRLA, conjunctiva and sclera normal. EARS External ears normal, canals clear. Right TM erythematous and bulging. NOSE/SINUS Nares normal. Septum midline. Mucosa erythematous. No drainage. + MARITZA maxillary sinus tenderness. THROAT normal, no erythema NECK Supple, no adenopathy; HEART RRR with normal S1 and S2 LUNG clear to auscultation, No wheezing, rhonchi, rales. ASSESSMENT/PLAN: 1. Acute maxillary sinusitis, recurrence not specified - ICD9: 461.0, ICD10: J01.00 (primary diagnosis) - Will begin treatment with as per antibiotic as written, see orders - The patient should also be given OTC cough and cold meds as needed, behind the counter Pseudoephedrine, warm salt water gargles, throat lozenges and/or OTC throat spray as needed and nasal saline gtts and suction prn for the first 5-7 days of treatment. - Supportive care with plenty of fluids, rest, and analgesia prn. - Follow up in 3-5 days if symptoms persist or worsen. - AMOXICILLIN 875 MG-POTASSIUM CLAVULANATE 125 MG TABLET 2. Acute otitis media, right - ICD9: 382.9, ICD10: H66.91 - Will begin treatment with as per antibiotic as written, see orders - The patient should also be given OTC cough and cold meds as needed, warm salt water gargles, throat lozenges and/or OTC throat spray as needed and nasal saline gtts and suction prn for the first 5-7 days of treatment. - Supportive care with plenty of fluids, rest, and analgesia prn. - Follow up in 3-5 days if symptoms persist or worsen. - AMOXICILLIN 875 MG-POTASSIUM CLAVULANATE 125 MG TABLET Advise f/u with PCP The patient indicates understanding of these issues and agrees with the plan. Juan Delaney PA-C 03/06/2017 CNOV Observed: 03/06/2017 Status: COMPLETED Source: [place] 8:45 AM [facility] REPOSITORY Office Visit (UCWSTR) MONY ZHANG ([id number]) 1975 F [place] Date Time Provider Department 03/06/17 8:45 AM JUAN DELANEY) [facility] During your visit today, we recorded the following information about you: Temperature Pulse Respiration Blood pressure 99.3 degrees 93/minute 24/minute 120/82 Weight 103.9 kg Juan Delaney PA-C 03/06/2017 10:07 AM Signed 03/06/2017 Patient presents with: Congested SUBJECTIVE: This is a 41 year old that is here today for Complaint(s) of congestion and sinus pressure. Now having worsening sinus pain. + SOB, intermittent. Has albuterol. Cough is overall improving. + right ear pain and diminished hearing. Denies vomiting, diarrhea. Completed zpak for cough last week. PAST MEDICAL HISTORY Diagnosis Date - Allergic rhinitis, cause unspecified - Anemia - Depression - Extrinsic asthma, unspecified - Fibromyalgia - Gestational diabetes 2016 - Hypoglycemia - IBS (irritable bowel syndrome) - Migraine headache Dr. Varghese Neurologist - Multiple thyroid nodules Dr. Evans Junior Account Manager - Obstructive sleep apnea on CPAP, Dr. Núñez - [facility] - PAST MEDICAL HISTORY OF Tarsal tunnel - Psoriatic arthritis (HCC) ALLERGIES Environmental Allergies [Other] MEDICATIONS Current Outpatient Prescriptions: lansoprazole (PREVACID) 30 mg capsule Take 1 capsule by mouth once daily. loratadine (CLARITIN) 10 mg tablet TAKE 1 TABLET BY MOUTH ONCE DAILY NEEDED (FOR ITCHING, SNEEZING OR RUNNY NOSE). venlafaxine ER (EFFEXOR XR) 37.5 mg 24 hr capsule Take 1 capsule by mouth once daily. fluticasone (FLOVENT HFA) 44 mcg/actuation inhaler Inhale 2 Puffs as instructed twice daily. Use with spacer and rinse mouth out after use. Clobetasol Propionate (TEMOVATE) 0.05 % external solution Apply 1 application to affected area once daily as needed (for scaling on the scalp). buPROPion XL (WELLBUTRIN XL) 150 mg 24 hr tablet Take 1 tablet by mouth once daily. ketoconazole (NIZORAL) 2 % shampoo Apply 1 application to affected area once daily as needed (for scaling on scalp). docusate sodium (COLACE) 100 mg capsule Take 1 capsule by mouth once daily as needed. fluticasone (FLONASE) 50 mcg/actuation nasal spray Use 2 Sprays in each nostril once daily. Rinse mouth after use. albuterol (PROVENTIL) 2.5 mg /3 mL (0.083 %) nebulizer solution One ampule nebulized every 4 hours as needed for cough, wheezing, chest tightness or shortness of breath. Cholecalciferol, Vitamin D3, (VITAMIN D) 1,000 unit cap Take 1 capsule by mouth once daily. calcium carbonate (CALTRATE) 600 mg (1,500 mg) tab TAKE ONE TABLET TWICE DAILY SUMAtriptan (IMITREX) 50 mg tablet Take 1 tablet by mouth as needed for Migraine Headache (see administration instructions). at onset of headache. May repeat after 2 hours. No current facility-administered medications for this visit. SOCIAL HISTORY Social History Marital status: Single Spouse name: Years of education: Number of children: Social History Main Topics Smoking status: Never Smoker Smokeless status: Never Used Alcohol use: Yes Comment: occasionally Drug use: No REVIEW OF SYSTEMS All other reviewed and negative other than HPI. OBJECTIVE: BP 120/82 Pulse 93 Temp 37.4 ?C (99.3 ?F) (Tympanic) Resp 24 Wt 103.9 kg (229 lb) SpO2 96% ? Yes BMI 35.87 kg/m2 APPEARANCE Well appearing, alert, in no acute distress, well- hydrated, well nourished. EYES PERRLA, conjunctiva and sclera normal. EARS External ears normal, canals clear. Right TM erythematous and bulging. NOSE/SINUS Nares normal. Septum midline. Mucosa erythematous. No drainage. + MARITZA maxillary sinus tenderness. THROAT normal, no erythema NECK Supple, no adenopathy; HEART RRR with normal S1 and S2 LUNG clear to auscultation, No wheezing, rhonchi, rales. ASSESSMENT/PLAN: 1. Acute maxillary sinusitis, recurrence not specified - ICD9: 461.0, ICD10: J01.00 (primary diagnosis) - Will begin treatment with as per antibiotic as written, see orders - The patient should also be given OTC cough and cold meds as needed, behind the counter Pseudoephedrine, warm salt water gargles, throat lozenges and/or OTC throat spray as needed and nasal saline gtts and suction prn for the first 5-7 days of treatment. - Supportive care with plenty of fluids, rest, and analgesia prn. - Follow up in 3-5 days if symptoms persist or worsen. - AMOXICILLIN 875 MG-POTASSIUM CLAVULANATE 125 MG TABLET 2. Acute otitis media, right - ICD9: 382.9, ICD10: H66.91 - Will begin treatment with as per antibiotic as written, see orders - The patient should also be given OTC cough and cold meds as needed, warm salt water gargles, throat lozenges and/or OTC throat spray as needed and nasal saline gtts and suction prn for the first 5-7 days of treatment. - Supportive care with plenty of fluids, rest, and analgesia prn. - Follow up in 3-5 days if symptoms persist or worsen. - AMOXICILLIN 875 MG-POTASSIUM CLAVULANATE 125 MG TABLET Advise f/u with PCP The patient indicates understanding of these issues and agrees with the plan. Juan Delaney PA-C 03/06/2017 Referring Provider: SELF [200] Allergies As of Date: 03/06/2017 Noted Allergy Reaction Environmental allergies [Other] 10/13/2006 Comments: Dogs, cats, and dust mites. Date Reviewed: 03/06/2017 Reviewed by: Maya Orozco LPN - Fully Assessed Reason for Visit: Congested [13322] Primary Visit Diagnosis:Acute maxillary sinusitis, recurrence not specified [J01.00] Other Visit Diagnosis:Acute otitis media, right [H66.91] Order(s):amoxicillin-clavulanic acid (AUGMENTIN) 875-125 mg per tabletTake 1 tablet by mouth twice daily for 10 days.Disp: 20 tabletRfl: 0 Prescriptions as of 03/06/2017 Sig: LANSOPRAZOLE 30 MG CAPSULE,DE* Take 1 capsule by mouth once * LORATADINE 10 MG TABLET TAKE 1 TABLET BY MOUTH ONCE D* VENLAFAXINE ER 37.5 MG CAPSUL* Take 1 capsule by mouth once * FLUTICASONE 44 MCG/ACTUATION * Inhale 2 Puffs as instructed * CLOBETASOL 0.05 % SCALP SOLUT* Apply 1 application to affect* BUPROPION XL 150 MG TAB Take 1 tablet by mouth once d* KETOCONAZOLE 2 % SHAMPOO Apply 1 application to affect* DOCUSATE SODIUM 100 MG CAPSULE Take 1 capsule by mouth once * FLUTICASONE 50 MCG/ACTUATION * Use 2 Sprays in each nostril * ALBUTEROL SULFATE 2.5 MG/3 ML* One ampule nebulized every 4 * CHOLECALCIFEROL (VITAMIN D3) * Take 1 capsule by mouth once * CALCIUM CARBONATE 600 MG CALC* TAKE ONE TABLET TWICE DAILY SUMATRIPTAN 50 MG TABLET Take 1 tablet by mouth as nee* AMOXICILLIN 875 MG-POTASSIUM * Take 1 tablet by mouth twice * Problem List As Of Date 03/06/2017 Noted Resolved Allergic rhinitis [J30.9] Extrinsic asthma [J45.909] Fibromyalgia [M79.7] INVALID FOR* Psoriasis arthropathica (HCC) [L40.50] INVALID FOR*09/25/2015 RLS (restless legs syndrome) [G25.81] INVALID FOR* MK AHI 12.7 46R [G47.33] INVALID FOR* More... Multiple thyroid nodules [E04.2] INVALID FOR* Chronic pain [G89.29] INVALID FOR* Multiple falls [R29.6] INVALID FOR* Iron deficiency [E61.1] INVALID FOR* Other pain disorders related to psychological f*INVALID FOR* Depression [F32.9] INVALID FOR* [F41.0] INVALID FOR* Anxiety disorder [F41.9] INVALID FOR* Lumbago [M54.5] INVALID FOR* Pain in joint, pelvic region and thigh [M25.559]INVALID FOR* Pain in limb [M79.609] INVALID FOR* [Z34.90] INVALID FOR*04/12/2016 Psoriatic arthritis (HCC) [L40.50] INVALID FOR* Sciatica, right side [M54.31] INVALID FOR* Moderate single current episode of major depres*INVALID FOR* Prescriptions ordered this encounter Disp Refills Start End AMOXICILLIN 875 MG-POTASSIUM CLAVULA* 20 t* 0 03/06/2017 03/16/2017 Route: ORAL Sig: Take 1 tablet by mouth twice daily for 10 days. Encounter Status:Closed by JUAN DELANEY PA-C on 03/06/17 OBSOLETE Observed: 02/24/2017 Status: COMPLETED Source: [place] 12:00 AM [facility] REPOSITORY Refill (ALLMED) MONY ZHANG ([id number]) 1975 [facility] Date Time Provider Department 02/24/17 FLACO JACOB During your visit today, we recorded the following information about you: Juli Banks RN 02/24/2017 8:35 AM Signed See 01-14-17 encounter. Refill request canceled. Allergies As of Date: 02/24/2017 Noted Allergy Reaction Environmental allergies [Other] 10/13/2006 Comments: Dogs, cats, and dust mites. Date Reviewed: 02/11/2017 Reviewed by: Reji Vazquez - Fully Assessed Reason for Visit: Refill Request [94] Prescriptions as of 02/24/2017 Sig: VENLAFAXINE ER 37.5 MG CAPSUL* Take 1 capsule by mouth once * FLUTICASONE 44 MCG/ACTUATION * Inhale 2 Puffs as instructed * CLOBETASOL 0.05 % SCALP SOLUT* Apply 1 application to affect* LORATADINE 10 MG TABLET TAKE 1 TABLET BY MOUTH ONCE D* BUPROPION XL 150 MG TAB Take 1 tablet by mouth once d* KETOCONAZOLE 2 % SHAMPOO Apply 1 application to affect* LANSOPRAZOLE 30 MG CAPSULE,DE* Take 1 capsule by mouth once * DOCUSATE SODIUM 100 MG CAPSULE Take 1 capsule by mouth once * FLUTICASONE 50 MCG/ACTUATION * Use 2 Sprays in each nostril * ALBUTEROL SULFATE 2.5 MG/3 ML* One ampule nebulized every 4 * CHOLECALCIFEROL (VITAMIN D3) * Take 1 capsule by mouth once * CALCIUM CARBONATE 600 MG CALC* TAKE ONE TABLET TWICE DAILY SUMATRIPTAN 50 MG TABLET Take 1 tablet by mouth as nee* Problem List As Of Date 02/24/2017 Noted Resolved Allergic rhinitis [J30.9] Extrinsic asthma [J45.909] Fibromyalgia [M79.7] INVALID FOR* Psoriasis arthropathica (HCC) [L40.50] INVALID FOR*09/25/2015 RLS (restless legs syndrome) [G25.81] INVALID FOR* MK AHI 12.7 46R [G47.33] INVALID FOR* More... Multiple thyroid nodules [E04.2] INVALID FOR* Chronic pain [G89.29] INVALID FOR* Multiple falls [R29.6] INVALID FOR* Iron deficiency [E61.1] INVALID FOR* Other pain disorders related to psychological f*INVALID FOR* Depression [F32.9] INVALID FOR* [F41.0] INVALID FOR* Anxiety disorder [F41.9] INVALID FOR* Lumbago [M54.5] INVALID FOR* Pain in joint, pelvic region and thigh [M25.559]INVALID FOR* Pain in limb [M79.609] INVALID FOR* [Z34.90] INVALID FOR*04/12/2016 Psoriatic arthritis (HCC) [L40.50] INVALID FOR* Sciatica, right side [M54.31] INVALID FOR* Moderate single current episode of major depres*INVALID FOR* Encounter Status:Closed by JULI BANKS RN on 02/24/17 PROGRESS Observed: 02/11/2017 Status: COMPLETED Source: [place] 3:[address] [facility] REPOSITORY O ID: [id number] Author: Reji Vazquez Service: (none) Author Type: Physician Type: Progress Notes Filed: 02/11/2017 3:59 PM Note Text: CC: Mony Zhang is a 41 year old female who presents to the office for follow up HPI: Seen in office 2 months ago, at that time: Cold symptoms for the last 3-4 days, congestion, PND, scratchy throat, otherwise asymptomatic, + sick contacts with 17 month old dtr. ? Still is 17 month old. ? Struggling with anxiety and depression, has been noticing increased weight gain SE with dose change of Effexor, wanting alternative. Was on prozac prior which she developed tolerance to then was non effective. Denies SI or HI. Has many stressors with having a teenage daughter that is unstable and is living back in her home. She is interested in trying to have another child as well. ? Right side sciatica, started 2-3 days ago after playing game on hands/knees on the floor with her daughter over the weekend. [place] pull in low back with radiation of sharp / shooting burning pain to anterior / lateral thigh and lower leg into foot. Unable to take muscle relaxants and neurontin for symptoms in past due to drowsiness. Took Advil with mild relief. Worse symptoms in AM and with prolonged standing/sitting, no weakness or falls or bowel/bladder changes. Currently She has noticed that trying to taper off the Effexor and only be on Wellbutrin has caused her to feel more anxious, recently restarted the low dose of Effexor 37.5 mg, does feel better with this medication. Still taking Wellbutrin daily as well. No SI or HI. Does have support from boyfriend Stewart. Still is her 19 month old dtr Linda. Cough, present for 1-2 days, no fevers or chills, intermittent wheezing improved with inhaler use. PAST MEDICAL HISTORY Diagnosis Date - Allergic rhinitis, cause unspecified - Anemia - Depression - Extrinsic asthma, unspecified - Fibromyalgia - Gestational diabetes 2016 - Hypoglycemia - IBS (irritable bowel syndrome) - Migraine headache Dr. Varghese Neurologist - Multiple thyroid nodules Dr. Evans Junior Account Manager - Obstructive sleep apnea on CPAP, Dr. Núñez - [facility] - PAST MEDICAL HISTORY OF Tarsal tunnel - Psoriatic arthritis (HCC) PAST SURGICAL HISTORY Procedure Laterality Date - COLONOSCOP W/ OR W/O [facility] Colonoscopy - COLONOSCOP W/ OR W/O [facility] 03/15/13 Colonoscopy [facility] Dr. Borden - EGD W/O OR W/BRUSH/WASH EGD - PAST SURGICAL HISTORY OF 2004 sinus surgery - REMOVAL GALLBLADDER 2007 Cholecystectomy Current Outpatient Prescriptions: venlafaxine ER (EFFEXOR XR) 37.5 mg 24 hr capsule Take 1 capsule by mouth once daily. fluticasone (FLOVENT HFA) 44 mcg/actuation inhaler Inhale 2 Puffs as instructed twice daily. Use with spacer and rinse mouth out after use. Clobetasol Propionate (TEMOVATE) 0.05 % external solution Apply 1 application to affected area once daily as needed (for scaling on the scalp). loratadine (CLARITIN) 10 mg tablet TAKE 1 TABLET BY MOUTH ONCE DAILY NEEDED (FOR ITCHING, SNEEZING OR RUNNY NOSE). buPROPion XL (WELLBUTRIN XL) 150 mg 24 hr tablet Take 1 tablet by mouth once daily. ketoconazole (NIZORAL) 2 % shampoo Apply 1 application to affected area once daily as needed (for scaling on scalp). lansoprazole (PREVACID) 30 mg capsule Take 1 capsule by mouth once daily. docusate sodium (COLACE) 100 mg capsule Take 1 capsule by mouth once daily as needed. fluticasone (FLONASE) 50 mcg/actuation nasal spray Use 2 Sprays in each nostril once daily. Rinse mouth after use. albuterol (PROVENTIL) 2.5 mg /3 mL (0.083 %) nebulizer solution One ampule nebulized every 4 hours as needed for cough, wheezing, chest tightness or shortness of breath. Cholecalciferol, Vitamin D3, (VITAMIN D) 1,000 unit cap Take 1 capsule by mouth once daily. calcium carbonate (CALTRATE) 600 mg (1,500 mg) tab TAKE ONE TABLET TWICE DAILY SUMAtriptan (IMITREX) 50 mg tablet Take 1 tablet by mouth as needed for Migraine Headache (see administration instructions). at onset of headache. May repeat after 2 hours. azithromycin (ZITHROMAX Z-QIAN) 250 mg tablet Take 2 tablets day one, then, 1 tablet daily until gone. No current facility-administered medications for this visit. ALLERGIES Allergen Reactions - Environmental Aller* Dogs, cats, and dust mites. Social History Marital status: Single Spouse name: Years of education: Number of children: Social History Main Topics Smoking status: Never Smoker Smokeless status: Never Used Alcohol use: Yes Comment: occasionally Drug use: No ROS: See HPI PE: BP 114/72 Pulse 76 Temp (Src) 100 (Left Tympanic) Resp 12 Wt 224 lb (101.6kg) Gen: AANDOX3, NAD, non-toxic appearing HEENT: PERRLA, EOMs intact b/l, nares without drainage, pharynx without erythema, exudate, lesions, or drainage. Uvula midline. Neck: No LAD, no thyromegaly, no meningismus. CV: RRR, no murmur Lungs: CTA b/l, no wheezing Skin: No rashes, lesions, or wounds on exposed skin. ASSESSMENT/PLAN: 1. Moderate single current episode of major depressive disorder (HCC) - ICD9: 296.22, ICD10: F32.1 (primary diagnosis) - continue low dose Effexor and Wellbutrin, Consider increasing dose of Wellbutrin in future, no SI or HI. 2. Cough - ICD9: 786.2, ICD10: R05 - only if symptoms >7-10 days start rx as below, continue supportive care - AZITHROMYCIN 250 MG TABLET 3. Anxiety disorder, unspecified type - ICD9: 300.00, ICD10: F41.9 = see above Reji Vazquez DO Return if no improvement. Follow up with Reji Vazquez DO. Discussed risks, benefits, alternatives, and potential side effects of medications. Patient/Guardian expressed understanding and agreed with the plan. See patient instructions. Reji Vazquez DO [address] [place] [address] CNOV Observed: 02/11/2017 Status: COMPLETED Source: [place] 3:20 PM [facility] REPOSITORY Office Visit (FAMPWS) MONY ZHANG ([id number]) 1975 F [place] Date Time Provider Department 02/11/17 3:20 PM REJI VAZQUEZ During your visit today, we recorded the following information about you: Temperature Pulse Respiration Blood pressure 100 degrees 76/minute 12/minute 114/72 Weight 101.6 kg Reji Vazquez, 02/11/2017 3:59 PM Signed CC: Mony Zhang is a 41 year old female who presents to the office for follow up HPI: Seen in office 2 months ago, at that time: Cold symptoms for the last 3-4 days, congestion, PND, scratchy throat, otherwise asymptomatic, + sick contacts with 17 month old dtr. ? Still is 17 month old. ? Struggling with anxiety and depression, has been noticing increased weight gain SE with dose change of Effexor, wanting alternative. Was on prozac prior which she developed tolerance to then was non effective. Denies SI or HI. Has many stressors with having a teenage daughter that is unstable and is living back in her home. She is interested in trying to have another child as well. ? Right side sciatica, started 2-3 days ago after playing game on hands/knees on the floor with her daughter over the weekend. [place] pull in low back with radiation of sharp / shooting burning pain to anterior / lateral thigh and lower leg into foot. Unable to take muscle relaxants and neurontin for symptoms in past due to drowsiness. Took Advil with mild relief. Worse symptoms in AM and with prolonged standing/sitting, no weakness or falls or bowel/bladder changes. Currently She has noticed that trying to taper off the Effexor and only be on Wellbutrin has caused her to feel more anxious, recently restarted the low dose of Effexor 37.5 mg, does feel better with this medication. Still taking Wellbutrin daily as well. No SI or HI. Does have support from boyfriend Stewart. Still is her 19 month old dtr Linda. Cough, present for 1-2 days, no fevers or chills, intermittent wheezing improved with inhaler use. PAST MEDICAL HISTORY Diagnosis Date - Allergic rhinitis, cause unspecified - Anemia - Depression - Extrinsic asthma, unspecified - Fibromyalgia - Gestational diabetes 2016 - Hypoglycemia - IBS (irritable bowel syndrome) - Migraine headache Dr. Varghese Neurologist - Multiple thyroid nodules Dr. Evans Junior Account Manager - Obstructive sleep apnea on CPAP, Dr. Núñez - PMH - PAST MEDICAL HISTORY OF Tarsal tunnel - Psoriatic arthritis (HCC) PAST SURGICAL HISTORY Procedure Laterality Date - COLONOSCOP W/ OR W/O BRSH SPEC Colonoscopy - COLONOSCOP W/ OR W/O BRSH SPEC 03/15/13 Colonoscopy [facility] Dr. Borden - EGD W/O OR W/BRUSH/WASH EGD - PAST SURGICAL HISTORY OF 2004 sinus surgery - REMOVAL GALLBLADDER 2007 Cholecystectomy Current Outpatient Prescriptions: venlafaxine ER (EFFEXOR XR) 37.5 mg 24 hr capsule Take 1 capsule by mouth once daily. fluticasone (FLOVENT HFA) 44 mcg/actuation inhaler Inhale 2 Puffs as instructed twice daily. Use with spacer and rinse mouth out after use. Clobetasol Propionate (TEMOVATE) 0.05 % external solution Apply 1 application to affected area once daily as needed (for scaling on the scalp). loratadine (CLARITIN) 10 mg tablet TAKE 1 TABLET BY MOUTH ONCE DAILY NEEDED (FOR ITCHING, SNEEZING OR RUNNY NOSE). buPROPion XL (WELLBUTRIN XL) 150 mg 24 hr tablet Take 1 tablet by mouth once daily. ketoconazole (NIZORAL) 2 % shampoo Apply 1 application to affected area once daily as needed (for scaling on scalp). lansoprazole (PREVACID) 30 mg capsule Take 1 capsule by mouth once daily. docusate sodium (COLACE) 100 mg capsule Take 1 capsule by mouth once daily as needed. fluticasone (FLONASE) 50 mcg/actuation nasal spray Use 2 Sprays in each nostril once daily. Rinse mouth after use. albuterol (PROVENTIL) 2.5 mg /3 mL (0.083 %) nebulizer solution One ampule nebulized every 4 hours as needed for cough, wheezing, chest tightness or shortness of breath. Cholecalciferol, Vitamin D3, (VITAMIN D) 1,000 unit cap Take 1 capsule by mouth once daily. calcium carbonate (CALTRATE) 600 mg (1,500 mg) tab TAKE ONE TABLET TWICE DAILY SUMAtriptan (IMITREX) 50 mg tablet Take 1 tablet by mouth as needed for Migraine Headache (see administration instructions). at onset of headache. May repeat after 2 hours. azithromycin (ZITHROMAX Z-QIAN) 250 mg tablet Take 2 tablets day one, then, 1 tablet daily until gone. No current facility-administered medications for this visit. ALLERGIES Allergen Reactions - Environmental Aller* Dogs, cats, and dust mites. Social History Marital status: Single Spouse name: Years of education: Number of children: Social History Main Topics Smoking status: Never Smoker Smokeless status: Never Used Alcohol use: Yes Comment: occasionally Drug use: No ROS: See HPI PE: BP 114/72 Pulse 76 Temp (Src) 100 (Left Tympanic) Resp 12 Wt 224 lb (101.6kg) Gen: AANDamp;OX3, NAD, non-toxic appearing HEENT: PERRLA, EOMs intact b/l, nares without drainage, pharynx without erythema, exudate, lesions, or drainage. Uvula midline. Neck: No LAD, no thyromegaly, no meningismus. CV: RRR, no murmur Lungs: CTA b/l, no wheezing Skin: No rashes, lesions, or wounds on exposed skin. ASSESSMENT/PLAN: 1. Moderate single current episode of major depressive disorder (HCC) - ICD9: 296.22, ICD10: F32.1 (primary diagnosis) - continue low dose Effexor and Wellbutrin, Consider increasing dose of Wellbutrin in future, no SI or HI. 2. Cough - ICD9: 786.2, ICD10: R05 - only if symptoms ANDgt;7-10 days start rx as below, continue supportive care - AZITHROMYCIN 250 MG TABLET 3. Anxiety disorder, unspecified type - ICD9: 300.00, ICD10: F41.9 = see above Reji Vazquez DO Return if no improvement. Follow up with Reji Vazquez DO. Discussed risks, benefits, alternatives, and potential side effects of medications. Patient/Guardian expressed understanding and agreed with the plan. See patient instructions. Reji Vazquez DO [address] [place] [address] Referring Provider: REJI VAZQUEZ [[id number]] Allergies As of Date: 02/11/2017 Noted Allergy Reaction Environmental allergies [Other] 10/13/2006 Comments: Dogs, cats, and dust mites. Date Reviewed: 02/11/2017 Reviewed by: Reji Vazquez - Fully Assessed Reason for Visit: 2 month follow up [Other] Primary Visit Diagnosis:Moderate single current episode of major depressive disorder (HCC) [F32.1] Other Visit Diagnoses:Cough [R05] Anxiety disorder, unspecified type [F41.9] Order(s):azithromycin (ZITHROMAX Z-QIAN) 250 mg tabletTake 2 tablets day one, then, 1 tablet daily until gone.Disp: 1 PackageRfl: 0 Prescriptions as of 02/11/2017 Sig: VENLAFAXINE ER 37.5 MG CAPSUL* Take 1 capsule by mouth once * FLUTICASONE 44 MCG/ACTUATION * Inhale 2 Puffs as instructed * CLOBETASOL 0.05 % SCALP SOLUT* Apply 1 application to affect* LORATADINE 10 MG TABLET TAKE 1 TABLET BY MOUTH ONCE D* BUPROPION XL 150 MG TAB Take 1 tablet by mouth once d* KETOCONAZOLE 2 % SHAMPOO Apply 1 application to affect* LANSOPRAZOLE 30 MG CAPSULE,DE* Take 1 capsule by mouth once * DOCUSATE SODIUM 100 MG CAPSULE Take 1 capsule by mouth once * FLUTICASONE 50 MCG/ACTUATION * Use 2 Sprays in each nostril * ALBUTEROL SULFATE 2.5 MG/3 ML* One ampule nebulized every 4 * CHOLECALCIFEROL (VITAMIN D3) * Take 1 capsule by mouth once * CALCIUM CARBONATE 600 MG CALC* TAKE ONE TABLET TWICE DAILY SUMATRIPTAN 50 MG TABLET Take 1 tablet by mouth as nee* AZITHROMYCIN 250 MG TABLET Take 2 tablets day one, then,* Problem List As Of Date 02/11/2017 Noted Resolved Allergic rhinitis [J30.9] Extrinsic asthma [J45.909] Fibromyalgia [M79.7] INVALID FOR* Psoriasis arthropathica (HCC) [L40.50] INVALID FOR*09/25/2015 RLS (restless legs syndrome) [G25.81] INVALID FOR* MK AHI 12.7 46R [G47.33] INVALID FOR* More... Multiple thyroid nodules [E04.2] INVALID FOR* Chronic pain [G89.29] INVALID FOR* Multiple falls [R29.6] INVALID FOR* Iron deficiency [E61.1] INVALID FOR* Other pain disorders related to psychological f*INVALID FOR* Depression [F32.9] INVALID FOR* [F41.0] INVALID FOR* Anxiety disorder [F41.9] INVALID FOR* Lumbago [M54.5] INVALID FOR* Pain in joint, pelvic region and thigh [M25.559]INVALID FOR* Pain in limb [M79.609] INVALID FOR* [Z34.90] INVALID FOR*04/12/2016 Psoriatic arthritis (HCC) [L40.50] INVALID FOR* Sciatica, right side [M54.31] INVALID FOR* Moderate single current episode of major depres*INVALID FOR* Prescriptions ordered this encounter Disp Refills Start End AZITHROMYCIN 250 MG TABLET 1 Pa* 0 02/11/2017 02/16/2017 Class: Print RX Sig: Take 2 tablets day one, then, 1 tablet daily until gone. Medications Discontinued During This Encounter venlafaxine XR (EFFEXOR XR) 75 mg 24* 30 c* 0 12/07/2016 02/11/2017 Route: ORAL Sig: Take 1 capsule by mouth once daily. Tapering off Disc: Reason for discontinue is not on file. venlafaxine ER (EFFEXOR XR) 37.5 mg * 30 c* 0 01/25/2017 02/11/2017 Sig: TAKE 1 CAPSULE BY MOUTH ONCE DAILY. TAPERING OFF Disc: Reason for discontinue is not on file. Encounter Status:Closed by REJI VAZQUEZ DO on 02/11/17 ALLERGIES ALLERGIES DATE TYPE / CODE NAME / CODE REACTION SEVERITY SOURCE 07/04/2015 Drug morphine/F0 Other Unknown [facility] Allergy/[id number](S [id number](RX Community NOMED [place]) NORM) Hospital Repository 10/13/2006 Miscellaneous OTHER [facility] Allergy/[id number](S [place] NOMED CT) Repository ENCOUNTERS ENCOUNTERS ADMIT/DISCHARGE ACCOUNT ADMITTING ENCOUNTER LOCATION SOURCE NUMBER CLASS 01/24/2018/01/25/[id number] Repository 01/10/2018/01/17/20 [id number] Ambulatory [address] Repository 01/06/2018 [id number] Ambulatory [place] [facility] ing:[facility] Repository 12/27/2017/12/28/19 [id number] Ambulatory [address] Repository 12/27/2017/12/29/19 [id number] Ambulatory [address] Repository 11/21/2017/11/22/[id number] Repository 11/21/2017/11/22/19 [id number] Ambulatory [address] Repository 11/08/2017/11/09/19 [id number] Ambulatory [facility] [place] Repository 11/08/2017/11/09/19 [id number] Ambulatory [facility] [place] Repository 11/08/2017/11/15/19 [id number] Ambulatory [place] [place] Repository 10/18/2017/10/19/19 [id number] Ambulatory [place] [place] Repository 10/18/2017/10/20/19 [id number] Ambulatory [place] [place] Repository 10/06/2017/10/08/19 [id number] Ambulatory [place] [place] Repository 09/22/2017/09/23/19 [id number] Ambulatory [place] [place] Repository 08/26/2017/08/30/19 [id number] Ambulatory [place] [facility] [place] Repository 07/15/2017/07/19/19 [id number] [address] [place] Repository 07/05/2017 [id number] Ambulatory [facility] [place] Repository 07/05/2017 [id number] Ambulatory [facility] [place] Repository 07/05/2017/07/07/19 [id number] Ambulatory [address] [facility] [place] Repository 06/21/2017/06/22/19 [id number] Ambulatory [address] [place] Repository 06/15/2017/06/17/19 [id number] Ambulatory [address] [place] Repository 05/31/2017/06/01/19 [id number] Ambulatory [place] [facility] [place] Repository 05/31/2017/06/02/19 [id number] Ambulatory [place] [facility] [place] Repository 05/19/2017/05/21/19 [id number] Ambulatory [place] [facility] [place] Repository 04/13/2017/04/15/19 [id number] Ambulatory [facility] [place] Repository 03/08/2017/03/09/19 [id number] Ambulatory [place] [facility] [place] Repository 03/06/2017/03/06/19 [id number] Ambulatory [place] [facility] [place] Repository 02/11/2017/02/11/19 [id number] Ambulatory [place] [facility] [place] Repository PAYERS PAYERS ENCOUNTER GUARANTOR PAYER SUBSCRIBER SOURCE 01/06/2018 Mony Barahonay200 Primary Mony Durán Insurance:MOHIT HenryOB: [id number] [address]Bff: [phone] PLANPolic Number: Repository [phone] () [id number] Date:7189-11-10[address], [place] [address]QA: 01/06/2018 Secondary NOT GIVENASCENCION Macdonald Insurance:SELF PAY [facility] Number: Effective Repository Date:2018-01-06
== END ==
PROVIDERS: Visit Provider Obstetrics & Gynecology
DX: Z11.3 Encounter for screening for infections with a predominantly sexual mode of transmission (principal); O23.41 Unspecified infection of urinary tract in pregnancy, first trimester; Z3A.00 Weeks of gestation of pregnancy not specified
CPT/HCPCS: 81001; 87086; 87088; 87491; 87591

== ENCOUNTER → 2018-01-26 15:37 | Outpatient (CLI) | payer MEDICAID, SELFPAY ==
[2018-01-26 16:03] LABS: Absolute Lymphocyte Count 3.61 X10^3/ul (0.83-4.51); Absolute Neutrophil Count 6.9 X10^3/uL (2.0-7.7); Basophil# 0.03 X10^3/uL; Basophil% 0.3 % (0-1); Eosinophil# 0.24 X10^3/uL; Eosinophils% 2.1 % (0-5); Hematocrit 35.8 % (37-47); Hemoglobin 12.1 g/dl (12.0-15.0); Lymphocyte # 3.61 X10^3/ul (4.0); Lymphocyte % 31.1 % (19-41); Mean Corp Hgb Conc 33.8 g/gl (32-36); Mean Corpuscular Hgb 29.4 pg (27.0-32.0); Mean Corpuscular Volume 87.1 fL (81-99); Mean Platelet Vol. 10.1 fl (6.2-12.0); Monocyte# 0.76 X10^3/uL; Monocyte% 6.6 % (0-10); Neutrophil # 6.93 X10^3/uL (2.7-7.7); Neutrophil % 59.7 % (47-70); Platelet Count 307 K/mm3 (150-450); RBC Distribution Width CV 13.4 % (11.6-14.6); Red Blood Count 4.11 M/mm3 (4.2-5.4); White Blood Count 11.6 K/mm3 (4.4-11.0)
[2018-01-26 16:06] LABS: POSITIVE COUNT NO; POSITIVE DIFFERENTIAL NO; POSITIVE MORPHOLOGY NO
[2018-01-26 16:18] LABS: Color, Urine Yellow (Yellow); Glucose, Dipstick Normal (Normal); Ketone-Dipstick Negative (Negative); Leukocyte Esterase-Dipstick Negative /ul (Negative); Nitrite-Dipstick Negative (Negative); Occult Blood-Urine 10 /ul (Negative); Protein-Dipstick 15 mg/dl (Negative); Specific Gravity, Urine 1.025 (1.002-1.030); Urine Bilirubin Dipstick Negative (Negative); Urine Clarity Sl. Cloudy (Clear); Urine Urobilinogen Normal (Normal)
[2018-01-26 16:41] LABS: Thyroid Stim Hormone (TSH) 0.73 uIU/mL (0.358-3.74)
[2018-01-26 17:21] LABS: HIV - WCH Non-Reactive (Nonreactive); Rubella IgG 115.4 IU/mL
[2018-01-26 23:53] LABS: Prenatal RPR NONREACTIVE (NONREACTIVE)
[2018-01-28 10:04] LABS: HEPATITIS B SURFACE AG Negative (Negative); Hep C Antibodies <0.1 s/co ratio (0.0-0.9)
== END ==
PROVIDERS: Visit Provider Obstetrics & Gynecology
DX: Z34.81 Encounter for supervision of other normal pregnancy, first trimester (principal)
CPT/HCPCS: 36415; 80307; 81002; 84443; 85025; 86703; 86762; 86803; 87340

== ENCOUNTER → 2018-02-23 13:57 | Outpatient (CLI) | payer MEDICAID, SELFPAY ==
[2018-02-23 16:10] LABS: Glucose Challenge Gest 1H 50g 162 mg/dL (70-140)
[2018-02-23 16:32] LABS: Vitamin D,25 Hydroxy 17.3 ng/mL (29.95-100.01)
[2018-02-23 16:35] LABS: Hemoglobin A1c 5.1 % (4.2-6.3)
--- OUTSIDE RECORDS SUMMARY | 2018-04-30 08:47 | XMS RPT_ITS ---
:1975 Author Organization OHIP Care Team Providers Name Role Phone Joselin Treviño Attending Unavailable Joselin Treviño Attending Unavailable Joselin Treviño Attending Unavailable WILFREDO ROBLES Referring Unavailable ARMOGIDA, FLACO A Attending Unavailable REJI MARRUFO L Attending Unavailable MARRUFO, REJI L Referring Unavailable CORNIELYANCY, CYNTHIA Yadira ([employer]) Attending Unavailable MARRUFO, REJI L Referring Unavailable ISABEL YOUNG Referring Unavailable ARMOGIDA, FLACO A Attending Unavailable MARRUFO, REJI L Referring Unavailable CORNIELLO, CYNTHIA L ([employer]) Attending Unavailable CORNIELLO, CYNTHIA L ([employer]) Referring Unavailable CORNIELLO, CYNTHIA L ([employer]) Referring Unavailable MARRUFO, REJI L Attending Unavailable MARRUFO, REJI L Referring Unavailable DORIE SHELTON) Attending Unavailable MARRUFO, REJI L Referring Unavailable KASIA WALDEN ([employer]ATCH [employer]) Attending Unavailable MARRUFO, REJI L Attending Unavailable MARRUFO, REJI L Referring Unavailable WILFRID ACHARYA ([employer]) Referring Unavailable ARMOGIDA, FLACO A Referring Unavailable ARMOGIDA, FLACO A Referring Unavailable ARMOGIDA, FLACO A Attending Unavailable ARMOGIDA, FLACO A Referring Unavailable MARRUFO, REJI L Referring Unavailable MARRUFO, REJI L Referring Unavailable NATHAN, WILFREDO Attending Unavailable NATHAN, WILFREDO Referring Unavailable ARMOGIDA, FLACO A Attending Unavailable MARRUFO, REJI L Referring Unavailable MARRUFO, REJI L Attending Unavailable MARRUFO, REJI L Referring Unavailable PROBLEMS PROBLEMS DATE TYPE CONDITION / CODE ATTENDING STATUS SOURCE 02/27/2018 Unknown Z34.82 - Encounter [place] Active [place] for supervision [facility] other normal Hospital , second Repository trimester / Z34.82(ICD-10) 02/08/2014 Active Nontoxic NA Active [facility] multinodular goiter Other [place] / E04.2(ICD-10) Repository 02/23/2018 Unknown Z34.81 - Encounter [place] Active [place] for supervision [facility] other normal Hospital , first Repository trimester / Z34.81(ICD-10) 01/06/2018 Unknown Z11.3 - Encounter [place] Active [place] for screening for [facility] infections with a Hospital predominantly Repository sexual mode of transmission / Z11.3(ICD-10) 01/06/2018 Unknown N39.0 - Urinary [place] Active [place] tract infection, [facility] site not specified Hospital / N39.0(ICD-10) Repository 12/27/2017 Active Other abnormal NA Active [facility] glucose / Main [place] R73.09(ICD-10) Repository 12/27/2017 Active Other obesity / NA Active [facility] E66.8(ICD-10) Main [place] Repository 12/27/2017 Active Vitamin D NA Active [facility] deficiency, Main [place] unspecified / Repository E55.9(ICD-10) 11/21/2017 Active Generalized NA Active [facility] abdominal pain / [facility] [place] R10.84(ICD-10) Repository 11/08/2017 Active Mild persistent NA Active [facility] asthma with (acute) [facility] [place] exacerbation / Repository J45.31(ICD-10) 10/18/2017 Active Generalized anxiety NA Active [facility] disorder / Main [place] F41.1(ICD-10) Repository 10/18/2017 Active Other fatigue / NA Active [facility] R53.83(ICD-10) Main [place] Repository 10/18/2017 Active Nausea / NA Active [facility] R11.0(ICD-10) Main [place] Repository 10/18/2017 Active Paresthesia of skin NA Active [facility] / R20.2(ICD-10) Main [place] Repository 09/22/2017 Active Secondary NA Active [facility] amenorrhea / [facility] [place] N91.1(ICD-10) Repository 07/05/2017 Active Frequency of NA Active [facility] micturition / [facility] [place] R35.0(ICD-10) Repository 05/01/2014 Active Iron deficiency / NA Active [facility] E61.1(ICD-10) Main [place] Repository 07/05/2017 Active Dizziness and NA Active [facility] giddiness / Main [place] R42(ICD-10) Repository 05/31/2017 Active Cough / R05(ICD-10) NA Active [facility] Main [place] Repository 03/08/2017 Active Unknown / ARMOGIDA, Active [facility] UNK(Unknown) FLACO A Main [place] Repository PROCEDURES PROCEDURES No Procedure Records FoundRESULTS RESULTS GLUCOSE CHALLENGE GEST Collected: 02/23/2018 Status: F Source: [place] 1H 50G 2:23 PM [facility] REPOSITORY TYPE CODE TESTS RESULT OUT OF RANGE REFERENCE UNITS LAB L501.0250 70-140 mg/dL High GLU GEST 162 50g 1H Performed By: #### L501.0250 #### [facility] [address] [place], [address] VITAMIN D,25 HYDROXY Collected: 02/23/2018 Status: F Source: [place] 2:23 PM [facility] REPOSITORY TYPE CODE TESTS RESULT OUT OF REFERENCE UNITS RANGE LAB L506.1000 29.95-100.01 ng/mL Low Vitamin D 17.3 25-OH Result Comment: Vitamin D 25(OH) Status Range Deficiency <20 ng/mL (50nmol/L) Insuffciency 20 - 30 ng/mL (50 - 75 nmol/L) Sufficiency 30 - 100 ng/mL (75 - 250 nmol/L) Toxicity >100 ng/mL (>250 nmol/L) Performed By: #### L506.1000 #### [facility] [address] [place], [address] HEMOGLOBIN A1C Collected: 02/23/2018 Status: F Source: [place] 2:23 PM [facility] REPOSITORY TYPE CODE TESTS RESULT OUT OF RANGE REFERENCE UNITS LAB L501.9985 4.2-6.3 % Normal HGB A1C 5.1 Performed By: #### L501.9985 #### [facility] [address] [place], [address] MISCELLANEOUS LAB Collected: 02/23/2018 Status: F Source: [place] PROCEDURE 2:23 PM [facility] REPOSITORY Order Comment: Comments: #[id number] msAFP, SERUM Test(s) Ordered: #[id number] msAFP, SERUM TYPE CODE TESTS RESULT OUT OF RANGE REFERENCE UNITS LAB L801.1541 Normal [facility] TEST Result Comment: TEST RESULT UNITS REF INTERVAL AFP, Serum, Open Spina Bifida Results Report Test Results: *Screen Negative* Gest. Age on Collection Date 16.1 weeks Gestat. Age Based On Ultrasound 16.1 on 02/23/2018 Recalculations are not recommended when gestational dating by LMP and ultrasound are within 10 days. [age] Race Other Weight 258 lbs Insulin Dep Diabetes No Multiple Gestation No AFP Value 12.1 ng/mL AFP MoM 0.52 OSBR Risk 1 [place] [id number] Interpretation Interpretation: Screen Negative This result is screen negative for OSB. The AFP MoM calculated is based on the gestational age provided. MS-AFP can identify up to 80% of open neural tube defects. Closed neural tube defects and some open defects may not be detected by this test. This test does not screen for Down Syndrome or Trisomy 18. If screening for Down Syndrome or Trisomy 18 is desired, contact [facility] to discuss available options. The [employer] recommends amniocentesis be offered to women age 35 and older. Comment: Mary Anne Gutierrez, Ph.D., [facility] Principal Genetics Bioinformatics Associate References: Available Upon Request. Multiples Of Median Cutoffs For AFP Elevations Aparicio 2.5 Black 2.8 IDD 2.0 Twins 4.5 Abbreviation Definitions IDD - Insulin Dep Diabetes OSBR - Open Spina Bifida Risk For further inquiries contact [facility] at [phone]. TESTING PERFORMED AT [facility]. ORIGINAL REPORT ON FILE IN LAB CONTAINS ADDITIONAL TEST SITE INFORMATION. Performed By: #### L801.1541 #### [facility] [address] [place], [address] US THYROID/PARATHYROID Observed: 01/30/2018 Status: F Source: [place] 2:50 PM CLINIC OTHER CAMPUS REPOSITORY * * *Final Report* * * DATE OF EXAM: Jan 30 2018 2:50PM ANITRA 1048 - US THYROID/PARATHYROID / PROCEDURE REASON: E04.2-Multiple thyroid nodules * * * * Physician Interpretation * * * * Ultrasound of the thyroid gland History: Multiple thyroid nodules Findings: Right lobe: The dimensions of the lobe are 6.0 x 2.1 x 2.4 cm. There are 2 cystic nodules 4 to 5 mm maximal diameter. Left lobe: The dimensions of the lobe are 5.8 x 1.6 x 2.2 cm. Posterior heterogeneous hypoechoic nodule 4 x 6 x 5 mm lateral cystic nodule 3 mm in diameter. She has slightly irregular nodule 3 to 4 mm in diameter. Isthmus: unremarkable Images were stored in a permanent archive. IMPRESSION: Subcentimeter nodules. The irregular 3 to 4 mm nodule noted in the LEFT lobe on the current exam was not clearly evident on prior study. The other nodules noted on this exam stable. Some of the previously noted small nodules are not demonstrated on this exam. Mildly enlarged thyroid Chief Cook: PSCB Transcribe Date/Time: Jan 30 2018 3:25P Dictated by : LUCIAN ESTEVEZ MD This examination was interpreted and the report reviewed and electronically signed by: LUCIAN ESTEVEZ MD on Jan 30 2018 3:29PM EST [id number] URINE DRUG SCREEN Collected: 01/26/2018 Status: P Source: [place] (VISTA) 3:39 PM [facility] REPOSITORY Order Comment: List of Drugs Taken or Suspected? U TYPE CODE TESTS RESULT OUT OF RANGE REFERENCE UNITS LAB L505.0075 TO BE Normal CONFIRMED Result Comment: CONFIRMATORY TESTING FOR ALL POSITIVE URINE DRUG SCREEN RESULTS WILL ONLY BE SENT OUT UPON PHYSICIAN ORDER. VISTA Urine Drug Screen methods provide only preliminary analytical test results. A more specific alternate chemical method must be used in order to obtain a confirmed analytical result. Gas chromatography/mass spectrometery (GC/MS) is the preferred confirmatory method. Clinical consideration and professional judgement should be applied to any drug of abuse test result, particularly when preliminary positive results are used. URINE TCA TESTING MUST BE ORDERED SEPARATELY. USE TEST MNEMONIC: UTCA Performed By: #### L505.5000 #### [facility] [address] [place], [address] CBC W/DIFF, AUTOMATED Collected: 01/26/2018 Status: F Source: [place] 3:39 PM [facility] REPOSITORY TYPE CODE TESTS RESULT OUT OF RANGE REFERENCE UNITS LAB L100.1000 4.4-11.0 K/mm3 High WBC 11.6 LAB L100.1200 4.2-5.4 M/mm3 Low RBC 4.11 LAB L100.1300 12.0-15.0 g/dl Normal HGB 12.1 LAB L100.1400 37-47 % Low HCT 35.8 LAB L100.1500 81-99 fL Normal MCV 87.1 LAB L100.1600 27.0-32.0 pg Normal MCH 29.4 LAB L100.1700 32-36 g/gl Normal MCHC 33.8 LAB L100.1810 11.6-14.6 % Normal RDW CV 13.4 LAB L100.1820 35.1-43.9 fl Normal RDW SD 43.0 LAB L100.1900 150-450 K/mm3 Normal PLT 307 LAB L100.2000 6.2-12.0 fl Normal MPV 10.1 LAB L100.2100 47-70 % Normal NEUT% 59.7 LAB L100.2200 19-41 % Normal LY% 31.1 LAB L100.2300 0-10 % Normal MONO% 6.6 LAB L100.2400 0-5 % Normal EO% 2.1 LAB L100.2500 0-1 % Normal BASO% 0.3 LAB L100.2550 0.0-0.9 % Normal IM GRAN % 0.200 Result Comment: IG% - Immature Granulocytes (promyelocytes, myelocytes and metamyelocytes) > 1% indicates that a LEFT SHIFT is Present. LAB L100.2620 2.0-7.7 X10 3/uL Normal Absolute Neut 6.9 LAB L100.2720 0.83-4.51 X10 3/ul Normal Absolute Lymph 3.61 Performed By: #### L100.0100 #### [facility] [address] [place], [place], [address] URINALYSIS, ROUTINE Collected: 01/26/2018 Status: F Source: [place] (DIPSTICK) 3:39 PM [facility] REPOSITORY Order Comment: How was Urine Obtained? CLEAN CATCH TYPE CODE TESTS RESULT OUT OF RANGE REFERENCE UNITS LAB L400.3000 Yellow COLOR Normal Yellow LAB L400.3050 Clear Normal CLARITY Sl. Cloudy LAB L400.3200 Normal mg/dl Normal GLUCOSE, UR Normal LAB L400.3300 Negative mg/dL Normal BILIRUBIN URINE Negative LAB L400.3400 Negative mg/dl Normal KETONE UR Negative LAB L400.3465 1.002-1.030 Normal SP.GR. DIPSTX 1.025 LAB L400.3550 5.0 - 8.0 pH UR Normal 6.0 LAB L400.3600 Negative mg/dl High PROT 15 DIPSTX LAB L400.3700 Normal mg/dl Normal UROBILI Normal LAB L400.3750 Negative Normal NITRITE UR Negative LAB L400.3780 Negative /ul High 10 OCCULT BLOOD-UR LAB L400.3800 Negative /ul LEUK Normal ESTERASE Negative Performed By: #### L400.2010 #### [facility] [address] [place], [place], [id number] THYROID STIM HORMONE Collected: 01/26/2018 Status: F Source: [place] (TSH) 3:39 PM [facility] REPOSITORY TYPE CODE TESTS RESULT OUT OF RANGE REFERENCE UNITS LAB L501.9520 0.358-3.74 uIU/mL Normal TSH 0.73 Performed By: #### L501.9520 #### [facility] [address] [place], [place], [address] RUBELLA IGG Collected: 01/26/2018 Status: F Source: [place] 3:39 PM [facility] REPOSITORY TYPE CODE TESTS RESULT OUT OF RANGE REFERENCE UNITS LAB L509.4000 IU/mL Normal Rubella IgG 115.4 Result Comment: Antibody results Interpretation of Immune Status < 5 IU/ml Presumed Non-immune 5 - < 10 IU/ml Equivocal > or = 10 IU/ml Presumed Immune Performed By: #### L509.4000, L3890.6005 #### [facility] [address] [facility] [address] HIV - [facility] Collected: 01/26/2018 Status: F Source: [place] 3:39 PM [facility] REPOSITORY TYPE CODE TESTS RESULT OUT OF RANGE REFERENCE UNITS LAB L3890.6005 Nonreactive Normal HIV - [facility] Non-Reactive Performed By: #### L509.4000, L3890.6005 #### [facility] [address] [facility] [id number] T AND S-NO Collected: 01/26/2018 Status: F Source: [place] CHARGE W/PNP 3:39 PM [facility] REPOSITORY Order Comment: Reason for Type AND Screen/Red Cells: Surgery? N TYPE CODE TESTS RESULT OUT OF RANGE REFERENCE UNITS LAB B10.0800 A Normal BLOOD NEGATIVE TYPE GEL LAB B100.4050 Normal Ab SCREEN NEGATIVE GEL Performed By: #### B100.7550 #### [facility] [address] [facility] [id number] RPR Collected: 01/26/2018 Status: F Source: [place] 3:39 PM [facility] REPOSITORY TYPE CODE TESTS RESULT OUT OF REFERENCE UNITS RANGE LAB L700.5100 NONREACTIVE Normal RPR NONREACTIVE Performed By: #### L700.5100 #### [facility] [address] [place], [place], [address] HEPATITIS B SURFACE Collected: 01/26/2018 Status: F Source: [place] AG 3:39 PM [facility] REPOSITORY TYPE CODE TESTS RESULT OUT OF RANGE REFERENCE UNITS LAB L3100.0400 Negative Normal HB Negative SURF AG Result Comment: Performed at: - [facility] [address] [id number] Clinical Psychologist Licensed: Miles Lim PhD, Phone: [phone] Performed By: #### L3100.0390, L3100.0625 #### [facility] (refer to report for specific site) refer to report for address and phone number HEPATITIS C ANTIBODIES Collected: 01/26/2018 Status: F Source: [place] 3:39 PM [facility] REPOSITORY TYPE CODE TESTS RESULT OUT OF RANGE REFERENCE UNITS LAB L3100.0650 0.0-0.9 s/co ratio Normal HEP C AB <0.1 Result Comment: Negative: < 0.8 Indeterminate: 0.8 - 0.9 Positive: > 0.9 The CDC recommends that a positive HCV antibody result be followed up with a HCV Nucleic Acid Amplification test ([id number]). Performed By: #### L3100.0390, L3100.0625 #### [facility] (refer to report for specific site) refer to report for address and phone number MISCELLANEOUS LAB Collected: 01/26/2018 Status: F Source: [place] PROCEDURE 3:39 PM [facility] REPOSITORY Order Comment: Test(s) Ordered: SEND OUT TEST;[employer] TYPE CODE TESTS RESULT OUT OF RANGE REFERENCE UNITS LAB L801.1541 Normal [facility] TEST Result Comment: Sent directly to testing facility per ordering physician. @ 02/01/18 1551 MYOUNG Performed By: #### L801.1541 #### [facility] [address] 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 Robles Field Care Manager - Obstructive sleep apnea on CPAP, Dr. Núñez - [facility] - PAST MEDICAL HISTORY OF Tarsal tunnel - Psoriatic arthritis (HCC) PAST SURGICAL HISTORY Procedure Laterality Date - COLONOSCOP W/ OR W/O BRS SPEC Colonoscopy - COLONOSCOP W/ OR W/O BRS SPEC 03/15/13 Colonoscopy [facility] Dr. Borden - EGD W/O OR W/BRUSH/WASH [...] - continue same medication, recently adjusted per AIRCRAFT TIME CLERK, no mood concerns 2. 12 weeks gestation of - ICD9: V22.2, ICD10: Z3A.12 - f/u with OBGYN Dr. Ashly Padilla 3. Anxiety disorder, unspecified type - ICD9: 300.00, ICD10: F41.9 - see above Reji Marrufo DO Return if no improvement. Follow up with Reji Marrufo DO. Discussed risks, benefits, alternatives, and potential side effects of medications. Patient/Guardian expressed understanding and agreed with the plan. See patient instructions. Reij Marrufo DO [address] [place] [address] CNOV Observed: 01/24/2018 Status: COMPLETED Source: [place] 12:40 PM [facility] REPOSITORY [facility] MONY ODONNELL ([id number]) 1975 F Date Time Provider Department 01/24/18 12:40 PM REJI MARRUFO During your visit today, we recorded the following information about you: Temperature Pulse Respiration Blood pressure 98.7 degrees 80/minute 20/minute 120/60 Weight 105.7 kg Reji Marrufo DO 01/24/2018 1:22 PM Signed CC: Mony Odonnell is a 42 year old female who presents to the office for 3 months follow up HPI: Overall doing well Irritability, anxiety and depression, she is on increased dose of Effexor 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 Robles Field Care Manager - Obstructive sleep apnea on CPAP, Dr. Núñez - [facility] - PAST MEDICAL HISTORY OF Tarsal tunnel - Psoriatic arthritis (HCC) PAST SURGICAL HISTORY Procedure Laterality Date - COLONOSCOP W/ OR W/O [facility] SPEC Colonoscopy - COLONOSCOP W/ OR W/O BRSH SPEC 03/15/13 Colonoscopy [facility] Dr. Borden - EGD W/O OR W/BRUSH/WASH [...] - continue same medication, recently adjusted per AIRCRAFT TIME CLERK, no mood concerns 2. 12 weeks gestation of - ICD9: V22.2, ICD10: Z3A.12 - f/u with OBGYN Dr. Ashly Padilla 3. Anxiety disorder, unspecified type - ICD9: 300.00, ICD10: F41.9 - see above Reji Marrufo DO Return if no improvement. Follow up with Reji Marrufo DO. Discussed risks, benefits, alternatives, and potential side effects of medications. Patient/Guardian expressed understanding and agreed with the plan. See patient instructions. Reji Marrufo DO [address] [place] [address] Referring Provider: REJI MARRUFO [[id number]] Allergies As of Date: 01/24/2018 Noted Allergy [...] daily until gone. Encounter Status:Closed by REJI MARRUFO DO on 01/24/18 PROGRESS Observed: 01/10/2018 Status: COMPLETED Source: [place] 5:26 PM [facility] [place] REPOSITORY O ID: [id number] Author: Flaco Arriaza Service: (none) Author Type: Physician Type: Progress [...] 2 yr old. Son, Edie, graduate of [employer]. Daughter Karthik currently lives in a mcfp. (She had a follow-up appointment with sleep medicine on 04/15/15.. Recommended that she continue to sleep on her side during . Will try to resume CPAP .) (S/p balloon procedure to open her sinuses by [facility] in 2012. No subsequent sinus infections. She previously received immunotherapy for several years through [facility] [facility].) REVIEW OF SYSTEMS:Negative for night sweats [...] in 3 months and as needed. Flaco Arriaza MD CNOV Observed: 01/10/2018 Status: COMPLETED Source: [place] 1:30 PM [facility] REPOSITORY Office Visit ([facility]) VICENTEMONY Boone ([id number]) 1975 F Date Time Provider Department 01/10/18 1:30 PM FLACO ARRIAZA During your visit today, we recorded the following information about you: Pulse Blood pressure Weight 94/minute 113/68 106.6 kg Sandy Rashid RN 01/10/2018 1:35 PM Signed Patient here for med check with new . Complaining of constant sinus pressure. Flaco Arriaza MD 01/10/2018 1:59 PM Signed My nurses will try to get rhinocort aq preapproved for you- use 2 sprays to each nostril once daily. If this is not approved, continue fluticasone nasal spray Flaco Arriaza MD 01/13/2018 8:47 PM Signed This is [...] 2 yr old. Son, Edie, graduate of [employer]. Daughter Karthik currently lives in a mcfp. (She had a follow-up appointment with sleep medicine on 04/15/15.. Recommended that she continue to sleep on her side during . Will try to resume CPAP .) (S/p balloon procedure to open her sinuses by [facility] [facility] in 2012. No subsequent sinus infections. [...] improvement in FEF 25-75% postbronchodilator. Otherwise normal. [place] on 03/26/2014: FVC is mildly impaired. Otherwise [...] in 3 months and as needed. Flaco Arriaza MD Referring Provider: REJI MARRUFO [[id number]] Allergies As of Date: 01/10/2018 Noted Allergy Reaction Environmental allergies [Other] 10/13/2006 Comments: Dogs, cats, and dust mites. Date Reviewed: 01/10/2018 Reviewed by: Flaco Arriaza - Fully Assessed Reason for Visit: Establish [...] fluticasone nasal spray Visit Notes: >> Sandy Rashid RN gloria Jan 10, 2018 1:33 PM Status: Signed [...] SCORE: -> 17 Encounter Status:Closed by FLACO ARRIAZA MD on 01/13/18 URINALYSIS, COMPLETE Collected: 01/06/2018 Status: F Source: [place] 1:30 PM [facility] REPOSITORY Order Comment: How was Urine Obtained? [...] Normal CRYSTAL Performed By: #### L400.0001 #### [facility] [address] [place], [place], [address] CT/NG [facility] BY PCR Collected: 01/06/2018 Status: F Source: [place] 1:30 PM [facility] REPOSITORY TYPE CODE TESTS RESULT OUT OF RANGE REFERENCE UNITS LAB L8200.2100 Negative Normal Chlam Negative Trac PCR LAB L8200.2200 Negative Normal NG by Negative PCR Performed By: #### L8200.2000 #### [facility] [address] [place], [address] Observed: 01/06/2018 Status: F Source: [place] CULTURE, URINE 1:30 PM [facility] REPOSITORY Urine Culture ORGANISM 1: Mixed Gram Positive Organisms [place] Count 1000-10,000 MIX CULTURE Mixed contaminants. Submit a new specimen if indicated. Performed By: #### M100.0650 #### [facility] [facility] [place], [place], [address] CBC Collected: 12/27/2017 Status: F Source: [place] 2:24 PM [facility] [place] REPOSITORY TYPE CODE TESTS RESULT OUT OF [...] MPV 11.0 Performed By: #### CBC #### [facility] [address] [phone] #### TSH, FT4, HBA1C #### [facility] [address] [place] [address] TSH Collected: 12/27/2017 Status: F Source: [place] 2:24 PM [facility] [place] REPOSITORY TYPE CODE TESTS RESULT OUT OF RANGE REFERENCE UNITS LAB TSH 0.400-5.500 uU/mL TSH 0.718 Result Comment: If the patient is , TSH reference range varies by gestational period: First Trimester 0.100-2.500 uU/mL Second Trimester 0.200-3.000 uU/mL Third Trimester 0.300-3.000 uU/mL References: 1. Whitney, Shelton M, Jeff EK, et al. Management of Thyroid Dysfunction during and : An Endocrine Society Clinical Practice Guideline. J Clin Endocrinol Metab, 2012:97:8842-2672. 2. Kenny SANON. Overview of thyroid disease in . UpToDate. 2016. Accessed on July 25, 2015. Performed By: #### CBC #### [facility] [address] [place], [place] [id number] #### TSH, FT4, HBA1C #### [place] [id number] [place] [address] FREE T4 Collected: 12/27/2017 Status: F Source: ELGIN 2:24 PM [facility] REPOSITORY TYPE CODE TESTS RESULT OUT OF RANGE REFERENCE UNITS LAB FT4 0.9-1.7 ng/dL Free T4 1.0 Performed By: #### CBC #### [facility] [address] [place] [address] #### TSH, FT4, HBA1C #### [place] [address] HEMOGLOBIN A1C Collected: 12/27/2017 Status: F Source: ELGIN 2:24 PM [facility] REPOSITORY TYPE CODE TESTS RESULT OUT OF REFERENCE UNITS RANGE LAB HGBA1C 4.3-5.6 % Hemoglobin A1c 5.4 Result Comment: [place] Diabetes Association guidelines indicate that patients with HgbA1c in the range 5.7-6.4% are at increased risk for development of diabetes, and intervention by lifestyle modification may be beneficial. HgbA1c greater or equal to 6.5% is considered diagnostic of diabetes. LAB HBA0 mg/dL Est. Average Glucose 108 Result Comment: eAG: (Estimated average glucose) is a calculated value from HgbA1c and is traffic representative of the average blood glucose level in the last 2-3 month period. Performed By: #### CBC #### [facility] [address] [facility] [phone] #### TSH, FT4, HBA1C #### [facility] [address] [place], [place] [address] PROGRESS Observed: 12/27/2017 Status: COMPLETED Source: ELGIN 1:45 PM [facility] REPOSITORY HNO ID: [id number] Author: Wilfredo Robles Service: (none) Author Type: Physician Type: Progress Notes Filed: 12/27/2017 3:31 PM Note Text: Last Visit: December 20, 2016 Reason for Follow up: thyroid Nodules/mass HISTORY OF PRESENT ILLNESS; Ms. Odonnell is a 42 year old woman came [...] ? Temperature Intolerance: still mild heat ? 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 GI: lately more [...] Varghese Neurologist - Multiple thyroid nodules Dr. Robles Field Care Manager - Obstructive sleep apnea on CPAP, Dr. Núñez - [facility] - PAST MEDICAL HISTORY OF Tarsal tunnel - Psoriatic arthritis (HCC) PAST SURGICAL HISTORY Procedure Laterality Date - COLONOSCOP W/ OR W/O [facility] SPEC Colonoscopy - COLONOSCOP W/ OR W/O [facility] SPEC 03/15/13 Colonoscopy [facility] Dr. Borden - EGD W/O OR W/BRUSH/WASH [...] Abs Lymph 1.00 - 4.00 k/uL 3.60 [place]% % 7.1 Abs [place] 0.00 - 0.86 k/uL 0.51 Eosin% % [...] etiology of each individual nodule is nonspecific. Chief Cook: BILLY ? Transcribe Date/Time: Dec 21 2016 11:42A Dictated by : LASHAE MCCALL MD ASSESSMENT: Ms. Odonnell is a 42 year old woman came [...] current Rx. continue current Rx. Plan: LAUREEN Robles MD December 27, 2017 CNOV Observed: 12/27/2017 Status: COMPLETED Source: ELGIN 1:25 PM [facility] REPOSITORY Office Visit (ROBERT) MONY ODONNELL ([id number]) 1975 F Date Time Provider Department 12/27/17 1:25 PM WILFREDO ROBLES During your visit today, we recorded the following information about you: Pulse Blood pressure Weight Height 94/minute 142/80 105.1 kg 1.705 m Wilfredo Robles MD 12/27/2017 3:31 PM Signed Last Visit: December 20, 2016 Reason for Follow up: thyroid Nodules/mass HISTORY OF PRESENT ILLNESS; Ms. Odonnell is a 42 year old woman came [...] ? Temperature Intolerance: still mild heat ? 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 GI: lately more [...] Varghese Neurologist - Multiple thyroid nodules Dr. Robles Field Care Manager - Obstructive sleep apnea on CPAP, Dr. Moul - [facility] - PAST MEDICAL HISTORY OF Tarsal tunnel - Psoriatic arthritis (HCC) PAST SURGICAL HISTORY Procedure Laterality Date - COLONOSCOP W/ OR W/O [facility] SPEC Colonoscopy - COLONOSCOP W/ OR W/O [facility] SPEC 03/15/13 Colonoscopy [facility] Dr. Borden - EGD W/O OR W/BRUSH/WASH [...] Abs Lymph 1.00 - 4.00 k/uL 3.60 [place]% % 7.1 Abs [place] 0.00 - 0.86 k/uL 0.51 Eosin% % [...] CRP <0.9 mg/dL 0.4 Component Latest Ref Rn 08/18/2015 WBC 3.70 - 11.00 k/uL 10.86 [...] etiology of each individual nodule is nonspecific. Chief Cook: BILLY ? Transcribe Date/Time: Dec 21 2016 11:42A Dictated by : LASHAE MCCALL MD ASSESSMENT: Ms. Odonnell is a 42 year old woman came [...] Rx. continue current Rx. Plan: CBC Wilfredo Robles MD December 27, 2017 Referring Provider: SELF [...] [E66.8] Vitamin D deficiency [E55.9] Order(s):HGB A1C [QKLQG1O] Order #: [id number] FUTURE TSH BLD [SQTSH] Order #: [id number] FUTURE T4 FREE/FREE THYROX [SQFT4] Order #: [id number] FUTURE CBC [SQCBC] Order #: [id number] FUTURE US THYROID/PARATHYROID [[id number]] Order #: [id number] FUTURE Prescriptions as of 12/27/2017 Sig: LORATADINE [...] Disposition History Recorded Encounter Status:Closed by WILFREDO ROBLES MD on 12/27/17 CNCO Observed: 12/15/2017 Status: COMPLETED Source: TUCKER 12:00 AM [facility] REPOSITORY Letter Text [facility] Louie 12/15/2017 Dear Ms. Odonnell, Due to a change in Kasia Walden CNP's schedule, your appointment on 01/06/2018 at 9:40am has been cancelled. We apologize for any inconvenience this may cause; please feel free to contact the office through [employer] or by phone at [phone] to reschedule this appointment. Sincerely, Your Care Team PROGRESS Observed: 11/21/2017 Status: COMPLETED Source: ELGIN 2:40 PM [facility] REPOSITORY HNO ID: [id number] Author: Joie Hidalgo Ct Service: (none) Author Type: (none) Type: Progress Notes Filed: 11/21/2017 2:40 PM Note Text: Radiology Service Progress Note PATIENT NAME: Mony Odonnell DATE OF SERVICE: November 21, 2017 TIME: 2:40 PM PATIENT IDENTITY VERIFICATION COMPLETED USING TWO (2) METHODS: Patient confirmed name verbally and Date of . PATIENT GENDER DATA: Female. status: : No status: NO. PATIENT RELEVANT IMPLANT DATA REVIEWED: Not Applicable RADIOLOGY DEPARTMENT: CT; Exam(s) Completed: Abdomen PERIPHERAL IV DATA: Not applicable SIGNED BY: Joie Hidalgo Ct November 21, 2017 2:[address] ABDOMEN WO IVCON Observed: 11/21/2017 Status: F Source: ELGIN 2:38 PM [facility] REPOSITORY * * *Final Report* * * DATE OF EXAM: Nov 21 2017 2:38PM [facility] 0534 - CT ABDOMEN WO IVCON [...] right lower pole calculi No acute findings. Chief Cook: PSCB Transcribe Date/Time: Nov 23 2017 8:49A Dictated by : MARTHA COHEN MD This examination was interpreted and the report reviewed and electronically signed by: MARTHA COHEN MD on Nov 23 2017 8:52AM EST [id number] PROGRESS Observed: 11/08/2017 Status: COMPLETED Source: ELGIN 4:01 PM [facility] REPOSITORY HNO ID: [id number] Author: Flaco Arriaza Service: (none) Author Type: Physician Type: Progress [...] 2 yr old. Son, Edie, graduate of [employer]. Daughter Karthik currently lives in a mcfp. (She had a follow-up appointment with sleep [...] spray as needed. Recommend that she take pfot-gkr-fviftwv pseudoephedrine as needed. Continue fluticasone nasal spray [...] course, CT sinus may be warranted. Flaco Arriaza MD PROGRESS Observed: 11/08/2017 Status: COMPLETED Source: ELGIN 11:43 AM [facility] REPOSITORY HNO ID: [id number] Author: Sandy Rashid RN Service: (none) Author Type: (none) Type: [...] WHO ARE A SMOKER OR HAVE ASTHMA. [facility] GUIDELINES PERSONS AGE 65 AND OLDER ARE TO RECEIVE A PNEUMOVAX AND ANYONE 18 YEARS AND OLDER WITH DIABETES ARE TO RECEIVE ONE DOSE. CNOV Observed: 11/08/2017 Status: COMPLETED Source: ELGIN 11:00 AM [facility] REPOSITORY Office Visit (ALLMED) MONY ODONNELL ([id number]) 1975 F [facility] Date Time Provider Department 11/08/17 11:00 AM FLACO ARRIAZA During your visit today, we recorded the following information about you: Pulse Blood pressure Weight 80/minute 102/67 104.3 kg Sandy Rashid RN 11/08/2017 11:06 AM Signed Patient here for asthma follow up. Reports asthma well controlled. Complaining sinus pressure, dryness of nose and sore throat. Has been suffering for past 2 months. Medications aren't helping. Sandy Rashid RN 11/09/2017 6:17 PM Signed CDC GUIDELINES [...] WHO ARE A SMOKER OR HAVE ASTHMA. [facility]RES GUIDELINES PERSONS AGE 65 AND OLDER ARE TO RECEIVE A PNEUMOVAX AND ANYONE 18 YEARS AND OLDER WITH DIABETES ARE TO RECEIVE ONE DOSE. Flaco Arriaza MD 11/09/2017 6:17 PM Signed This is [...] she had to change from Zyrtec-D to Zyrte for insurance reasons. Her asthma symptoms have [...] 2 yr old. Son, Edie, graduate of [employer]. Daughter Karthik currently lives in a mcfp. (She had a follow-up appointment with sleep medicine on 04/15/15.. Recommended that she continue to sleep on her side during . Will try to resume CPAP .) (S/p balloon procedure to open her sinuses by [facility] in 2012. No subsequent sinus infections. She previously received immunotherapy for several years through [facility].) REVIEW OF SYSTEMS:Negative for night sweats [...] spray as needed. Recommend that she take wlmg-dwz-wxmsjjz pseudoephedrine as needed. Continue fluticasone nasal spray [...] course, CT sinus may be warranted. Flaco Arriaza MD Referring Provider: FLACO ARRIAZA [[id number]] Allergies As of Date: 11/08/2017 Noted Allergy Reaction Environmental allergies [Other] 10/13/2006 Comments: Dogs, cats, and dust mites. Date Reviewed: 11/08/2017 Reviewed by: Flaco Arriaza - Fully Assessed Reason for Visit: Establish [...] 1 InhalerRfl: 11 ADMIN OF INFLUENZA VACCINE [[id number]] Order #: [id number]: 1 INFLUENZA VACCINE QUADRIVALENT AGE 3 YRS PLUS + IM [[id number]] Order #: [id number] PNEUMOCOCCAL IMMUNIZATION PPSV 23 [[id number]] Order #: [id number] Prescriptions as of 11/08/2017 Sig: CETIRIZINE 10 [...] [J30.89] INVALID FOR* Visit Notes: >> Sandy Rashid RN Tugloria Nov 08, 2017 11:03 AM Status: Signed [...] SCORE: -> 25 Encounter Status:Closed by FLACO ARRIAZA MD on 11/09/17 CBC Collected: 10/18/2017 Status: F Source: ELGIN 11:30 AM [facility] REPOSITORY TYPE CODE TESTS RESULT OUT [...] TSH, B12, EBVEA, EBVNA, HPYLRI, CMVMAB #### [facility] [address] [place], [place] [address] #### VITB6 #### [facility] [address] [place] [address] [phone] HEMOGLOBIN A1C Collected: 10/18/2017 Status: F Source: ELGIN 11:30 AM [facility] REPOSITORY TYPE CODE TESTS RESULT OUT OF REFERENCE UNITS RANGE LAB HGBA1C 4.3-5.6 % Hemoglobin A1c 5.4 LAB HBA0 mg/dL Est. Average Glucose 108 Result Comment: eAG: (Estimated average glucose) is a calculated value from HgbA1c and is traffic representative of the average blood glucose level in the last 2-3 month period. Performed By: #### CBC, HBA1C, CMP, LIPA, TSH, B12, EBVEA, EBVNA, HPYLRI, CMVMAB #### [facility] [address] [place], [place] [address] #### VITB6 #### [facility] [address] [place] [address] [phone] COMP METABOLIC PANEL Collected: 10/18/2017 Status: F Source: ELGIN 11:30 AM [facility] REPOSITORY TYPE CODE TESTS RESULT OUT OF REFERENCE UNITS RANGE LAB TP 6.3-8.0 g/dL Protein, Total 7.6 LAB ALB 3.9-4.9 g/dL Albumin 4.3 LAB CA 8.5-10.2 mg/dL Calcium, Total 9.3 LAB TBIL 0.2-1.3 mg/dL Bilirubin, Total 0.3 LAB ALKP 32-117 U/L Alkaline Phosphatase 73 LAB AST 13-35 U/L AST 19 LAB GLU 74-99 mg/dL Glucose 90 Result Comment: The [place] Diabetes Association (ADA) provides guidance for cutoff [...] Standards of Medical Care in Diabetes 2016, [place] Diabetes Association. Diabetes Care. 2016.39(Suppl 1). LAB [...] TSH, B12, EBVEA, EBVNA, HPYLRI, CMVMAB #### [place] [address] [place] [phone] #### VITB6 #### [facility] [address] [place] [address] [phone] LIPASE Collected: 10/18/2017 Status: F Source: ELGIN 11:30 AM [facility] REPOSITORY TYPE CODE TESTS RESULT OUT OF REFERENCE UNITS RANGE LAB LIPA 16-61 U/L Lipase 23 Performed By: #### CBC, HBA1C, CMP, LIPA, TSH, B12, EBVEA, EBVNA, HPYLRI, CMVMAB #### [place] [address] [place] [phone] #### VITB6 #### [facility] [address] [place] [address] [phone] TSH Collected: 10/18/2017 Status: F Source: ELGIN 11:30 AM [facility] REPOSITORY TYPE CODE TESTS RESULT OUT [...] Clinical Practice Guideline. J Clin Endocrinol Metab, 2012:97:0625-5463. 2. Kenny SANON. Overview of thyroid disease in . UpToDate. 2016. Accessed on July 25, 2015. Performed By: #### CBC, HBA1C, CMP, LIPA, TSH, B12, EBVEA, EBVNA, HPYLRI, CMVMAB #### [place] [address] [place] [address] #### VITB6 #### [address] [address] [phone] VITAMIN B12 Collected: 10/18/2017 Status: F Source: ELGIN 11:30 AM [facility] REPOSITORY TYPE CODE TESTS RESULT OUT OF REFERENCE UNITS RANGE LAB B12 232-1245 pg/mL Vitamin B12 441 Performed By: #### CBC, HBA1C, CMP, LIPA, TSH, B12, EBVEA, EBVNA, HPYLRI, CMVMAB #### [place] [address] [place] [address] #### VITB6 #### [address] [address] [phone] EBV EA ANTIBODY Collected: 10/18/2017 Status: F Source: ELGIN 11:30 [facility] REPOSITORY TYPE CODE TESTS RESULT OUT OF REFERENCE UNITS RANGE LAB EBVEAQ Negative EBV Negative EA Ab, Qual Result Comment: EBV EA-D IgG antibodies are not detectable. If the result is negative and exposure to Sara-Sanon virus is suspected, a second sample should [...] TSH, B12, EBVEA, EBVNA, HPYLRI, CMVMAB #### [place] [phone] #### VITB6 #### [address] [address] [phone] EBV NA ANTIBODY Collected: 10/18/2017 Status: F Source: ELGIN 11:30 AM [facility] REPOSITORY TYPE CODE TESTS RESULT OUT [...] TSH, B12, EBVEA, EBVNA, HPYLRI, CMVMAB #### [place] [phone] #### VITB6 #### [address] [address] [phone] HELICO PYLORI AB Collected: 10/18/2017 Status: F Source: ELGIN 11:30 [facility] REPOSITORY TYPE CODE TESTS RESULT OUT [...] TSH, B12, EBVEA, EBVNA, HPYLRI, CMVMAB #### [facility] [address] [place], [place] [address] #### VITB6 #### [facility] [address] [address] [phone] CMV IGM ANTIBODY Collected: 10/18/2017 Status: F Source: ELGIN 11:30 AM [facility] REPOSITORY TYPE CODE TESTS RESULT OUT [...] TSH, B12, EBVEA, EBVNA, HPYLRI, CMVMAB #### [place] [address] [place] [address] #### VITB6 #### [facility] [address] [address] [phone] VITAMIN B6 PLASMA Collected: 10/18/2017 Status: F Source: ELGIN 11:30 [facility] REPOSITORY TYPE CODE TESTS RESULT OUT OF REFERENCE UNITS RANGE LAB VITB6 20.0-125.0 nmol/L Vitamin B6 97.0 Plasma Result Comment: (NOTE) INTERPRETIVE INFORMATION: Vitamin B6 (Pyridoxal 5-Phosphate) Pyridoxal 5'-phosphate measured in a specimen collected following an 8-hour or overnight fast accurately indicates vitamin B6 nutritional status. Non-fasting specimen concentration reflects recent vitamin intake. Test developed and characteristics determined by [facility]. See Compliance Statement B: [employer] Performed by [facility], [address] [place] [address] [id number] [email or web address] Rohith Rhoades MD, Lab. Director Performed By: #### CBC, HBA1C, CMP, LIPA, TSH, B12, EBVEA, EBVNA, HPYLRI, CMVMAB #### [facility] [address] [place], [place] [address] #### VITB6 #### [facility] [address] [place] [address] [phone] PROGRESS Observed: 10/18/2017 Status: COMPLETED Source: ELGIN 11:17 AM [facility] [place] REPOSITORY HNO ID: [id number] Author: Reji Marrufo Service: (none) Author Type: Physician Type: Progress Notes Filed: 10/18/2017 12:35 PM Note Text: CC:Mony Odonnell is a 42 year old female who [...] floor with her daughter over the weekend. ?[place] pull in low back with radiation of [...] Varghese Neurologist - Multiple thyroid nodules Dr. Robles Field Care Manager - Obstructive sleep apnea on CPAP, Dr. Núñez - [facility] - PAST MEDICAL HISTORY OF Tarsal tunnel - Psoriatic arthritis (HCC) PAST SURGICAL HISTORY Procedure Laterality Date - COLONOSCOP W/ OR W/O [facility] SPEC Colonoscopy - COLONOSCOP W/ OR W/O [facility] SPEC 03/15/13 Colonoscopy [facility] Dr. Borden - EGD W/O OR W/BRUSH/WASH [...] TSH BLD - CMV IGM AB - SARA-SANON EA - SARA-SANON NUC AG 2. Nausea - ICD9: 787.02, ICD10: R11.0 - unsure of cause, labs as below, ? SE of Effexor if labs are normal - VITAMIN B12 BLOOD - HGB A1C - H PYLORI IGG AB - VITAMIN B6/PYRIDOXIN - LIPASE BLD - COMP METABOLIC PANEL - CBC - TSH BLD - CMV IGM AB - SARA-SANON EA - SARA-SANON NUC AG 3. Paresthesia of left foot - ICD9: 782.0, ICD10: R20.2 - unsure of cause, labs as below, ? SE of Effexor if labs are normal - VITAMIN B12 BLOOD - HGB A1C - VITAMIN B6/PYRIDOXIN - COMP METABOLIC PANEL - CBC - TSH BLD - CMV IGM AB - SARA-SANON EA - SARA-SANON NUC AG Reji Marrufo DO Return if no improvement. Follow up with Reji Marrufo DO. . Discussed risks, benefits, alternatives, and potential side effects of medications. Patient/Guardian expressed understanding and agreed with the plan. See patient instructions. Reji Marrufo DO [address] [place] [address] CNOV Observed: 10/18/2017 Status: COMPLETED Source: MOE 10:40 AM [facility] REPOSITORY Office Visit (FAMPWS) MONY ODONNELL ([id number]) 1975 [facility] Date Time Provider Department 10/18/17 10:40 AM REJI MARRUFO FAMAjitWS During your visit today, we recorded the following information about you: Temperature Pulse Respiration Blood pressure 98.5 degrees 80/minute 16/minute 116/74 Weight Last Period 103.9 kg 10/08/17 Reji Marrufo DO 10/18/2017 12:35 PM Signed CC:Mony Barahonapercy is a 42 year old female who [...] floor with her daughter over the weekend. ?[place] pull in low back with radiation of [...] Varghese Neurologist - Multiple thyroid nodules Dr. Robles Field Care Manager - Obstructive sleep apnea on CPAP, Dr. Núñez - [facility] - PAST MEDICAL HISTORY OF Tarsal tunnel - Psoriatic arthritis (HCC) PAST SURGICAL HISTORY Procedure Laterality Date - COLONOSCOP W/ OR W/O [facility] SPEC Colonoscopy - COLONOSCOP W/ OR W/O [facility] SPEC 03/15/13 Colonoscopy [facility] Dr. Borden - EGD W/O OR W/BRUSH/WASH [...] TSH BLD - CMV IGM AB - SARA-SANON EA - SARA-SANON NUC AG 2. Nausea - ICD9: 787.02, ICD10: R11.0 - unsure of cause, labs as below, ? SE of Effexor if labs are normal - VITAMIN B12 BLOOD - HGB A1C - H PYLORI IGG AB - VITAMIN B6/PYRIDOXIN - LIPASE BLD - COMP METABOLIC PANEL - CBC - TSH BLD - CMV IGM AB - SARA-SANON EA - SARA-SANON NUC AG 3. Paresthesia of left foot - ICD9: 782.0, ICD10: R20.2 - unsure of cause, labs as below, ? SE of Effexor if labs are normal - VITAMIN B12 BLOOD - HGB A1C - VITAMIN B6/PYRIDOXIN - COMP METABOLIC PANEL - CBC - TSH BLD - CMV IGM AB - SARA-SANON EA - SARA-SANON NUC AG Reji Marrufo DO Return if no improvement. Follow up with Reji Marrufo DO. . Discussed risks, benefits, alternatives, and potential side effects of medications. Patient/Guardian expressed understanding and agreed with the plan. See patient instructions. Reji Marrufo DO [address] [place] [address] Referring Provider: REJI MARRUFO [[id number]] Allergies As of Date: 10/18/2017 Noted Allergy [...] 5 VITAMIN B12 BLOOD [SQB12] Order #: [id number] FUTURE HGB A1C [STQWN1B] Order #: [id number] FUTURE H PYLORI IGG AB [SQHPYLRI] Order #: [id number] FUTURE VITAMIN B6/PYRIDOXIN [SQVITB6] Order #: [id number] FUTURE LIPASE BLD [SQLIPA] Order #: [id number] FUTURE COMP METABOLIC PANEL [SQCMP] Order #: [id number] FUTURE CBC [SQCBC] Order #: [id number] FUTURE TSH BLD [SQTSH] Order #: [id number] FUTURE CMV IGM AB [SQCMVMAB] Order #: [id number] FUTURE SARA-SANON EA [SQEBVEA] Order #: [id number] FUTURE SARA-SANON NUC AG [SQEBVNA] Order #: [id number] FUTURE Prescriptions as of 10/18/2017 Sig: VENLAFAXINE [...] not on file. Encounter Status:Closed by REJI MARRUFO DO on 10/18/17 PROGRESS Observed: 10/06/2017 Status: COMPLETED Source: EL[place] 1:24 PM [facility] [place] REPOSITORY O ID: [id number] Author: Kasia (Karen Walden Service: (none) Author [...] reviewed with patient. Per discussion with Dr. Shelton, if scalp irritation is not improved, may [...] 3 months and as needed. Kasia Walden APRN.[employer] Chief Complaint: Patient presents with: Full Body Skin Check Subjective and Objective HPI: Mony Odonnell is a 42 year old female who [...] (irritable bowel syndrome) - Migraine headache Dr. Vagrhese Neurologist - Multiple thyroid nodules Dr. Robles Field Care Manager - Obstructive sleep apnea on CPAP, Dr. Núñez - [facility] - PAST MEDICAL HISTORY OF Tarsal [...] Walden APRN.CNP. October 06, 2017 1:31 PM PAM CastrejonOV Observed: 10/06/2017 Status: COMPLETED Source: ELGIN 1:20 PM [facility] REPOSITORY Office Visit (DERMST) MONY ODONNELL ([id number]) 1975 [facility] Date Time Provider Department 10/06/17 1:20 PM [...] reviewed with patient. Per discussion with Dr. Shelton, if scalp irritation is not improved, may [...] 3 months and as needed. Kasia Walden APRN.[employer] Chief Complaint: Patient presents with: Full Body Skin Check Subjective and Objective HPI: Mony Odonnell is a 42 year old female who [...] Varghese Neurologist - Multiple thyroid nodules Dr. Robles Field Care Manager - Obstructive sleep apnea on CPAP, Dr. Núñez - [facility] - PAST MEDICAL HISTORY OF Tarsal [...] October 06, 2017 1:31 PM Kasia Walden APRN.JULIOCESAR Walden APRN.CNP 10/06/2017 1:55 PM Addendum Q: How do I obtain a follow-up appointment in 6 months with the dermatology team at the [facility]? A: About 3 months prior to your desired appointment time, please contact our appointment center to request an appointment with the [facility]. You can either: ? Call the central appointment number, ? Request an appointment online at: [email or web address] ? Use your [employer] appointment request function All of the clinical staff at [facility] work together as a closely-knit team to [...] months with the dermatology team at the [facility]? A: About 3 months prior to your desired appointment time, please contact our appointment center to request an appointment with the [facility]. You can either: ? Call the central appointment number, ? Request an appointment online at: [email or web address] ? Use your [employer] appointment request function All of the clinical staff at [facility] work together as a closely-knit team to [...] QUANTITATIVE BL Collected: 09/22/2017 Status: F Source: ELGIN 8:45 AM [facility] [place] REPOSITORY TYPE CODE TESTS RESULT OUT OF REFERENCE UNITS RANGE LAB HCGQT <5.0 mU/mL HCG, Quantitative Bl <0.1 Result Comment: NEGATIVE Performed By: #### HCGQT #### [facility] [address] [place], [place] [address] PROGRESS Observed: 08/26/2017 Status: COMPLETED Source: ELGIN 10:08 AM [facility] REPOSITORY HNO ID: [id number] Author: Dorie Colon) [place] Service: (none) Author Type: Physician Type: Progress Notes Filed: 08/26/2017 10:37 AM Note Text: Department of Dermatology Dorie Shelton MD 08/26/2017 Last visit in Dermatology: 08/26/2016 [...] as noted below or as needed. Dorie Shelton MD This note is completed at 10:34 AM on 08/26/2017 and reflects the services provided at the time of the appointment. I agree with the Chief Complaint, ROS, and Past Histories independently gathered by the clinical intranet support and the remaining scribed note accurately describes my personal service to the patient. E-visit Recommended Follow Up: Follow up eVisit not offered. Patient not appropriate for eVisit based on diagnosis. I have seen and examined Ms. Odonnell. I have discussed the case and the management of this patient's care with the Resident. I also have reviewed and agree with the assessment and plan as stated above and agree with all of its relevant components. There were no procedures performed during this patient's visit. Dorie Shelton MD Chief Complaint: Patient presents with: Psoriasis: Scalp pretty well controlled with topicals , needs refills - has some itchy red bumps on upper extremities Subjective and Objective HPI: Mony Odonnell is a 42 year old female who [...] Varghese Neurologist - Multiple thyroid nodules Dr. Robles Field Care Manager - Obstructive sleep apnea on CPAP, Dr. Núñez - [facility] - PAST MEDICAL HISTORY OF Tarsal [...] by Shira Kang LPN Attending signature: Dorie Shelton MD CNOV Observed: 08/26/2017 Status: COMPLETED Source: [place] 10:05 AM [facility] REPOSITORY Office Visit (DERMST) MONY ODONNELL ([id number]) 1975 [address] [facility] Date Time Provider Department 08/26/17 10:05 AM DORIE SHELTON) DERMST During your visit today, we recorded the following information about you: Dorie Shelton MD 08/26/2017 10:37 AM Signed Department of Dermatology Dorie Shelton MD 08/26/2017 Last visit in Dermatology: 08/26/2016 [...] as noted below or as needed. Dorie Shelton MD This note is completed at 10:34 AM on 08/26/2017 and reflects the services provided at the time of the appointment. I agree with the Chief Complaint, ROS, and Past Histories independently gathered by the clinical intranet support and the remaining scribed note accurately describes my personal service to the patient. E-visit Recommended Follow Up: Follow up eVisit not offered. Patient not appropriate for eVisit based on diagnosis. I have seen and examined Ms. Odonnell. I have discussed the case and the management of this patient's care with the Resident. I also have reviewed and agree with the assessment and plan as stated above and agree with all of its relevant components. There were no procedures performed during this patient's visit. Dorie Shelton MD Chief Complaint: Patient presents with: Psoriasis: Scalp pretty well controlled with topicals , needs refills - has some itchy red bumps on upper extremities Subjective and Objective HPI: Mony Odonnell is a 42 year old female who [...] Varghese Neurologist - Multiple thyroid nodules Dr. Robles Field Care Manager - Obstructive sleep apnea on CPAP, Dr. Núñez - [facility] - PAST MEDICAL HISTORY OF Tarsal [...] by Shira Kang LPN Attending signature: Dorie Shelton MD Referring Provider: SELF [[id number]] Allergies As [...] Disposition History Recorded Encounter Status:Closed by DORIE SHELTON MD on 08/26/17 URINALYSIS WITH Collected: 07/25/2017 Status: F Source: [facility] 9:29 AM [facility] REPOSITORY TYPE CODE TESTS RESULT OUT OF RANGE REFERENCE UNITS LAB UCOL Yellow Color Yellow LAB [facility] Clear Clarity Abnormal Cloudy Alert LAB UGLUC Negative mg/dL Glucose, Urine Negative LAB UBIL Negative Bilirubin, Urine Negative LAB UKET Negative Ketones, Urine Negative LAB USPG 1.005-1.030 Specific [place], Ur 1.023 LAB UHGB Negative Hemoglobin/Blood, Negative [...] Epithelial Cells Performed By: #### UAWMIC #### [facility] [address] [address] Observed: 07/25/2017 Status: F Source: [place] URINE CULTURE 9:29 AM [facility] REPOSITORY Sp. Request/Comment: - Specimen received in preservative Culture Result - 10,000 - <50,000 CFU/ml Normal urogenital radha Performed By: #### URCUL #### [facility] [address] [place], [place] [address] Observed: 07/15/2017 Status: F Source: [place] URINE CULTURE 12:25 PM [facility] REPOSITORY Sp. Request/Comment: - Specimen received in preservative Culture Result - 10,000 - <50,000 CFU/ml Normal urogenital radha Performed By: #### URCUL #### [facility] [address] [place], [place] [address] PROGRESS Observed: 07/15/2017 Status: COMPLETED Source: [place] 12:18 PM [facility] REPOSITORY HNO ID: [id number] Author: Reji Marrufo Service: (none) Author Type: Physician Type: Progress Notes Filed: 07/16/2017 8:52 AM Note Text: CC: Mony Odonnell is a 42 year old female who [...] floor with her daughter over the weekend. ?[place] pull in low back with radiation of [...] Varghese Neurologist - Multiple thyroid nodules Dr. Robles Field Care Manager - Obstructive sleep apnea on CPAP, Dr. Núñez - [facility] - PAST MEDICAL HISTORY OF Tarsal tunnel - Psoriatic arthritis (HCC) PAST SURGICAL HISTORY Procedure Laterality Date - COLONOSCOP W/ OR W/O BRS SPEC Colonoscopy - COLONOSCOP W/ OR W/O BRSH SPEC 03/15/13 Colonoscopy [facility] Dr. Borden - EGD W/O OR W/BRUSH/WASH [...] (no units) Date Value 07/15/2017 Negative Specific [place], Ur (no units) Date Value 07/15/2017 1.015 [...] URINE CULTURE - LEVOFLOXACIN 750 MG TABLET Rjei Marrufo DO Return if no improvement. Follow up with Reji Marrufo DO. Discussed risks, benefits, alternatives, and potential side effects of medications. Patient/Guardian expressed understanding and agreed with the plan. See patient instructions. Reji Marrufo DO [address] [place] [address] CNOV Observed: 07/15/2017 Status: COMPLETED Source: [place] 12:00 PM [facility] REPOSITORY Office Visit (FAMPWS) MONY ODONNELL ([id number]) 1975 [facility] Date Time Provider Department 07/15/17 12:00 PM REJI MARRUFO FAMAjitWS During your visit today, we recorded the following information about you: Temperature Pulse Respiration Blood pressure 98.5 degrees 88/minute 16/minute 110/70 Weight 106.6 kg Reji Marrufo DO 07/16/2017 8:52 AM Signed CC: Mony Boone Vicente is a 42 year old female who [...] floor with her daughter over the weekend. ?[place] pull in low back with radiation of [...] Varghese Neurologist - Multiple thyroid nodules Dr. Robles Field Care Manager - Obstructive sleep apnea on CPAP, Dr. Núñez - [facility] - PAST MEDICAL HISTORY OF Tarsal tunnel - Psoriatic arthritis (HCC) PAST SURGICAL HISTORY Procedure Laterality Date - COLONOSCOP W/ OR W/O [facility] SPEC Colonoscopy - COLONOSCOP W/ OR W/O BRS SPEC 03/15/13 Colonoscopy [facility] Dr. Borden - EGD W/O OR W/BRUSH/WASH [...] (no units) Date Value 07/15/2017 Negative Specific [place], Ur (no units) Date Value 07/15/2017 1.015 [...] URINE CULTURE - LEVOFLOXACIN 750 MG TABLET Reij Marrufo DO Return if no improvement. Follow up with Reji Marrufo DO. Discussed risks, benefits, alternatives, and potential side effects of medications. Patient/Guardian expressed understanding and agreed with the plan. See patient instructions. Reji Marrufo DO [address] [place] [address] Referring Provider: REJI MARRUFO [[id number]] Allergies As of Date: 07/15/2017 Noted Allergy Reaction Environmental allergies [Other] 10/13/2006 Comments: Dogs, cats, and dust mites. Date Reviewed: 07/15/2017 Reviewed by: Ariana Rodger-Green STRATEGIC MARKETING SPECIALIST - Fully Assessed Reason for Visit: Follow Up [171] Cmt: 3 months Primary Visit Diagnosis:Anxiety disorder, unspecified type [F41.9] Other Visit Diagnoses:Dysuria [R30.0] Recurrent UTI (urinary tract infection) [N39.0] Order(s):UA DIP B/O [4632654] Order #: [id number] URINE CULTURE [SQURCUL] Order #: [id number]. #:[id number] levoFLOXacin (LEVAQUIN) 750 mg tabletTake 1 tablet [...] not on file. Encounter Status:Closed by REJI MARRUFO DO on 07/16/17 URINALYSIS WITH Collected: 07/05/2017 Status: F Source: [place] MICROSCOPIC 12:55 PM [facility] REPOSITORY TYPE CODE TESTS RESULT OUT OF RANGE REFERENCE UNITS LAB UCOL Yellow Color Yellow LAB [facility] Clear Clarity Abnormal Cloudy Alert LAB UGLUC Negative mg/dL Glucose, Urine Negative LAB UBIL Negative Bilirubin, Urine Negative LAB UKET Negative Ketones, Urine Negative LAB USPG 1.005-1.030 Specific [place], Ur 1.012 LAB UHGB Negative Hemoglobin/Blood, Negative [...] Epithelial Cells Performed By: #### UAWMIC #### [facility] [address] [place], [place] [address] Observed: 07/05/2017 Status: F Source: [place] URINE CULTURE 12:54 PM [facility] REPOSITORY Sp. Request/Comment: - Specimen received [...] 2 F Performed By: #### URCUL #### [facility] [address] [place] [id number] CBC AND DIFFERENTIAL Collected: 07/05/2017 Status: F Source: [place] 11:59 AM [facility] REPOSITORY TYPE CODE TESTS RESULT OUT [...] Abs High Lymph 4.28 LAB AMONO % [place]% 4.9 LAB AAMONO <0.87 k/uL Abs [place] 0.62 LAB AEOS % Eosin% 1.9 LAB AAEOS <0.46 k/uL Abs Eosin 0.24 LAB ABASO % Baso% 0.8 LAB AABASO <0.11 k/uL Abs Baso 0.10 LAB AUNRBC 0 /100 WBC NRBCs 0.0 LAB ABNRBC <0.01 k/uL Absolute nRBC <0.01 LAB DTYP DTYPE Auto Diff Performed By: #### CBCDIF, CMP, FT4, T3, TSH, VITD #### [facility] [address] [place], [place] [address] COMP METABOLIC PANEL Collected: 07/05/2017 Status: F Source: [place] 11:59 [facility] REPOSITORY TYPE CODE TESTS RESULT OUT OF REFERENCE UNITS RANGE LAB TP 6.3-8.0 g/dL Protein, Total 7.7 LAB ALB 3.9-4.9 g/dL Albumin 4.3 LAB CA 8.5-10.2 mg/dL Calcium, Total 8.9 LAB TBIL 0.2-1.3 mg/dL Bilirubin, Total 0.3 LAB ALKP 32-117 U/L Alkaline Phosphatase 70 LAB AST 13-35 U/L AST 14 LAB GLU 74-99 mg/dL Glucose 81 Result Comment: The [place] Diabetes Association (ADA) provides guidance for cutoff [...] Standards of Medical Care in Diabetes 2016, [place] Diabetes Association. Diabetes Care. 2016.39(Suppl 1). LAB [...] CBCDIF, CMP, FT4, T3, TSH, VITD #### [facility] [address] [place], [place] [address] FREE T4 Collected: 07/05/2017 Status: F Source: [place] 11:59 AM [facility] REPOSITORY TYPE CODE TESTS RESULT OUT OF RANGE REFERENCE UNITS LAB FT4 0.9-1.7 ng/dL Free T4 1.1 Performed By: #### CBCDIF, CMP, FT4, T3, TSH, VITD #### [facility] [address] [id number] T3 Collected: 07/05/2017 Status: F Source: [facility] 11:[address] [facility] REPOSITORY TYPE CODE TESTS RESULT OUT OF RANGE REFERENCE UNITS LAB T3 79-165 ng/dL T3 119 Performed By: #### CBCDIF, CMP, FT4, T3, TSH, VITD #### [facility] [address] [place], [place] [address] TSH Collected: 07/05/2017 Status: F Source: [place] 11:59 AM [facility] REPOSITORY TYPE CODE TESTS RESULT OUT [...] Clinical Practice Guideline. J Clin Endocrinol Metab, 2012:97:8948-5555. 2. Kenny SANON. Overview of thyroid disease in . UpToDate. 2016. Accessed on July 25, 2015. Performed By: #### CBCDIF, CMP, FT4, T3, TSH, VITD #### [facility] [address] [address] VITAMIN D 25 HYDROXY Collected: 07/05/2017 Status: F Source: [place] 11:59 AM [facility] REPOSITORY TYPE CODE TESTS RESULT OUT OF REFERENCE UNITS RANGE LAB VITD 31.0-80.0 ng/mL Vitamin D 25 41.6 Hydroxy Result Comment: Classification of 25 [place] Vitamin D status: Insufficiency/Moderate Deficiency: < or = 30 ng/mL Sufficiency/Optimal Levels: 31 to 80 ng/mL Toxicity: > 100 ng/mL Test performed by chemiluminescent immunoassay. Performed By: #### CBCDIF, CMP, FT4, T3, TSH, VITD #### [facility] [address] [place], [place] [address] PROGRESS Observed: 07/05/2017 Status: COMPLETED Source: [place] 11:41 AM [facility] REPOSITORY HNO ID: [id number] Author: Cynthia May (Grain Blender) Lissette Service: (none) Author Type: Nurse Practitioner Type: Progress Notes Filed: 07/05/2017 11:52 AM Note Text: HPI/CC: Mony Odonnell is a 41 year old female who [...] intact, Normal gait and No involuntary motions. [place] Maneuver Results: negative ASSESSMENT/PLAN: 1. Dizziness [...] T4 FREE/FREE THYROX - f/u PRN Cynthia Mclaughlin APRN.CNP CNOV Observed: 07/05/2017 Status: COMPLETED Source: [place] 11:00 AM [facility] REPOSITORY Office Visit (FAMPWS) VICENTEMILESMONY Paolo ([id number]) 1975 [facility] Date Time Provider Department 07/05/17 11:00 AM CYNTHIA MCLAUGHLIN) FAMPWS During your visit today, we recorded the following information about you: Pulse Respiration Blood pressure Weight 88/minute 16/minute 116/88 105.7 kg Last Period 06/21/17 Cnythia Mclaughlin APRN.CNP 07/05/2017 11:52 AM Signed HPI/CC: Mony Odonnell is a 41 year old female who [...] T4 FREE/FREE THYROX - f/u PRN Cynthia L CornPAM anne LPN 07/05/2017 12:07 PM Signed Addended by: EDMAR JACOBSON LPN on: 07/05/2017 12:07 PM Modules accepted: Orders Cynthia Mclaughlin APRN.CNP 07/05/2017 12:08 PM Signed Addended by: CYNTHIA MCLAUGHLIN CNP on: 07/05/2017 12:08 PM Modules accepted: [...] Order(s):ECG COMPLETE W INTERPRETATION [ECG01] Order #: [id number] FUTURE UA DIP B/O [2346843] Order #: [id number] TSH BLD [SQTSH] Order #: [id number] FUTURE T3 BLD [SQT3] Order #: [id number] FUTURE T4 FREE/FREE THYROX [SQFT4] Order #: [id number] FUTURE HCG QUAL UR B/O [7588864] Order #: [id number] CBC + DIFF [SQCBCDIF] Order #: [id number] FUTURE COMP METABOLIC PANEL [SQCMP] Order #: [id number] FUTURE VITAMIN D 25 HYDROXY [SQVITD] Order #: [id number] FUTURE meclizine (ANTIVERT) 25 mg tabTake 1 tablet by mouth twice daily.Disp: 28 tabletRfl: 0 URINALYSIS WITH MICROSCOPIC [SQUAWMIC] Order #: [id number] URINE CULTURE [SQURCUL] Order #: [id number] FUTURE Prescriptions as of 07/05/2017 Sig: VENLAFAXINE [...] not on file. Encounter Status:Closed by CYNTHIA MCLAUGHLIN CNP on 07/05/17 CNCO Observed: 07/05/2017 Status: COMPLETED Source: [place] 12:00 AM [facility] REPOSITORY Letter Text Wilfredo Robles MD Department of Endocrinology [facility] [address] [place] [address], [address] [place] [address] Mony Odonnell July 05, 2017 Mony Odonnell [address] [place] [address] Dear Ms. Odonnell, Due to a change in your provider's schedule, it has become necessary to cancel the following appointment: Wilfredo Robles MD Date: 12/20/17 We apologize for any inconvenience to you however your provider would still like to see you. Please call us at [phone] to reschedule your appointment. Thank you. Sincerely, Appointment Staff PROGRESS Observed: 06/21/2017 Status: COMPLETED Source: [place] 9:41 AM [facility] [place] REPOSITORY HNO ID: [id number] Author: Flaco Arriaza Service: (none) Author Type: Physician Type: Progress Notes Filed: 06/22/2017 12:38 PM Note Text: CHIEF COMPLAINT: cough, ZHONG, R otalgia SAMISH: This is a 41 year-old white female [...] 23 months old. Son, Edie, graduate of [employer]. Daughter Karthik currently lives in a mcfp. (She had a follow-up appointment with sleep medicine on 04/15/15.. Recommended that she continue to sleep on her side during . Will try to resume CPAP .) (S/p balloon procedure to open her sinuses by [facility] in 2012. No subsequent sinus infections. She previously received immunotherapy for several years through [facility].) REVIEW OF SYSTEMS:Negative for night sweats [...] with patient. Follow-up in 2 months with [place] and Dulce Maria and as needed. Depending on clinical course, CT sinus may be warranted. Flaco Arriaza MD CNOV Observed: 06/21/2017 Status: COMPLETED Source: [place] 9:00 AM [facility] REPOSITORY Office Visit (LING) MONY ODONNELL ([id number]) 1975 [facility] Date Time Provider Department 06/21/17 9:00 AM FLACO ARRIAZA During your visit today, we recorded the following information about you: Temperature Pulse Blood pressure Weight 97.1 degrees 77/minute 99/61 106.6 kg Sandy Rashid RN 06/21/2017 9:00 AM Signed Patient here for asthma follow up. Reports illness past 2 weeks. Currently on antibiotics. Is not using Flovent daily due to misunderstanding of inhalers. afebrile. Flaco Arriaza MD 06/21/2017 9:37 AM Signed Use symbicort [...] use 2 puffs 15-20 minutes pre-exercise. Flaco Arriaza MD 06/22/2017 12:38 PM Signed CHIEF COMPLAINT: cough, ZHONG, R otalgia SAMISH: This is a 41 year-old white female [...] 23 months old. Son, Edie, graduate of [employer]. Daughter Karthik currently lives in a mcfp. (She had a follow-up appointment with sleep [...] course, CT sinus may be warranted. Flaco Arriaza MD Referring Provider: REJI MARRUFO [[id number]] Allergies As of Date: 06/21/2017 Noted Allergy Reaction Environmental allergies [Other] 10/13/2006 Comments: Dogs, cats, and dust mites. Date Reviewed: 06/21/2017 Reviewed by: Sandy Rashid RN - Fully Assessed Reason for Visit: [...] 11 SPIROMETRY - BASELINE AND POST DILATOR [[id number]] Order #: [id number] FUTURE NITRIC OXIDE, EXHALED [2746055] Order #: [id number] FUTURE cetirizine-pseudoephedrine (ZYRTEC-D) 5-120 mg per tabletTake [...] 15-20 minutes pre-exercise. Visit Notes: >> Sandy Rashid RN TueJune 21, 2017 8:57 AM Status: Signed Patient [...] Disposition History Recorded Encounter Status:Closed by FLACO ARRIAZA MD on 06/22/17 PROGRESS Observed: 06/15/2017 Status: COMPLETED Source: [place] 5:30 PM [facility] [place] REPOSITORY O ID: [id number] Author: Amanda Wilson (Juliocesar) Service: (none) Author Type: Nurse Practitioner Type: Progress Notes Filed: 06/15/2017 5:48 PM Note Text: Subjective HPI HPI Mony Odonnell is a 41 year old female who [...] Varghese Neurologist - Multiple thyroid nodules Dr. Robles Field Care Manager - Obstructive sleep apnea on CPAP, Dr. Núñez - [facility] - PAST MEDICAL HISTORY OF Tarsal tunnel - Psoriatic arthritis (HCC) PAST SURGICAL HISTORY Procedure Laterality Date - COLONOSCOP W/ OR W/O BRSH SPEC Colonoscopy - COLONOSCOP W/ OR W/O [facility] SPEC 03/15/13 Colonoscopy [facility] Dr. Borden - EGD W/O OR W/BRUSH/WASH [...] APRN.JULIOCESAR CNOV Observed: 06/15/2017 Status: COMPLETED Source: [place] 5:15 PM [facility] REPOSITORY Office Visit (WSTR) MONY ODONNELL ([id number]) 1975 F [facility] Date Time Provider Department 06/15/17 5:15 PM AMANDA WILSON (JULIOCESAR) [facility] During your visit today, we recorded the following information about you: Temperature Pulse Respiration Blood pressure 98.7 degrees 87/minute 20/minute 110/80 Weight 104.3 kg Amanda Wilson (Juliocesar) 06/15/2017 5:48 PM Signed Subjective HPI HPI Mony Odonnell is a 41 year old female who [...] Varghese Neurologist - Multiple thyroid nodules Dr. Robles Field Care Manager - Obstructive sleep apnea on CPAP, Dr. Núñez - [facility] - PAST MEDICAL HISTORY OF Tarsal tunnel - Psoriatic arthritis (HCC) PAST SURGICAL HISTORY Procedure Laterality Date - COLONOSCOP W/ OR W/O [facility] SPEC Colonoscopy - COLONOSCOP W/ OR W/O [facility] SPEC 03/15/13 Colonoscopy [facility] Dr. Borden - EGD W/O OR W/BRUSH/WASH [...] to treatment plan. Amanda Wilson APRN.Amanda Sneed ([facility]) 06/15/2017 5:44 PM Signed [facility] GENERAL [...] even if the symptoms go away. 2. Jyof-joh-wrbwzor pain medication may be taken or other [...] by coughs, sneezes, and direct contact, especially tcgi-yv-tyyi. A respiratory tract infection usually clears up [...] even if the symptoms go away. 2. Ursz-klu-jolxldc pain medication may be taken or other [...] by coughs, sneezes, and direct contact, especially gedc-uq-shbe. A respiratory tract infection usually clears up [...] 06/15/17 PROGRESS Observed: 05/31/2017 Status: COMPLETED Source: [place] 11:02 AM [facility] [place] REPOSITORY HNO ID: [id number] Author: Isabel Young Service: (none) Author Type: [...] Varghese Neurologist - Multiple thyroid nodules Dr. Robles Field Care Manager - Obstructive sleep apnea on CPAP, Dr. Núñez - [facility] - PAST MEDICAL HISTORY OF Tarsal tunnel - Psoriatic arthritis (HCC) PAST SURGICAL HISTORY Procedure Laterality Date - COLONOSCOP W/ OR W/O [facility] SPEC Colonoscopy - COLONOSCOP W/ OR W/O [facility] SPEC 03/15/13 Colonoscopy [facility] Dr. Borden - EGD W/O OR W/BRUSH/WASH [...] MG TABLET,EXTENDED RELEASE,12HR Instructed to f/u with Carpet Floor Layer Apprentice if sx persist. Pt verbalizes understanding. The patient is instructed to return or seek emergency treatment if symptoms become worse or with any acute change in condition. The patient verbalizes understanding and is in agreement with plan of care. Isabel Young CNP PROGRESS Observed: 05/31/2017 Status: COMPLETED Source: [place] 10:06 AM [facility] [place] REPOSITORY O ID: [id number] Author: Pau Love (Rt) Marty Virk Service: (none) Author Type: Pool Installer Type: Progress Notes Filed: 05/31/2017 10:07 AM Note Text: Radiology Service Progress Note PATIENT NAME: Mony Odonnell DATE OF SERVICE: May 31, 2017 TIME: [...] 2V FRONTAL/LAT Observed: 05/31/2017 Status: F Source: [place] 10:00 AM [facility] REPOSITORY * * *Final Report* * [...] No significant change. IMPRESSION: No acute abnormality. Chief Cook: PSCB Transcribe Date/Time: May 31 2017 10:11A Dictated by : JAIME STACY MD This examination was interpreted and the report reviewed and electronically signed by: JAIME STACY MD on May 31 2017 10:11AM EST [id number] Observed: 05/31/2017 Status: COMPLETED Source: [place] 9:54 AM [facility] REPOSITORY HNO ID: [id number] Author: Pau Love (Rt) Marty Virk Service: (none) Author Type: Pool Installer Type: Progress Notes Filed: 05/31/2017 10:01 AM Note Text: Radiology Service Progress Note PATIENT NAME: Mony Odonnell DATE OF SERVICE: May 31, 2017 TIME: [...] AM CNOV Observed: 05/31/2017 Status: COMPLETED Source: [place] 9:15 AM [facility] REPOSITORY Office Visit (WSTR) MONY ODONNELL ([id number]) 1975 F [facility] Date Time Provider Department 05/31/17 9:15 AM ISABEL YOUNG [facility] During your visit today, we recorded the following information about you: Temperature Pulse Respiration Blood pressure 99.2 degrees 87/minute 18/minute 116/68 Weight 104.3 kg Isabel Young APRN.BATCH DUMPER 05/31/2017 11:08 AM Signed Subjective HPI Pt [...] Varghese Neurologist - Multiple thyroid nodules Dr. Robles Field Care Manager - Obstructive sleep apnea on CPAP, Dr. Núñez - [facility] - PAST MEDICAL HISTORY OF Tarsal tunnel - Psoriatic arthritis (HCC) PAST SURGICAL HISTORY Procedure Laterality Date - COLONOSCOP W/ OR W/O [facility] SPEC Colonoscopy - COLONOSCOP W/ OR W/O [facility] SPEC 03/15/13 Colonoscopy [facility] Dr. Borden - EGD W/O OR W/BRUSH/WASH [...] MG TABLET,EXTENDED RELEASE,12HR Instructed to f/u with Carpet Floor Layer Apprentice if sx persist. Pt verbalizes understanding. The patient is instructed to return or seek emergency treatment if symptoms become worse or with any acute change in condition. The patient verbalizes understanding and is in agreement with plan of care. Isabel Young CNP Referring Provider: SELF [200] Allergies As of [...] unspecified trigger [J30.9] Order(s):XR CHEST 2V FRONTAL/LAT [[id number]] Order #: [id number] FUTURE cetirizine-pseudoephedrine (ZYRTEC-D) 5-120 mg per tabletTake [...] SODIUM 100 MG CAPSULE >> Colleen Abebe STRATEGIC MARKETING SPECIALIST 05/31/2017 9:30 AM >> COLLEEN ABEBE LPN [...] 05/31/17 PROGRESS Observed: 05/19/2017 Status: COMPLETED Source: [place] 11:06 AM [facility] REPOSITORY HNO ID: [id number] Author: Cynthia May (Juliocesar) Lissette Service: (none) Author Type: Nurse Practitioner Type: Progress Notes Filed: 05/19/2017 11:17 AM Note Text: This note was created using FTAPI Softwareter. Subjective Patient is a 41 year old female presenting with cough. The history is provided by the patient. No english as a second language teacher was used. Cough This is a [...] 875 MG-POTASSIUM CLAVULANATE 125 MG TABLET- nursing [facility] Cynthia Mclaughlin APRN.CNP CNOV Observed: 05/19/2017 Status: COMPLETED Source: [place] 11:00 AM [facility] REPOSITORY Office Visit (FAMPWS) MONY ODONNELL ([id number]) 1975 [facility] Date Time Provider Department 05/19/17 11:00 AM CYNTHIA MCLAUGHLIN (JULIOCESAR) SADIA During your visit today, we recorded the following information about you: Temperature Pulse Respiration Blood pressure 99 degrees 88/minute 16/minute 116/82 Weight 106.1 kg Cynthia Mclaughlin APRN.CNP 05/19/2017 11:17 AM Signed This note was created using [employer]. Subjective Patient is a 41 year old female presenting with cough. The history is provided by the patient. No english as a second language teacher was used. Cough This is a [...] CLAVULANATE 125 MG TABLET- nursing mom Cynthia Mclaughlin APRN.BATCH DUMPER Referring Provider: REJI MARRUFO [[id number]] Allergies As of Date: 05/19/2017 Noted Allergy Reaction Environmental allergies [Other] 10/13/2006 Comments: Dogs, cats, and dust mites. Date Reviewed: 05/19/2017 Reviewed by: Cynthia May (Grain Blender) Lissette - Fully Assessed Reason for Visit: [...] not on file. Encounter Status:Closed by CYNTHIA MCLAUGHLIN CNP on 05/19/17 Observed: 04/13/2017 Status: F Source: [place] URINE CULTURE 12:30 PM [facility] REPOSITORY Sp. Request/Comment: - Specimen received in preservative Culture Result - <10,000 CFU/ml Streptococcus agalactiae (Group B streptococcus) --> ABNORMAL ALERT 10,000 - <50,000 CFU/ml Normal urogenital radha Performed By: #### URCUL #### [facility] [address] [place] [address] PROGRESS Observed: 04/13/2017 Status: COMPLETED Source: [place] 12:21 PM [facility] REPOSITORY HNO ID: [id number] Author: Reji Marrufo Service: (none) Author Type: Physician Type: Progress Notes Filed: 04/13/2017 12:47 PM Note Text: CC: Mony Odonnell is a 41 year old female who [...] floor with her daughter over the weekend. ?[place] pull in low back with radiation of [...] Varghese Neurologist - Multiple thyroid nodules Dr. Robles Field Care Manager - Obstructive sleep apnea on CPAP, Dr. Núñez - [facility] - PAST MEDICAL HISTORY OF Tarsal tunnel - Psoriatic arthritis (HCC) PAST SURGICAL HISTORY Procedure Laterality Date - COLONOSCOP W/ OR W/O [facility] SPEC Colonoscopy - COLONOSCOP W/ OR W/O [facility] SPEC 03/15/13 Colonoscopy [facility] Dr. Borden - EGD W/O OR W/BRUSH/WASH [...] was negative - HCG QUAL UR Reji Marrufo DO Urine dip shows: Glucose, Urine (mg/dL) Date Value 04/13/2017 Negative Bilirubin, Urine (no units) Date Value 04/13/2017 Negative Bilirubin, Urine (no units) Date Value 04/13/2017 Negative Ketones, Urine (no units) Date Value 04/13/2017 Negative Specific [place], Ur (no units) Date Value 04/13/2017 1.015 Hemoglobin/Blood,Ur (no units) Date Value 04/13/2017 Negative No results found for: PH Protein, Urine (mg/dL) Date Value 04/13/2017 Negative Urobilinogen, Urine (EU) Date Value 04/13/2017 Normal No components found for: NITR Leukocytes (no units) Date Value 04/13/2017 Negative Color/Appearance (comment:) Date Value 04/13/2017 yellow Return if no improvement. Follow up with Reji Marrufo DO. Discussed risks, benefits, alternatives, and potential side effects of medications. Patient/Guardian expressed understanding and agreed with the plan. See patient instructions. Reji Marrufo DO [address] [place] [address] YOUNG Observed: 04/13/2017 Status: COMPLETED Source: [place] 12:00 PM [facility] REPOSITORY Office Visit (FAMPWS) VICENTEMONY ([id number]) 1975 F [facility] Date Time Provider Department 04/13/17 12:00 PM REJI MARRUFO FAMPWS During your visit today, we recorded the following information about you: Temperature Pulse Respiration Blood pressure 99 degrees 80/minute 16/minute 120/80 Weight 104.8 kg Reji Marrufo DO 04/13/2017 12:47 PM Signed CC: Mony Boone Vicente is a 41 year old female who [...] floor with her daughter over the weekend. ?[place] pull in low back with radiation of [...] Varghese Neurologist - Multiple thyroid nodules Dr. Robles Field Care Manager - Obstructive sleep apnea on CPAP, Dr. Núñez - [facility] - PAST MEDICAL HISTORY OF Tarsal tunnel - Psoriatic arthritis (HCC) PAST SURGICAL HISTORY Procedure Laterality Date - COLONOSCOP W/ OR W/O [facility] SPEC Colonoscopy - COLONOSCOP W/ OR W/O [facility] SPEC 03/15/13 Colonoscopy [facility] Dr. Borden - EGD W/O OR W/BRUSH/WASH [...] was negative - HCG QUAL UR Reji Marrufo DO Urine dip shows: Glucose, Urine (mg/dL) Date Value 04/13/2017 Negative Bilirubin, Urine (no units) Date Value 04/13/2017 Negative Bilirubin, Urine (no units) Date Value 04/13/2017 Negative Ketones, Urine (no units) Date Value 04/13/2017 Negative Specific [place], Ur (no units) Date Value 04/13/2017 1.015 Hemoglobin/Blood,Ur (no units) Date Value 04/13/2017 Negative No results found for: PH Protein, Urine (mg/dL) Date Value 04/13/2017 Negative Urobilinogen, Urine (EU) Date Value 04/13/2017 Normal No components found for: NITR Leukocytes (no units) Date Value 04/13/2017 Negative Color/Appearance (comment:) Date Value 04/13/2017 yellow Return if no improvement. Follow up with Reji Marrufo DO. Discussed risks, benefits, alternatives, and potential side effects of medications. Patient/Guardian expressed understanding and agreed with the plan. See patient instructions. Reji Marrufo DO [address] [place] [address] Reji Marrufo DO 04/13/2017 12:30 PM Signed Take the Prozac 20 mg a day for 1 week then increase dose to 40 mg a day Referring Provider: REJI MARRUFO [[id number]] Allergies As of Date: 04/13/2017 Noted Allergy [...] daily.Disp: 30 capsuleRfl: 5 UA DIP B/O [[id number]] Order #: [id number] URINE CULTURE [SQURCUL] Order #: [id number] HCG QUAL UR B/O [[id number]] Order #: [id number] Prescriptions as of 04/13/2017 Sig: FLUTICASONE 50 [...] BUPROPION XL 150 MG TAB >> Reji L George, DO 04/13/2017 12:27 PM headaches, weight gain [...] not on file. Encounter Status:Closed by REJI MARRUFO DO on 04/13/17 PROGRESS Observed: 03/08/2017 Status: COMPLETED Source: [place] 1:32 PM [facility] [place] REPOSITORY [facility] ID: [id number] Author: Flaco Arriaza Service: (none) Author Type: Physician Type: Progress Notes Filed: 03/08/2017 5:41 PM Note Text: CHIEF COMPLAINT: allergy and asthma follow-up SAMISH: This is a 41 year-old white female [...] 20 months old. Son, Edie, graduate of [employer]. Daughter Karthik currently lives in a mcfp. (She had a follow-up appointment with sleep medicine on 04/15/15.. Recommended that she continue to sleep on her side during . Will try to resume CPAP .) (S/p balloon procedure to open her sinuses by [facility] in 2012. No subsequent sinus infections. She previously received immunotherapy for several years through [facility].) REVIEW OF SYSTEMS:Negative for night sweats [...] improvement in FEF 25-75% postbronchodilator. Otherwise normal. [place] on 03/26/2014: FVC is mildly impaired. Otherwise [...] in 1 yr and as needed Flaco Arriaza MD CNOV Observed: 03/08/2017 Status: COMPLETED Source: [place] 9:00 AM [facility] REPOSITORY Office Visit (LING) MONY ODONNELL ([id number]) 1975 F [facility] Date Time Provider Department 03/08/17 9:00 AM FLACO ARRIAZA During your visit today, we recorded the following information about you: Temperature Blood pressure Weight Height 97.1 degrees 122/74 104.3 kg 1.702 m Sandy Rashid RN 03/08/2017 9:33 AM Signed Patient here for follow up regarding asthma. Currently has right ear infection and sinus infection. Currently has nasal congestion. Asthma flares causing increased wheezing. Does not have albuterol and has not been using Flovent. Currently on second course of antibiotics. Low grade fevers. received flu vaccine this year. Flaco Arriaza MD 03/08/2017 5:41 PM Signed CHIEF COMPLAINT: allergy and asthma follow-up SAMISH: This is a 41 year-old white female [...] 20 months old. Son, Edie, graduate of [employer]. Daughter Karthik currently lives in a mcfp. (She had a follow-up appointment with sleep medicine on 04/15/15.. Recommended that she continue to sleep on her side during . Will try to resume CPAP .) (S/p balloon procedure to ANDquot;open her sinusesANDquot; by [facility] in 2012. No subsequent sinus infections. She previously received immunotherapy for several years through [facility].) REVIEW OF SYSTEMS:Negative for night sweats [...] in 1 yr and as needed Flaco Arriaza MD Referring Provider: SELF [[id number]] Allergies As of Date: 03/08/2017 Noted Allergy Reaction Environmental allergies [Other] 10/13/2006 Comments: Dogs, cats, and dust mites. Date Reviewed: 03/08/2017 Reviewed by: Sandy Rashid RN - Fully Assessed Reason for Visit: [...] encounter AZITHROMYCIN 250 MG TABLET >> Sandy Rashid RN 03/08/2017 9:25 AM >> SANDY RASHID RN e Mar 08, 2017 9:25 AM Received from: [...] [J30.89] INVALID FOR* Visit Notes: >> Sandy Rashid RN gloria Mar 08, 2017 9:27 AM [...] not on file. Encounter Status:Closed by FLACO ARRIAZA MD on 03/08/17 PROGRESS Observed: 03/06/2017 Status: COMPLETED Source: [place] 9:04 AM [facility] REPOSITORY HNO ID: [id number] Author: Juan Delaney Service: (none) Author Type: Physician Chip Frier Type: Progress Notes Filed: 03/06/2017 10:07 AM [...] Varghese Neurologist - Multiple thyroid nodules Dr. Robles Field Care Manager - Obstructive sleep apnea on CPAP, Dr. Núñez - [facility] - PAST MEDICAL HISTORY OF Tarsal [...] 03/06/2017 CNOV Observed: 03/06/2017 Status: COMPLETED Source: [place] 8:45 AM [facility] REPOSITORY Office Visit (WSTR) MONY ODONNELL ([id number]) 1975 F [facility] Date Time Provider Department 03/06/17 8:45 AM JUAN DELANEY) UCWSTR During your visit today, we recorded the [...] Varghese Neurologist - Multiple thyroid nodules Dr. Robles Field Care Manager - Obstructive sleep apnea on CPAP, Dr. Núñez - [facility] - PAST MEDICAL HISTORY OF Tarsal [...] - Fully Assessed Reason for Visit: Congested [[id number]] Primary Visit Diagnosis:Acute maxillary sinusitis, recurrence not [...] Status:Closed by JUAN DELANEY PA-C on 03/06/17 ALLERGIES ALLERGIES DATE TYPE / CODE NAME / CODE REACTION SEVERITY SOURCE 07/04/2015 Drug morphine/F0 Other Unknown [place] [facility]/[id number](S [id number](RX [facility] NOMED CT) NORM) Hospital Repository 10/13/2006 Miscellaneous OTHER [facility] Allergy/[id number](S Other [place] NOMED CT) Repository ENCOUNTERS ENCOUNTERS ADMIT/DISCHARGE ACCOUNT ADMITTING ENCOUNTER LOCATION SOURCE NUMBER CLASS 02/23/2018 [id number] Ambulatory [facility] ing:WOBLAB Repository 01/30/2018 [id number] Ambulatory [facility] Other [place] Repository 01/26/2018 [id number] Ambulatory [facility] ing:WOBLAB Repository 01/24/2018/01/26/20 [id number] Ambulatory [address] Main [place] Repository 01/10/2018/01/17/20 [id number] Ambulatory [address] Main [place] Repository 01/06/2018 [id number] Ambulatory [facility] ing:LABSPEC Repository 12/27/2017/12/28/19 [id number] Ambulatory [address] Main [place] Repository 12/27/2017/12/29/19 [id number] Ambulatory [address] Main [place] Repository 11/21/2017/11/22/19 [id number] Ambulatory [address] Main [place] Repository 11/21/2017/11/22/19 [id number] Ambulatory [address] Main [place] Repository 11/08/2017/11/09/19 [id number] Ambulatory [address] Main [place] Repository 11/08/2017/11/09/19 [id number] Ambulatory [address] Main [place] Repository 11/08/2017/11/15/19 [id number] Ambulatory [address] Main [place] Repository 10/18/2017/10/19/19 [id number] Ambulatory [place] [address] [facility] Main [place] Repository 10/18/2017/10/20/19 [id number] Ambulatory [place] [address] [facility] Main [place] Repository 10/06/2017/10/08/19 [id number] Ambulatory [place] [address] [facility] [place] Repository 09/22/2017/09/23/19 [id number] Ambulatory [facility] [place] Repository 08/26/2017/08/30/19 [id number] Ambulatory [address] Main [place] Repository 07/15/2017/07/19/19 [id number] Ambulatory [address] Main [place] Repository 07/05/2017 [id number] Ambulatory [facility] Main [place] Repository 07/05/2017 [id number] [facility] [place] Repository 07/05/2017/07/07/19 [id number] Ambulatory [address] Main [place] Repository 06/21/2017/06/22/19 [id number] Ambulatory [address] Main [place] Repository 06/15/2017/06/17/19 [id number] Ambulatory [address] [place] Repository 05/31/2017/06/01/19 [id number] Ambulatory [address] Main [place] Repository 05/31/2017/06/02/19 [id number] Ambulatory [address] Main [place] Repository 05/19/2017/05/21/19 [id number] Ambulatory [address] Main [place] Repository 04/13/2017/04/15/19 [id number] Ambulatory [address] Repository 03/08/2017/03/09/19 [id number] Ambulatory [address] Repository 03/06/2017/03/06/19 [id number] Ambulatory [address] Repository PAYERS PAYERS ENCOUNTER GUARANTOR PAYER SUBSCRIBER SOURCE 02/23/2018 Mony R [id number] Primary Mony R [place] Insurance:MOHIT [place]: [facility] [id number] Hospital [address]Dbx: (330) PLANPolicy Number: Repository [phone] () [id number] Date:[id number] [address] [place] [address] 09644CD: 02/23/2018 Secondary NOT GIVENUNK [place] Insurance:SELF PAY [facility] Number: Effective Repository Date:2018-02-23 01/26/2018 Mony R [id number] Primary Mony R [place] [facility] [id number] Hospital [id number]: (330) PLANPolicy Number: Repository [phone] () [id number] Date:4619-60-10DV [address] [place] [address] 51041JP: 01/26/2018 Secondary NOT GIVENUNK [place] Insurance:SELF PAY [facility] Number: Effective Repository Date:2018-01-26 01/06/2018 Mony R [id number] Primary Mony R [place] Insurance:MOHIT HenryOB: [facility] [id number] Hospital [address]Mgh: (330) PLANPolicy Number: Repository [phone] () [id number] Date:9015-65-40KK [address] [place] [address] 08388SZ: 01/06/2018 Secondary NOT GIVENASCENCION [place] Insurance:SELF PAY [facility] Number: Effective Repository Date:2018-01-06
== END ==
PROVIDERS: Visit Provider Obstetrics & Gynecology
DX: Z34.82 Encounter for supervision of other normal pregnancy, second trimester (principal)
CPT/HCPCS: 36415; 82306; 82950; 83036

== ENCOUNTER → 2018-03-06 07:03 | Outpatient (CLI) | payer MEDICAID, SELFPAY ==
[2018-03-06 08:47] LABS: Glucose GTT-Gestation. Fasting 92 mg/dL (<105)
[2018-03-06 09:55] LABS: Glucose GTT-Gestational 2 Hr 119 mg/dL (<165)
[2018-03-06 09:55] LABS: Glucose GTT-Gestational 1 Hr 159 mg/dL (<190)
[2018-03-06 11:35] LABS: Glucose GTT-Gestational 3 Hr 53 L (<145)
== END ==
PROVIDERS: Family Provider Student in an Organized Health Care Education/Training Program; PCP Student in an Organized Health Care Education/Training Program; Referring Provider Obstetrics & Gynecology; Visit Provider Obstetrics & Gynecology
DX: O24.912 Unspecified diabetes mellitus in pregnancy, second trimester (principal); Z3A.00 Weeks of gestation of pregnancy not specified
CPT/HCPCS: 36415; 82951; 82952

== ENCOUNTER → 2018-05-16 13:37 | Outpatient (CLI) | payer MEDICAID, SELFPAY ==
[2018-05-16 15:42] LABS: Hematocrit 33.9 % (37-47); Hemoglobin 11.2 g/dl (12.0-15.0); Mean Corpuscular Hgb 28.6 pg (27.0-32.0); Mean Corpuscular Volume 86.7 fL (81-99); Mean Platelet Vol. 10.6 fl (6.2-12.0); Platelet Count 321 K/mm3 (150-450); RBC Distribution Width CV 13.4 % (11.6-14.6); RBC Distribution Width SD 41.7 fl (35.1-43.9); Red Blood Count 3.91 M/mm3 (4.2-5.4); White Blood Count 12.3 K/mm3 (4.4-11.0)
[2018-05-16 15:46] LABS: Scan Indicated on CBC? Y/N NO
== END ==
LOC: LABSPEC 13:38 → WOBLAB 13:39
PROVIDERS: Visit Provider Obstetrics & Gynecology
DX: Z34.83 Encounter for supervision of other normal pregnancy, third trimester (principal)
CPT/HCPCS: 36415; 85027; 86850

== ENCOUNTER 2018-05-30 12:16 | Outpatient (CLI) | payer MEDICAID, SELFPAY ==
--- NOTE | 2018-05-30 12:12 | ED.RN ---
BLOOD PRESSURES >140/90 X3, [facility].
[2018-05-30 12:19] VITALS: BMI 39.0
[2018-05-30] MEDS: Dextrose 5%-Lactated Ringers 1,000 ML 999 ML IV (13:35)
[2018-05-30] MEDS: Ondansetron 4 MG/2 ML Vial IV (13:53)
[2018-05-30] MEDS: Clotrimazole 10 MG Troche MUCOUS MEM (13:53)
[2018-05-30 13:55] LABS: Absolute Lymphocyte Count 3.18 X10^3/ul (0.83-4.51); Absolute Neutrophil Count 8.2 X10^3/uL (2.0-7.7); Basophil# 0.02 X10^3/uL; Basophil% 0.2 % (0-1); Eosinophil# 0.25 X10^3/uL; Hematocrit 35.9 % (37-47); Hemoglobin 11.8 g/dl (12.0-15.0); Lymphocyte # 3.18 X10^3/ul (4.0); Lymphocyte % 25.5 % (19-41); Mean Corp Hgb Conc 32.9 g/gl (32-36); Mean Corpuscular Hgb 28.2 pg (27.0-32.0); Mean Corpuscular Volume 85.9 fL (81-99); Mean Platelet Vol. 10.6 fl (6.2-12.0); Monocyte# 0.72 X10^3/uL; Monocyte% 5.8 % (0-10); Neutrophil # 8.24 X10^3/uL (2.7-7.7); Neutrophil % 66.2 % (47-70); Platelet Count 330 K/mm3 (150-450); RBC Distribution Width CV 13.8 % (11.6-14.6); RBC Distribution Width SD 43.1 fl (35.1-43.9); Red Blood Count 4.18 M/mm3 (4.2-5.4); White Blood Count 12.5 K/mm3 (4.4-11.0)
[2018-05-30 14:05] LABS: POSITIVE COUNT NO; POSITIVE DIFFERENTIAL NO; POSITIVE MORPHOLOGY NO
[2018-05-30 14:17] LABS: ALB/GLOB Ratio 0.7 RATIO (0.9-2.4); AST(SGOT) 18 U/L (15-37); Alanine Aminotransfer ALT/SGPT 15 U/L (13-56); Albumin, Serum 2.9 g/dL (3.2-5.0); Alkaline Phosphatase 82 U/L (45-117); Anion Gap 8 (5-15); BUN 7 mg/dL (7-18); BUN/Creat Ratio 16.9 RATIO (10-20); Calcium,Total 8.2 mg/dL (8.5-10.1); Chloride 106 mmol/L (98-107); Creatinine, Serum 0.41 mg/dL (0.55-1.02); EST Glomerular Filtration Rate 179 mL/min (>60); Est Glom Filt Rate - Afr Amer 216 mL/min (>60); Estimated Creatinine Clearance 173.82 ml/min; Globulin 4.4 g/dL (2.2-4.2); Glucose 84 mg/dL (74-106); Potassium 3.8 mmol/L (3.5-5.1); Protein, Total 7.3 g/dL (6.4-8.2); Sodium Level 137 mmol/L (136-145)
--- NOTE | 2018-05-31 00:25 | OB.TRI.NOTE ---
History of Present Illness Date of Service: 05/30/18 Was patient seen by the physician?: No Reason For Visit: ELEVATED BP Date of Service: 05/30/18 Final SCOTTIE: 07/10/18 Gestational age: 34 Weeks and 1 Days History of Present Illness: 42 yo female with 1 d h/o N/V and unable to keep anything down. presented to [facility] with same CC. Refusing recommended RX for N/V as states it makes her sleepy. Advised Zofran would not have that as a side effect. Also C/O oral thrush. Arranged to go to IV infusion center at [facility] for IV fluids. Pt became angry in ofc as wanting to have RX for thrush and rather than state this raised her voice to nurse in [facility] . So after all arrangements made, phone calls made, and orders placed for her to go for IV hydration at [facility] she elected to go to the ED instead rather than having care as arranged. In ED, elevated BP. ED then sent to for evaluation and to r/o preeclampsia. IV fluid 1 liter D5LR then administered in Triage area with single dose of sunitha for oral thrush given. labs ordered to r/o PIH, preeclampsia. Allergies morphine Adverse Reaction (Verified 07/04/15 19:39) Other stomache pains Laboratory Studies: Laboratory Tests 05/30/18 05/30/18 Range/Units 13:35 13:35 WBC 12.5 H (4.4-11.0) K/mm3 RBC 4.18 L (4.2-5.4) M/mm3 Hgb 11.8 L (12.0-15.0) g/dl Hct 35.9 L (37-47) % MCV 85.9 (81-99) fL MCH 28.2 (27.0-32.0) pg MCHC 32.9 (32-36) g/gl RDW 13.8 (11.6-14.6) % RDW Differential 43.1 (35.1-43.9) fl Plt Count 330 (150-450) K/mm3 MPV 10.6 (6.2-12.0) fl Immature Gran % (Auto) 0.300 (0.0-0.9) % Neut % (Auto) 66.2 (47-70) % Lymph % (Auto) 25.5 (19-41) % [place] % (Auto) 5.8 (0-10) % Eos % (Auto) 2.0 (0-5) % Baso % (Auto) 0.2 (0-1) % Absolute Neuts (auto) 8.2 H (2.0-7.7) X10^3/uL Absolute Lymphs (auto) 3.18 (0.83-4.51) X10^3/ul Total Counted Not Reportable Sodium 137 (136-145) mmol/L Potassium 3.8 (3.5-5.1) mmol/L Chloride 106 (98-107) mmol/L Carbon Dioxide 23.0 (21.0-32.0) mmol/L Anion Gap 8 (5-15) BUN 7 (7-18) mg/dL Creatinine 0.41 L (0.55-1.02) mg/dL Estim Creat Clear Calc 173.82 ml/min Est GFR (MDRD) Af Amer 216 (>60) mL/min Est GFR (MDRD) Non-Af 179 (>60) mL/min BUN/Creatinine Ratio 16.9 (10-20) RATIO Glucose 84 (74-106) mg/dL Calcium 8.2 L (8.5-10.1) mg/dL Total Bilirubin 0.30 (0.20-1.00) mg/dL AST 18 (15-37) U/L ALT 15 (13-56) U/L Alkaline Phosphatase 82 (45-117) U/L Total Protein 7.3 (6.4-8.2) g/dL Albumin 2.9 L (3.2-5.0) g/dL Globulin 4.4 H (2.2-4.2) g/dL Albumin/Globulin Ratio 0.7 L (0.9-2.4) RATIO Review of Systems Constitutional: Reports: Anorexia, Malaise HEENT: Reports: - - mouth sore and burning Gastrointestinal: Reports: Nausea, Vomiting Physical Exam General: Alert, Oriented x3, Cooperative HEENT: Atraumatic, PERRLA, EOMI, - - tongue with white coating, stain d/t lozenge noted. Abdomen: Soft, Gravid Extremities:: No clubbing, No cyanosis, No edema Neurological: Cranial nerves II-XII grossly intact NST - FHR Rate Baby A Baseline: intermittent 30 wk tracing. 140-150 Variability:: Moderate Accelerations:: 10 x 10 NST Reactive:: Yes, Appropriate for gestational age FHR Category:: Category I Uterine Activity:: intermittent HR tracing d/t gestational age. no regular UCs noted. Impression/Plan 29 6/7 wk N/V dehydration. Viral syndrome Oral thrush BP in ED elevated likely due to patient's mood. CMP and CBC wnl for . Not suspicous for preeclampsia. BPs improved with rest and pt calming down. IV hydration cancelled in infusion center, arranged for 1 liter D5LR bolus wide open. Zofran 4 mg IV x one. Oral Clotrimazole 10 mg sunitha single dose given Pt felt better HOME Keep next ofc appt RX sent in for Zofran 4 mg tabs, and for 10 d course of 5x/d Clotrimazole troches
--- NOTE | 2018-05-31 00:31 | OB.TRI.HP_ITS ---
History of Present Illness Date of Service: 05/30/18 Was patient seen by the physician?: No Reason For Visit: ELEVATED BP Date of Service: 05/30/18 Final SCOTTIE: 07/10/18 Gestational age: 34 Weeks and 1 Days History of Present Illness: 42 yo female with 1 d h/o N/V and unable to keep anything down. presented to [facility] with same CC. Refusing recommended RX for N/V as states it makes her sleepy. Advised Zofran would not have that as a side effect. Also C/O oral thrush. Arranged to go to IV infusion center at [facility] for IV fluids. Pt became angry in ofc as wanting to have RX for thrush and rather than state this raised her voice to nurse in [facility] . So after all arrangements made, phone calls made, and orders placed for her to go for [facility] she elected to go to the ED instead rather than having care as arranged. In ED, elevated BP. ED then sent to for evaluation and to r/o preeclampsia. IV fluid 1 liter D5LR then administered in Triage area with single dose of sunitha for oral thrush given. labs ordered to r/o PIH, preeclampsia. Allergies morphine Adverse Reaction (Verified 07/04/15 19:39) Other stomache pains Laboratory Studies: Laboratory Tests 05/30/18 05/30/18 Range/Units 13:35 13:35 WBC 12.5 H (4.4-11.0) K/mm3 RBC 4.18 L (4.2-5.4) M/mm3 Hgb 11.8 L (12.0-15.0) g/dl Hct 35.9 L (37-47) % MCV 85.9 (81-99) fL MCH 28.2 (27.0-32.0) pg MCHC 32.9 (32-36) g/gl RDW 13.8 (11.6-14.6) % RDW Differential 43.1 (35.1-43.9) fl Plt Count 330 (150-450) K/mm3 MPV 10.6 (6.2-12.0) fl Immature Gran % (Auto) 0.300 (0.0-0.9) % Neut % (Auto) 66.2 (47-70) % Lymph % (Auto) 25.5 (19-41) % [place] % (Auto) 5.8 (0-10) % Eos % (Auto) 2.0 (0-5) % Baso % (Auto) 0.2 (0-1) % Absolute Neuts (auto) 8.2 H (2.0-7.7) X10^3/uL Absolute Lymphs (auto) 3.18 (0.83-4.51) X10^3/ul Total Counted Not Reportable Sodium 137 (136-145) mmol/L Potassium 3.8 (3.5-5.1) mmol/L Chloride 106 (98-107) mmol/L Carbon Dioxide 23.0 (21.0-32.0) mmol/L Anion Gap 8 (5-15) BUN 7 (7-18) mg/dL Creatinine 0.41 L (0.55-1.02) mg/dL Estim Creat Clear Calc 173.82 ml/min Est GFR (MDRD) Af Amer 216 (>60) mL/min Est GFR (MDRD) Non-Af 179 (>60) mL/min BUN/Creatinine Ratio 16.9 (10-20) RATIO Glucose 84 (74-106) mg/dL Calcium 8.2 L (8.5-10.1) mg/dL Total Bilirubin 0.30 (0.20-1.00) mg/dL AST 18 (15-37) U/L ALT 15 (13-56) U/L Alkaline Phosphatase 82 (45-117) U/L Total Protein 7.3 (6.4-8.2) g/dL Albumin 2.9 L (3.2-5.0) g/dL Globulin 4.4 H (2.2-4.2) g/dL Albumin/Globulin Ratio 0.7 L (0.9-2.4) RATIO Review of Systems Constitutional: Reports: Anorexia, Malaise HEENT: Reports: - - mouth sore and burning Gastrointestinal: Reports: Nausea, Vomiting Physical Exam General: Alert, Oriented x3, Cooperative HEENT: Atraumatic, PERRLA, EOMI, - - tongue with white coating, stain d/t lozenge noted. Abdomen: Soft, Gravid Extremities:: No clubbing, No cyanosis, No edema Neurological: Cranial nerves II-XII grossly intact NST - FHR Rate Baby A Baseline: intermittent 30 wk tracing. 140-150 Variability:: Moderate Accelerations:: 10 x 10 NST Reactive:: Yes, Appropriate for gestational age FHR Category:: Category I Uterine Activity:: intermittent HR tracing d/t gestational age. no regular UCs noted. Impression/Plan 29 6/7 wk N/V dehydration. Viral syndrome Oral thrush BP in ED elevated likely due to patient's mood. CMP and CBC wnl for . Not suspicous for preeclampsia. BPs improved with rest and pt calming down. IV hydration cancelled in infusion center, arranged for 1 liter D5LR bolus wide open. Zofran 4 mg IV x one. Oral Clotrimazole 10 mg sunitha single dose given Pt felt better HOME Keep next ofc appt RX sent in for Zofran 4 mg tabs, and for 10 d course of 5x/d Clotrimazole troches
== END 2018-05-30 15:00 | disposition home or self-care (01) ==
LOC: WPOUT 12:17 → OBT 12:18
PROVIDERS: Family Provider Student in an Organized Health Care Education/Training Program; PCP Student in an Organized Health Care Education/Training Program; Referring Provider Obstetrics & Gynecology; Visit Provider Obstetrics & Gynecology
DX: O98.513 Other viral diseases complicating pregnancy, third trimester (principal); B34.9 Viral infection, unspecified; E86.0 Dehydration; B37.0 Candidal stomatitis; Z3A.34 34 weeks gestation of pregnancy
CPT/HCPCS: 96361; 96374; 36415; 59025; 59050; 80053; 85025; 99218; G0378; J2405

== ENCOUNTER 2018-07-31 05:15 | Inpatient (IN) | payer MEDICAID, SELFPAY ==
[2018-07-31] VITALS (15 sets, daily range): BP systolic 106–134; BP diastolic 46–74; PULSE 78–95; RESP 15–26; TEMP 36.6–37.1; O2SAT 95–100; BMI 39.5
[2018-07-31] MEDS: Lactated Ringers 1,000 ML 999 ML IV (06:05)
[2018-07-31 06:37] LABS: Absolute Lymphocyte Count 3.57 X10^3/ul (0.83-4.51); Absolute Neutrophil Count 6.2 X10^3/uL (2.0-7.7); Basophil# 0.03 X10^3/uL; Basophil% 0.3 % (0-1); Eosinophil# 0.24 X10^3/uL; Eosinophils% 2.2 % (0-5); Hematocrit 36.3 % (37-47); Hemoglobin 11.5 g/dl (12.0-15.0); Lymphocyte # 3.57 X10^3/ul (4.0); Lymphocyte % 32.8 % (19-41); Mean Corp Hgb Conc 31.7 g/gl (32-36); Mean Corpuscular Hgb 26.3 pg (27.0-32.0); Mean Corpuscular Volume 82.9 fL (81-99); Mean Platelet Vol. 12.1 fl (6.2-12.0); Monocyte# 0.82 X10^3/uL; Monocyte% 7.5 % (0-10); Platelet Count 266 K/mm3 (150-450); RBC Distribution Width CV 14.6 % (11.6-14.6); RBC Distribution Width SD 42.8 fl (35.1-43.9); Red Blood Count 4.38 M/mm3 (4.2-5.4); White Blood Count 10.9 K/mm3 (4.4-11.0)
[2018-07-31 06:41] LABS: Bedside Glucose 79 mg/dL (70-110)
[2018-07-31 06:46] LABS: POSITIVE COUNT NO; POSITIVE DIFFERENTIAL NO; POSITIVE MORPHOLOGY NO
[2018-07-31] MEDS: Lactated Ringers 1,000 ML 150 ML IV (07:51)
[2018-07-31] MEDS: Sodium Citrate/Citric Acid 30 ML UDC PO (07:58)
[2018-07-31] MEDS: Cefazolin 2 GM in 0.9% Normal Saline 100 ML IV (07:58)
--- NOTE | 2018-07-31 08:15 | PN_ITS ---
Progress Note No changes to H&P.
--- NOTE | 2018-07-31 08:15 | PCM.PN.BLA ---
Progress Note No changes to H&P.
[2018-07-31] MEDS: Oxytocin 30 units/NS 500 ml 30 UNITS/500 ML IV.SOLN 167 UNITS IV (08:38)
--- NOTE | 2018-07-31 08:38 | FALS_PTH ---
PATIENT: LILIANE MINA LOC: WP U#:[id number] AGE/SX: 43/F ROOM: WP005 RE07/31/[address]: Dr. Wanda Rizo MD : 1975 BED: 1 DIS: 08/03/2018 SPEC #: [id number] RECD: 07/31/18 12:29 STATUS: MONISHA RANDEE #: [id number] DEYANIRA: 07/31/18 08:[address]: Wanda Rizo DEPT: SURGICAL PATHOLOGY RECD BY: John Croft ENTERED: 07/31/18 13:28 SP TYPE: FALL TUBES OTHR DR: Dr. Reji Vazquez DO Tissues: Fallopian tube Procedures: Surgery Specimen Level II HEADER OPERATION: Tubal ligation PRE-OP DIAGNOSIS: Tubal ligation TISSUE SUBMITTED: Fallopian tubes MICROSCOPIC DIAGNOSIS Fallopian tubes: Segments of bilateral fallopian tubes with intact lumen identified. FA:charlotte 08/01/18 MICROSCOPIC DESCRIPTION Slides are reviewed. GROSS DESCRIPTION Received in fixative is one container labeled with the patient's name and designated fallopian tubes, stitch left. The specimen consists of two segments of fallopian tubes, one with a stitch designated left. The left fallopian tube segment measures 1 cm in length and 0.5 cm in diameter. The right fallopian tube segment measures 1 cm in length and 0.4 cm in diameter. Serial sectioning of both fallopian tube segments reveal pinpoint lumens. The right fallopian tube is bisected and submitted in toto in cassette 1 and the left fallopian tube is also bisected and submitted in toto in cassette 2. / FA:charlotte 07/31/18 TC:4 CPT: 71014 x2
--- NOTE | 2018-07-31 09:32 | PCM.OPRPT ---
Report of Operation Date of Procedure: 07/31/18 Pre-Operative Diagnosis: (1) Prior section (2) Gestational diabetes (3) Sterilization request Post-Operative Diagnosis: Same Surgery/Procedure Performed:: Repeat section with bilateral tubal ligation Description of Surgical Findings:: Normal maternal uterus & adnexa manager of customer billing: Loren Lang Type of Anesthesia:: Spinal Specimen's removed: placenta Delivery Final SCOTTIE: 08/09/18 Gestational age: 38 Weeks and 5 Days Indications: Gestational diabetes - becoming uncontrolled. Recommendation to deliver by [facility]. Indications for : Repeat Elective , Desires elective sterilization Description of Procedure: Patient taken to OR where spinal anesthesia was placed. She was prepped and draped in the normal sterile fashion in a dorsal lithotomy position with a leftward tilt. After ensuring adequacy of anesthesia the Pfannensteil skin incision was made and carried through to the underlying fascia with a bovie. The fascia was incised in the midline and carried laterally with the Arreola scissors. The rectus muscles were in the midline and the peritoneum was entered bluntly. The bladder flap was dissected down with the Metzenbaum scissors and blunt dissection. The uterine incision was made with the scalpel and extended laterally with blunt dissection. The fetus was vertex and the head was brought to the incision in the flexed position. With good fundal pressure the head easily delivered. The head was gently guided to allow delivery of anterior & posterior shoulders. No excess traction placed on head. Body delivered easily. The cord was clamped and cut after a delay and the infant handed off to waiting RN. The placenta was delivered with gentle traction and fundal massage and the uterus was exteriorized and cleared of all clots and debris. The uterine incision was closed with 1 vicryl suture in a running locked fashion. A second layer of monocryl was used to imbricate the first layer and obtain hemostasis. The uterus was returned to the peritoneal cavity which was irrigated and cleared of all clots and debris. The right fallopian tube was grasped & doubly suture ligated. Tube segment excised & hemostasis confirmed at tubal site. Process repeated on the left side & again hemostasis confirmed. Pelvis was irrigated. The uterine incision was reexamined and found to be hemostatic. Some luke was placed over the uterine incision due to the denuded areas. Tubal sites were reexamined and found to be hemostatic with sutures intact. The parietal peritoneum was reapproximated with running plain gut suture. The fascia was closed with looped PDS suture in a running standard fashion. The subcutaneous tissue was examined, any bleeding bovie cauterized. The subcutaneous tissue was reapproximated with 3-0 vicryl suture. The skin was closed in a subcuticular fashion by the MEAT SALES AND STORAGE MANAGER with me present in the labor and delivery suite. I performed the remainder of the procedure with assistance. Amniotic Membrane Rupture Type: Artificial Amniotic Fluid Description: Clear Placenta Disposition: [facility] Drain: Zamora to straight drain Fluids Replaced: 1000ml Cord Entanglement: Around neck x 1, loose - body cord Nuchal Cord Compression: Without compression Cord Vessel Description: 3 Vessels Esitmated Blood Loss (ml): 700ml Gender: Male - weight of 8-9 (1 minute): 8 (5 minute): 9 Delayed cord clamping: Yes Pre-op Antibiotic Given: Ancef 2 grams IV x1
[2018-07-31] MEDS: Lactated Ringers 1,000 ML 100 ML IV ×2 (10:29→18:36)
[2018-07-31 11:01] LABS: Bedside Glucose 78 mg/dL (70-110)
[2018-07-31] MEDS: oxyCODONE 5 MG Tablet PO ×3 (11:08→20:42)
[2018-07-31] MEDS: Acetaminophen 500 MG Tablet 1000 MG PO ×2 (12:43→22:44)
[2018-07-31 12:59] LABS: HIV - WCH Non-Reactive (Nonreactive); Hepatitis B Surface Antibody Reactive; Hepatitis C Antibody Non-Reactive (Nonreactive)
[2018-07-31] MEDS: Ketorolac 15 MG/ML Vial 30 MG IV ×2 (14:45→20:43)
[2018-07-31] MEDS: Albuterol 2.5 MG/3 ML VIAL.NEB. INHALATION (19:57)
[2018-07-31 20:56] LABS: Bedside Glucose 98 mg/dL (70-110)
[2018-07-31] MEDS: Senna/Docusate Sodium 1 Tablet PO (21:49)
[2018-08-01] VITALS (7 sets, daily range): BP systolic 117–156; BP diastolic 61–86; PULSE 96–109; RESP 16–20; TEMP 36.4–36.7; O2SAT 94–96
[2018-08-01] MEDS: oxyCODONE 5 MG Tablet PO ×6 (00:36→21:53)
[2018-08-01] MEDS: Ketorolac 15 MG/ML Vial 30 MG IV ×2 (03:04→09:16)
[2018-08-01] MEDS: Lactated Ringers 1,000 ML 100 ML IV (03:18)
[2018-08-01 05:20] LABS: Hematocrit 30.5 % (37-47); Hemoglobin 10.1 g/dl (12.0-15.0); Mean Corp Hgb Conc 33.1 g/gl (32-36); Mean Corpuscular Hgb 27.8 pg (27.0-32.0); Mean Platelet Vol. 11.6 fl (6.2-12.0); Platelet Count 222 K/mm3 (150-450); RBC Distribution Width CV 14.6 % (11.6-14.6); RBC Distribution Width SD 43.3 fl (35.1-43.9); Red Blood Count 3.63 M/mm3 (4.2-5.4); White Blood Count 11.4 K/mm3 (4.4-11.0)
[2018-08-01 05:34] LABS: Scan Indicated on CBC? Y/N NO
[2018-08-01 06:31] LABS: Bedside Glucose 112 mg/dL (70-110)
[2018-08-01] MEDS: Budesonide Respules 0.5 MG/2 ML AMPUL.NEB. INHALATION ×2 (07:31→19:25)
--- NOTE | 2018-08-01 08:22 | PCM.PN.OB ---
Subjective: Pain controlled. No complaints. - Physical Exam General: Alert, Oriented x3 Abdomen: Soft, Non Tender, Non-Distended - ff mid & below umb; incision - bandage c/d/i Extremities: No Calf Tenderness Neurological: Cranial nerves II-XII grossly intact Vital Signs Temp Pulse Resp BP Pulse Ox 97.8 F 99 18 122/64 H 94 08/01/18 07:59 08/01/18 07:59 08/01/18 07:59 08/01/18 07:59 08/01/18 07:59 Oxygen Delivery Method Room Air Weight: 260 lb Body Mass Index (BMI) 39.5 Intake and Output for Last 24 Hours 07/30/18 07/31/18 08/01/18 23:59 23:59 23:59 Intake Total 4076 / 4076 1735 / 1735 Output Total 1950 / 1950 850 / 850 Balance 2125 / 2125 885 / 885 Laboratory Tests Past 24 Hrs 07/31/18 07/31/18 07/31/18 05:55 11:35 11:35 WBC RBC Hgb Hct MCV MCH MCHC RDW RDW Differential Plt Count MPV Hep Bs Antibody Reactive Hep B Core Total Ab Pending Hepatitis C Antibody Non-Reactive HIV 1&2 Antibody Non-Reactive Blood Type A NEGATIVE Antibody Screen NEGATIVE Screen Baby's Blood Type Baby's ABBY 07/31/18 08/01/18 11:35 04:45 WBC 11.4 H RBC 3.63 L Hgb 10.1 L Hct 30.5 L MCV 84.0 MCH 27.8 MCHC 33.1 RDW 14.6 RDW Differential 43.3 Plt Count 222 MPV 11.6 Hep Bs Antibody Hep B Core Total Ab Hepatitis C Antibody HIV 1&2 Antibody Blood Type Antibody Screen Screen NEGATIVE Baby's Blood Type A POSITIVE Baby's ABBY NEGATIVE POC Glucose 08/01/18 07/31/18 07/31/18 06:21 20:48 10:52 POC Glucose 112 H 98 78 Medical Necessity - Tobacco Use Smoking Status: Never smoker Assessment/Plan All Active Problems Abdominal pain (Acute) POD#1 GDM - BS overall normal. Patient's AM BS was after eating cookies. Will check BS at noon today & in normal will get AM FBS tomorrow. ID - AF, no signs infection. GI - ADAT, encouraged monitoring carbs. Heme - HDS, cbc reviewed. Routine care.
[2018-08-01] MEDS: Loratadine 10 MG Tablet PO (09:35)
[2018-08-01] MEDS: Venlafaxine XR 75 MG Capsule PO (09:35)
[2018-08-01] MEDS: Pantoprazole Sodium 20 MG Tablet PO (09:35)
[2018-08-01 11:31] LABS: Bedside Glucose 103 mg/dL (70-110)
--- NOTE | 2018-08-01 13:15 | NURSING ---
on rounds pt is crying her bp is elevated pt is upset her toddler daughter was in for a visit mom upset after daughter left. 2nd set of vitals done 15 minutes later bp is starting to come down.
--- NOTE | 2018-08-01 14:05 | NURSING ---
called to receive update on pt's blood sugar that i did at 11am, and new order received for another bgt for in the am.
[2018-08-01] MEDS: Ibuprofen 600 MG Tablet PO (14:52)
[2018-08-01] MEDS: Senna/Docusate Sodium 1 Tablet PO (14:52)
--- NOTE | 2018-08-01 16:39 | NURSING ---
1600 pt getting into shower; bed linen changed
[2018-08-01] MEDS: Acetaminophen 500 MG Tablet 1000 MG PO (20:42)
[2018-08-02] MEDS: Ibuprofen 600 MG Tablet PO ×3 (00:08→20:00)
[2018-08-02 02:20] VITALS: BP 128/73; PULSE 90; RESP 18; TEMP 36.6; O2SAT 95
[2018-08-02] MEDS: oxyCODONE 5 MG Tablet PO ×5 (02:35→20:40)
--- NOTE | 2018-08-02 06:04 | NURSING ---
Fasting glucose obtained on pt. per doctor's orders. Resulted at 106 mg/dL. Pt. has not had any food or drinks other than water since before 0000 this morning.
[2018-08-02 06:05] LABS: Bedside Glucose 106 mg/dL (70-110)
[2018-08-02 06:49] VITALS: PULSE 88; RESP 16
[2018-08-02] MEDS: Budesonide Respules 0.5 MG/2 ML AMPUL.NEB. INHALATION (06:49)
[2018-08-02 07:40] VITALS: BP 121/80; PULSE 98; RESP 16; TEMP 36.5; O2SAT 99
[2018-08-02 08:30] LABS: Pathology Specimen OB SEE PATHOLOGY REPORT
[2018-08-02] MEDS: Venlafaxine XR 75 MG Capsule PO (09:59)
[2018-08-02] MEDS: Pantoprazole Sodium 20 MG Tablet PO (09:59)
[2018-08-02] MEDS: Senna/Docusate Sodium 1 Tablet PO (09:59)
[2018-08-02] MEDS: Loratadine 10 MG Tablet PO (10:00)
[2018-08-02 10:50] LABS: Hepatitis B Core Ab Total Negative (Negative)
--- NOTE | 2018-08-02 13:06 | PCM.PN.OB ---
Subjective: Doing well per patient and nursing staff. Ambulating and taking PO without difficulty. Voiding and passing flatus. Pain controlled. Planning D/C home tomorrow. No complaints. - Physical Exam General: Alert, Oriented x3, No apparent distress HEENT: Atraumatic, Normocephalic Neck: Trachea Midline Lungs: Clear to auscultation, Normal air movement, No rhonchi, No wheeze Cardiovascular: Regular rate, Regular Rhythm, No murmurs Abdomen: Bowel Sounds Present, Soft, - - Appropriate tenderness. Dressing dry and intact, no drainage Extremities: No edema Psych/Mental Status: Normal Affect, Appropriate Vital Signs Temp Pulse Resp BP Pulse Ox 97.7 F L 98 16 121/80 H 99 08/02/18 07:40 08/02/18 07:40 08/02/18 07:40 08/02/18 07:40 08/02/18 07:40 Oxygen Delivery Method Room Air Weight: 260 lb Body Mass Index (BMI) 39.5 Intake and Output for Last 24 Hours 07/31/18 08/01/18 08/02/18 23:59 23:59 23:59 Intake Total 4076 / 4076 2435 / 2435 Output Total 1950 / 1950 2250 / 2250 Balance 2126 / 2126 185 / 185 Laboratory Tests Past 24 Hrs 07/31/18 11:35 Hep B Core Total Ab Negative POC Glucose 08/02/18 06:00 POC Glucose 106 Medical Necessity - Tobacco Use Smoking Status: Never smoker Assessment/Plan All Active Problems Abdominal pain (Acute) A: POD #2 Section P: 1) Routine post op care 2) Pain controlled 3) VS stable. BS normal this am, ok to stop checking BS. 4) Plan for D/C home tomorrow.
[2018-08-02 14:20] VITALS: BP 139/72; PULSE 98; RESP 18; TEMP 36.6; O2SAT 97
--- NOTE | 2018-08-02 14:30 | CASEMGMT ---
Social Work Assessment Labor and Delivery Unit Date of Referral: 08/02/2018 Time of Referral: 0118 Referred By: Dr. Diggs Date of Intervention: 08/02/2018 Time of Intervention: 1430 Reason for Referral: maternal history of anxiety and depression History obtained from: medical records, mother of baby (MOB) Mony Odonnell. Father of baby (FOB) Brigido Simms also present for part of conversation. Household composition: MOB, FOB, and older daughter live in the home. Home situation is reported to be safe and adequate. Patient's parent/guardian status: MOB is 43 year old single female involved with FOB a 41 year old single male for the last 4 years. MOB denies any abuse, control, or intimidation in this relationship. MOB and FOB now have 2 children together, and MOB has 2 children prior to relationship with FOB. Minor children include: baby Terrence Simms (born 07.31.2018) and Kareen Simms (born 07/05/2015), Other children: VIJAYA has an adult son who is 24 years old, living on own. MOB had a 22 year old adopted daughter, who is living in a mcc related to the daughter?s special needs. Medical History: VIJAYA is G3, P2 to 3 after delivery of Terrence. MOB received care at [facility] and then transferred care at [address] [facility]. MOB with history of gestational diabetes, has fibromyalgia, sleep apnea (uses CPAP). MOB with repeat caesarian section delivery. Baby Terrence born weighing 8 pounds 9 ounces. Apgars 8 and 9 at 1 and 5 minutes of life. Educational Status: VIJAYA graduated high school. Is able to read, write, and to understand what is read. 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 FOB works fulltime at a local car dealership as a service unit operator. Supplies: It is reported that all needed supplies are in place including a car seat, safe sleep space, clothes, diapers, wipes, and MOB is baby. Childcare/Caregiver(s): MOB will be primary caregiver and FOB will assist when home. Transportation: No issues and reported to be adequate. Programs/Agencies Involved: Medicaid through [employer]. MOB is interested in WIC. VIJAYA has been in counseling on and off through the years, no current counseling though., Children Services/Legal Issues: None reported or identified. Behavioral Health Issues: Mental Health History: VIJAYA has history of depression and anxiety diagnoses at the age of 21. VIJAYA has been treated with Effexor for some time now and continued on this during the . VIJAYA whitt has tried other medications but Effexor works the best. VIJAYA whitt was hospitalized 1 time for suicidal ideation after stressors occurring with adopted daughter. Chart indicates this was about 5 years ago. VIJAYA reports has had fleeting thoughts of dying since that hospitalization, but nothing to the point of wanting to act or to form plan. MOB denies any thoughts of dying during this or in the past year. Substance Use History: No reports of any substance use or dependence. MOB deluca not trevon tobacco. Drug Screens: maternal drug screen negative on 06.08.2018. Family/Social Stressors: VIJAYA was toddler daughter Kareen until June of 2018. This has been a big change for MOB, and MOB admits in the last month has been more tearful as this transition was made as well as getting ready for a new baby. MOB has worried how the daughter will do when sees MOB breast feeding the new baby. Support Systems: MOB reports FOB is a support person, as well as FOB?s mother and sister who can help with childcare. MOB?s parents are supportive but are older. Depression/Shaken Baby/Safe Sleeping : ASSESSMENT: Met with MOB alone and then later joined by FOB with MOB?s permission. MOB pleasant, cooperative, and willing to engage with psychosocial rehabilitation counselor. MOB held good eye contact, affect and mood appropriate and congruent to content. MOB admits that the previous day (08-01-2018) was difficulty that was emotional and missing 3-year-old daughter. 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 depression and anxiety discussed, educating to risk factors, what to look for and importance of self care. MOB plans to remain on Effexor and has an appointment with doctor in the next month to review dosage and how MOB is doing. MOB is considering counseling and accepting of a list of options to try. Talked with FOB present also regarding depression and anxiety, importance of support during the period. Also addressed that fathers can develop depression as well. MOB reports to be feeling better today but does recognize that getting back into counseling may be good for MOB in the future. MOB reports to have needed baby supplies. FOB will be taking 2 weeks off of work to help with transition home with two kids. MOB and FOB interested in WIC and MOB in counseling options. PLAN: MOB and baby to home when ready. Will return to see MOB on 08-03-2018 to provide resources for home going. -NICHOLAS Diallo, PUNCH PRESS OPERATOR
[2018-08-02 19:45] VITALS: BP 143/69; PULSE 98; RESP 18; TEMP 37.2; O2SAT 95
[2018-08-03] MEDS: oxyCODONE 5 MG Tablet PO ×3 (01:17→10:02)
[2018-08-03 02:15] VITALS: BP 135/68; PULSE 92; RESP 18; TEMP 36.3; O2SAT 96
[2018-08-03] MEDS: Ibuprofen 600 MG Tablet PO (05:23)
--- NOTE | 2018-08-03 08:23 | PCM.PN.OB ---
Subjective: Pain controlled - Physical Exam General: Alert, Oriented x3 Abdomen: Soft, Non Tender, Non-Distended - ff mid & below umb; bandage - c/d/i Extremities: No Calf Tenderness Neurological: Cranial nerves II-XII grossly intact Vital Signs Temp Pulse Resp BP Pulse Ox 97.3 F L 92 18 135/68 H 96 08/03/18 02:15 08/03/18 02:15 08/03/18 02:15 08/03/18 02:15 08/03/18 02:15 Oxygen Delivery Method Room Air Weight: 260 lb Body Mass Index (BMI) 39.5 Intake and Output for Last 24 Hours 08/01/18 08/02/18 08/03/18 23:59 23:59 23:59 Intake Total 2435 / 2435 Output Total 2250 / 2250 Balance 185 / 185 Laboratory Tests Past 24 Hrs 07/31/18 11:35 Hep B Core Total Ab Negative Medical Necessity - Tobacco Use Smoking Status: Never smoker Assessment/Plan All Active Problems Abdominal pain (Acute) POD#3 D/c home BP's overall normal. A few mildly elevated & patient reports that she was upset & crying at these times. Denies preE symptoms. GDM - will resume bedtime NPH at low dose. Patient to call with BS.
--- NOTE | 2018-08-03 08:27 | DCINST_ITS ---
Discharge Diet: No Restrictions Discharge Activity: May not drive while taking narcotic pain medications., May Shower May resume sexual activity in: 6 weeks Weight Bearing Status: Weight bearing as tolerated Call your doctor if your incision/area has: Continuous Slow Oozing, Increased Pain/ Swelling, Increased Redness, Foul Smelling Discharge, Swelling at the incision site Additional Instructions: If you experience any of the following, contact your healthcare provider. * Bleeding that soaks a pad every hour for 2 hours * Fever 100.4 or higher * Unrelieved incision or abdominal pain * Swelling, redness, discharge or bleeding from your incision or episiotomy site * Your incision begins to separate * Problems urinating (including inability to urinate or burning while urinating). * Visual changes * Severe headache * Flu-like symptoms * Pain or redness in one of both of your breasts * Pain, warmth, tenderness or swelling in your legs, especially the calf area * Frequent nausea and vomiting * Symptoms of depression or anxiety If you experience any of the following, call 911 or go to the nearest Emergency Room. * Chest pain * Problems breathing * Seizure activity * Partial or complete paralysis of a body part, slurred speech, weakness or drooping of the face, or a sudden inability to walk or hold your balance Allergies/Adverse Reactions: Allergies morphine Adverse Reaction (Verified 07/31/18 06:18) Other stomache pains Medications to take at Discharge Albuterol Inhaler [Ventolin Hfa] 2 mcg INHALATION Q4H PRN PRN 07/04/15 Cholecalciferol (Vitamin D3) [Vitamin D3] 5,000 PO DAILY PRN 07/04/15 Venlafaxine XR [Effexor Xr] 75 mg PO DAILY 07/05/15 Docusate Sodium [Colace] 100 mg PO BID PRN #60 capsule 07/07/15 Multi Tablet 1 tablet PO DAILY 05/30/18 Cetirizine HCl 10 mg PO DAILY 07/31/18 Omeprazole [Prilosec] 20 mg PO DAILY 07/31/18 Symbicort 80-4.5 Mcg Inhaler 2 inhaler INHALATION BID 07/31/18 Oxycodone [Oxyir] 5 mg PO Q6H PRN PRN 7 Days #28 tab 08/03/18 Follow-Up: Call to make an appointment with your doctor for an incision check in 1-2 weeks. You will also need a 6 week post- follow up appointment. Test results from this visit will be discussed in further detail at your follow- up appointment, if applicable. Primary Care Physician: Reji Vazquez DO [Primary Care Provider] -
[2018-08-03 09:00] VITALS: BP 115/69; PULSE 86; RESP 18; TEMP 36.6; O2SAT 98
[2018-08-03] MEDS: Senna/Docusate Sodium 1 Tablet PO (10:03)
[2018-08-03] MEDS: Venlafaxine XR 75 MG Capsule PO (10:04)
[2018-08-03] MEDS: Pantoprazole Sodium 20 MG Tablet PO (10:04)
[2018-08-03] MEDS: Loratadine 10 MG Tablet PO (10:04)
[2018-08-03 12:00] VITALS: BP 122/65; PULSE 88; RESP 16; TEMP 36.6; O2SAT 98
--- NOTE | 2018-08-03 12:20 | CASEMGMT ---
Social Work Labor and Delivery Presented to mother of baby (MOB) room today. MOB sitting in bed and FOB sitting on couch across from MOB. Baby sleeping in bedside crib. MOB reports to feel tired and didn't get a lot of sleep, but that doing okay. FOB suggested 3 year old daughter stay at his parent's home a bit longer today so MOB can get some rest. MOB didn't say much to this but did indicate that ready to see her daughter. Encouragement given, and also encouraged MOB to get some rest when can. Provided family resources for homegoing. A General [facility] resource list has been given, information on HMG, shaken baby prevention, safe sleeping, WIC applications, and counseling provider list. No other services requested or indicated. MOB and baby are discharging home today. -ITZEL Diallo, ALLIGATOR TRAPPER
[2018-08-03 12:30] VITALS: BP 122/65; PULSE 88; RESP 16; TEMP 36.6
--- NOTE | 2018-08-15 13:17 | PCM.DC.SUM ---
Discharge Date and Diagnosis Date of Admission: 07/31/18 Date of Discharge: 08/03/18 Hospital Course and Treatment Operations: - Summary of Care Provided: The patient is a 43 year old F was admitted for repeat with bilateral tubal ligation. Hospital course: (1) Heme - HDS, PP cbc reviewed. (2) GI - tolerating regular diet at discharge. (3) GDM - monitored blood sugars & patient sent on NPH. (4) - adequate UOP, no voiding dysfunction. (5) Patient was discharged home on POD#3 with instructions and prescriptions. - Physical Exam Vital Signs Temp Pulse Resp BP Pulse Ox 97.9 F 88 16 122/65 H 98 08/03/18 12:30 08/03/18 12:30 08/03/18 12:30 08/03/18 12:30 08/03/18 12:00 Oxygen Delivery Method Room Air Weight: 260 lb Body Mass Index (BMI) 39.5 Discharge Diet: No Restrictions Discharge Activity: May not drive while taking narcotic pain medications., May Shower May resume sexual activity in: 6 weeks Weight Bearing Status: Weight bearing as tolerated Call your doctor if your incision/area has: Continuous Slow Oozing, Increased Pain/ Swelling, Increased Redness, Foul Smelling Discharge, Swelling at the incision site Home Medications: Medications to take at Discharge Albuterol Inhaler [Ventolin Hfa] 2 mcg INHALATION Q4H PRN PRN 07/04/15 Cholecalciferol (Vitamin D3) [Vitamin D3] 5,000 PO DAILY PRN 07/04/15 Venlafaxine XR [Effexor Xr] 75 mg PO DAILY 07/05/15 Docusate Sodium [Colace] 100 mg PO BID PRN #60 capsule 07/07/15 Multi Tablet 1 tablet PO DAILY 05/30/18 Cetirizine HCl 10 mg PO DAILY 07/31/18 Omeprazole [Prilosec] 20 mg PO DAILY 07/31/18 Symbicort 80-4.5 Mcg Inhaler 2 inhaler INHALATION BID 07/31/18 Primary Care Physician: Reji Vazquez DO [Primary Care Provider] - Medical Necessity - Tobacco Use Smoking Status: Never smoker Meaningful Use Info Meaningful Use Diagnoses (Choose all that apply): None applicable
--- NOTE | 2018-08-15 13:20 | PCM.HP.OB ---
History Date of Admission: 07/31/18 Final SCOTTIE: 08/09/18 Gestational age: 38 Weeks and 5 Days History of this : This is a 43 year-old, G [], P [], at 38 weeks gestational age. Allergies morphine Adverse Reaction (Verified 07/31/18 06:18) Other stomache pains Home Medications: Home Medications Albuterol Inhaler [Ventolin Hfa] 2 mcg INHALATION Q4H PRN PRN 07/04/15 Cholecalciferol (Vitamin D3) [Vitamin D3] 5,000 PO DAILY PRN 07/04/15 Venlafaxine XR [Effexor Xr] 75 mg PO DAILY 07/05/15 Docusate Sodium [Colace] 100 mg PO BID PRN #60 capsule 07/07/15 Multi Tablet 1 tablet PO DAILY 05/30/18 Cetirizine HCl 10 mg PO DAILY 07/31/18 Omeprazole [Prilosec] 20 mg PO DAILY 07/31/18 Symbicort 80-4.5 Mcg Inhaler 2 inhaler INHALATION BID 07/31/18 Smoking Status: Never smoker History Past Pregnancies: Past Pregnancies Delivery Date Name GA/Weeks Outcome Route Weight Infant Gender Labor Length Anesthesia Delivery Location Provider FOB Physical Exam Vitals: Vital Signs Temp Pulse Resp BP Pulse Ox 97.9 F 88 16 122/65 H 98 08/03/18 12:30 08/03/18 12:30 08/03/18 12:30 08/03/18 12:30 08/03/18 12:00 Assessment/Plan All Active Problems Abdominal pain (Acute) 43yo female @ 38&5 for repeat with bilateral tubal ligation (1) Admit to L&D (2) Please see [facility] H&P and full prenatals
== END 2018-08-03 13:20 | disposition home or self-care (01) | DRG 540 ==
PROVIDERS: Admitting Provider Obstetrics & Gynecology; Family Provider Student in an Organized Health Care Education/Training Program; PCP Student in an Organized Health Care Education/Training Program; Referring Provider Obstetrics & Gynecology; Visit Provider Obstetrics & Gynecology
PROC: 10D00Z1 Extraction of Products of Conception, Low, Open Approach (ICD-10-PCS; CPT 59514; principal; 2018-07-31 07:15)
DX: O34.211 Maternal care for low transverse scar from previous cesarean delivery (principal); O24.429 Gestational diabetes mellitus in childbirth, unspecified control; Z30.2 Encounter for sterilization; O69.81X0 Labor and delivery complicated by cord around neck, without compression, not applicable or unspecified; Z3A.38 38 weeks gestation of pregnancy; Z37.0 Single live birth; L40.50 Arthropathic psoriasis, unspecified; G89.29 Other chronic pain; M79.7 Fibromyalgia
CPT/HCPCS: 82962; 85025; 85027; 85461; 86703; 86704; 86706; 86803; 86850; 86900; 88302; 90384; 94640; 99218; J7120; G0378; J2790

== ENCOUNTER 2021-05-20 10:09 | Emergency (ER) | payer OTHER, MEDICAID, SELFPAY ==
[2021-05-20 10:10] VITALS: BP 111/90; PULSE 88; RESP 14; TEMP 36.3; O2SAT 98; BMI 37.6
--- NOTE | 2021-05-20 11:13 | EDS_ITS ---
HPI HPI - GI History of Present Illness Chief Complaint: Abd Pain Informant: patient Narrative Narrative: Increasing mid abdominal pain throughout the day today. Nausea without vomiting. Reports a month ago had nausea symptoms however at that time started having diarrhea nonbloody. States was significant for a week since then has 2 loose stools per day. Has had 1 today. Denied recent antibiotics or any travel history. Additional states mild sore throat for the past 3 weeks. She is on Prevacid for GERD. History of cholecystectomy in 2008 history of C- section in the past. Recent menstrual period. Denies urinary symptoms. Re ports since onset of symptoms has been more fatigued. Prior similar symptoms: No PFSH PFSH Medical History Anxiety Depression Home Medications albuterol sulfate [Ventolin HFA] 2 mcg INHALATION Q4H PRN PRN 07/04/15 [History Last Taken 05/29/18 09:00] cholecalciferol (vitamin D3) 5,000 PO DAILY PRN 07/04/15 [History Last Taken 07/30/18 09:00] Venlafaxine Xr [Effexor Xr] 75 mg PO DAILY 07/05/15 [History Last Taken 07/30/18 09:00] docusate sodium [DOK] 100 mg PO BID PRN #60 capsule 07/07/15 [Rx Last Taken 07/30/18 09:00] Multi Tablet 1 tab PO DAILY 05/30/18 [History Last Taken 07/30/18 09:00] Symbicort 80-4.5 Mcg Inhaler 2 inhaler INHALATION BID 07/31/18 [History Last Taken 07/30/18 21:00] cetirizine 10 mg PO DAILY 07/31/18 [History Last Taken 07/30/18 09:00] omeprazole 20 mg PO DAILY 07/31/18 [History Last Taken 07/30/18 09:00] omeprazole 40 mg PO DAILY #30 cap 05/20/21 [Rx Last Taken Unknown] ondansetron 4 mg PO Q6H PRN #10 tab 05/20/21 [Rx Last Taken Unknown] sucralfate [Carafate] 1 g PO BID #60 tab 05/20/21 [Rx Last Taken Unknown] Allergy/AdvReac Type Severity Reaction Status Date / Time morphine AdvReac Other Verified 05/20/21 10:11 Social History Smoking Status: Never smoker ROS ROS ED Constitutional Constitutional ED: Denies chills, fever(s) or sweats Eyes Eyes: Denies change in vision ENT ENT ED: Reports sore throat; Denies dysphagia Cardiovascular Cardiovascular: Denies chest pain, leg edema, palpitations or racing heartbeat Respiratory/Chest Respiratory/Chest: Denies cough, dyspnea or dyspnea on exertion Gastrointestinal Gastrointestinal: Reports abdominal pain, diarrhea and nausea; Denies vomiting Genitourinary Genitourinary ED: Denies dysuria, hematuria or urinary frequency Musculoskeletal Musculoskeletal: Denies back pain, extremity pain or neck pain Integumentary Denies rash or wounds Neurologic Neurologic: Denies headache(s), paresthesias or weakness EXAM Physical Exam Const Vital Signs: 05/20/21 10:10 05/20/21 13:01 Temperature 97.4 F L Temperature Source Temporal Pulse Rate 88 81 Respiratory Rate 14 14 Blood Pressure 111/90 H 112/76 Blood Pressure Mean 97 Pulse Ox 98 97 Oxygen Delivery Method Room Air Positive well nourished and well developed General Appearance ED: well developed and NAD HEENT HEENT Narrative: Mild dry mucosal membranes. No posterior pharyngeal erythema 1+ symmetric tonsils. No exudates. normocephalic and atraumatic Eyes PERRL, EOMs intact bilaterally and conjunctivae normal General Eye ED: Yes normal appearance of both eyes Neck no lymphadenopathy and supple General: Negative for tenderness Chest Wall Chest: Negative for tenderness Resp normal respiratory effort and normal air movement Effort and Inspection: symmetric chest movement; Negative for respiratory distress Cardio regular rate, regular rhythm and no murmurs Peripheral Pulses: pulses 2+ throughout GI normal to inspection, nondistended, normoactive bowel sounds GI Narrative: Mild mid abdominal tenderness, negative Banuelos's McBurney's no pain in left upper quadrant. No left lower quadrant tenderness. No guarding or rebound. Palpation: Negative for guarding or rebound tenderness present Back/Spine no CVA tenderness and no thoracic nor lumbar tenderness Extremity normal to inspection General Extremety ED: Negative for edema or tenderness General Extremity: Negative for edema Neuro oriented x3 and no sensory deficits noted Sensorium / Orientation: awake and alert Skin no rashes or lesions noted and no wounds MDM MDM MDM Narrative Medical decision making narrative: Patient with a nonsurgical abdomen exam. Diarrhea for a month no significant risk factors. I did check abdominal labs all normal. Potassium 3.7 magnesium 2.0. Canadian screen due to her fatigue symptoms and throat symptoms also negative. She is given Zofran Pepcid and IV fluids with improvement of symptoms she is tolerating oral intake. Stools were unable to be collected. She is feeling better. Prescription for Prilosec and Carafate sent to her pharmacy. Also Zofran. She will monitor for any bloody stools. She follows with [facility] reports had upper and lower endoscopies in the past.. She will monitor for any bloody stools. Stool collection kit was sent home with the patient for possible outpatient evaluation with her PCP if diarrhea continues.All questions were answered. Lab Data Attestation: I reviewed the patient's lab results. Labs: Laboratory Results - last 24 hr 05/20/21 05/20/21 05/20/21 11:05 11:05 11:05 WBC 11.4 H RBC 4.84 Hgb 14.1 Hct 41.9 MCV 86.6 MCH 29.1 MCHC 33.7 RDW Std Deviation 41.1 RDW Coeff of Freddie 13.2 Plt Count 299 MPV 10.3 Immature Gran % (Auto) 0.400 Neut % (Auto) 60.1 Lymph % (Auto) 30.1 Canadian % (Auto) 5.3 Eos % (Auto) 3.6 Baso % (Auto) 0.5 Absolute Neuts (auto) 6.9 Absolute Lymphs (auto) 3.42 Nucleated RBC % 0 Sodium 138 Potassium 3.7 Chloride 106 Carbon Dioxide 27.0 Anion Gap 5 BUN 9 Creatinine 0.70 Estim Creat Clear Calc 98.69 Est GFR (MDRD) Af Amer 115 Est GFR (MDRD) Non-Af 95 BUN/Creatinine Ratio 12.8 Glucose 106 Calcium 8.8 Magnesium 2.0 Total Bilirubin 0.40 AST 14 L ALT 30 Alkaline Phosphatase 79 Total Protein 8.0 Albumin 3.7 Globulin 4.3 H Albumin/Globulin Ratio 0.9 Lipase 95 Serum , Qual NEGATIVE Monoscreen Negative Discharge Plan Triage Chief Complaint: Abd Pain ED Provider: Morgan Nelson Dx/Rx/DC Orders Clinical Impression: Abdominal pain, Diarrhea Instructions: Abdominal Pain, ED Diarrhea, Unknown Cause Prescriptions: New sucralfate [Carafate] 1 gram tablet 1 g PO BID Qty: 60 RF: 0 omeprazole 40 mg capsule,delayed release(DR/EC) 40 mg PO DAILY Qty: 30 RF: 0 ondansetron 4 mg tablet,disintegrating 4 mg PO Q6H PRN (Reason: nausea and vomiting) Qty: 10 RF: 0 No Action albuterol sulfate [Ventolin HFA] 1 INHALER inhaler 2 mcg inhalation Q4H PRN PRN (Reason: Wheezing) RF: 0 cholecalciferol (vitamin D3) 5,000 UNIT capsule 5,000 PO DAILY PRN (Reason: anemia) RF: 0 Venlafaxine Xr [Effexor Xr] 75 MG capsule 75 mg PO DAILY RF: 0 docusate sodium [DOK] 100 MG capsule 100 mg PO BID PRN (Reason: Constipation) Qty: 60 RF: 0 omeprazole 20 MG capsule 20 mg PO DAILY RF: 0 cetirizine 10 MG tablet 10 mg PO DAILY RF: 0 Symbicort 80-4.5 Mcg Inhaler 2 inhaler inhalation BID RF: 0 Multi Tablet 1 tab PO DAILY RF: 0 Primary Care Provider: Reji Vazquez Referrals: Reji Vazquez DO [Primary Care Provider] - 3-5 Days if not improving Activity Restrictions/Additional Instructions: Your abdominal labs are all normal. Normal electrolytes. Canadian testing negative. Or your GI doctor. Hold your Prevacid use daily medications. Follow-up with your doctor Disposition Disposition: Home, Self Care Discharge Date/Time: 05/20/21 13:35
[2021-05-20 11:14] LABS: Absolute Lymphocyte Count 3.42 X10^3/uL (0.83-4.51); Absolute Neutrophil Count 6.9 X10^3/uL (2.0-7.7); Basophil# 0.06 X10^3/uL; Basophil% 0.5 % (0-1); Eosinophil# 0.41 X10^3/uL; Eosinophils% 3.6 % (0-5); Hematocrit 41.9 % (37-47); Hemoglobin 14.1 g/dL (12.0-15.0); Lymphocyte # 3.42 X10^3/ul (0.83-4.51); Lymphocyte % 30.1 % (19-41); Mean Corp Hgb Conc 33.7 g/dL (32-36); Mean Corpuscular Hgb 29.1 pg (27.0-32.0); Mean Corpuscular Volume 86.6 fL (81-99); Mean Platelet Vol. 10.3 fl (6.2-12.0); Monocyte% 5.3 % (0-10); NRBC Flagged by Analyzer 0 % (0-5); Neutrophil # 6.85 X10^3/uL (2.7-7.7); Neutrophil % 60.1 % (47-70); Platelet Count 299 K/mm3 (150-450); RBC Distribution Width CV 13.2 % (11.6-14.6); RBC Distribution Width SD 41.1 fl (35.1-43.9); Red Blood Count 4.84 M/mm3 (4.2-5.4); White Blood Count 11.4 K/mm3 (4.4-11.0)
[2021-05-20] MEDS: 0.9% Normal Saline 1,000 ML 1000 ML IV (11:18)
[2021-05-20] MEDS: Famotidine 200 MG/20 ML MDV 20 MG in 0.9% Normal Saline (Pres. free 8 ML 300 MG IV (11:19)
[2021-05-20] MEDS: Ondansetron 4 MG/2 ML Vial IV (11:19)
[2021-05-20 11:27] LABS: Internal QC Validated? YES +Cl - CLEAR BKGD; Pregnancy, Serum, hCG Quali. NEGATIVE Negative
[2021-05-20 11:34] LABS: ALB/GLOB Ratio 0.9 RATIO (0.9-2.4); AST(SGOT) 14 U/L (15-37); Alanine Aminotransfer ALT/SGPT 30 U/L (13-56); Albumin, Serum 3.7 g/dL (3.2-5.0); Alkaline Phosphatase 79 U/L (45-117); Anion Gap 5 (5-15); BUN 9 mg/dL (7-18); BUN/Creat Ratio 12.8 RATIO (10-20); Calcium,Total 8.8 mg/dL (8.5-10.1); Chloride 106 mmol/L (98-107); EST Glomerular Filtration Rate 95 mL/min (>60); Est Glom Filt Rate - Afr Amer 115 mL/min (>60); Estimated Creatinine Clearance 98.69 ml/min; Globulin 4.3 g/dL (2.2-4.2); Glucose 106 mg/dL (74-106); Lipase 95 U/L (73-393); Potassium 3.7 mmol/L (3.5-5.1); Sodium Level 138 mmol/L (136-145)
[2021-05-20 11:37] LABS: Internal QC Validated? YES +Cl - CLEAR BKGD; Monotest Negative (Negative)
[2021-05-20 13:01] VITALS: BP 112/76; PULSE 81; RESP 14; O2SAT 97
== END 2021-05-20 13:35 | disposition home or self-care (01) ==
PROVIDERS: Emergency Provider Emergency Medicine; PCP Student in an Organized Health Care Education/Training Program; Visit Provider Emergency Medicine
DX: R10.9 Unspecified abdominal pain (principal); R19.7 Diarrhea, unspecified; K21.9 Gastro-esophageal reflux disease without esophagitis; Z79.899 Other long term (current) drug therapy
CPT/HCPCS: 80053; 83690; 83735; 84703; 85025; 86308; 96365; 96366; 96375; 99283; J7030; A4216; J2405; J3490

== ENCOUNTER 2022-06-08 10:12 | Emergency (ER) | payer OTHER, MEDICAID, SELFPAY ==
[2022-06-08 10:13] VITALS: BP 126/76; PULSE 79; RESP 14; TEMP 36.4; O2SAT 97; BMI 36.0
--- NOTE | 2022-06-08 11:10 | CT_ITS ---
STUDY: CT BRAIN WITHOUT CONTRAST REASON FOR EXAM: Female, 46 years old. Dizziness following head injury due to a fall. RADIATION DOSAGE (If Supplied By Facility): CTDIvol = ( 47.06 ) mGy, DLP = ( 890.33 ) mGycm TECHNIQUE: Transaxial CT imaging of the brain was performed without administration of intravenous contrast material. Individualized dose optimization techniques were used for this CT. COMPARISON: No relevant priors. FINDINGS: Normal soft tissue structures. Normal calvarium. Normal size ventricles and extra-axial spaces for the patient''s age. Normal white matter tracts of the cerebral hemispheres. Normal basal ganglia and thalami. Normal brainstem. Normal cerebellum. There is no intracranial hemorrhage. There are no findings of an acute ischemic infarction. Partial opacification of the maxillary sinuses bilaterally. CT/Brain/Head without Contrast IMPRESSION: Normal unenhanced CT scan of the brain. Partial opacification of the maxillary sinuses bilaterally. Electronically Signed: Beto Street MD at 12:12 EDT ,
[2022-06-08] MEDS: Ondansetron ODT 4 MG Tablet PO (11:28)
--- NOTE | 2022-06-08 11:55 | RAD_ITS ---
STUDY: X-RAY - CERVICAL SPINE REASON FOR EXAM: Female, 46 years old. Neck pain and dizziness following a fall. TECHNIQUE: 5 view(s) of the cervical spine were obtained including oblique views. COMPARISON: None FINDINGS: Normal anterior atlantoaxial articulation. Normal odontoid process. Normal cervical lordosis. Normal vertebral bodies and endplates. Normal disc space heights. Normal visualized intervertebral neuroforamina. The soft tissue structures are unremarkable. RAD/Cerv Spine 4 or 5 Views IMPRESSION: Normal x-ray examination of the visualized cervical spine. Electronically Signed: Beto Street MD at 12:25 EDT ,
[2022-06-08] MEDS: Acetaminophen 325 MG Tablet 650 MG PO (12:35)
--- NOTE | 2022-06-08 13:23 | EDS_ITS ---
HPI History of Present Illness Chief Complaint: Head Injury Informant: patient Narrative Narrative: Patient is a 46-year-old female with history of anxiety and depression presenting with head injury, nausea and light sensitivity. Patient states she slipped on some water in her kitchen yesterday falling backwards. She the back of her head on her laminate floor. She did not lose consciousness. She called her to help her out. She is been dizzy since. Today she has been having nausea, fatigue, headache, neck pain and photosensitivity. Denies any vision changes or blurred vision. She went to take her 3-year-old to urgent care and staff there was concern about the patient. Her came to take care of the child and patient came here to be evaluated. Patient is on any blood thinners. Denies any history of concussions or bleeding issues. Denies any prior head injuries. Denies any associated numbness or tingling. No other complaints at this time. Patient does note that since the fall she has had some nasal congestion. Denies any running of her nose. [facility] Medical History Anxiety Depression Home Medications albuterol sulfate 90 mcg/actuation aerosol inhaler (Ventolin HFA) 2 mcg inhalation Q4H PRN PRN Wheezing 07/04/15 [History Last Taken 05/29/18 09:00] cholecalciferol (vitamin D3) 125 mcg (5,000 unit) capsule 5,000 PO DAILY PRN anemia 07/04/15 [History Last Taken 07/30/18 09:00] Venlafaxine Xr [Effexor Xr] 75 mg PO DAILY Check with primary doctor 07/05/15 [History Last Taken 07/30/18 09:00] docusate sodium 100 mg capsule (DOK) 100 mg PO BID PRN Constipation ##60 07/07/15 [Rx Last Taken 07/30/18 09:00] Multi Tablet 1 tab PO DAILY Check with primary doctor 05/30/18 [History Last Taken 07/30/18 09:00] Symbicort 80-4.5 Mcg Inhaler 2 inhaler inhalation BID Check with primary doctor 07/31/18 [History Last Taken 07/30/18 21:00] cetirizine 10 mg tablet 10 mg PO DAILY Check with primary doctor 07/31/18 [History Last Taken 07/30/18 09:00] omeprazole 20 mg capsule,delayed release 20 mg PO DAILY acid reflux 07/31/18 [History Last Taken 07/30/18 09:00] omeprazole 40 mg capsule,delayed release 40 mg PO DAILY #30 caps 05/20/21 [Rx Last Taken Unknown] ondansetron 4 mg disintegrating tablet 4 mg PO Q6H PRN nausea and vomiting #10 tabs 05/20/21 [Rx Last Taken Unknown] sucralfate 1 gram tablet (Carafate) 1 g PO BID #60 tabs 05/20/21 [Rx Last Taken Unknown] ondansetron 4 mg disintegrating tablet 4 mg PO Q8H PRN PRN Nausea #15 tabs 06/08/22 [Rx Last Taken Unknown] Allergy/AdvReac Type Severity Reaction Status Date / Time morphine AdvReac Other Verified 06/08/22 10:14 Social History Smoking Status: Never smoker ROS ROS ED Constitutional Constitutional ED: Reports other Details: fatigue ; Denies chills or fever(s) Eyes Eyes: Denies blurry vision or change in vision ENT ENT ED: Reports other Details: nasal congestion ; Denies ear pain, rhinorrhea or sore throat Cardiovascular Cardiovascular: Denies chest pain Respiratory/Chest Respiratory/Chest: Denies cough or dyspnea Gastrointestinal Gastrointestinal: Reports nausea; Denies abdominal pain or vomiting Musculoskeletal Musculoskeletal: Reports neck pain; Denies arthralgias or myalgias Integumentary Denies rash Neurologic Neurologic: Reports headache(s); Denies paresthesias or weakness Psychiatric Psychiatric: Denies anxiety Hematologic/Lymphatic Hematologic/Lymphatic: Denies easy bleeding or easy bruising EXAM Physical Exam Const Vital Signs: 06/08/22 10:13 06/08/22 11:04 Temperature 97.5 F L Temperature Source Temporal Pulse Rate 79 Respiratory Rate 14 Respiratory Effort Normal Non-Labored Respiratory Depth Normal Respiratory Pattern Normal Blood Pressure 126/76 H Blood Pressure Mean 92 Pulse Ox 97 Oxygen Delivery Method Room Air Room Air Positive well nourished and well developed General Appearance ED: well developed and NAD HEENT Reports TM's clear HEENT Narrative: Tenderness palpation of the posterior scalp. No hemotympanum, raccoon eyes or other signs of basilar skull fracture atraumatic Tympanic Membrane ED: Yes TM's clear Eyes PERRL and EOMs intact bilaterally General Eye ED: Yes other Other Details: Mild photosensitivity on exam. Normal conjunctiva Neck full ROM Neck Narrative: Mild diffuse tenderness. No step-off sign. No specific midline tenderness. Chest Wall inspection of chest normal and palpation of chest normal Resp normal respiratory effort and clear to auscultation bilaterally Cardio regular rhythm and no murmurs Rate: regular rate Extremity normal to inspection and full ROM Neuro oriented x3, CN's II-XII intact bilaterally, moves all extremities and no focal motor deficits Rm Coma Scale: document GCS findings Spontaneous Obeys Commands Oriented 15 Sensorium / Orientation: alert Psych mental status grossly normal and thought process normal Skin no rashes or lesions noted and no wounds MDM MDM MDM Narrative Medical decision making narrative: Patient is evaluated after mechanical fall last night with a closed head injury to the back of her head. Given mechanism and symptomatology I did obtain a head CT as well as x-ray of the cervical spine. These are negative for any acute process. X-ray of the neck interpreted by myself as well as radiology. Suspect patient is a concussion. Patient is given Zofran and Tylenol in the ER. She is resting comfortably. She is improved on repeat evaluation. Is given concussion instructions. Will be given a prescription for Zofran as well as instructions to alternate ibuprofen and Tylenol for symptoms. Counseled on physical and mental rest. Encouraged follow-up with her primary care doctor. Patient verbalized agreement understand with this plan Radiography Diagnostic Testing: Clinical Impression(s) from Imaging Studies Brain CT 06/08/22 11:10 IMPRESSION: Normal unenhanced CT scan of the brain. Partial opacification of the maxillary sinuses bilaterally. Electronically Signed: Beto Street MD at 12:12 EDT , Cervical Spine X-Ray 06/08/22 11:55 IMPRESSION: Normal x-ray examination of the visualized cervical spine. Electronically Signed: Beto Street MD at 12:25 EDT , Discharge Plan Triage Chief Complaint: Head Injury ED Provider: Sherie Mak Dx/Rx/DC Orders Clinical Impression: Closed head injury, Concussion, Nausea Instructions: ED Concussion, ED Head Injury (Adult) Prescriptions: New ondansetron 4 mg tablet,disintegrating 4 mg PO Q8H PRN PRN (Reason: Nausea) Qty: 15 0RF No Action albuterol sulfate [Ventolin HFA] 1 INHALER inhaler 2 mcg inhalation Q4H PRN PRN (Reason: Wheezing) cholecalciferol (vitamin D3) 5,000 UNIT capsule 5,000 PO DAILY PRN (Reason: anemia) Venlafaxine Xr [Effexor Xr] 75 MG capsule 75 mg PO DAILY docusate sodium [DOK] 100 MG capsule 100 mg PO BID PRN (Reason: Constipation) Qty: 60 0RF omeprazole 20 MG capsule 20 mg PO DAILY cetirizine 10 MG tablet 10 mg PO DAILY Symbicort 80-4.5 Mcg Inhaler 2 inhaler inhalation BID Multi Tablet 1 tab PO DAILY sucralfate [Carafate] 1 gram tablet 1 g PO BID Qty: 60 0RF omeprazole 40 mg capsule,delayed release(DR/EC) 40 mg PO DAILY Qty: 30 0RF ondansetron 4 mg tablet,disintegrating 4 mg PO Q6H PRN (Reason: nausea and vomiting) Qty: 10 0RF Primary Care Provider: Reji Vazquez Referrals: Reji Vazquez DO [Primary Care Provider] - Activity Restrictions/Additional Instructions: Your CT did not show any signs of bleeding around brain, skull fracture or other more severe process. It did show some nasal congestion consistent with a sinusitis. You can try taking Zyrtec for this if you not already or adding Flonase. I suspect you have a concussion. Your x-ray of your neck did not show any acute fracture or abnormalities. Alternate ibuprofen and Tylenol for symptoms. You been given a prescription for nausea. Practice physical and mental rest until you are feeling better. Disposition Disposition: Home, Self Care Discharge Date/Time: 06/08/22 13:44
== END 2022-06-08 13:44 | disposition home or self-care (01) ==
PROVIDERS: Emergency Provider Emergency Medicine; PCP Student in an Organized Health Care Education/Training Program; Visit Provider Emergency Medicine
DX: S06.0X0A Concussion without loss of consciousness, initial encounter (principal); R11.0 Nausea; W19.XXXA Unspecified fall, initial encounter
CPT/HCPCS: 70450; 72050; 99283

== ENCOUNTER 2023-02-02 14:50 | Emergency (ER) | payer OTHER, SELFPAY ==
[2023-02-02 14:51] VITALS: BP 102/84; PULSE 85; RESP 14; TEMP 37.2; O2SAT 98; BMI 38.9
--- NOTE | 2023-02-02 15:33 | EDS_ITS ---
HPI <WILFRED Romero - Last Filed: 02/02/23 16:57> History of Present Illness Chief Complaint: Shortness of Breath Narrative Narrative: 47-year-old female says she has PMH of asthma and COVID long-hauler syndrome and presents with 3 weeks of sore throat and cough. A week and a half ago her son tested positive for RSV. About a week ago she went to urgent care and they told her she probably had a viral illness/RSV and prescribed steroids and an antibiotic. She finished the steroids and has another day of antibiotic to finish. She states she still has a sore throat and is exhausted from coughing. She feels short of breath. She is on an albuterol and steroid inhaler at baseline. She does not smoke. She also was treated for UTI 3 weeks ago but feels like she still has urgency causing incontinence. No abdominal or flank pain. PFSH <WILFRED Romero - Last Filed: 02/02/23 16:57> COUNT INCLUDES THE [facility] Medical History Anxiety Depression Home Medications albuterol sulfate 90 mcg/actuation aerosol inhaler (Ventolin HFA) 2 mcg inhalation Q4H PRN PRN Wheezing 07/04/15 [History Last Taken 05/29/18 09:00] cholecalciferol (vitamin D3) 125 mcg (5,000 unit) capsule 5,000 PO DAILY PRN anemia 07/04/15 [History Last Taken 07/30/18 09:00] Venlafaxine Xr [Effexor Xr] 75 mg PO DAILY Check with primary doctor 07/05/15 [History Last Taken 07/30/18 09:00] docusate sodium 100 mg capsule (DOK) 100 mg PO BID PRN Constipation ##60 07/07/15 [Rx Last Taken 07/30/18 09:00] Multi Tablet 1 tab PO DAILY Check with primary doctor 05/30/18 [History Last Taken 07/30/18 09:00] Symbicort 80-4.5 Mcg Inhaler 2 inhaler inhalation BID Check with primary doctor 07/31/18 [History Last Taken 07/30/18 21:00] cetirizine 10 mg tablet 10 mg PO DAILY Check with primary doctor 06/24/19 [History Last Taken 07/30/18 09:00] omeprazole 20 mg capsule,delayed release 20 mg PO DAILY acid reflux 07/31/18 [History Last Taken 07/30/18 09:00] omeprazole 40 mg capsule,delayed release 40 mg PO DAILY #30 caps 05/20/21 [Rx Last Taken Unknown] ondansetron 4 mg disintegrating tablet 4 mg PO Q6H PRN nausea and vomiting #10 tabs 05/20/21 [Rx Last Taken Unknown] sucralfate 1 gram tablet (Carafate) 1 g PO BID #60 tabs 05/20/21 [Rx Last Taken Unknown] ondansetron 4 mg disintegrating tablet 4 mg PO Q8H PRN PRN Nausea #15 tabs 06/08/22 [Rx Last Taken Unknown] albuterol sulfate 1.25 mg/3 mL solution for nebulization 1.25 mg (3 mL) inhalation Q4H PRN shortness of breath or wheezing #75 mL 02/02/23 [Rx Last Taken Unknown] Allergy/AdvReac Type Severity Reaction Status Date / Time morphine AdvReac Other Verified 02/02/23 14:51 Social History Smoking Status: Never smoker ROS <WILFRED Romero - Last Filed: 02/02/23 16:57> ROS ED ROS Narrative Constitutional: Negative for fever, chills, malaise. CVS: Negative for palpitations, chest pain, syncope. Respiratory: Positive for shortness of breath, cough. GI: Negative for abdominal pain, nausea, vomiting, diarrhea, constipation, melena, hematochezia. : Negative for dysuria, hematuria. EXAM <WILFRED Romero - Last Filed: 02/02/23 16:57> Physical Exam Narrative Exam Narrative: CONST: Patient sitting in no acute distress. EYES: Normal inspection. ENT: Normal inspection, moist mucous membranes. NECK: Normal inspection. RESP: No respiratory distress, CTAB. CVS: Regular rate and rhythm, no murmur, no gallop. SKIN: Color normal, no rash, warm, dry, intact. EXTREMITIES: Normal appearance, no pedal edema. NEURO: Oriented x4. PSYCH: Normal affect. Const Vital Signs: 02/02/23 14:51 02/02/23 16:42 Temperature 98.9 F Temperature Source Temporal Pulse Rate 85 Respiratory Rate 14 Respiratory Effort Normal Non-Labored Respiratory Depth Normal Respiratory Pattern Normal Blood Pressure 102/84 H Blood Pressure Mean 90 Pulse Ox 98 Oxygen Delivery Method Room Air Room Air <Dr. Cole Saenz MD - Last Filed: 02/02/23 16:21> Physical Exam Const Vital Signs: 02/02/23 14:51 02/02/23 16:42 Temperature 98.9 F Temperature Source Temporal Pulse Rate 85 Respiratory Rate 14 Respiratory Effort Normal Non-Labored Respiratory Depth Normal Respiratory Pattern Normal Blood Pressure 102/84 H Blood Pressure Mean 90 Pulse Ox 98 Oxygen Delivery Method Room Air Room Air MDM <WILFRED Romero - Last Filed: 02/02/23 16:57> [facility] Narrative Medical decision making narrative: Patient has had 2 to 3 weeks of URI symptoms along with asthma symptoms and chest tightness. She has been exposed to RSV. She already completed prednisone and cefdinir from urgent care. She presents because the symptoms have persisted. She appears well and nontoxic. Afebrile with normal vital signs. She has normal heart and lung sounds. CXR shows no acute process. With 3 weeks of symptoms I do not think she needs viral testing as it would not exchange teller. She also complained of urinary urgency so UA was checked. It is contaminated so was sent for culture. I refilled her albuterol nebulizer medication. She also has a rescue and steroid inhaler at home. I discussed symptomatic care and she was discharged in stable condition. Differential: Viral URI, pneumonia, asthma exacerbation Lab Data Attestation: I reviewed the patient's lab results. Labs: Laboratory Results - last 24 hr 02/02/23 15:40 Urine Color Yellow Urine Clarity Cloudy Urine pH 6.0 Ur Specific [place] 1.020 Urine Protein 30 H Urine Glucose (UA) Normal Urine Ketones Negative Urine Occult Blood Negative Urine Nitrite Negative Urine Bilirubin Negative Urine Urobilinogen Normal Ur Leukocyte Esterase 25 H Urine RBC 0 SEEN Urine WBC 0 SEEN Ur Squamous Epith Cells 10-25 SEEN Urine Bacteria 1+ Urine Mucus 0 SEEN Radiography Diagnostic Testing: Clinical Impression(s) from Imaging Studies Chest X-Ray 02/02/23 15:35 IMPRESSION: No radiographic evidence of acute cardiopulmonary disease. Electronically Signed: Sherman Colbert MD at 16:12 EST , ED attending interpretation of 2-view chest x-ray shows normal heart size, no acute infiltrate, edema, or effusion. <Dr. Cole Saenz MD - Last Filed: 02/02/23 16:21> [facility] Lab Data Labs: Laboratory Results - last 24 hr 02/02/23 15:40 Urine Color Yellow Urine Clarity Cloudy Urine pH 6.0 Ur Specific [place] 1.020 Urine Protein 30 H Urine Glucose (UA) Normal Urine Ketones Negative Urine Occult Blood Negative Urine Nitrite Negative Urine Bilirubin Negative Urine Urobilinogen Normal Ur Leukocyte Esterase 25 H Urine RBC 0 SEEN Urine WBC 0 SEEN Ur Squamous Epith Cells 10-25 SEEN Urine Bacteria 1+ Urine Mucus 0 SEEN Radiography Diagnostic Testing: Clinical Impression(s) from Imaging Studies Chest X-Ray 02/02/23 15:35 IMPRESSION: No radiographic evidence of acute cardiopulmonary disease. Electronically Signed: Sherman Colbert MD at 16:12 EST , Treatment and Re-Evaluation Comments:: I have personally performed a face to face assessment of the patient and have reviewed the SOLA Note. I performed a substantive portion of the visit including all aspects of the following. My webb findings include: History is URI symptoms along with asthma symptoms and chest tightness for 2 to 3 weeks. Was exposed to RSV. Discussed this with urgent care who put her on cefdinir which she is completing today, and prednisone 40 mg for 5 days which she completed yesterday. Initially steroids seem to help but now still having tightness. Exam is clear to auscultation throughout, speaking full sentences, heart regular no tachycardia, no hypoxemia, no cardiac murmur, no pedal edema or calf tenderness. Medical Decison Making lungs are clear, pulse ox 90%, chest x-ray 2 views of my interpretation negative for any acute, radiology in agreement. Her PERC score is 0 we do not need to evaluate her further with testing in order to rule out pulmonary embolus. I do not think we need to extend her steroids, but I do think she has a viral etiology of her illness, given that she has had illness for 2 to 3 weeks I do not think further testing is indicated at this time, she is concerned that she is not getting better but she probably has a viral illness which is why the antibiotics did not cure her. We are going to refill her albuterol vials for her machine at home Other additions or changes: [None] Discharge Plan Triage Chief Complaint: Shortness of Breath ED Midlevel Provider: Wanda Hebert ED Provider: Cole Saenz Dx/Rx/DC Orders Clinical Impression: Upper respiratory infection, History of asthma Instructions: Adult Self-Care for Colds, ED Asthma, Acute (Adult) Prescriptions: New albuterol sulfate 1.25 mg/3 mL solution for nebulization 1.25 mg inhalation Q4H PRN (Reason: shortness of breath or wheezing) Qty: 75 0RF No Action albuterol sulfate [Ventolin HFA] 1 INHALER inhaler 2 mcg inhalation Q4H PRN PRN (Reason: Wheezing) cholecalciferol (vitamin D3) 5,000 UNIT capsule 5,000 PO DAILY PRN (Reason: anemia) Venlafaxine Xr [Effexor Xr] 75 MG capsule 75 mg PO DAILY docusate sodium [DOK] 100 MG capsule 100 mg PO BID PRN (Reason: Constipation) Qty: 60 0RF omeprazole 20 MG capsule 20 mg PO DAILY cetirizine 10 MG tablet 10 mg PO DAILY Symbicort 80-4.5 Mcg Inhaler 2 inhaler inhalation BID Multi Tablet 1 tab PO DAILY sucralfate [Carafate] 1 gram tablet 1 g PO BID Qty: 60 0RF omeprazole 40 mg capsule,delayed release(DR/EC) 40 mg PO DAILY Qty: 30 0RF ondansetron 4 mg tablet,disintegrating 4 mg PO Q6H PRN (Reason: nausea and vomiting) Qty: 10 0RF ondansetron 4 mg tablet,disintegrating 4 mg PO Q8H PRN PRN (Reason: Nausea) Qty: 15 0RF Primary Care Provider: Reji Vazquez Referrals: Reji Vazquez DO [Primary Care Provider] - Activity Restrictions/Additional Instructions: I suspect you have a viral illness. Chest x-ray showed no sign of pneumonia. I refilled albuterol solution for your nebulizer which she can use as needed for wheezing or shortness of breath. Please follow-up with your primary care doctor if not improving. Disposition Disposition: Home, Self Care
--- NOTE | 2023-02-02 15:35 | RAD_ITS ---
INDICATION: Cough and dyspnea EXAMINATION/TECHNIQUE: X-RAY - XR Chest 2 Views COMPARISON: 03/16/2013 FINDINGS: LINES/DEVICES: None. LUNGS: No consolidation, edema or effusion. No pneumothorax. MEDIASTINUM AND CARDIOVASCULAR STRUCTURES: Cardiac silhouette not enlarged. Central airways and mediastinal contour are unremarkable. BONES AND SOFT TISSUES: Unremarkable. RAD/Chest PA and Lateral IMPRESSION: No radiographic evidence of acute cardiopulmonary disease. Electronically Signed: Sherman Colbert MD at 16:12 EST ,
[2023-02-02] MEDS: Ondansetron ODT 4 MG Tablet PO (15:36)
[2023-02-02 15:46] LABS: Mucous, Urine 0 SEEN /hpf (<or=2+); Red Blood Cells-Urine 0 SEEN /hpf (0-5); White Blood Cells 0 SEEN /hpf (0-5)
[2023-02-02 16:17] LABS: Color, Urine Yellow (Yellow); Glucose, Dipstick Normal (Normal); Ketone-Dipstick Negative (Negative); Leukocyte Esterase-Dipstick 25 /ul (Negative); Nitrite-Dipstick Negative (Negative); Occult Blood-Urine Negative /ul (Negative); Protein-Dipstick 30 mg/dl (Negative); Urine Bilirubin Dipstick Negative (Negative); Urine Clarity Cloudy (Clear); Urine Urobilinogen Normal (Normal)
[2023-02-02 16:39] LABS: Bacteria 1+ /hpf (None Seen); Squamous Epithelial Cells - UA 10-25 SEEN /hpf (5-10)
[2023-02-02 16:40] VITALS: O2SAT 92
[2023-02-02 16:51] VITALS: RESP 16
== END 2023-02-02 17:01 | disposition home or self-care (01) ==
PROVIDERS: Physician Assistant; Emergency Provider Emergency Medicine; PCP Student in an Organized Health Care Education/Training Program; Visit Provider Emergency Medicine
DX: J06.9 Acute upper respiratory infection, unspecified (principal); J45.909 Unspecified asthma, uncomplicated; R39.15 Urgency of urination; Z86.16 Personal history of COVID-19
CPT/HCPCS: 71046; 81001; 87086; 87088; 99282